=== PATIENT | male | born 1950 | race Caucasian/White ===

== ENCOUNTER 2024-01-28 14:26 | Inpatient (IN) | payer MEDICARE, OTHER, SELFPAY ==
[2024-01-28] VITALS (14 sets, daily range): BP systolic 101–139; BP diastolic 56–80; BMI 33.9
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
[2024-01-28] MEDS: DUONEB 3 ML INH ×3 (11:17→20:32)
[2024-01-28 11:18] LABS: % Basophils 0.4 % (0-2); % Eosinophils 0.8 % (0-6); % Immature Granulocytes 0.4 % (0-0.5); % Lymphocytes 8.4 % (20.5-51.1); % Monocytes 5.7 % (1.7-9.3); % Neutrophils 84.3 % (42.2-75.2); Absolute Eosinophils 0.1 10^3/uL (0-0.7); Absolute Lymphocytes 0.9 10^3/uL (1.2-3.4); Absolute Monocytes 0.6 10^3/uL (0.1-0.6); Absolute Neutrophils 8.5 10^3/uL (1.4-6.5); Hematocrit 44.4 % (39.0-52.0); Mean Corp Hgb Conc. 33.8 g/dL (33.0-37.0); Mean Corpuscular Hgb 30.5 pg (27.0-31.0); Mean Corpuscular Volume 90.2 fL (80.0-94.0); Mean Platelet Volume 9.1 fL (7.4-10.4); Nucleated Red Blood Cells % 0 % (-); Platelet Count 240 10^3/uL (130-400); Red Blood Cell Count 4.92 10^6/uL (4.70-6.10); Red Cell Dist. Width 14.3 % (11.5-14.5); White Blood Cell Count 10.1 10^3/uL (4.8-10.8)
[2024-01-28 11:30] LABS: ALT (SGPT) < 10 U/L (0-50); AST (SGOT) 27 U/L (17-59); Albumin 4.9 g/dl (3.5-5.0); Alkaline Phosphatase 73 U/L (38-126); Blood Urea Nitrogen 21 mg/dl (9-20); Calcium 9.7 mg/dl (8.4-10.2); Carbon Dioxide 26 mmol/L (22-30); Chloride 105 mmol/L (98-107); Estimated Creatinine Clearance 79 ml/min; Glucose 100 mg/dl (70-99); Potassium 4.5 mmol/L (3.5-5.1); Sodium 142 mmol/L (135-145); Total Bilirubin 0.8 mg/dl (0.2-1.3); Total Protein 7.9 g/dl (6.3-8.2); eGFR > 60.00
[2024-01-28 11:39] LABS: NT-proBNP 54.3 pg/ml
[2024-01-28 11:43] LABS: COVID-19 Antigen Negative (Negative)
[2024-01-28] MEDS: TYLENOL 650 MG PO ×2 (12:28→16:53)
[2024-01-28 12:43] LABS: Urine Albumin Negative (Neg - Trace); Urine Bilirubin Negative (Negative); Urine Character Clear (Clear); Urine Color Yellow; Urine Glucose Negative (Negative); Urine Ketone Negative (Negative); Urine Leukocyte Trace (Negative); Urine Nitrite Negative (Negative); Urine Occult Blood Negative (Negative); Urine Urobilinogen Negative (Neg - 1+); Urine pH 6.5 (5.0-9.0)
[2024-01-28 12:46] LABS: Lactic Acid 1.4 mmol/L (0.7-2.0)
[2024-01-28] MEDS: NSS 1000 IV (12:54)
[2024-01-28] MEDS: ROCEPHIN 1000 MG IV (12:58)
[2024-01-28 13:11] LABS: Urine Mucus Few; Urine Squamous Cell >30 /LPF (Few)
[2024-01-28 13:14] LABS: Urine Bacteria Few (Negative)
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
[2024-01-28] MEDS: ZITHROMAX INFUSION 250 IV (13:37)
--- NOTE | 2024-01-28 15:55 | PTCARENOTE ---
01/27- Patient transferred and oriented to unit without issue. AAOX3, productive cough with thin yellow sputum currently observed; Lungs diminished with coarse bases, with rub and stridor auscultated at R-base. Patient is able to stand and pivot
to bed at this time but gets easily STEVE. BL LE are +2 pitting edema with erythema and warm to touch. Currently mildly febrile at 99.7. Warm blanket given. Awaiting Pharmacy Verification of medication then will administer any PRN cough medicine
and tylenol as ordered. MRSA swab completed.
[2024-01-28] MEDS: NSS 500 IV (16:50)
[2024-01-28] MEDS: FLAGYL 500 MG 100 IV ×2 (16:51→23:24)
[2024-01-28] MEDS: LOVENOX 40 MG SC (16:52)
[2024-01-28] MEDS: SINEMET 25-100 1.5 TABLET PO ×2 (17:38→22:17)
[2024-01-28] MEDS: COMTAN 200 MG PO ×2 (17:41→22:18)
[2024-01-29] VITALS (8 sets, daily range): BP systolic 99–120; BP diastolic 56–76; PULSE 66–98; O2SAT 93; BMI 31.4
[2024-01-29] MEDS: TYLENOL 650 MG PO (00:59)
[2024-01-29] MEDS: FLAGYL 500 MG 100 IV (08:06)
[2024-01-29] MEDS: SINEMET 25-100 1.5 TABLET PO ×4 (08:08→22:10)
[2024-01-29] MEDS: MIRALAX 8.5 GRAMS PO (08:08)
[2024-01-29] MEDS: ASPIR LOW (ENTERIC COATED) 81 MG PO (08:08)
[2024-01-29] MEDS: COMTAN 200 MG PO (08:08)
[2024-01-29] MEDS: PROTONIX 40 MG PO (08:08)
[2024-01-29] MEDS: COLACE 100 MG PO (08:08)
[2024-01-29 08:50] LABS: % Basophils 0.5 % (0-2); % Eosinophils 0.7 % (0-6); % Immature Granulocytes 0.2 % (0-0.5); % Lymphocytes 10.5 % (20.5-51.1); % Monocytes 9.3 % (1.7-9.3); % Neutrophils 78.8 % (42.2-75.2); Absolute Lymphocytes 0.6 10^3/uL (1.2-3.4); Absolute Monocytes 0.6 10^3/uL (0.1-0.6); Absolute Neutrophils 4.7 10^3/uL (1.4-6.5); Hematocrit 34.4 % (39.0-52.0); Hemoglobin 11.9 g/dL (13.0-18.0); Mean Corp Hgb Conc. 34.6 g/dL (33.0-37.0); Mean Corpuscular Hgb 30.3 pg (27.0-31.0); Mean Corpuscular Volume 87.5 fL (80.0-94.0); Nucleated Red Blood Cells % 0 % (-); Platelet Count 191 10^3/uL (130-400); Red Blood Cell Count 3.93 10^6/uL (4.70-6.10); Red Cell Dist. Width 14.6 % (11.5-14.5); White Blood Cell Count 5.9 10^3/uL (4.8-10.8)
[2024-01-29 09:00] LABS: ALT (SGPT) < 10 U/L (0-50); AST (SGOT) 28 U/L (17-59); Albumin 3.5 g/dl (3.5-5.0); Alkaline Phosphatase 51 U/L (38-126); Blood Urea Nitrogen 15 mg/dl (9-20); Calcium 8.4 mg/dl (8.4-10.2); Carbon Dioxide 24 mmol/L (22-30); Chloride 105 mmol/L (98-107); Estimated Creatinine Clearance 86 ml/min; Glucose 95 mg/dl (70-99); HDL Cholesterol 30 mg/dl; LDL Cholesterol, Calculated 113 mg/dl; Potassium 4.2 mmol/L (3.5-5.1); Sodium 138 mmol/L (135-145); Total Bilirubin 0.8 mg/dl (0.2-1.3); Total Cholesterol 158 mg/dl (50-199); Triglyceride 75 mg/dl (10-149); Very Low Density Lipoprotein 15 mg/dl (0-30); eGFR > 60.00
[2024-01-29] MEDS: COMTAN PO (11:39)
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
[2024-01-29] MEDS: ROCEPHIN 1000 MG IV (12:23)
[2024-01-29] MEDS: STERILE WATER FOR INJECTION 10 ML IV (12:23)
--- NOTE | 2024-01-29 12:56 | PTOTSP ---
ST Dysphagia Eval
Mild/functional dysphagia
Pt received awake/alert with spouse present at the bedside. HOB raised upright for PO trials of puree, regular solids and thin liquids. Self fed regular solids demo mildly prolonged yet effective mastication benefits from added moisture and liquid
wash. Thin liquids by straw sip no overt s/sx of aspiration observed. Vocal quality remained clear throughout trials.
Per spouse report eats 'normal' diet at home occasional cough when he eats/drinks too quickly. Education re: swallow strategies below.
Recommend
1. Regular solids/thin liquids
2. Standard aspiration precautions and meal set up assist
3. Small bites, small/single sips and slow rate
4. Meds per pt preference and RN discretion
5. No further acute TOWER ERECTOR needs
[2024-01-29] MEDS: DUONEB 3 ML INH (13:01)
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
[2024-01-29] MEDS: LOVENOX 40 MG SC (17:13)
[2024-01-30 03:50] VITALS: BP 121/67
[2024-01-30 06:00] VITALS: BMI 32.0
[2024-01-30 07:06] VITALS: BP 122/69
[2024-01-30] MEDS: SINEMET 25-100 1.5 TABLET PO ×4 (07:31→20:42)
[2024-01-30] MEDS: PROTONIX 40 MG PO (07:31)
[2024-01-30] MEDS: ASPIR LOW (ENTERIC COATED) 81 MG PO (07:31)
[2024-01-30] MEDS: MIRALAX 8.5 GRAMS PO (07:31)
[2024-01-30] MEDS: COLACE 100 MG PO (07:31)
[2024-01-30 08:25] LABS: % Basophils 0.7 % (0-2); % Eosinophils 5.8 % (0-6); % Immature Granulocytes 0.4 % (0-0.5); % Monocytes 12.5 % (1.7-9.3); % Neutrophils 63.6 % (42.2-75.2); Absolute Eosinophils 0.3 10^3/uL (0-0.7); Absolute Lymphocytes 0.9 10^3/uL (1.2-3.4); Absolute Monocytes 0.7 10^3/uL (0.1-0.6); Absolute Neutrophils 3.4 10^3/uL (1.4-6.5); Hematocrit 35.9 % (39.0-52.0); Hemoglobin 12.5 g/dL (13.0-18.0); Mean Corp Hgb Conc. 34.8 g/dL (33.0-37.0); Mean Corpuscular Hgb 30.3 pg (27.0-31.0); Mean Corpuscular Volume 87.1 fL (80.0-94.0); Mean Platelet Volume 10.8 fL (7.4-10.4); Nucleated Red Blood Cells % 0 % (-); Platelet Count 191 10^3/uL (130-400); Red Blood Cell Count 4.12 10^6/uL (4.70-6.10); Red Cell Dist. Width 14.6 % (11.5-14.5); White Blood Cell Count 5.4 10^3/uL (4.8-10.8)
[2024-01-30 08:43] LABS: ALT (SGPT) < 10 U/L (0-50); AST (SGOT) 33 U/L (17-59); Albumin 3.7 g/dl (3.5-5.0); Alkaline Phosphatase 56 U/L (38-126); Blood Urea Nitrogen 15 mg/dl (9-20); Calcium 8.7 mg/dl (8.4-10.2); Carbon Dioxide 22 mmol/L (22-30); Chloride 106 mmol/L (98-107); Estimated Creatinine Clearance 77 ml/min; Glucose 86 mg/dl (70-99); Potassium 4.4 mmol/L (3.5-5.1); Sodium 138 mmol/L (135-145); Total Bilirubin 0.6 mg/dl (0.2-1.3); Total Protein 6.3 g/dl (6.3-8.2); eGFR > 60.00
[2024-01-30 11:06] VITALS: BP 125/62
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
[2024-01-30] MEDS: OMNICEF 300 MG PO ×2 (12:36→20:42)
[2024-01-30 15:33] VITALS: BP 131/64
[2024-01-30 15:50] LABS: Urine Albumin Negative (Neg - Trace); Urine Bilirubin Negative (Negative); Urine Character Clear (Clear); Urine Color Yellow; Urine Glucose Negative (Negative); Urine Ketone Trace (Negative); Urine Leukocyte Trace (Negative); Urine Nitrite Negative (Negative); Urine Occult Blood Negative (Negative); Urine Urobilinogen Negative (Neg - 1+)
[2024-01-30 16:03] LABS: Urine Bacteria Few (Negative); Urine Squamous Cell 16-20 /LPF (Few)
[2024-01-30 16:04] LABS: Urine Red Blood Cell 0-2 /HPF (0-2)
[2024-01-30] MEDS: DULCOLAX 10 MG PO (16:36)
[2024-01-30] MEDS: LOVENOX 40 MG SC (17:22)
[2024-01-30 19:05] VITALS: BP 109/66
[2024-01-30] MEDS: TYLENOL 650 MG PO (20:42)
[2024-01-30 23:09] VITALS: BP 120/68
[2024-01-31 03:05] VITALS: BP 111/67
[2024-01-31 06:00] VITALS: BMI 32.3
[2024-01-31 06:47] LABS: % Basophils 0.4 % (0-2); % Immature Granulocytes 0.4 % (0-0.5); % Lymphocytes 20.3 % (20.5-51.1); % Monocytes 11.6 % (1.7-9.3); % Neutrophils 59.3 % (42.2-75.2); Absolute Eosinophils 0.4 10^3/uL (0-0.7); Absolute Lymphocytes 0.9 10^3/uL (1.2-3.4); Absolute Monocytes 0.5 10^3/uL (0.1-0.6); Absolute Neutrophils 2.7 10^3/uL (1.4-6.5); Hematocrit 34.7 % (39.0-52.0); Hemoglobin 12.1 g/dL (13.0-18.0); Mean Corp Hgb Conc. 34.9 g/dL (33.0-37.0); Mean Corpuscular Hgb 30.5 pg (27.0-31.0); Mean Corpuscular Volume 87.4 fL (80.0-94.0); Mean Platelet Volume 9.6 fL (7.4-10.4); Nucleated Red Blood Cells % 0 % (-); Platelet Count 197 10^3/uL (130-400); Red Blood Cell Count 3.97 10^6/uL (4.70-6.10); Red Cell Dist. Width 14.6 % (11.5-14.5); White Blood Cell Count 4.5 10^3/uL (4.8-10.8)
[2024-01-31 07:00] VITALS: BP 112/57
[2024-01-31 07:20] LABS: ALT (SGPT) < 10 U/L (0-50); AST (SGOT) 29 U/L (17-59); Albumin 3.6 g/dl (3.5-5.0); Alkaline Phosphatase 55 U/L (38-126); Blood Urea Nitrogen 18 mg/dl (9-20); Carbon Dioxide 26 mmol/L (22-30); Chloride 106 mmol/L (98-107); Estimated Creatinine Clearance 87 ml/min; Glucose 93 mg/dl (70-99); Potassium 4.3 mmol/L (3.5-5.1); Sodium 141 mmol/L (135-145); Total Bilirubin 0.5 mg/dl (0.2-1.3); Total Protein 6.1 g/dl (6.3-8.2); eGFR > 60.00
[2024-01-31] MEDS: SINEMET 25-100 1.5 TABLET PO ×4 (07:41→21:09)
[2024-01-31] MEDS: OMNICEF 300 MG PO ×2 (07:42→19:45)
[2024-01-31] MEDS: PROTONIX 40 MG PO (07:42)
[2024-01-31] MEDS: MIRALAX 8.5 GRAMS PO (07:42)
[2024-01-31] MEDS: ASPIR LOW (ENTERIC COATED) 81 MG PO (07:42)
[2024-01-31] MEDS: COLACE 100 MG PO (07:42)
--- NOTE | 2024-01-31 09:09 | W.PN.HOSP.TC ---
Today's Communication/Plan
-
Pulmonary evaluation
Might need video swallow to rule out silent aspiration
Assessment / Plan
Assessment / Plan
Physical Exam
General: Conversant, No Pain or Chills
HEENT: Normocephalic, Anicteric, Moist mucous membranes, PERRLA, [place] Conjunctivae, No Ptosis, Deaf (Chronic right ear deafness, left ear hearing impaired has hearing aid present), Neck Nontender and Oxygen (91% RA will place on supplemental O2)
Respiratory: Clear and Other (Poor inspiratory effort mostly at bases ).
Cardiac: S1/S2, Regular Rhythm and Peripheral Edema (+2 nonpitting); No Murmur, Rub, Gallop or JVD
GI: Soft, Non Tender, Non Distended, Normal Bowel Sounds and No Hepatosplenomegaly
Genito-urinary: No hematuria
Musculoskeletal: No Clubbing, No Cyanosis, Edema, Left Lower Extremity (+2 nonpitting- erythema, mild tenderness, ). Right Lower Extremity (+2 nonpitting edema )
Skin: Warm and Dry; No Rash
Neuro: Awake, answered questions, alert to self and surroundings.
Psych: Calm
#Wheezing
Cough
He complains of spells of cough and wheezes. Possible intermittent aspiration? Vs underlying ILD, reactive airways disease
No hx of lung disease per pt
Echo and Pro-BNP not c/w CHF
Limited air entry on exam.
Per pulmonary evaluation in 2022, ( pre-op before knee surgery ) Patient developed mild restrictive lung disease which was likely related to neuromuscular weakness associated with his Parkinson's disease.
Will consult pulmonary, input appreciated
# LL leg cellulitis
c/w oral ABx
#Bilateral leg edema
-bnp negative
-Check 2D echo: EF 55% no sig change
#Recurrent UTIs-Hx Proteus Mirabella's UTI January 2023, Ecoli 08/2022
#Recurrent bacterial prostatitis
#Recurrent bacterial prostatitis,
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
-repeat UA showed mild bacteria, and trace leukocytes.
-Monitored urine output with bladder scans
#Coronary artery disease with stent 09/2015
-Continue aspirin 81 mg daily
-Follows at [facility] cardiology
2D echo 12/11/2019: EF 60 to 65%, no wall abnormalities mild TR
-Check 2D echo: EF 55% no sig change
#Parkinson's disease/status post deep brain stimulator in place 2005, battery changed 2012
#Chronic ambulatory dysfunction uses wheelchair most the time to do above
-Continue carbidopa levodopa before meals and at bedtime
-PT/OT consulted, recommended SNF
-speech eval, might need vidow swallow
#HLD
-No current meds reported
#GERD,PUD
Hx upper GI bleed in past
-Continue Protonix 40 mg daily
#Chronic constipation
-Continue MiraLAX 8.5 g p.o. daily, Colace 100 mg daily
#Osteoarthritis
#Bilateral hip and knee replacements including rotator cuff repairs
#Hearing impairment bilaterally
-Deaf right ear, hearing aid left ear
Other PMH:
Status post cataract surgery.
Status post umbilical hernia repair with mesh.
DVT prophylaxis
Subcu Lovenox
DNR per patient
Total time spent to see the patient, examine the patient on the floor, review data and lab results, discuss the treatment plan with the patient, on phone, nursing staff around 55 minutes
Anticipated Discharge: 24 - 48 hours
Subjective/Interval History
-
Date of Service: January 31, 2024
No abd pain
No chest pain
Complains of wheezes and cough
Objective Data
-
Labs:
Laboratory Results
01/31/24
06:02
WBC 4.5 L
Hgb 12.1 L
Hct 34.7 L
Plt Count 197
Sodium 141
Potassium 4.3
Chloride 106
Carbon Dioxide 26
BUN 18
Creatinine 0.8
Glucose 93
Calcium 9.0
Total Bilirubin 0.5
AST 29
ALT < 10
Alkaline Phosphatase 55
Vital Signs:
Vital Signs
Temp Pulse Resp BP Pulse Ox
98.2 F 65 18 112/57 95
01/31/24 07:00 01/31/24 07:00 01/31/24 07:00 01/31/24 07:00 01/31/24 08:00
I&O
01/30/24 01/31/24 02/01/24
06:59 06:59 06:59
Intake Total 2009 1120 / 1120
Output Total 1375 / 1375 1225 / 1225
Balance 635 / 635 -105 / -105
[2024-01-31 11:00] VITALS: BP 101/64
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
[2024-01-31 15:00] VITALS: BP 114/61
[2024-01-31] MEDS: DELTASONE 30 MG PO (15:48)
[2024-01-31] MEDS: CLARITIN 10 MG PO (15:49)
[2024-01-31] MEDS: LOVENOX 40 MG SC (17:21)
[2024-01-31 19:10] VITALS: BP 134/64
[2024-01-31 23:15] VITALS: BP 117/68
[2024-02-01] VITALS (7 sets, daily range): BP systolic 121–138; BP diastolic 68–73; PULSE 62; O2SAT 95–97; BMI 32.2
[2024-02-01] MEDS: MIRALAX 8.5 GRAMS PO (08:45)
[2024-02-01] MEDS: SINEMET 25-100 1.5 TABLET PO ×4 (08:46→21:16)
[2024-02-01] MEDS: CLARITIN 10 MG PO (08:46)
[2024-02-01] MEDS: PROTONIX 40 MG PO (08:46)
[2024-02-01] MEDS: ASPIR LOW (ENTERIC COATED) 81 MG PO (08:46)
[2024-02-01] MEDS: OMNICEF 300 MG PO ×2 (08:47→19:34)
[2024-02-01] MEDS: COLACE 100 MG PO (08:47)
[2024-02-01] MEDS: DELTASONE 30 MG PO (08:47)
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
--- NOTE | 2024-02-01 09:37 | W.PN.HOSP.TC ---
Addendum entered and electronically signed by Jarad Tomas MD 02/01/24 12:48:
Addendum
Correction right LL cellulitis present on admission, not left side.
Original Note:
Today's Communication/Plan
-
dc in am to SNF
Assessment / Plan
Assessment / Plan
Physical Exam
General: Conversant, No Pain or Chills
HEENT: Normocephalic, Anicteric, Moist mucous membranes, PERRLA, [place] Conjunctivae, No Ptosis, Deaf (Chronic right ear deafness, left ear hearing impaired has hearing aid present), Neck Nontender and Oxygen (91% RA will place on supplemental O2)
Respiratory: Clear and Other (Poor inspiratory effort mostly at bases ).
Cardiac: S1/S2, Regular Rhythm and Peripheral Edema (+2 nonpitting); No Murmur, Rub, Gallop or JVD
GI: Soft, Non Tender, Non Distended, Normal Bowel Sounds and No Hepatosplenomegaly
Genito-urinary: No hematuria
Musculoskeletal: No Clubbing, No Cyanosis, Edema, Left Lower Extremity (+2 nonpitting- erythema, mild tenderness, ). Right Lower Extremity (+2 nonpitting edema )
Skin: Warm and Dry; No Rash
Neuro: Awake, answered questions, alert to self and surroundings.
Psych: Calm
#Wheezing/ Cough
He complains of spells of cough and wheezes. Possible intermittent aspiration? Vs underlying ILD, reactive airways disease
Per pulmonary doctor: Possible bronchitis or recurrent microaspiration
No hx of lung disease per pt
Echo and Pro-BNP not c/w CHF
Limited air entry on exam.
Per pulmonary evaluation in 2022, ( pre-op before knee surgery ) Patient developed mild restrictive lung disease which was likely related to neuromuscular weakness associated with his Parkinson's disease.
Started on short course of prednisone for symptomatic relief 30 mg X 2 days, 20 mg X 2 days and 10 mg. Intranasal spray-saline. Antihistamines-loratadine
Flonase or Astelin not available here. May be helpful in the outpatient setting.
Suggest outpatient evaluation in the next [address] Xavier.
Consulted pulmonary, input appreciated
# LL leg cellulitis
less redness in left lower leg
c/w oral ABx
#Bilateral leg edema
-bnp negative
-Check 2D echo: EF 55% no sig change
#Recurrent UTIs-Hx Proteus Mirabella's UTI January 2023, Ecoli 08/2022
#Recurrent bacterial prostatitis
#Recurrent bacterial prostatitis,
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
-repeat UA showed mild bacteria, and trace leukocytes.
-Monitored urine output with bladder scans
#Coronary artery disease with stent 09/2015
-Continue aspirin 81 mg daily
-Follows at [facility] cardiology
2D echo 12/11/2019: EF 60 to 65%, no wall abnormalities mild TR
- 2D echo: EF 55% no sig change
#Parkinson's disease/status post deep brain stimulator in place 2005, battery changed 2012
#Chronic ambulatory dysfunction uses wheelchair most the time to do above
-Continue carbidopa levodopa before meals and at bedtime
-PT/OT consulted, recommended SNF
-speech eval, might need vidow swallow
#HLD
-No current meds reported
#GERD,PUD
Hx upper GI bleed in past
-Continue Protonix 40 mg daily
#Chronic constipation
-Continue MiraLAX 8.5 g p.o. daily, Colace 100 mg daily
#Osteoarthritis
#Bilateral hip and knee replacements including rotator cuff repairs
#Hearing impairment bilaterally
-Deaf right ear, hearing aid left ear
Other PMH:
Status post cataract surgery.
Status post umbilical hernia repair with mesh.
DVT prophylaxis
Subcu Lovenox
DNR per patient
Total time spent to see the patient, examine the patient on the floor, review data and lab results, discuss the treatment plan with the patient, on phone, nursing staff around 57 minutes
Anticipated Discharge: Within 24 hours
Subjective/Interval History
-
Date of Service: February 01, 2024
No chest pain
No sob
No fevers
Less cough, wants to go to SNF
Objective Data
-
Vital Signs:
Vital Signs
Temp Pulse Resp BP Pulse Ox
97.6 F 64 14 138/71 97
02/01/24 07:10 02/01/24 07:10 02/01/24 07:10 02/01/24 07:10 02/01/24 07:10
I&O
01/31/24 02/01/24 02/02/24
06:59 06:59 06:59
Intake Total 1120 / 1120 240 / 240
Output Total 1225 / 1225 1100 / 1100
Balance -105 / -105 -860 / -860
--- NOTE | 2024-02-01 12:42 | PN.CDI ---
CDI
- -
CDI:
Physician Documentation Request
Admit Date: 01/28/24 14:26
Dear Doctor Genoveva,
Please review the following and provide your response in the progress notes.
Clinical Indicators:
- 01/29 PN 'Bilateral leg edema'
- 01/31 PN 'LL leg cellulitis...c/w oral ABx'
Please clarify the following:
_LLE cellulitis__ was present on admission
_LLE cellulitis__ was not present on admission
Unable to determine
Use of terms such as suspected, likely, concern for, or probable (associated with a specific diagnosis that is being evaluated, monitored, or treated as if it exists) are acceptable and can be coded in the inpatient setting, when documented at the
time of discharge.
Thank you,
Jhon Vuong RN
CDI Specialist
Please use your independent medical judgment in providing your response.
--- NOTE | 2024-02-01 15:26 | CM ---
CM reviewed chart, spoke with Lisa at [facility], can accept patient tomorrow. Patient seen in chair, discussed [facility] can offer patient a bed tomorrow. Patient agreeable to [facility], reports he has been to SNF in past and had a good experience. CM
will continue to follow for all discharge planning needs.
Plan; [facility] SNF tomorrow, will likely need transportation.
[2024-02-01] MEDS: LOVENOX 40 MG SC (17:43)
[2024-02-01] MEDS: TESSALON PERLES 200 MG PO (21:18)
[2024-02-02 03:30] VITALS: BP 122/66
[2024-02-02 05:00] VITALS: BMI 31.8
[2024-02-02 07:20] VITALS: BP 132/69
--- NOTE | 2024-02-02 08:52 | W.PN.HOSP.TC ---
Today's Communication/Plan
-
dc
Assessment / Plan
Assessment / Plan
Physical Exam
General: Conversant, No Pain or Chills
HEENT: Normocephalic, Anicteric, Moist mucous membranes, PERRLA, [place] Conjunctivae, No Ptosis, Deaf (Chronic right ear deafness, left ear hearing impaired has hearing aid present), Neck Nontender and Oxygen (91% RA will place on supplemental O2)
Respiratory: Clear and Other (Poor inspiratory effort mostly at bases ).
Cardiac: S1/S2, Regular Rhythm and Peripheral Edema (+2 nonpitting); No Murmur, Rub, Gallop or JVD
GI: Soft, Non Tender, Non Distended, Normal Bowel Sounds and No Hepatosplenomegaly
Genito-urinary: No hematuria
Musculoskeletal: No Clubbing, No Cyanosis, Edema, Left Lower Extremity (+2 nonpitting- erythema, mild tenderness, ). Right Lower Extremity (+2 nonpitting edema )
Skin: Warm and Dry; No Rash
Neuro: Awake, answered questions, alert to self and surroundings.
Psych: Calm
#Wheezing/ Cough
He complains of spells of cough and wheezes. Possible intermittent aspiration? Vs underlying ILD, reactive airways disease
Per pulmonary doctor: Possible bronchitis or recurrent microaspiration
No hx of lung disease per pt
Echo and Pro-BNP not c/w CHF
Limited air entry on exam.
Per pulmonary evaluation in 2022, ( pre-op before knee surgery ) Patient developed mild restrictive lung disease which was likely related to neuromuscular weakness associated with his Parkinson's disease.
Started on short course of prednisone for symptomatic relief 30 mg X 2 days, 20 mg X 2 days and 10 mg. Intranasal spray-saline. Antihistamines-loratadine
Flonase or Astelin not available here. May be helpful in the outpatient setting.
Suggest outpatient evaluation in the next [address] Xavier.
Consulted pulmonary, input appreciated
# LL leg cellulitis
less redness in left lower leg
c/w oral ABx
#Bilateral leg edema
-bnp negative
-Check 2D echo: EF 55% no sig change
#Recurrent UTIs-Hx Proteus Mirabella's UTI January 2023, Ecoli 08/2022
#Recurrent bacterial prostatitis
#Recurrent bacterial prostatitis,
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
-repeat UA showed mild bacteria, and trace leukocytes.
-Monitored urine output with bladder scans
#Coronary artery disease with stent 09/2015
-Continue aspirin 81 mg daily
-Follows at [facility] cardiology
2D echo 12/11/2019: EF 60 to 65%, no wall abnormalities mild TR
- 2D echo: EF 55% no sig change
#Parkinson's disease/status post deep brain stimulator in place 2005, battery changed 2012
#Chronic ambulatory dysfunction uses wheelchair most the time to do above
-Continue carbidopa levodopa before meals and at bedtime
-PT/OT consulted, recommended SNF
-speech eval, might need vidow swallow
#HLD
-No current meds reported
#GERD,PUD
Hx upper GI bleed in past
-Continue Protonix 40 mg daily
#Chronic constipation
-Continue MiraLAX 8.5 g p.o. daily, Colace 100 mg daily
#Osteoarthritis
#Bilateral hip and knee replacements including rotator cuff repairs
#Hearing impairment bilaterally
-Deaf right ear, hearing aid left ear
Other PMH:
Status post cataract surgery.
Status post umbilical hernia repair with mesh.
DVT prophylaxis
Subcu Lovenox
DNR per patient
Total discharge time spent to see the patient, examine the patient on the floor, review data and lab results, discuss the discharge plan with the patient, nursing staff and nurse outreach case manager around 67 minutes
Anticipated Discharge: Today
Subjective/Interval History
-
Date of Service: February 02, 2024
Feels cough is less
No chest pain
Objective Data
-
Vital Signs:
Vital Signs
Temp Pulse Resp BP Pulse Ox
97.9 F 58 16 132/69 96
02/02/24 07:20 02/02/24 07:20 02/02/24 07:20 02/02/24 07:20 02/02/24 07:20
I&O
02/01/24 02/02/24 02/03/24
06:59 06:59 06:59
Intake Total 240 / 240 600 / 600
Output Total 1100 / 1100 975 / 975
Balance -860 / -860 -375 / -375
[2024-02-02] MEDS: PROTONIX 40 MG PO (08:56)
[2024-02-02] MEDS: COLACE 100 MG PO (08:57)
[2024-02-02] MEDS: CLARITIN 10 MG PO (08:59)
[2024-02-02] MEDS: ASPIR LOW (ENTERIC COATED) 81 MG PO (08:59)
[2024-02-02] MEDS: SINEMET 25-100 1.5 TABLET PO ×2 (08:59→12:05)
[2024-02-02] MEDS: TESSALON PERLES 200 MG PO (08:59)
[2024-02-02] MEDS: DELTASONE 30 MG PO (09:00)
[2024-02-02] MEDS: MIRALAX 8.5 GRAMS PO (09:00)
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
[2024-02-02] MEDS: OMNICEF 300 MG PO (09:35)
[2024-02-02 11:00] VITALS: BP 105/65
--- NOTE | 2024-02-02 11:01 | CM ---
Addendum entered by Kemi Stahl 02/02/24 11:26:
Patient scheduled for 2:00 p.m. ambulance transport. Lisa at [facility] made aware of transport time.
Original Note:
CM reviewed chart, spoke with Lisa at [facility], able to accept patient for SNF. Patient seen, agreeable to discharge to SNF. IMM reviewed, signed, placed in chart. Patient will require ambulance transport as he is an assist of 2. CM will continue to
follow for all discharge planning needs.
Plan; [facility] SNF, awaiting ambulance transport time
[facility]
Report: [id number]
--- NOTE | 2024-02-02 13:00 | W.DCSUMMARY ---
Discharge Summary
Discharge Data
Date of Admission: 01/28/24
Date of Discharge: 02/02/24
-
Pending Results: No
Hospital Course
73 years old male presented with intermittent cough and wheezing. He did not have evidence of acute pulmonary infection. No significant infiltrate on scan of the chest. He did not have fever or leukocytosis. Patient did not have hypoxia. He
was evaluated by pulmonary doctor. Patient reported chronic cough for years. His cough worsened over the last several days/weeks. Possibility of recurrent microaspiration which could be related to muscle weakness associated with Parkinson
disease. He complained of postnasal drip with some degree of rhinitis. No evidence of parenchymal lung disease on scan of the chest. Echocardiogram was normal without evidence of congestive heart failure. proBNP was normal. Patient was started
on nebulizer treatment as needed, Tessalon, Claritin and short course of prednisone. He started to feel better. Speech evaluation recommended to continue oral diet. Right lower extremity had mild redness that patient felt was chronic, he
received empiric oral antibiotic for possible cellulitis. Patient was evaluated by physical therapy and recommended short-term rehabilitation. Patient remained hemodynamically stable and was discharged in a stable condition.
Discharge Plan
-
Patient Disposition: [facility]/SNF
Discharge Diagnosis/Procedures: Wheezing/ cough, likely related to acute bronchitis with possible postinfectious cough. Cannot rule rule out recurrent microaspiration.
Diet: As tolerated
Referrals:
Daniele Garcia MD [Family Provider] -
Ricardo Neil MD [Active] - in two to four weeks
Prescriptions:
New
loratadine 10 mg Tablet
10 mg PO DAILY Qty: 30 0RF
bisacodyl 10 mg Suppository
10 mg AR [id number] PRN (Reason: constipation) Qty: 12 0RF
bisacodyl 5 mg Tablet,Delayed Release (Dr/Ec)
10 mg PO DAILYPRN PRN (Reason: CONSTIPATION) Qty: 10 0RF
ipratropium-albuterol 0.5 mg-3 mg(2.5 mg base)/3 mL Solution For Nebulization
3 ml inhalation R Q4HPRN PRN (Reason: wheezing) Qty: 30 0RF
benzonatate 100 mg Capsule
200 mg PO TID Qty: 20 0RF
prednisone 10 mg tablet
20 mg PO DAILY Qty: 10 0RF
Rx Instructions:
20 mg X 2 days then 10 X 2 days then stop
Continued
docusate sodium 100 MG capsule
100 mg PO DAILY
aspirin 81 MG tablet,delayed release (DR/EC)
81 mg PO DAILY
pantoprazole 40 MG tablet,delayed release (DR/EC)
40 mg PO DAILY
polyethylene glycol 3350 [Miralax] 17 gram Powder In Packet
17 g PO DAILY
acetaminophen 650 mg Tablet Extended Release
650 mg PO [id number] PRN (Reason: knee pain)
bufsshxuv-pjrgkngz-jryprkvdyg 37.5-150-200 mg tablet
1 tab PO ACHS
cholecalciferol (vitamin D3) [Vitamin D3] 125 mcg (5,000 unit) Tablet
125 mcg PO DAILY
Discharge Orders:
Discharge Patient (As Directed); Ordered 02/02/24
Ordered By: Jarad Tomas
Discharge Date and Time
Print Language: MONGOLIAN
--- NOTE | 2024-02-02 14:32 | PTCARENOTE ---
Report called and given to Braxton Worthy
== END 2024-02-02 14:44 | DRG 202 ==
LOC: 4 WEST ACU 14:26
PROVIDERS: Clinical Nurse Specialist Family Health; ADMITTING PHYSICIAN Internal Medicine; ATTENDING PHYSICIAN Internal Medicine; CONSULT PHYSICIAN Internal Medicine Critical Care Medicine; EMERGENCY PHYSICIAN Emergency Medicine; FAMILY PHYSICIAN Family Medicine
DX: J20.9 Acute bronchitis, unspecified (principal); L03.116 Cellulitis of left lower limb; Z66 Do not resuscitate; G20.A1 Parkinson's disease without dyskinesia, without mention of fluctuations; R09.02 Hypoxemia; Z11.52 Encounter for screening for COVID-19; Z95.5 Presence of coronary angioplasty implant and graft; I25.10 Atherosclerotic heart disease of native coronary artery without angina pectoris; K21.9 Gastro-esophageal reflux disease without esophagitis; M19.90 Unspecified osteoarthritis, unspecified site; H91.93 Unspecified hearing loss, bilateral
CPT/HCPCS: 71046; 71250; 80053; 80061; 81003; 81015; 83605; 83880; 85025; 87040; 87070; 87641; 87811; 92610; 93005; 93306; 93970; 94640; 96365; 96375; 97163; 97167; 97530; 99285

== ENCOUNTER → 2024-04-11 10:46 | Outpatient (REF) | payer MEDICARE, OTHER, SELFPAY | LOC: REG 10:46 | PROVIDERS: ATTENDING PHYSICIAN Family Medicine | DX: J69.0 Pneumonitis due to inhalation of food and vomit (principal); G20.B2 Parkinson's disease with dyskinesia, with fluctuations | CPT/HCPCS: 71046 ==

== ENCOUNTER 2024-06-05 08:42 | Inpatient (IN) | payer MEDICARE, OTHER, SELFPAY ==
[2024-05-28] VITALS (16 sets, daily range): BP systolic 106–156; BP diastolic 47–94; PULSE 98; O2SAT 95; BMI 33.2; BMI 33.1
[2024-05-28 05:34] LABS: COVID-19 Antigen Negative (Negative)
--- NOTE | 2024-05-28 07:20 | EDRN ---
Approximately 0715 patient was ringing the call zamorano. The mechanical engineering coop Vicente answered. The need expressed at that time was that no one was in the room for 3 hours. Message was relayed to this RN that was receiving report from the previous nurse. 0720
Patient was ringing the call zamorano and this RN responded. Patient then stated that he has saturated his diaper and needs to be changed. Asked why he did not inform the tech of this and he stated he just wanted to tell him he hasn't been seen in 3
hours. This RN changed the patient's saturated yellow diaper, perineal care, new diaper all done with log roll. Then updated the patient to everything that was done in his 3 hours he had been here including XRay.
--- NOTE | 2024-05-28 08:41 | ED.GENMED ---
History of Present Illness
General
Chief Complaint: Cough
Source: patient
Exam Limitations: none
Time Seen by Provider: 05/28/24 08:38
Nursing documentation reviewed up to this point in time: agreed with
History of Present Illness
History of Present Illness:
74 yo male with hx of Parkinsons, deep brain stimulator left side, CAD, HLD, cardiac stent, GERD, PUD, BPH, anxiety/depression, presents stating he's had a cough for a month, it gets worse 'when I get nervous.' States he lives with as sole
caregiver. States he no longer ambulates, crawls into shower and pulls himself up onto bench, around 2 a.m. he 'got down on the floor on my knees to change my shorts and shirt and couldn't get back up.' He states he stayed there, leaning against the
recliner, unable to help him up until this a.m. when she called 911.
States he's had burning with urination, frequency and urgency to urinate past week. Denies fever/ chills, abdominal pain.
Denies CP or SOB.
Has appointment with PCP Dr. Obregon tomorrow.
Past History
Past History
ED Past Medical History: GERD, Hypercholesterolemia, Other (Parkinson's) and Other (Kidney stones )
ED Past Surgical History: Appendectomy, Orthopedic (Reverse right shoulder replacement, R TKA Jul 2015), Urological and Other (Brain stimulator for Parkinson's disease , cataract surgery, umbilical hernia repair 02/12)
Patient has exhibited threatening behavior?: No
PSI?: No
Social History
Tobacco: Non-smoker
Alcohol: None
Drug: None
Personal:
Living: with family
Employment: Retired
Family History
Family History: Other (Noncontributory)
Review of Systems
Review of Systems
Allergies reviewed?: Yes
All Other Systems: ROS reviewed and negative except as documented in HPI and ROS
Constitutional: Denies fever
EENT: Denies sore throat
Respiratory: Reports cough; Denies trouble breathing
Cardiac: Denies chest pain
ABD/GI: Denies abdominal pain, nausea, vomiting, diarrhea or anorexia
: Reports frequency and urgency; Denies dysuria or difficulty voiding
Musculoskeletal: Reports other (non ambulatory, crawls on his knees)
Skin: Reports other (significant dandruff)
Neurological: Denies dizzy or headache
Psychiatric: Reports anxiety
Phy Exam
Physical Exam
Physical Exam:
GENERAL: No acute distress. A&Ox3.
CONSTITUTIONAL: Afebrile.
EYES: clear, conjunctivae normal
ENMT: moist mucus membranes, Pharynx nl
RESPIRATORY: Regular respirations, nonlabored, lungs clear. Intermittent raspy cough upper airway sounds only
CARDIOVASCULAR: Regular rate and rhythm, no murmurs, no rubs.
GI: Soft, nontender, normal BS
MUSCULOSKELETAL: Moves with ease. Well perfused. No edema
SKIN: Warm, dry, pink. Scaly, flaky scalp and face.
PSYCH: Normal mood and affect. Well kept, interactive and appropriate
NEUROLOGIC: Awake, alert and oriented. No focal neurological deficits
Course
Orders/Labs/Results
Orders:
Orders
05/28/24 04:50
CR Chest - 2 Views Urgent
Comment:
Reason For Exam: cough
05/28/24 04:51
COVID-19 Antigen Urgent
Source: Nasal Swab
INF RAPID [Influenza A+B Rapid Molecular] Urgent
JOSSELINE Source: Nasal Swab
Specimen Description:
05/28/24 09:37
Case Management Consult ONCE
Case Management Consult: VN/Home Care
Jail Placement
Physical Therapy Consult [Pt Eval And Treat] Urgent
Activity Level: Ambulate
05/28/24 10:22
CPK Isoenzyme Urgent
Complete Blood Count/With Diff Urgent
Comprehensive Metabolic Panel Urgent
Urinalysis Reflex To Culture Urgent
Date Specimen was Collected: 05/28/24
Time Specimen was Collected: 09:16
Urine Microscopic Reflex Cult Urgent
Urine Culture Urgent
JOSSELINE Source: U
Specimen Description:
Date Specimen was Collected: 05/28/24
Time Specimen was Collected: 09:16
05/28/24 12:02
0.9% Sodium Chloride 500 ml [Nss] 500 ml IV BOLUS
05/28/24 12:38
Admit/Transfer Patient As Directed
Co-Sign Provider:
Level of Care: Observation services
Assign to:: Medical/Surgical
Physician / Group: kamran
Diagnosis: viral uri
Code Status As Directed
Resuscitation Status: Do not resuscitate
Reached after discussion with pt or family/Healthcare POA: Yes
DNR Bracelet Application ONCE
PRN Pain Medication Management As Directed
May give lesser potent ordered pain med per pt: Yes
preference::
Protocol:: Medication orders for pain may be administered in a
manner that supports deferring to patient preference
when the pt is:
- Requesting an ordered lesser potent pain medication.
Least to most potent pain medications are defined
as: acetaminophen < NSAID < tramadol < opioids
(morphine, oxycodone, hydromorphone).
- Requesting a lesser dose of the same medication IF
ORDERED.
- Requesting a less intrusive route of administration
if both routes are prescribed by the provider (PO <
IV).
05/28/24 12:40
Benzonatate [Tessalon Perles] 200 mg PO TIDPRN PRN
05/28/24 12:43
Speech Therapy Eval & Treat Routine
05/28/24 15:24
Acetaminophen [Tylenol] 650 mg PO Q4HPRN PRN
05/28/24 15:24
Activity As Directed
Activity Level: As Tolerated
Vital Signs As Directed
Frequency: Per unit guidelines
Ot Eval And Treat Routine
DX Deep Vein Thrombosis Video Routine
05/28/24 20:00
Heparin 5,000 units SC Q12
05/29/24 06:00
Complete Blood Count/With Diff IN AM
Comprehensive Metabolic Panel IN AM
Abnormal Lab Results
05/28/24
10:22
RBC 4.33 L 10^6/uL
(4.70-6.10)
Hgb 12.9 L g/dL
(13.0-18.0)
Hct 38.5 L %
(39.0-52.0)
Abs Immat Gran (auto) 0.1 H 10^3/uL
(0-0.05)
Absolute Neuts (auto) 8.9 H 10^3/uL
(1.4-6.5)
Absolute Lymphs (auto) 0.8 L 10^3/uL
(1.2-3.4)
Absolute Monos (auto) 0.7 H 10^3/uL
(0.1-0.6)
Neutrophils % 85.1 H %
(42.2-75.2)
Lymphocytes % 7.7 L %
(20.5-51.1)
Glucose 113 H mg/dl
(70-99)
Total Creatine Kinase 412 H U/L
(55-170)
Ur Occult Blood Reflex Trace A
(Negative)
Leukocyte Esterase Rfl 1+ A
(Negative)
Urine Bacteria (Reflex) Few A
(Negative)
05/28/24 10:22
05/28/24 10:22
Vital Signs
Initial and Last Documented VS:
Initial Vital Signs
Temp Pulse Resp Pulse Ox
98.1 F 92 18 94
12/29/24 04:40 05/28/24 04:40 05/28/24 04:40 05/28/24 04:40
Last Documented Vital Signs
Temp Pulse Resp BP Pulse Ox
97.9 F 105 24 156/68 94
05/28/24 15:17 05/28/24 15:15 05/28/24 15:15 05/28/24 15:15 05/28/24 15:17
MDM/Problems Addressed
Differential Diagnosis Includes:
anxiety, URI, Covid, Flu, PNA
MDM/Problems Addressed:
74 yo male with hx of Parkinsons, deep brain stimulator left side, CAD, HLD, cardiac stent, GERD, PUD, BPH, anxiety/depression, presents stating he's had a cough for a month, it gets worse 'when I get nervous.' States he lives with as sole
caregiver. States he no longer ambulates, crawls into shower and pulls himself up onto bench, around 2 a.m. he 'got down on the floor on my knees to change my shorts and shirt and couldn't get back up.' He states he stayed there, leaning against the
recliner, unable to help him up until this a.m. when she called 911.
States he's had burning with urination, frequency and urgency to urinate past week. Denies fever/ chills, abdominal pain.
Denies CP or SOB.
Has appointment with PCP Dr. Obregon tomorrow.
Afebrile, NAD
Of note: Pt only starts coughing with upper airway rasping intermittently, especially noted when he is describing something emotional or that bothers him like no one answering his call zamorano, his being unable to help him, his dog at home...No
cough while conversing, Lungs CTA. No cough when no one in room, most likely psychogenic cough.
CBC normal
CMP normal
CPK 412
U/A: WBC 6-10 culture pending
CXR: NAD
P/T in pt unable to ambulate at all. States he crawls on his knees to get anywhere.
Case Management consulted and states she cannot find placement on this Wednesday, just prior to the New Year, etc.
Plan: admit, ambulatory dysfunction, mild rhabdomyolysis
*Critical Care Note
Total Time (30-74mins, 75-104mins- exclusive of procedures): Not Applicable
ED Attending Note
-
Portions of this chart may have been created with voice recognition software.� Occasional wrong word or��sound alike� substitutions may have occurred due to the inherent limitations of voice recognition software.
Discharge Plan
Departure
Patient Disposition: Admit
Date of Disposition: 05/28/24
Time of Disposition: 12:06
Admit to: Med/Surg
Presentation/result/management discussed w/ accepting MD/DO: Hospitalist
Condition: Fair
Discharge Problem:
Ambulatory dysfunction
Interventions
Interventions:
*Risk Screen - Suicide Last Done: 05/28/24 04:40
*General Assessment Last Done: 05/28/24 05:10
*Neglect/Abuse Screening Last Done: 05/28/24 04:40
ED- Fall Risk Assessment Last Done: 05/28/24 04:40
*ED COVID-19 Vaccine History Last Done: 05/28/24 04:40
*Nursing Disposition Last Done: 05/28/24 15:18
ED- Pulmonary Assessment Last Done: 05/28/24 05:10
Discharge Date and Time
Discharge Date/Time: 05/28/24 15:17
--- NOTE | 2024-05-28 09:28 | EDRN ---
09 BATTERY BUILDER was at the bedside for an extended period of time speaking with the patient about the test results that were completed. Patient also informed the BATTERY BUILDER that he has not been seen by anyone since arriving to the ER. BATTERY BUILDER then clarified
with the patient all the previous interactions in his visit. Patient then began to complain about urinary sumptoms of frequency, urgency, and burning sensation. New orders were placed for blood work and urine
--- NOTE | 2024-05-28 10:47 | CM ---
Addendum entered by Rajwinder Colon RN 05/28/24 13:53:
CM update . She is agreeable to [facility] first choice and [facility] second choice. CM will add [facility] via [facility] to referral.
Addendum entered by Rajwinder Colon RN 05/28/24 13:44:
CM left message for updated on MSSP status and referral to [facility]. OBS further discussed.
Original Note:
CM was consulted for [facility] placement. CM confirmed patient has Medicare and does not have a qualifying three day stay with in the last 30 days.
CM did confirm that patient is eligible for the [facility] MSSP program. CM spoke with via phone. stated that she is agreeable to placement. CM confirmed that pateint has been to [facility], [facility] and [facility]. CM advised that
if patient is placed under observation, patient would only be eligible to be placed in participating facilities. stated that she would be agreeable to [facility].
CM will remain available as needed.
[2024-05-28 11:39] LABS: % Basophils 0.2 % (0-2); % Eosinophils 0.1 % (0-6); % Immature Granulocytes 0.5 % (0-0.5); % Lymphocytes 7.7 % (20.5-51.1); % Monocytes 6.4 % (1.7-9.3); % Neutrophils 85.1 % (42.2-75.2); Absolute Immature Granulocytes 0.1 10^3/uL (0-0.05); Absolute Lymphocytes 0.8 10^3/uL (1.2-3.4); Absolute Monocytes 0.7 10^3/uL (0.1-0.6); Absolute Neutrophils 8.9 10^3/uL (1.4-6.5); Hematocrit 38.5 % (39.0-52.0); Hemoglobin 12.9 g/dL (13.0-18.0); Mean Corp Hgb Conc. 33.5 g/dL (33.0-37.0); Mean Corpuscular Hgb 29.8 pg (27.0-31.0); Mean Corpuscular Volume 88.9 fL (80.0-94.0); Nucleated Red Blood Cells % 0 % (-); Platelet Count 232 10^3/uL (130-400); Red Blood Cell Count 4.33 10^6/uL (4.70-6.10); Red Cell Dist. Width 13.5 % (11.5-14.5); White Blood Cell Count 10.4 10^3/uL (4.8-10.8)
[2024-05-28 11:44] LABS: Urine Character Clear (Clear); Urine Color Yellow; Urine Leukocyte 1+ (Negative); Urine Nitrite Negative (Negative)
[2024-05-28 11:45] LABS: Urine Albumin Negative (Neg - Trace); Urine Bilirubin Negative (Negative); Urine Glucose Negative (Negative); Urine Ketone Negative (Negative); Urine Occult Blood Trace (Negative); Urine Urobilinogen Negative (Neg - 1+)
[2024-05-28 11:57] LABS: ALT (SGPT) 49 U/L (0-50); AST (SGOT) 40 U/L (17-59); Alkaline Phosphatase 64 U/L (38-126); Blood Urea Nitrogen 18 mg/dl (9-20); Calcium 8.7 mg/dl (8.4-10.2); Carbon Dioxide 26 mmol/L (22-30); Chloride 102 mmol/L (98-107); Estimated Creatinine Clearance 87 ml/min; Glucose 113 mg/dl (70-99); Potassium 4.2 mmol/L (3.5-5.1); Sodium 138 mmol/L (135-145); Total Bilirubin 0.6 mg/dl (0.2-1.3); Total CK 412 U/L (55-170); Total Protein 6.9 g/dl (6.3-8.2); eGFR > 60.00
[2024-05-28 12:10] LABS: Urine Bacteria Few (Negative); Urine Red Blood Cell 0-2 /HPF (0-2)
[2024-05-28] MEDS: NSS 500 IV (12:40)
--- NOTE | 2024-05-28 12:41 | HPS.HSE ---
Addendum entered and electronically signed by Vikash Galarza MD 05/28/24 17:33:
Patient with respiratory rate of 26 and continued persistent cough. He developed fever of 100.5. Likely viral bronchitis. Added DuoNebs every 6 hours as needed. Added ceftriaxone/azithromycin. Dexamethasone 4 mg every 12.
Addendum entered and electronically signed by Vikash Galarza MD 05/28/24 14:25:
As per speech therapist patient should be n.p.o. with sips of water and essential meds crushed in pur�ed.
Original Note:
Family Physician
-
Family Physician: Daniele Garcia
Chief Complaint
-
weakness, cough
History of Present Illness
74-year-old male past medical history of Parkinson's disease with deep brain stimulator on the left, CAD status post stent, hyperlipidemia, GERD, peptic ulcer disease, BPH, anxiety/depression, kidney stones, presenting with cough for a month which
gets worse when he gets nervous. He lives with his his whole caregiver. He no longer ambulates and he crawls into the shower and pulls himself onto the bench. At 2 AM he got down on the floor and is needs to change his shorts and sure and
can get back up. He stayed there and leaned against the recliner. is unable to help him up until this morning when she called ambulance.
Cough is dry. Throat is dry. He denies any chest pain. Denies fevers or chills. Denies nausea or vomiting. He states his had an upper respiratory infection for the past few months.
He denies any new medications.
Denies chest pain shortness of breath. He denies any history of lung problems.
He denies smoking or alcohol use.
Medical History
Past Medical History
Past Medical History: Reports Other (Parkinson's disease with deep brain stimulator on the left, CAD status post stent, hyperlipidemia, GERD, peptic ulcer disease, BPH, anxiety/depression, kidney stones)
Past Surgical History: Reports Other ( Appendectomy, Orthopedic (Reverse right shoulder replacement, R TKA Jul 2015), Urological and Other (Brain stimulator for Parkinson's disease , cataract surgery, umbilical hernia repair 02/12))
Social History
Tobacco: Non-smoker
Alcohol: None
Drug: None
Family History
Family History: Not pertinent
Allergies / Home Medications
Allergies reflects when Allergies were last updated in [employer].
Home Medications with original date entered in [employer]
Allergy/Medication List:
Allergies
Allergy/AdvReac Type Severity Reaction Status Date / Time
meperidine HCl [From Demerol] Allergy Nausea / Verified 01/28/24 11:04
Vomiting
nitrofurantoin Allergy Unknown Verified 01/28/24 11:04
piperacillin Allergy Unknown-tolerated Verified 01/28/24 12:35
cefazolin,
cefdinir,
cetriaxone
prasugrel Allergy Rash Verified 01/28/24 11:04
Pjwmzhu-NPY-XrN Reductase Allergy leg Verified 01/28/24 11:04
Inhibitor weakness -
[Ukizpii-Iaz-Pos Reductase falls
Inhibitor]
sulfamethoxazole Allergy Hives/rash/lips Verified 01/28/24 11:04
[From Bactrim] swelled
tetanus toxoid, adsorbed Allergy Unknown Verified 01/28/24 11:04
ticagrelor [From Brilinta] Allergy Rash Verified 01/28/24 11:04
trimethoprim [From Bactrim] Allergy Hives/rash/lips Verified 01/28/24 11:04
swelled
venom-honey bee Allergy Anaphylaxis Verified 01/28/24 11:04
[bee venom (honey bee)]
bees, hornets Allergy Anaphylaxis Uncoded 01/28/24 11:04
IV CONTRAST Allergy Rash Uncoded 01/28/24 11:04
Home Medications
docusate sodium 100 mg capsule 100 mg PO DAILY Constipation 09/15/19
aspirin 81 mg tablet,delayed release 81 mg PO DAILY Blood clot prevention/tx 10/12/19
pantoprazole 40 mg tablet,delayed release 40 mg PO DAILY Gastrointestinal issue 10/12/19
acetaminophen 650 mg tablet,extended release 650 mg PO [id number] PRN knee pain 10/22/22
polyethylene glycol 3350 17 gram oral powder packet (Miralax) 17 g PO DAILY Gastrointestinal Issue 10/22/22
carbidopa 37.5 mg-levodopa 150 mg-entacapone 200 mg tablet 1 tab PO ACHS movement disorder 01/28/24
cholecalciferol (vitamin D3) 125 mcg (5,000 unit) tablet (Vitamin D3) 125 mcg PO DAILY supplement 01/29/24
benzonatate 100 mg capsule 200 mg (2 x 100 mg) PO TID #20 caps 02/02/24
bisacodyl 10 mg rectal suppository 10 mg IN [id number] PRN constipation #12 ea 02/02/24
bisacodyl 5 mg tablet,delayed release 10 mg (2 x 5 mg) PO DAILYPRN PRN CONSTIPATION #10 tabs 02/02/24
ipratropium 0.5 mg-albuterol 3 mg (2.5 mg base)/3 mL nebulization soln 3 ml inhalation R Q4HPRN PRN wheezing #30 applic 02/02/24
loratadine 10 mg tablet 10 mg PO DAILY #30 tabs 02/02/24
prednisone 10 mg tablet 20 mg (2 x 10 mg) PO DAILY #10 tabs 02/02/24
Review of Systems
-
History Source: Patient
A 12 point ROS was completed and negative except as noted: Yes
Constitutional: Reports No Symptoms
EENT: Reports See HPI
Respiratory: Reports See HPI
Cardiac: Reports No Symptoms
Abdomen/GI: Reports No Symptoms
: Reports No Symptoms
Musculoskeletal: Reports No Symptoms
Skin: Reports No Symptoms
Neurological: Reports No Symptoms
Endocrine: Reports No Symptoms
Hematologic/Lymphatic: Reports No Symptoms
Psych: Reports No Symptoms
Physical Exam
Vital Signs
Vital Signs
Temp Pulse Resp BP Pulse Ox
98.1 F 89 20 111/70 96
05/28/24 04:40 05/28/24 05:00 05/28/24 05:00 05/28/24 05:00 05/28/24 05:10
Physical Exam
General: Well Developed, Well Nourished and No Apparent Distress
HEENT: NormoCephalic, Moist mucous membranes and Atraumatic
Respiratory: Clear
Cardiac: S1/S2 and Regular Rhythm; No Murmur or Rub
GI: Soft, Non Tender, Non Distended and Normal Bowel Sounds; No Organomegaly
Rectal: Deferred by Provider
Musculoskeletal: No Clubbing, No Cyanosis and No Edema
Skin: No Rash
Neuro: Nonfocal/grossly intact
Laboratory Results
-
05/28/24 10:22
05/28/24 10:22
Laboratory Results
Total Bilirubin 0.6 mg/dl (0.2-1.3) 05/28/24 10:22
AST 40 U/L (17-59) 05/28/24 10:22
ALT 49 U/L (0-50) 05/28/24 10:22
Alkaline Phosphatase 64 U/L (38-126) 05/28/24 10:22
Data Reviewed
-
Lab Data: Labs Reviewed by me
Old Records: Reviewed
Impression/Plan
-
IMPRESSION:
PLAN:
# Ongoing dry cough possibly acute URI on chronic postnasal drip/GERD component
-Lungs sound clear, cough seems to be originating in the throat
-Not hypoxemic
-Continue benzonatate
-Chest x-ray, COVID and influenza negative
-Check speech and swallow
# Acute weakness/chronic ambulatory dysfunction likely viral URI
-COVID and influenza negative
-Chest x-ray unremarkable
-Urinalysis unremarkable
-IV fluids given
-PT/OT, case management for placement
# Mild rhabdomyolysis
-CK4 400
-IV fluids given
Parkinson's disease with deep brain stimulator
-Continue carbidopa-levodopa
CAD status post stent
-Continue aspirin
Hyperlipidemia
GERD
-Continue Protonix
Peptic ulcer disease
BPH
Anxiety/depression
History of kidney stones
DNR/DNI
DVT prophylaxis�heparin
Regular diet
--- NOTE | 2024-05-28 14:02 | PTOTSP ---
Clinical Swallow Evaluation
74M with admission for weakness and cough that has lasted >1 month. DDx: Ongoing dry cough possibly acute URI on chronic postnasal drip/GERD component. P/w clinical s/s concerning for acute on chronic oropharyngeal dysphagia. Acute components:
suspected impaired respiration coordination of swallow 2/2 baseline cough and increased lethargy. Chronic components: hx of Parkinson's disease with deep brain stimulator on the left and GERD. Continuous cough with and without PO trials during
today's evaluation. Recommend holding PO at this time. May have small sips of water sparingly for comfort. Essential meds crushed in puree. INDUSTRIAL REHABILITATION CONSULTANT service to follow.
Recommend:
1. NPO x ARHP (may have small sips of water sparingly with good oral care)
2. Essential meds crushed in puree
3. Reflux precautions
4. Aspiration precautions
5. INDUSTRIAL REHABILITATION CONSULTANT service to follow re: advance diet as able, consider repeat VSE if difficulties persist
[2024-05-28] MEDS: TESSALON PERLES 200 MG PO (14:22)
--- NOTE | 2024-05-28 16:30 | PTCARENOTE ---
Pt admitted to [facility] from ED. Pt anxious and having tight, spastic coughing fits. RA 92%. Pt pulled over from stretcher to bed. Pt oriented to surroundings and call zamorano.
--- NOTE | 2024-05-28 17:00 | PTCARENOTE ---
Pt having tight, spastic coughing fits. 92% RA. Dr Galarza notified and orders placed. Respiratory therapy notified.
[2024-05-28] MEDS: DUONEB 3 ML INH (17:03)
[2024-05-28] MEDS: TYLENOL 650 MG PO (17:14)
[2024-05-28] MEDS: COMTAN 200 MG PO ×2 (17:20→21:54)
[2024-05-28] MEDS: SINEMET 25-100 1.5 TABLET PO ×2 (17:20→21:55)
--- NOTE | 2024-05-28 18:30 | PTCARENOTE ---
Pt appears comfortable and sleeping in bed. Placed on 2L NC for comfort. updated.
[2024-05-28] MEDS: STERILE WATER FOR INJECTION 10 ML IV (18:42)
[2024-05-28] MEDS: DECADRON 4 MG IV (18:42)
[2024-05-28] MEDS: ROCEPHIN 1000 MG IV (18:42)
[2024-05-28] MEDS: ZITHROMAX INFUSION 250 IV (18:43)
[2024-05-28] MEDS: DESENEX/MITRAZOL/ZEASORB 1 APPLIC TOPICAL (21:52)
[2024-05-28] MEDS: HEPARIN 5000 UNITS SC (21:53)
[2024-05-28] MEDS: ROBITUSSIN 200 MG PO (22:53)
[2024-05-29] MEDS: DECADRON 4 MG IV ×2 (05:45→17:34)
[2024-05-29 06:00] VITALS: BMI 31.5
[2024-05-29 07:45] VITALS: BP 108/63
[2024-05-29] MEDS: SINEMET 25-100 1.5 TABLET PO ×4 (08:24→21:32)
[2024-05-29] MEDS: COMTAN 200 MG PO ×4 (08:24→21:32)
[2024-05-29] MEDS: COLACE 100 MG PO (08:25)
[2024-05-29] MEDS: ASPIR LOW (ENTERIC COATED) 81 MG PO (08:25)
[2024-05-29] MEDS: VITAMIN D3 (cholecalciferol) 125 MCG PO (08:25)
[2024-05-29] MEDS: HEPARIN 5000 UNITS SC ×2 (08:25→20:35)
[2024-05-29] MEDS: DESENEX/MITRAZOL/ZEASORB 1 APPLIC TOPICAL ×2 (08:31→20:35)
[2024-05-29 09:16] LABS: % Basophils 0.1 % (0-2); % Immature Granulocytes 0.4 % (0-0.5); % Lymphocytes 6.6 % (20.5-51.1); % Monocytes 2.5 % (1.7-9.3); % Neutrophils 90.4 % (42.2-75.2); Absolute Lymphocytes 0.5 10^3/uL (1.2-3.4); Absolute Monocytes 0.2 10^3/uL (0.1-0.6); Absolute Neutrophils 6.8 10^3/uL (1.4-6.5); Hematocrit 36.6 % (39.0-52.0); Hemoglobin 12.4 g/dL (13.0-18.0); Mean Corp Hgb Conc. 33.9 g/dL (33.0-37.0); Mean Corpuscular Hgb 30.6 pg (27.0-31.0); Mean Corpuscular Volume 90.4 fL (80.0-94.0); Mean Platelet Volume 9.1 fL (7.4-10.4); Nucleated Red Blood Cells % 0 % (-); Platelet Count 235 10^3/uL (130-400); Red Blood Cell Count 4.05 10^6/uL (4.70-6.10); Red Cell Dist. Width 13.2 % (11.5-14.5); White Blood Cell Count 7.5 10^3/uL (4.8-10.8)
[2024-05-29 09:51] LABS: ALT (SGPT) 17 U/L (0-50); AST (SGOT) 37 U/L (17-59); Albumin 3.7 g/dl (3.5-5.0); Alkaline Phosphatase 69 U/L (38-126); Blood Urea Nitrogen 15 mg/dl (9-20); Calcium 8.5 mg/dl (8.4-10.2); Carbon Dioxide 22 mmol/L (22-30); Chloride 103 mmol/L (98-107); Estimated Creatinine Clearance 97 ml/min; Glucose 121 mg/dl (70-99); Potassium 4.1 mmol/L (3.5-5.1); Sodium 136 mmol/L (135-145); Total Bilirubin 0.5 mg/dl (0.2-1.3); Total Protein 6.5 g/dl (6.3-8.2); eGFR > 60.00
--- NOTE | 2024-05-29 12:48 | W.PN.HOSP.TC ---
Today's Communication/Plan
-
Likely needs intermodal dispatcher placement. See diet changes.
Assessment / Plan
Assessment / Plan
74-year-old male presented with cough for a month which gets worse when he gets nervous. He lives with his his whole caregiver. He no longer ambulates and he crawls into the shower and pulls himself onto the bench. At 2 AM he got down on the
floor and is needs to change his shorts and sure and can get back up. He stayed there and leaned against the recliner. was unable to help him up in the morning when she called ambulance.
1. Ongoing dry cough possibly acute URI on chronic postnasal drip/GERD component
-Lungs sound clear, cough seems to be originating in the throat
-Not hypoxemic
-Continue benzonatate
-Chest x-ray, COVID and influenza negative
-Checked speech and swallow:
Puree/thin liquid diet
2. Acute weakness/chronic ambulatory dysfunction likely viral URI
-COVID and influenza negative
-Chest x-ray unremarkable
-Urinalysis unremarkable
-IV fluids given
-PT/OT, case management for placement
3. Mild rhabdomyolysis
-CK4 400
-IV fluids given
4. Parkinson's disease with deep brain stimulator
-Continue carbidopa-levodopa
5. CAD status post stent
-Continue aspirin
6. Hyperlipidemia
-outpt management
7. GERD
-Continue Protonix
8. Peptic ulcer disease
-Continue protonix
9. BPH
-outpt management
10. Anxiety/depression
-outpt management
History of kidney stones
DNR/DNI
DVT prophylaxis�heparin
Regular diet
Anticipated Discharge: 24 - 48 hours
Subjective/Interval History
-
Date of Service: May 29, 2024
Has sore throat. No other complaints.
Objective Data
-
Labs:
Laboratory Results
05/29/24
08:11
WBC 7.5
Hgb 12.4 L
Hct 36.6 L
Plt Count 235
Sodium 136
Potassium 4.1
Chloride 103
Carbon Dioxide 22
BUN 15
Creatinine 0.7
Glucose 121 H
Calcium 8.5
Total Bilirubin 0.5
AST 37
ALT 17
Alkaline Phosphatase 69
Vital Signs:
Vital Signs
Temp Pulse Resp BP Pulse Ox
98.6 F 64 16 108/63 95
05/29/24 07:45 05/29/24 07:45 05/29/24 07:45 05/29/24 07:45 05/29/24 07:45
I&O
05/28/24 05/29/24 05/30/24
06:59 06:59 06:59
Intake Total 250 / 250
Output Total 200 / 200
Balance 50 / 50
Review of Systems
-
History Source: Patient
All other systems: Reviewed and negative
Physical Exam
-
General: Well Developed, Well Nourished, No Apparent Distress, Comfortable and Obese
HEENT: Normocephalic, Atraumatic, Moist Mucous Membranes, Nose Appears Normal and Ears Appear Normal
Respiratory: Clear to Auscultation
Cardiac: Regular Rhythm and S1/S2
GI: Soft, Nontender and Nondistended
Musculoskeletal: No Clubbing, No Cyanosis and No Edema
Skin: Warm and Dry
Neuro: Awake and Alert
Psych: Calm
Data Reviewed
-
Labs: Labs Reviewed by me
[2024-05-29 15:05] VITALS: BP 109/63
[2024-05-29 15:26] VITALS: BP 143/73; PULSE 63; O2SAT 94
[2024-05-29] MEDS: ZITHROMAX INFUSION 250 IV (17:33)
[2024-05-29] MEDS: STERILE WATER FOR INJECTION 10 ML IV (19:03)
[2024-05-29] MEDS: ROCEPHIN 1000 MG IV (19:03)
[2024-05-29 23:50] VITALS: BP 120/67
[2024-05-30 06:00] VITALS: BMI 31.6
[2024-05-30] MEDS: DECADRON 4 MG IV ×2 (06:09→17:09)
[2024-05-30] MEDS: SINEMET 25-100 1.5 TABLET PO ×4 (07:37→20:38)
[2024-05-30] MEDS: ASPIR LOW (ENTERIC COATED) 81 MG PO (07:38)
[2024-05-30] MEDS: COMTAN 200 MG PO ×4 (07:38→20:40)
[2024-05-30] MEDS: COLACE 100 MG PO (07:38)
[2024-05-30] MEDS: VITAMIN D3 (cholecalciferol) 125 MCG PO (07:38)
[2024-05-30] MEDS: HEPARIN 5000 UNITS SC ×2 (07:38→20:36)
[2024-05-30] MEDS: DESENEX/MITRAZOL/ZEASORB 1 APPLIC TOPICAL ×2 (07:41→20:53)
[2024-05-30 07:50] VITALS: BP 117/65
[2024-05-30 08:00] LABS: Hematocrit 37.9 % (39.0-52.0); Hemoglobin 13.2 g/dL (13.0-18.0); Mean Corp Hgb Conc. 34.8 g/dL (33.0-37.0); Mean Corpuscular Hgb 30.2 pg (27.0-31.0); Mean Corpuscular Volume 86.7 fL (80.0-94.0); Mean Platelet Volume 9.6 fL (7.4-10.4); Platelet Count 249 10^3/uL (130-400); Red Blood Cell Count 4.37 10^6/uL (4.70-6.10); Red Cell Dist. Width 13.2 % (11.5-14.5); White Blood Cell Count 7.7 10^3/uL (4.8-10.8)
[2024-05-30 08:50] VITALS: BP 117/65; PULSE 60; O2SAT 96
[2024-05-30 12:10] LABS: Blood Urea Nitrogen 21 mg/dl (9-20); Carbon Dioxide 23 mmol/L (22-30); Chloride 102 mmol/L (98-107); Estimated Creatinine Clearance 97 ml/min; Glucose 157 mg/dl (70-99); Potassium 4.3 mmol/L (3.5-5.1); Sodium 137 mmol/L (135-145); eGFR > 60.00
--- NOTE | 2024-05-30 12:41 | W.PN.HOSP.TC ---
Today's Communication/Plan
-
Doing well. Possible ready for d/c tomorrow.
Assessment / Plan
Assessment / Plan
74-year-old male presented with cough and weakness
1. Ongoing dry cough possibly acute URI/bronchitis, on chronic postnasal drip/GERD component
-Lungs sound clear, cough seems to be originating in the throat
-Not hypoxemic
-Continue benzonatate
-Chest x-ray, COVID and influenza negative
-Checked speech and swallow:
Puree/thin liquid diet
2. Acute weakness/chronic ambulatory dysfunction likely viral URI
-COVID and influenza negative
-Chest x-ray unremarkable
-Urinalysis unremarkable
-IV fluids given
-PT/OT, case management for placement or safe home d/c
3. Mild rhabdomyolysis - resolved
-CK4 400
-IV fluids given
4. Parkinson's disease with deep brain stimulator
-Continue carbidopa-levodopa
5. CAD status post stent
-Continue aspirin
6. Hyperlipidemia
-outpt management
7. GERD
-Continue Protonix
8. Peptic ulcer disease
-Continue protonix
9. BPH
-outpt management
10. Anxiety/depression
-outpt management
History of kidney stones
DNR/DNI
DVT prophylaxis�heparin
Regular diet
Anticipated Discharge: 24 - 48 hours
Subjective/Interval History
-
Date of Service: May 30, 2024
Feels much better today
Objective Data
-
Labs:
Laboratory Results
05/30/24 05/30/24
07:16 11:31
WBC 7.7
Hgb 13.2
Hct 37.9 L
Plt Count 249
Sodium Cancelled 137
Potassium Cancelled 4.3
Chloride Cancelled 102
Carbon Dioxide Cancelled 23
BUN Cancelled 21 H
Creatinine Cancelled 0.7
Glucose Cancelled 157 H
Calcium Cancelled 9.0
Vital Signs:
Vital Signs
Temp Pulse Resp BP Pulse Ox
97.6 F 60 20 117/65 96
05/30/24 07:50 05/30/24 07:50 05/30/24 07:50 05/30/24 07:50 05/30/24 07:50
I&O
05/29/24 05/30/24 05/31/24
06:59 06:59 06:59
Intake Total 250 / 250 420 / 420
Output Total 200 / 200 200 / 200
Balance 50 / 50 220 / 220
Review of Systems
-
History Source: Patient
All other systems: Reviewed and negative
Physical Exam
-
General: Well Developed, Well Nourished, No Apparent Distress, Comfortable and Obese
HEENT: Normocephalic, Moist Mucous Membranes, Nose Appears Normal and Ears Appear Normal
Respiratory: Clear to Auscultation
Cardiac: Regular Rhythm and S1/S2
GI: Soft, Nontender and Nondistended
Musculoskeletal: No Clubbing, No Cyanosis and No Edema
Skin: Warm and Dry
Neuro: Awake, Alert and Oriented
Psych: Calm
Data Reviewed
-
Labs: Labs Reviewed by me
--- NOTE | 2024-05-30 15:05 | PTOTSP ---
Speech Language Pathology
Pt seen for dysphagia tx. Currently on pureed solids/thin liquids with significant dislike of modified diet. Seen with thin liquids, puree, and regular solids. Adequate mastication, bolus formation, and A-P transit. Trace oral residue noted. No
overt signs of aspiration. Significant improvement noted.
Recommend:
(1) Upgrade to regular solids/thin liquids
(2) General aspiration precautions
(3) Meds as tolerated
(4) SLEEP LAB TECHNOLOGIST to sign off. Please reconsult as indicated
[2024-05-30 15:30] VITALS: BP 135/71
[2024-05-30] MEDS: ZITHROMAX INFUSION 250 IV (17:09)
--- NOTE | 2024-05-30 17:31 | CM ---
Reviewed [facility], both [facility] and [facility] issued acceptance. Patient will need to transfer on [employer] waiver. [facility]
CM will need to update patient's tomorrow.
Plan: Case management will continue to follow and assist with discharge planning. SNF when bed secured.
[2024-05-30] MEDS: STERILE WATER FOR INJECTION 10 ML IV (18:28)
[2024-05-30] MEDS: ROCEPHIN 1000 MG IV (18:29)
[2024-05-30 23:31] VITALS: BP 130/70
[2024-05-31] MEDS: DECADRON 4 MG IV ×2 (05:20→18:36)
[2024-05-31 07:00] VITALS: BP 133/68
[2024-05-31 08:19] LABS: Hemoglobin 12.9 g/dL (13.0-18.0); Mean Corp Hgb Conc. 34.9 g/dL (33.0-37.0); Mean Corpuscular Hgb 30.5 pg (27.0-31.0); Mean Corpuscular Volume 87.5 fL (80.0-94.0); Mean Platelet Volume 9.1 fL (7.4-10.4); Platelet Count 288 10^3/uL (130-400); Red Blood Cell Count 4.23 10^6/uL (4.70-6.10); Red Cell Dist. Width 13.2 % (11.5-14.5); White Blood Cell Count 8.1 10^3/uL (4.8-10.8)
[2024-05-31 09:06] LABS: ALT (SGPT) 19 U/L (0-50); AST (SGOT) 32 U/L (17-59); Albumin 3.6 g/dl (3.5-5.0); Alkaline Phosphatase 66 U/L (38-126); Blood Urea Nitrogen 20 mg/dl (9-20); Calcium 8.7 mg/dl (8.4-10.2); Carbon Dioxide 25 mmol/L (22-30); Chloride 104 mmol/L (98-107); Creatine Phosphokinase 128 U/L (55-170); Estimated Creatinine Clearance 97 ml/min; Glucose 115 mg/dl (70-99); Potassium 4.3 mmol/L (3.5-5.1); Sodium 137 mmol/L (135-145); Total Bilirubin 0.2 mg/dl (0.2-1.3); Total Protein 6.4 g/dl (6.3-8.2); eGFR > 60.00
[2024-05-31] MEDS: SINEMET 25-100 1.5 TABLET PO ×4 (09:24→21:58)
[2024-05-31] MEDS: COMTAN 200 MG PO ×3 (09:25→21:58)
[2024-05-31] MEDS: VITAMIN D3 (cholecalciferol) 125 MCG PO (09:26)
[2024-05-31] MEDS: COLACE 100 MG PO (09:26)
[2024-05-31] MEDS: DESENEX/MITRAZOL/ZEASORB 1 APPLIC TOPICAL ×2 (09:27→20:37)
[2024-05-31] MEDS: HEPARIN 5000 UNITS SC ×2 (09:28→20:35)
[2024-05-31] MEDS: ASPIR LOW (ENTERIC COATED) 81 MG PO (09:28)
[2024-05-31 15:00] VITALS: BP 129/68
--- NOTE | 2024-05-31 15:10 | W.PN.HOSP.TC ---
Today's Communication/Plan
-
Doing well. Ready to be discharged once safe plan is in place.
Assessment / Plan
Assessment / Plan
74-year-old male presented with cough and weakness
1. Ongoing dry cough possibly acute URI/bronchitis, on chronic postnasal drip/GERD component
-Lungs sound clear, cough seems to be originating in the throat
-Continue treatment for bronchitis.
-Not hypoxemic
-Continue benzonatate
-Chest x-ray, COVID and influenza negative
-Checked speech and swallow:
Puree/thin liquid diet
2. Acute weakness/chronic ambulatory dysfunction likely viral URI
-COVID and influenza negative
-Chest x-ray unremarkable
-Urinalysis unremarkable
-IV fluids given
-PT/OT,
-case management help requested for placement or safe home d/c
3. Mild rhabdomyolysis - resolved
-CK4 400
-IV fluids given
4. Parkinson's disease with deep brain stimulator
-Continue carbidopa-levodopa
5. CAD status post stent
-Continue aspirin
6. Hyperlipidemia
-outpt management
7. GERD
-Continue Protonix
8. Peptic ulcer disease
-Continue protonix
9. BPH
-outpt management
10. Anxiety/depression
-outpt management
History of kidney stones
DNR/DNI
DVT prophylaxis�heparin
Regular diet
Anticipated Discharge: 24 - 48 hours
Subjective/Interval History
-
Date of Service: May 31, 2024
No complaints. Comfortable.
Objective Data
-
Labs:
Laboratory Results
05/31/24
07:48
WBC 8.1
Hgb 12.9 L
Hct 37.0 L
Plt Count 288
Sodium 137
Potassium 4.3
Chloride 104
Carbon Dioxide 25
BUN 20
Creatinine 0.7
Glucose 115 H
Calcium 8.7
Total Bilirubin 0.2
AST 32
ALT 19
Alkaline Phosphatase 66
Vital Signs:
Vital Signs
Temp Pulse Resp BP Pulse Ox
97.3 F 60 18 133/68 94
05/31/24 07:00 05/31/24 07:00 05/31/24 07:00 05/31/24 07:00 05/31/24 07:00
I&O
05/30/24 05/31/24 06/01/24
06:59 06:59 06:59
Intake Total 420 / 420 720 / 720
Output Total 200 / 200 950 / 950
Balance 220 / 220 -230 / -230
Review of Systems
-
History Source: Patient
All other systems: Reviewed and negative
Physical Exam
-
General: Well Developed, Well Nourished, No Apparent Distress and Comfortable
HEENT: Normocephalic, Nose Appears Normal and Ears Appear Normal
Respiratory: Clear to Auscultation
Cardiac: Regular Rhythm and S1/S2
GI: Soft and Nontender
Musculoskeletal: No Clubbing and No Cyanosis
Skin: Warm and Dry
Neuro: Awake and Alert
Psych: Calm
Data Reviewed
-
Labs: Labs Reviewed by me
--- NOTE | 2024-05-31 15:47 | PTCARENOTE ---
patient denies complaints, has been tolerating sitting oob in chair, transfers oob with mod assist x1, vss, will continue to monitor.
[2024-05-31] MEDS: COMTAN PO (18:21)
[2024-05-31] MEDS: ZITHROMAX INFUSION 250 IV (18:28)
[2024-05-31] MEDS: ROCEPHIN 1000 MG IV (18:28)
[2024-05-31] MEDS: STERILE WATER FOR INJECTION 10 ML IV (18:29)
--- NOTE | 2024-05-31 19:41 | PTCARENOTE ---
patient refused [address] [employer]. reports that he thinks that causes hallucinations and dizziness, unsure of medications he takes at home. will attempt to notify his for information, will continue to monitor.
[2024-05-31 23:40] VITALS: BP 123/78
[2024-06-01] MEDS: DECADRON 4 MG IV ×2 (06:36→18:11)
[2024-06-01 07:27] VITALS: BP 138/70
[2024-06-01 08:02] LABS: Hematocrit 37.7 % (39.0-52.0); Hemoglobin 13.4 g/dL (13.0-18.0); Mean Corp Hgb Conc. 35.5 g/dL (33.0-37.0); Mean Corpuscular Hgb 30.5 pg (27.0-31.0); Mean Corpuscular Volume 85.9 fL (80.0-94.0); Platelet Count 235 10^3/uL (130-400); Red Blood Cell Count 4.39 10^6/uL (4.70-6.10); Red Cell Dist. Width 13.1 % (11.5-14.5); White Blood Cell Count 8.1 10^3/uL (4.8-10.8)
[2024-06-01 08:17] LABS: Blood Urea Nitrogen 20 mg/dl (9-20); Calcium 8.6 mg/dl (8.4-10.2); Carbon Dioxide 22 mmol/L (22-30); Chloride 106 mmol/L (98-107); Estimated Creatinine Clearance 97 ml/min; Glucose 99 mg/dl (70-99); Potassium 4.6 mmol/L (3.5-5.1); Sodium 137 mmol/L (135-145); eGFR > 60.00
[2024-06-01] MEDS: SINEMET 25-100 1.5 TABLET PO ×2 (08:33→13:16)
[2024-06-01] MEDS: ASPIR LOW (ENTERIC COATED) 81 MG PO (08:33)
[2024-06-01] MEDS: COLACE 100 MG PO (08:34)
[2024-06-01] MEDS: HEPARIN 5000 UNITS SC ×2 (08:34→20:06)
[2024-06-01] MEDS: DESENEX/MITRAZOL/ZEASORB 1 APPLIC TOPICAL ×2 (08:35→20:06)
[2024-06-01] MEDS: VITAMIN D3 (cholecalciferol) 125 MCG PO (08:35)
[2024-06-01] MEDS: COMTAN PO ×2 (08:50→13:16)
--- NOTE | 2024-06-01 15:06 | W.PN.HOSP.TC ---
Today's Communication/Plan
-
CT chest
Assessment / Plan
Assessment / Plan
74-year-old male presented with cough and weakness
1. Ongoing dry cough possibly acute URI/bronchitis, on chronic postnasal drip/GERD component
-Lungs sound clear, cough seems to be originating in the throat
-Continue treatment for bronchitis.
-Not hypoxemic
-Continue benzonatate
-Chest x-ray, COVID and influenza negative
-Checked speech and swallow:
Puree/thin liquid diet
1/[address] chest[address]
Scheduled DuoNebs
2. Acute weakness/chronic ambulatory dysfunction likely viral URI
-COVID and influenza negative
-Chest x-ray unremarkable
-Urinalysis unremarkable
-IV fluids given
-PT/OT, recommending rehab
-case management consult for discharge plan.
Discussed with
3. Mild rhabdomyolysis - resolved
-CK4 400
-IV fluids given
4. Parkinson's disease with deep brain stimulator
-Continue home meds
5. CAD status post stent
-Continue aspirin
6. Hyperlipidemia
-outpt management
7. GERD
-Continue Protonix
8. Peptic ulcer disease
-Continue protonix
9. BPH
-outpt management
10. Anxiety/depression
-outpt management
History of kidney stones
DNR/DNI
DVT prophylaxis�heparin
Regular diet
Anticipated Discharge: Within 24 hours
Subjective/Interval History
-
Date of Service: June 01, 2024
Patient seen and examined at bedside, later on the day discussed with at bedside.
Patient still coughing, adding Tessalon Perles and DuoNebs are scheduled and addition of as needed
Denies chest pain.
Physical therapy recommending rehab, social service consulted.
Objective Data
-
Labs:
Laboratory Results
06/01/24
07:25
WBC 8.1
Hgb 13.4
Hct 37.7 L
Plt Count 235
Sodium 137
Potassium 4.6
Chloride 106
Carbon Dioxide 22
BUN 20
Creatinine 0.7
Glucose 99
Calcium 8.6
Vital Signs:
Vital Signs
Temp Pulse Resp BP Pulse Ox
97.3 F 56 18 138/70 96
06/01/24 07:27 06/01/24 07:27 06/01/24 07:27 06/01/24 07:27 06/01/24 07:27
I&O
05/31/24 06/01/24 06/02/24
06:59 06:59 06:59
Intake Total 720 / 720 1330 / 1330
Output Total 950 / 950 950 / 950
Balance -230 / -230 380 / 380
Physical Exam
-
General: Well Developed, Well Nourished, No Apparent Distress and Comfortable
HEENT: Normocephalic, Atraumatic, Moist Mucous Membranes, No Ptosis, PERRLA and Nose Appears Normal
Respiratory: Rales, Rhonchi and Non Labored Respirations
Cardiac: Regular Rhythm and S1/S2
Breast: Deferred by me
GI: Soft, Nontender, Nondistended and Normal Bowel Sounds
Genito-urinary: No Costovertebral Tender
Musculoskeletal: No Clubbing, No Cyanosis and No Edema
Skin: Warm
Neuro: Awake, Alert, Oriented, AO x 3 and No Motor Deficits
Psych: Calm
[2024-06-01 15:18] VITALS: BP 130/71
[2024-06-01] MEDS: DUONEB 3 ML INH ×2 (15:42→20:13)
--- NOTE | 2024-06-01 16:56 | CM ---
Placed a call to Tasia in admissions at [facility] who stated that she probably will not have a bed until next Wednesday at the earliest. Placed a call to Brooke in admissions at [facility] who stated that she will be able to take patient
tomorrow if medically stable. Placed a call to Christin, at [facility] who confirmed that patient can get covered by the [facility] waiver. She requested attending note stating need for rehab. Faxed the note to [phone] ATT: Veda. Faxed documentation
over.
Plan: Case management will continue to follow and assist with discharge planning. [facility] upon hopeful auth through [facility].
[2024-06-01] MEDS: ROCEPHIN 1000 MG IV (18:11)
[2024-06-01] MEDS: ZITHROMAX INFUSION 250 IV (18:11)
[2024-06-01] MEDS: STERILE WATER FOR INJECTION 10 ML IV (18:11)
[2024-06-01] MEDS: NON-FORMULARY ITEM 1 UNIT PO ×2 (18:11→21:15)
[2024-06-01 23:22] VITALS: BP 125/71
[2024-06-02] MEDS: DECADRON 4 MG IV ×2 (05:03→18:45)
[2024-06-02 07:15] VITALS: BP 143/76
[2024-06-02] MEDS: HEPARIN 5000 UNITS SC ×2 (08:01→21:21)
[2024-06-02] MEDS: DESENEX/MITRAZOL/ZEASORB 1 APPLIC TOPICAL ×2 (08:01→21:20)
[2024-06-02] MEDS: VITAMIN D3 (cholecalciferol) 125 MCG PO (08:03)
[2024-06-02] MEDS: COLACE 100 MG PO (08:03)
[2024-06-02] MEDS: ASPIR LOW (ENTERIC COATED) 81 MG PO (08:03)
[2024-06-02] MEDS: NON-FORMULARY ITEM 1 UNIT PO ×4 (08:04→21:20)
[2024-06-02] MEDS: DUONEB INH (08:24)
[2024-06-02] MEDS: DUONEB 3 ML INH ×2 (11:22→19:12)
--- NOTE | 2024-06-02 12:48 | CM ---
Spoke with Brooke from [facility] who confirmed that she can offer patient a bed under the [facility] waiver program, tomorrow. She confirmed that she has everything she needs from [facility]. # For Report [phone] fax# [phone]. Spoke with Christin "Keith"from [facility] who confirmed that everything has been sent to [facility] for transfer. Attending updated.
Placed a call to patient's to update. She is agreeable to plan. IMM reviewed and on chart as patient's spouse agreeable to d/c.
Will complete medical necessity for transfer and transfer sheet for [facility]west unit aide.
Plan: Case management will continue to follow and assist with discharge planning. [facility], tomorrow/upon medical clearance.
--- NOTE | 2024-06-02 13:29 | W.PN.HOSP.TC ---
Addendum entered and electronically signed by Mele Hart MD 06/08/24 13:40:
Nontraumatic rhabdomyolysis
Original Note:
Today's Communication/Plan
-
Discharge to rehab tomorrow
Assessment / Plan
Assessment / Plan
74-year-old male presented with cough and weakness
1. Community-acquired pneumonia
Patient completed 5 days of azithromycin/Rocephin
-Continue benzonatate
-Chest x-ray, COVID and influenza negative
CT chest shows:
Within the posterior and inferior aspect of the right lower lobe of the lung, there is a focal area of confluent opacity, new from examination of January 28, 2024. This measures 5.4 cm transverse by 2.7 cm AP by 4.7 cm craniocaudal. Main differential
considerations of pneumonia and/or atelectasis. Continued follow-up is advised to exclude neoplasia, although neoplasia is felt to be less likely.
No evidence for associated pleural effusion.
Coronary calcifications are present. Please correlate with symptoms of and risk factors for coronary artery disease, with further workup as clinically appropriate.
Stable mild to moderate elevation of the left hemidiaphragm with adjacent left lower lobe linear densities, compatible with scarring and/or atelectasis.
Continue DuoNebs.
Start Levaquin for another [address] chest in 6 to 8 weeks
2. Acute weakness/chronic ambulatory dysfunction likely viral URI
-COVID and influenza negative
-Chest x-ray unremarkable
-Urinalysis unremarkable
-IV fluids given
-PT/OT, recommending rehab
-case management consult for discharge plan.
Discussed with
Will discharge tomorrow to rehab
3. Mild rhabdomyolysis - resolved
-CK4 400
-IV fluids given
4. Parkinson's disease with deep brain stimulator
-Continue home meds
5. CAD status post stent
-Continue aspirin
6. Hyperlipidemia
-outpt management
7. GERD
-Continue Protonix
8. Peptic ulcer disease
-Continue protonix
9. BPH
-outpt management
10. Anxiety/depression
-outpt management
History of kidney stones
DNR/DNI
DVT prophylaxis�heparin
Regular diet
Anticipated Discharge: Within 24 hours
Subjective/Interval History
-
Date of Service: June 02, 2024
Overall feeling better than yesterday.
Discussed CT chest result-will add Levaquin, otherwise patient medically cleared for discharge to rehab tomorrow.
Will need to repeat CT chest after 6 to 8 weeks.
Objective Data
-
Vital Signs:
Vital Signs
Temp Pulse Resp BP Pulse Ox
97.7 F 59 19 143/76 95
06/02/24 07:15 06/02/24 11:26 06/02/24 11:26 06/02/24 07:15 06/02/24 11:26
I&O
06/01/24 06/02/24 06/03/24
06:59 06:59 06:59
Intake Total 1330 / 1330 240 / 240
Output Total 950 / 950 900 / 900
Balance 380 / 380 -660 / -660
Physical Exam
-
General: Well Developed, Well Nourished, No Apparent Distress and Comfortable
HEENT: Normocephalic, Atraumatic, Moist Mucous Membranes, No Ptosis, PERRLA and Nose Appears Normal
Respiratory: Rales, Rhonchi and Non Labored Respirations
Cardiac: Regular Rhythm and S1/S2
Breast: Deferred by me
GI: Soft, Nontender, Nondistended and Normal Bowel Sounds
Genito-urinary: No Costovertebral Tender
Musculoskeletal: No Clubbing, No Cyanosis and No Edema
Skin: Warm
Neuro: Awake, Alert, Oriented, AO x 3 and No Motor Deficits
Psych: Calm
[2024-06-02] MEDS: LEVAQUIN 500 MG PO (15:27)
[2024-06-02 15:55] VITALS: BP 122/74
[2024-06-02 22:18] LABS: COVID-19 Antigen Negative (Negative)
[2024-06-02 23:17] VITALS: BP 130/71
[2024-06-03] MEDS: DECADRON 4 MG IV (06:03)
[2024-06-03 07:04] VITALS: BP 180/123
[2024-06-03] MEDS: DUONEB 3 ML INH ×4 (07:49→19:31)
[2024-06-03 08:05] LABS: Glucose - Point of Care 110 mg/dl (70-99)
[2024-06-03 08:44] LABS: Hematocrit 44.8 % (39.0-52.0); Hemoglobin 15.3 g/dL (13.0-18.0); Mean Corp Hgb Conc. 34.2 g/dL (33.0-37.0); Mean Corpuscular Hgb 30.5 pg (27.0-31.0); Mean Corpuscular Volume 89.2 fL (80.0-94.0); Platelet Count 451 10^3/uL (130-400); Red Blood Cell Count 5.02 10^6/uL (4.70-6.10); Red Cell Dist. Width 13.4 % (11.5-14.5); White Blood Cell Count 12.1 10^3/uL (4.8-10.8)
[2024-06-03] MEDS: ASPIR LOW (ENTERIC COATED) 81 MG PO (08:50)
[2024-06-03] MEDS: VITAMIN D3 (cholecalciferol) 125 MCG PO (08:51)
[2024-06-03] MEDS: LEVAQUIN 500 MG PO (08:51)
[2024-06-03] MEDS: HEPARIN 5000 UNITS SC (08:51)
[2024-06-03] MEDS: COLACE 100 MG PO (08:51)
[2024-06-03] MEDS: NON-FORMULARY ITEM 1 UNIT PO ×4 (08:51→21:54)
[2024-06-03] MEDS: DESENEX/MITRAZOL/ZEASORB 1 APPLIC TOPICAL ×2 (08:51→21:54)
[2024-06-03 08:53] LABS: Blood Urea Nitrogen 17 mg/dl (9-20); Calcium 9.2 mg/dl (8.4-10.2); Carbon Dioxide 25 mmol/L (22-30); Chloride 101 mmol/L (98-107); Estimated Creatinine Clearance 97 ml/min; Glucose 114 mg/dl (70-99); Potassium 4.7 mmol/L (3.5-5.1); Sodium 138 mmol/L (135-145); eGFR > 60.00
[2024-06-03 08:57] LABS: INR 1.13; PT 14.8 Sec (11.4-14.6)
[2024-06-03 08:58] LABS: APTT 28.3 Sec (23.4-35.0)
[2024-06-03] MEDS: MORPHINE SULFATE 2 MG IV (09:00)
[2024-06-03 09:05] LABS: Troponin I < 0.012 ng/ml
--- NOTE | 2024-06-03 09:42 | W.PN.HOSP.TC ---
Addendum entered and electronically signed by Rob Hung MD 06/03/24 16:54:
CT with no PE but bronchus collapse and some abnormalities so will have pulm consult- sent message to pulm today. Also mildly hypotensive and hyperglycemic with dizziness-give NS 250 ml bolus and start insulin sliding scale and check HBA1c.
Original Note:
Today's Communication/Plan
-
EKG. Chest x-ray. CTA of the chest.
Assessment / Plan
Assessment / Plan
Physical exam:
General: Acutely ill. By the time of my evaluation significant amount of distress due to pain and crying from pain.
HEENT: Normocephalic, Atraumatic and Moist Mucous Membranes
Respiratory: Some rhonchi and scattered wheezes in the bases; Negative Rales
Cardiac: Regular Rhythm, tachycardic, and S1/S2
GI: Soft, Nontender and Nondistended
Musculoskeletal: No Clubbing, No Cyanosis and No Edema. There is tenderness on palpation mid thoracic back.
Neuro: Awake, Alert and Oriented, no gross neurological deficit
Psych: Anxious, normal judgment and insight.
A/P:
Chest pain shortness of breath and back pain:
Responded to GOLD BEATER today for these complaints as above.
Likely musculoskeletal and pleurisy from pneumonia-less likely but still possible ACS, PE, aortic dissection.
Place on cardiac monitoring
Twelve-lead EKG and on my interpretation it shows sinus tachycardia with no significant ST-T changes abnormalities
Normal troponin
Normal BNP
Elevated D-dimer
Check LFTs and lipase as well
Given Toradol, Flexeril, and morphine. Morphine helped him the most so will continue as needed.
Stat chest x-ray seen and interpreted by myself and it shows persistent pneumonia.
Given symptoms and elevated D-dimer, we will rule out PE and aortic dissection--> he does have contrast allergy so he had to be premedicated but plan to do urgent CTA of the chest today.
He is on dexamethasone 4 mg IV every 12 hours--> not sure why he is on steroids I will likely discontinue after CT.
Updated over the phone today
Cancel discharge-he is not medically ready for discharge yet.
Community-acquired Pneumonia:
Continue Levaquin since iv and po bioavailable but increase to 750 mg p.o. daily
Continue bronchodilators scheduled and as needed
CAD:
Continue aspirin
Not sure why not on beta-blockers and statin
Parkinson's disease:
On Stalevo 1 tablet 4 times a day
He has a deep brain stimulator
DVT prophylaxis:
Change heparin to Lovenox SQ
CODE STATUS:
DNR
Total Critical Care Time__40___ minutes. I was immediately available to the patient and staff. I personally examined, reviewed labs, diagnostic images/reports, interpretations, treatment plans, discussed patient care with other providers and
family or caregivers (if patient is unable to make decisions), entered orders as appropriate and documented the medical record.
Anticipated Discharge: 24 - 48 hours
Subjective/Interval History
-
Date of Service: June 03, 2024
Rapid response this morning for back pain and chest pain shortness of breath. Seen patient immediately.
Objective Data
-
Labs:
Laboratory Results
06/03/24
08:30
WBC 12.1 H
Hgb 15.3
Hct 44.8
Plt Count 451 H D
PT 14.8 H
INR 1.13
APTT 28.3
Sodium 138
Potassium 4.7
Chloride 101
Carbon Dioxide 25
BUN 17
Creatinine 0.7
Glucose 114 H
Calcium 9.2
Vital Signs:
Vital Signs
Temp Pulse Resp BP Pulse Ox
98.1 F 70 20 180/123 92
06/03/24 07:04 06/03/24 07:04 06/03/24 07:04 06/03/24 07:04 06/03/24 07:04
I&O
06/02/24 06/03/24 06/04/24
06:59 06:59 06:59
Intake Total 240 / 240 1100 / 1100
Output Total 900 / 900 1720 / 1720
Balance -660 / -660 -620 / -620
[2024-06-03 11:00] VITALS: BP 121/70
--- NOTE | 2024-06-03 11:00 | PTCARENOTE ---
HUMAN RESOURCES EXECUTIVE ASSISTANT called at 0815 for patients chest pain, back pain, and shortness of breath. BP was elevated 180/123 and HR in 120s. EKG obtained, unable to get a clear image because of pt moving so much. MD came to bedside and evaluated pt and determined EKG
was not concerning and it was most likely a back spasm secondary to pt Parkinson dx. One time dose of morphine, Toradol, and Flexeril ordered and pt advanced to telemetry. Pt. pain improved, but continues wheezing and was SOB. RT contacted to
administer breathing tx. Pt. continued to have shortness of breath. STAT CXR ordered and labs. D-dimer elevated. STAT CT ordered as well as additional labs. Pt unable to go down immediately because he needs to be pre-medicated prior to receiving IV
contrast due to an allergy. Pt. states he gets a rash with IV contrast. MD and Pharmacy aware. Pre-meds given. Pt. awaiting CT upon completion of medication course.
[2024-06-03 11:08] LABS: D-Dimer 1.58 ug/mlFEU (0.00-0.50)
[2024-06-03 11:09] LABS: NT-proBNP 107 pg/ml
[2024-06-03 11:57] LABS: ALT (SGPT) 29 U/L (0-50); AST (SGOT) 27 U/L (17-59); Albumin 4.3 g/dl (3.5-5.0); Alkaline Phosphatase 75 U/L (38-126); Lipase 146 U/L (23-300); Total Bilirubin 0.6 mg/dl (0.2-1.3); Total Protein 7.4 g/dl (6.3-8.2)
[2024-06-03] MEDS: SOLU-CORTEF 200 MG IV (12:21)
[2024-06-03] MEDS: TORADOL 30 MG IV (12:25)
[2024-06-03] MEDS: FLEXERIL 10 MG PO (12:25)
[2024-06-03] MEDS: BENADRYL 50 MG IV (13:25)
--- NOTE | 2024-06-03 14:05 | CM ---
Addendum entered by Hyun Lanier 06/03/24 14:13:
Brooke from [facility] called and reported that SNF bed cannot be held until tomorrow
Original Note:
Discharge on hold for today; facility notified this morning
If medically stable tomorrow, patient will discharge to [facility] SNF; [facility] waiver program
Report [phone]
[2024-06-03 15:00] VITALS: BP 101/58
[2024-06-03 16:12] LABS: Glucose - Point of Care 285 mg/dl (70-99)
[2024-06-03] MEDS: NSS 250 IV (16:31)
[2024-06-03] MEDS: NOVOLOG FLEXPEN-MODERATE RESISTANCE 5 UNITS SC (16:32)
[2024-06-03] MEDS: LOVENOX 40 MG SC (17:51)
[2024-06-03 18:39] LABS: Glucose - Point of Care 230 mg/dl (70-99)
[2024-06-03 20:08] VITALS: BP 115/62
[2024-06-03 21:14] LABS: Glucose - Point of Care 202 mg/dl (70-99)
[2024-06-03 23:30] VITALS: BP 127/65
[2024-06-04 03:55] VITALS: BP 122/69
--- NOTE | 2024-06-04 05:30 | PTCARENOTE ---
Patient c/o severe back pain starting with SOB and coughing, also with some tightness to chest. Patient reminds me of this exact episode that happened yesterday morning and says after neb and medications he felt better. PRN morphine and Tessalon
Jalil provided to patient, see MAR. Notified RT for PRN neb treatment. Patient resting in bed, call zamorano in reach. Will continue to monitor.
[2024-06-04] MEDS: TESSALON PERLES 100 MG PO ×3 (05:38→21:24)
[2024-06-04] MEDS: MORPHINE SULFATE 2 MG IV ×4 (05:41→22:53)
[2024-06-04] MEDS: DUONEB 3 ML INH ×4 (05:49→23:27)
[2024-06-04 07:00] VITALS: BP 137/68
[2024-06-04 07:36] LABS: Blood Urea Nitrogen 22 mg/dl (9-20); Calcium 8.6 mg/dl (8.4-10.2); Carbon Dioxide 24 mmol/L (22-30); Chloride 105 mmol/L (98-107); Estimated Creatinine Clearance 97 ml/min; Glucose 91 mg/dl (70-99); Potassium 4.3 mmol/L (3.5-5.1); Sodium 138 mmol/L (135-145); eGFR > 60.00
[2024-06-04 08:18] LABS: % Basophils 0.2 % (0-2); % Eosinophils 0.1 % (0-6); % Immature Granulocytes 1.1 % (0-0.5); % Monocytes 5.9 % (1.7-9.3); % Neutrophils 81.7 % (42.2-75.2); Absolute Immature Granulocytes 0.1 10^3/uL (0-0.05); Absolute Lymphocytes 1.3 10^3/uL (1.2-3.4); Absolute Monocytes 0.7 10^3/uL (0.1-0.6); Hematocrit 39.8 % (39.0-52.0); Hemoglobin 13.2 g/dL (13.0-18.0); Mean Corp Hgb Conc. 33.2 g/dL (33.0-37.0); Mean Corpuscular Hgb 29.9 pg (27.0-31.0); Mean Corpuscular Volume 90.2 fL (80.0-94.0); Mean Platelet Volume 8.9 fL (7.4-10.4); Nucleated Red Blood Cells % 0 % (-); Platelet Count 307 10^3/uL (130-400); Red Blood Cell Count 4.41 10^6/uL (4.70-6.10); Red Cell Dist. Width 13.5 % (11.5-14.5); White Blood Cell Count 12.2 10^3/uL (4.8-10.8)
[2024-06-04 08:19] LABS: Glucose - Point of Care 125 mg/dl (70-99)
[2024-06-04] MEDS: LEVAQUIN 750 MG PO (08:23)
[2024-06-04] MEDS: VITAMIN D3 (cholecalciferol) 125 MCG PO (08:24)
[2024-06-04] MEDS: ASPIR LOW (ENTERIC COATED) 81 MG PO (08:24)
[2024-06-04] MEDS: COLACE 100 MG PO (08:24)
[2024-06-04] MEDS: NON-FORMULARY ITEM 1 UNIT PO ×4 (08:24→21:20)
[2024-06-04] MEDS: DESENEX/MITRAZOL/ZEASORB 1 APPLIC TOPICAL ×2 (08:25→21:20)
[2024-06-04] MEDS: NOVOLOG FLEXPEN-MODERATE RESISTANCE SC ×3 (08:26→17:16)
--- NOTE | 2024-06-04 08:27 | W.PN.HOSP.TC ---
Addendum entered and electronically signed by Rob Hung MD 06/04/24 16:34:
Patient had another rapid response today. I reevaluated him today and exam is pretty much the same as before except for some peripheral cyanosis. Added Toradol as needed and check stat ABG. Discussed with pulmonary Dr. Muniz over the phone and
he is coming to evaluate and see the patient. No need for transfer to higher level care at the moment but will follow-up pulmonary further recommendations.
Original Note:
Today's Communication/Plan
-
Antibiotics. Pain control. Pulmonary consult
Assessment / Plan
Assessment / Plan
Physical exam:
General: Acutely ill. By the time of my evaluation significant amount of distress due to pain and crying from pain.
HEENT: Normocephalic, Atraumatic and Moist Mucous Membranes
Respiratory: Some rhonchi and scattered wheezes in the bases; Negative Rales
Cardiac: Regular Rhythm, tachycardic, and S1/S2
GI: Soft, Nontender and Nondistended
Musculoskeletal: No Clubbing, No Cyanosis and No Edema. There is tenderness on palpation mid thoracic back.
Neuro: Awake, Alert and Oriented, no gross neurological deficit
Psych: Anxious, normal judgment and insight.
A/P:
Chest pain shortness of breath and back pain:
Responded to KEYBOARD OPERATOR yesterday for these complaints as above.
Likely musculoskeletal and pleurisy from pneumonia-less likely but still possible ACS, PE, aortic dissection. CT scan ruled out PE and shows pneumonia and collapse right mainstem bronchus right upper lobe bronchus. Pulmonary consulted.
Continue on cardiac monitoring
Twelve-lead EKG and on my interpretation it shows sinus tachycardia with no significant ST-T changes abnormalities
Normal troponin
Normal BNP
Elevated D-dimer
Checked LFTs and lipase in normal
Given Toradol, Flexeril, and morphine. Morphine helped him the most so will continue as needed.
Stat chest x-ray seen and interpreted by myself and it shows persistent pneumonia.
Given symptoms and elevated D-dimer, we will rule out PE and aortic dissection--> he does have contrast allergy so he had to be premedicated but plan to do urgent CTA of the chest today.
He is on dexamethasone 4 mg IV every 12 hours--> not sure why he is on steroids so I discontinued yesterday.
Updated over the phone yesterday
Abnormal CT scan:
Moderate size airspace consolidation and small right pleural effusion and mild left to right mediastinal shift with hilar lymphadenopathy and collapsed right mainstem bronchus and right upper lobe bronchus.
Pulmonary consulted--> awaiting pulmonary input
Continue pulmonary therapy
Continue monitor respiratory status closely
Community-acquired Pneumonia:
Continue Levaquin since iv and po bioavailable but increase to 750 mg p.o. daily
Continue bronchodilators scheduled and as needed
CAD:
Continue aspirin
Not sure why not on beta-blockers and statin
Parkinson's disease:
On Stalevo 1 tablet 4 times a day
He has a deep brain stimulator
DVT prophylaxis:
Change heparin to Lovenox SQ
CODE STATUS:
DNR
Total time spent on today's encounter was 52 minutes which included time spent in counseling the patient/family regarding diagnosis and treatment plan as listed above, goals of care, and symptom management. Case was discussed with nursing staff,
specialists, and care coordinators/case management. All labs and imaging personally reviewed by me. Remainder the time spent in detailed review of previous records, lab data, imaging, and other medical provider documentation.
Anticipated Discharge: 24 - 48 hours
Subjective/Interval History
-
Date of Service: June 04, 2024
Patient still having pain on and off and feels short of breath at times. Looks frail overall. Afebrile
Objective Data
-
Labs:
Laboratory Results
06/04/24 06/04/24
06:42 07:29
WBC Cancelled 12.2 H
Hgb Cancelled 13.2
Hct Cancelled 39.8
Plt Count Cancelled 307 D
Sodium 138
Potassium 4.3
Chloride 105
Carbon Dioxide 24
BUN 22 H
Creatinine 0.7
Glucose 91
Calcium 8.6
Vital Signs:
Vital Signs
Temp Pulse Resp BP Pulse Ox
97.3 F 80 20 122/69 97
06/04/24 03:55 06/04/24 05:51 06/04/24 05:51 06/04/24 03:55 06/04/24 03:55
I&O
06/03/24 06/04/24 06/05/24
06:59 06:59 06:59
Intake Total 1100 / 1100 1100 / 1100
Output Total 1720 / 1720 1000 / 1000
Balance -620 / -620 100 / 100
[2024-06-04 11:00] VITALS: BP 120/63
[2024-06-04 11:26] LABS: Glycohemoglobin (HgbA1c) 5.8 % (4.0-5.6)
[2024-06-04 12:15] LABS: Glucose - Point of Care 87 mg/dl (70-99)
[2024-06-04] MEDS: FLUSH (NSS) 2 FLUSH IV ×2 (12:25→18:22)
[2024-06-04 13:04] LABS: Glucose - Point of Care 117 mg/dl (70-99)
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
[2024-06-04] MEDS: TORADOL 15 MG IV (14:03)
--- NOTE | 2024-06-04 14:22 | PTCARENOTE ---
Rapid response called approx 1255, pt in respiratory distress after eating but pain in back is sharp and feels like stabbing him. Morphine was given at 1223, the rapid response was called approx 1255. Lower extremities purplish in color that was
not present before. Pulse ox 97 on 4 L, denies any chest pain, audible wheezing, EKG and vital signs taken. Dr. Hung notified then Dr Muniz notified.
[2024-06-04 14:51] LABS: B.E. 0.8 mmol/L; HCO3 24.2 mmol/L (21-28); O2 Saturation % 96.9 % (94-98); PCO2 34 mmHg (35-48); PO2 74 mmHg (83-108); pH 7.46 (7.35-7.45)
[2024-06-04] MEDS: CLARITIN 10 MG PO (14:58)
[2024-06-04] MEDS: OCEAN, SALINE MIST 2 SPRAYS NASAL ×2 (14:58→23:01)
[2024-06-04 15:00] VITALS: BP 103/56
[2024-06-04 17:07] LABS: Glucose - Point of Care 133 mg/dl (70-99)
[2024-06-04] MEDS: LOVENOX 40 MG SC (18:17)
[2024-06-04] MEDS: DUONEB INH (19:53)
[2024-06-04] MEDS: PULMICORT INH (19:54)
[2024-06-04 19:57] VITALS: BP 130/69
[2024-06-04 21:23] LABS: Glucose - Point of Care 134 mg/dl (70-99)
[2024-06-04 22:45] VITALS: BP 119/68
[2024-06-05] VITALS (16 sets, daily range): BP systolic 100–142; BP diastolic 60–79
[2024-06-05 00:18] LABS: Glucose - Point of Care 123 mg/dl (70-99)
[2024-06-05] MEDS: TORADOL 15 MG IV ×3 (00:30→21:15)
--- NOTE | 2024-06-05 00:41 | W.PN.UPDATE ---
Update Note
Progress Note Update
Rapid response called for respiratory distress. Patient with increased work of breathing, sounded like stridor vs snoring noted by RN, Resp 30-40, accessory muscles being used. VS - BP 160-/93, repeat BP 130/88, HR 103, EKG shows sinus tachycardia,
temp 99.4, pulsox 94% on 4L NC. Stat portable CXR ordered, respiratory evaluated placed on aerosol mask, patient with severe non-productive cough. Will hold off on additional labs at this time. Patient to be transferred to IMU for closer monitoring
as this is the third Rapid response called over the last two days.
--- NOTE | 2024-06-05 01:22 | RR ---
A Rapid Response was called on this patient, please see Rapid Response form.
Patient in respiratory distress, using accessory muscles, increased WOB. Strong, non-productive cough noted. Rapid response called.
--- NOTE | 2024-06-05 04:16 | PTCARENOTE ---
Pt received from Ashley ZHANG. Pt AA0x2, and responding to questions. NSR on monitor. Pt on 10L 02. satting 98%. Pt with increased work of breathing. pt HOB sat up, helping his work of breathing. pt has intermittent audible respirations sounding like
snoring/moaning. Presents with strong harsh dry cough.
[2024-06-05 05:05] LABS: % Basophils 0.1 % (0-2); % Eosinophils 1.2 % (0-6); % Lymphocytes 4.2 % (20.5-51.1); % Monocytes 4.5 % (1.7-9.3); Absolute Eosinophils 0.1 10^3/uL (0-0.7); Absolute Immature Granulocytes 0.1 10^3/uL (0-0.05); Absolute Lymphocytes 0.5 10^3/uL (1.2-3.4); Absolute Monocytes 0.5 10^3/uL (0.1-0.6); Absolute Neutrophils 10.7 10^3/uL (1.4-6.5); Hematocrit 38.5 % (39.0-52.0); Hemoglobin 12.9 g/dL (13.0-18.0); Mean Corp Hgb Conc. 33.5 g/dL (33.0-37.0); Mean Corpuscular Hgb 30.1 pg (27.0-31.0); Mean Platelet Volume 8.9 fL (7.4-10.4); Nucleated Red Blood Cells % 0 % (-); Platelet Count 329 10^3/uL (130-400); Red Blood Cell Count 4.28 10^6/uL (4.70-6.10); Red Cell Dist. Width 13.8 % (11.5-14.5)
[2024-06-05 05:34] LABS: Blood Urea Nitrogen 28 mg/dl (9-20); Calcium 9.1 mg/dl (8.4-10.2); Carbon Dioxide 24 mmol/L (22-30); Chloride 103 mmol/L (98-107); Estimated Creatinine Clearance 85 ml/min; Glucose 101 mg/dl (70-99); Potassium 4.7 mmol/L (3.5-5.1); Sodium 135 mmol/L (135-145); eGFR > 60.00
[2024-06-05] MEDS: DUONEB 3 ML INH ×3 (06:11→19:17)
[2024-06-05] MEDS: PULMICORT 0.5 MG INH ×2 (06:11→19:16)
[2024-06-05 06:20] LABS: Glucose - Point of Care 96 mg/dl (70-99)
--- NOTE | 2024-06-05 08:07 | W.PN.HOSP.TC ---
Today's Communication/Plan
-
VSE if appropriate per ST
re-initiate diet if appropriate per ST
ENT evaluation
Assessment / Plan
Assessment / Plan
1. Community-acquired pneumonia
-Question of possible aspiration pneumonia as well
-CT chest showing Moderate size airspace consolidation and small right pleural effusion and mild left to right mediastinal shift with hilar lymphadenopathy and collapsed right mainstem bronchus and right upper lobe bronchus.
-Currently on Levaquin therapy
2. Chronic dry cough
-suspected repeated micro aspiration vs other
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
-Last rapid response last night 06/04 patient required to be transferred to IMU for significant dyspnea. O2 sat was 95% on 4 L nasal cannula
-Repeat chest x-ray showing increased right-sided atelectasis
-Speech therapy evaluated patient earlier this admission and has been cleared for regular/thin liquid
-CT chest PE has ruled out any PE
-Patient was on empiric steroids that was discontinued yesterday
-Currently on nebulizer therapy and cough suppressants
3. Presumed pleuritic pain
-With associated pulmonary symptoms patient had troponin/EKG checked no clear signs of ACS
-PE has been ruled out as well
-Right lower lobe atelectasis causing possible pleuritic pain as well.
4. CAD
Continue aspirin
Not sure why not on beta-blockers and statin
5. Parkinson's disease:
On Stalevo 1 tablet 4 times a day
He has a deep brain stimulator
DVT prophylaxis: Change heparin to Lovenox SQ
CODE STATUS: DNR
Discussed with pulm.
Total time spent : 53 mins
Patient continues to have episodes of chronic dyspnea/cough and at high risk of pulmonary desaturation. Patient Parkinson and chronic decreased mobility adding to issues
Anticipated Discharge: 24 - 48 hours
Subjective/Interval History
-
Date of Service: June 05, 2024
Rapid response was called last night for patient having respiratory distress
Apparently patient was having stridor versus snoring with increased respiratory rate. Patient was also having coughing. Required to be placed on 4 L oxygen through nasal cannula.
In the morning patient resting comfortably in bed. Continued to have dry cough while talking
Off of oxygen and SpO2 in 90-92% range
Patient requested to be fed d
Objective Data
-
Labs:
Laboratory Results
06/05/24
04:45
WBC 12.0 H
Hgb 12.9 L
Hct 38.5 L
Plt Count 329
Sodium 135
Potassium 4.7
Chloride 103
Carbon Dioxide 24
BUN 28 H
Creatinine 0.8
Glucose 101 H
Calcium 9.1
Vital Signs:
Vital Signs
Temp Pulse Resp BP Pulse Ox
98.5 F 92 25 132/67 95
06/05/24 07:26 06/05/24 07:00 06/05/24 07:00 06/05/24 07:00 06/05/24 07:00
I&O
06/04/24 06/05/24 06/06/24
06:59 06:59 06:59
Intake Total 1100 / 1100 360 / 360
Output Total 1000 / 1000 550 / 550
Balance 100 / 100 -190 / -190
Review of Systems
-
Respiratory: Reports Cough and Pleurisy; Denies Wheezing
Cardiac: Reports No Symptoms
Abdomen/GI: Reports No Symptoms
Physical Exam
-
General: Comfortable
HEENT: Negative Oxygen
Respiratory: Negative Wheezes, Rales or Rhonchi
Cardiac: Regular Rhythm and S1/S2; Negative Murmur or Rub
GI: Soft, Nontender and Nondistended
Musculoskeletal: No Edema
Neuro: Awake, Alert, Oriented and Nonfocal/Grossly Intact
Psych: Calm
--- NOTE | 2024-06-05 08:46 | CM ---
Addendum entered by Nancy Beverly RN 06/05/24 09:14:
Message to Dr Manning: Patient will need new PT/OT orders for IMU when stabilized.
Original Note:
Patient with Hx Parkinsons Disease. Rapid response was called last night for patient having respiratory distress, transferred to IMU. O2 6L mask. Receiving PO Abx. NPO. ST Re-eval ordered. Plan VSE. PT 06/01 recommends skilled rehab. OT 05/29
recommends skilled rehab. Per nurse assessment: AA0x2.
Patient's Level of Care changed today from Observation to Inpatient service by Dr Manning.
Patient had been accepted by [facility] and [facility] pending bed availability, under [facility] Waiver, due to prior Observation Service.
Spoke with Christin [facility] Clinical Reviewer; provided clinical update. If patient is discharged within the next 3 days, prior to reaching 3 day Medicare Qualifier for SNF, she will need to update the [facility] Waiver including having MD sign new
forms.
Phone call to patient's Priti; left message requesting callback.
Plan follow patient's diet status, O2 needs for d/c, and mobility/rehab needs.
Plan probable [facility] or [facility] SNF when medically ready.
--- NOTE | 2024-06-05 11:12 | W.PN.PUL.V3 ---
Today's Communication / Plan
-
Aspiration precautions
Video swallow if appropriate per speech therapy
ENT evaluation
Assessment
-
74-year-old man with past medical history noted. It is noted that this patient has history of chronic coughing. This time admitted for weakness, inability to get off the floor at home. He is nonambulatory. While here complaining of coughing that
was worse. Found to have abnormal CT chest treated with antibiotics for pneumonia. We were consulted on 06/03/[address] during this admission on 06/03/2024 ruled out pulmonary embolism. Possible right middle lobe collapse.
Abnormal CT chest06/03/2024: Bilateral infiltrates right greater than left. Left hemidiaphragm elevation. Right mainstem narrowing, possible due to expiratory phase. No endobronchial lesion, no mediastinal lymph node. CAT scan the day before
06/02/2024 with patent bilateral bronchi without mass. More over CT scan 12/2023 without distended lymph nodes or lung nodules.
Bilateral pneumonia: Suspect aspiration
Acute on chronic coughing
Chest pain possibly musculoskeletal
Normal proBNP and troponins 06/03/2024
Increase D-dimer: CT angiogram negative for PE 06/03/2023
Leukocytosis
Conditions present prior admission:
Parkinson disease
Status post deep brain stimulator placement at [facility] in 2005
History of coronary artery disease
Dysphagia
History of esophageal stricture
History of depression
Zenker's diverticulum
Chronic cough-chronic. Suspected chronic microaspiration in the past
In 2020 modified barium swallow with no aspiration.
Prior pulmonary evaluation by Dr. Xavier 10/2022.
The forced vital capacity was 3.18 L or 85% of predicted and previously was 3.39 L or 89% of predicted and 3.3 L.Total lung capacity was 75% of predicted and previously was 104% of predicted.Thus he has developed mild restrictive lung disease which
is likely related to neuromuscular weakness associated with his Parkinson's disease.
Left hemidiaphragm elevation
Hard of hearing
Assessment and plan:
Respiratory status slowly improving
Continue supplemental oxygen if needed-assess discharge supplemental oxygen needs if not on room air at time of discharge-currently on 2 L - 93% saturation
Aspiration precautions
Speech therapy following
Video swallow pending
DuoNebs-3 times daily
Budesonide nebulizers
Mucolytic's
Antitussives
Monitor off steroids
Cultures reviewed
Empiric antibiotics
Follow radiographically
Follow leukocytosis
DVT prophylaxis-on Lovenox
Subjective Data
-
Date of Service:
Date of Service: June 05, 2024
Chief Complaint: Pulmonary Follow Up and Dyspnea Follow Up
Subjective:
Continues to complain of some cough, no increase shortness of breath, chest pain or abdominal pain
Review of Systems
General: Other (Per HPI)
Objective Data
Data Reviewed
Vital Signs / I&O:
Vital Signs
Temp Pulse Resp BP Pulse Ox
98.5 F 92 25 132/67 93
06/05/24 07:26 06/05/24 07:00 06/05/24 07:00 06/05/24 07:00 06/05/24 09:17
Intake and Output
06/04/24 06/05/24 06/06/24
06:59 06:59 06:59
Intake Total 1100 / 1100 360 / 360
Output Total 1000 / 1000 550 / 550 150 / 150
Balance 100 / 100 -190 / -190 -150 / -150
SaO2: 93
Nasal Cannula flow liters per minute: 2
Physical Exam
General: Respiratory Distress (n) and Comfortable
HEENT: Normocephalic, Anicteric and Moist Mucous Membranes
Cardiovascular: Regular Rhythm
Respiratory: Wheeze (n), Crackles (Basilar), Rhonchi (n), Non-Labored Respirations and Accessory Resp Muscle Use (n)
GI: Soft, Non Distended and Non Tender
Neurology: Awake, Alert and No Motor Deficits
Skin: Warm, Good Color, Cyanosis (n), Jaundice (n) and Rash
Labs/Micro/Reports
Lab Data
06/05/24 04:45
06/05/24 04:45
Laboratory Results
06/04/24
14:42
pH 7.46 H
pCO2 34 L
pO2 74 L
HCO3 24.2
O2 Delivery Level
--- NOTE | 2024-06-05 11:14 | PTCARENOTE ---
Rec'd pt this AM. Pt upset over NPO status. Explained multiple times that he will be seen by Speech therapy today to make sure he is OK to swallow. he remains agitated, banging on table, multiple complaints. Removed venti mask, refused to use it.
Placed on 5L NC. O2 sat 92%. Pt makes frequent moaning noises but lungs are clear. Very anxious. vital signs stable. RT updated. Discussed with Dr. Manning as well. updated via phone.
--- NOTE | 2024-06-05 13:10 | PTOTSP ---
Speech Language Pathology
VIDEOFLUOROSCOPIC SWALLOWING EXAMINATION (VSE) completed. Constant coughing noted both prior to study and during study. Oropharyngeal swallow WFL. Trace base of tongue intermittently noted. Transient supraglottic penetration (PAS 2) noted with
extremely large straw sip of thin liquids. No other penetration or any aspiration noted.
Recommend:
(1) Regular solids/thin liquids
(2) General aspiration precautions
(3) Meds as tolerated
(4) RANGELAND MANAGEMENT SPECIALIST to sign off
--- NOTE | 2024-06-05 13:16 | CON.MD ---
Consultation - Medical
-
Chief complaint: Chronic cough with episodic stridor
History of present illness: This 74-year-old gentleman with a history of multiple medical problems including Parkinson's disease presents with a greater than 1 month history of a chronic cough. He has had episodes of stridor which seem to be
self-limited. He just had a barium swallow which showed that he did fairly well without significant severe abnormalities. I was asked to see the patient regarding evaluation of his upper airway. The patient has a history of pneumonia and
bronchitis in addition to his Parkinson's disease. He also has a history of acid reflux.
Allergies: Acetaminophen, meperidine, nitrofurantoin, oxycodone, piperacillin, prasugrel, statins, sulfa medications, tetanus toxoid, Brilinta, honeybees, hornets, IV contrast material
Medications: Acetaminophen 650 mg p.o. every 12 hours as needed, aspirin 81 mg p.o. daily, benzonatate 100 mg p.o. 3 times daily as needed, carbidopa�levodopa 1 tablet p.o. 4 times daily, colecalciferol 125 mcg p.o. daily, docusate sodium 100 mg
p.o. daily, guaifenesin 1200 mg p.o. twice daily as needed, ipratropium�albuterol 3 mL every 4 hours as needed, levofloxacin 500 mg p.o. daily
Chronic medical problems, ambulatory dysfunction, cellulitis of left lower limb, bronchitis, pneumonia, weakness, osteoarthritis of left hip, Parkinson's disease, hyperlipidemia, gastroesophageal reflux
Hospitalizations: Multiple hospitalizations for medical problems including current hospitalization for chronic cough/pneumonia/bronchitis
Family history: Noncontributory for this problem
Review of systems: Positive for chronic cough with hoarseness and intermittent stridor
Physical examination:
Head: Atraumatic and normocephalic
Eyes: Extraocular movements are intact and pupils are equal and reactive to light
Ears: Normal to examination
Nose: Septum deviated toward the right side with crusting and dried blood in nose anteriorly bilaterally
Oral cavity/oropharynx: Normal to examination except for some mucosal dryness
Cranial nerves: 2 through 12 are intact grossly
Thyroid gland: Normal to examination
Salivary glands: Normal to examination
Neck: Supple without adenopathy
Procedure: Flexible laryngoscopy
Flexible laryngoscopy was performed through the patient's left nose. The patient tolerated the procedure well. He was noted to have good vocal cord motion without tumors or masses noted. There are no polyps seen. There is no significant pooling
of secretions. There is no evidence of infection or swelling noted.
Impression: The patient's upper airway and larynx are normal to examination. There is no evidence of tumor, polyp or infection. The chronic cough and occasional stridor may be secondary to irritation/anxiety.
Plan: Advance diet as tolerated, humidification can be helpful. I will see the patient back as needed.
[2024-06-05] MEDS: ASPIR LOW (ENTERIC COATED) 81 MG PO (14:12)
[2024-06-05] MEDS: CLARITIN 10 MG PO (14:12)
[2024-06-05] MEDS: COLACE 100 MG PO (14:13)
[2024-06-05] MEDS: NON-FORMULARY ITEM PO (14:13)
[2024-06-05] MEDS: DESENEX/MITRAZOL/ZEASORB 1 APPLIC TOPICAL ×2 (14:13→21:13)
[2024-06-05] MEDS: LEVAQUIN 750 MG PO (14:13)
[2024-06-05] MEDS: VITAMIN D3 (cholecalciferol) 125 MCG PO (14:13)
[2024-06-05] MEDS: NON-FORMULARY ITEM 1 UNIT PO ×3 (14:13→23:07)
[2024-06-05] MEDS: ROBITUSSIN AC 5 ML PO ×2 (14:38→21:15)
[2024-06-05] MEDS: TYLENOL 650 MG PO (15:52)
[2024-06-05 16:56] LABS: COVID-19 Antigen Positive (Negative)
[2024-06-05 18:35] LABS: Glucose - Point of Care 119 mg/dl (70-99)
[2024-06-05] MEDS: NOVOLOG FLEXPEN-MODERATE RESISTANCE SC (18:37)
[2024-06-05] MEDS: LOVENOX 40 MG SC (19:24)
--- NOTE | 2024-06-05 19:50 | PTCARENOTE ---
Pt developed fever 102.7 late this afternoon. Repeat covid Test odered and Pt is now Covid Positive. Moved to [facility] room. Spouse updated. Remains on 4L NC.
[2024-06-05] MEDS: NEURONTIN 100 MG PO (21:15)
[2024-06-05 22:03] LABS: Glucose - Point of Care 191 mg/dl (70-99)
[2024-06-05] MEDS: STERILE WATER FOR INJECTION 10 ML IV (23:07)
[2024-06-05] MEDS: MAXIPIME 2000 MG IV (23:07)
[2024-06-06] VITALS (11 sets, daily range): BP systolic 92–131; BP diastolic 54–103; PULSE 101; O2SAT 95; BMI 32.0
[2024-06-06] MEDS: TORADOL 15 MG IV ×3 (04:02→19:31)
[2024-06-06] MEDS: TYLENOL 650 MG PO ×4 (04:28→20:29)
--- NOTE | 2024-06-06 04:44 | PTCARENOTE ---
Pt appeared to get sleep last night, respirations even unlabored. SPO2 96% on 4L. Pt having mild temp in AM, Tylenol given. Assessment care and vitals as charted.
[2024-06-06 04:50] LABS: Hematocrit 36.4 % (39.0-52.0); Mean Corpuscular Hgb 30.2 pg (27.0-31.0); Mean Corpuscular Volume 91.7 fL (80.0-94.0); Mean Platelet Volume 9.1 fL (7.4-10.4); Platelet Count 268 10^3/uL (130-400); Red Blood Cell Count 3.97 10^6/uL (4.70-6.10); Red Cell Dist. Width 13.7 % (11.5-14.5); White Blood Cell Count 9.7 10^3/uL (4.8-10.8)
[2024-06-06 05:14] LABS: Blood Urea Nitrogen 26 mg/dl (9-20); Calcium 8.5 mg/dl (8.4-10.2); Carbon Dioxide 24 mmol/L (22-30); Chloride 103 mmol/L (98-107); Estimated Creatinine Clearance 76 ml/min; Glucose 119 mg/dl (70-99); Potassium 4.5 mmol/L (3.5-5.1); Sodium 137 mmol/L (135-145); eGFR > 60.00
[2024-06-06] MEDS: PULMICORT 0.5 MG INH (07:31)
[2024-06-06] MEDS: DUONEB 3 ML INH (07:31)
--- NOTE | 2024-06-06 08:04 | W.PN.PUL.V3 ---
Today's Communication / Plan
-
Isolation
Paxlovid initiated
Continue antibiotics
Wean oxygen
Consider steroids if does not improve
Assessment
-
74-year-old man with past medical history noted. It is noted that this patient has history of chronic coughing. This time admitted for weakness, inability to get off the floor at home. He is nonambulatory. While here complaining of coughing that
was worse. Found to have abnormal CT chest treated with antibiotics for pneumonia. We were consulted on 06/03/[address] during this admission on 06/03/2024 ruled out pulmonary embolism. Possible right middle lobe collapse.
Abnormal CT chest06/03/2024: Bilateral infiltrates right greater than left. Left hemidiaphragm elevation. Right mainstem narrowing, possible due to expiratory phase. No endobronchial lesion, no mediastinal lymph node. CAT scan the day before
06/02/2024 with patent bilateral bronchi without mass. More over CT scan 12/2023 without distended lymph nodes or lung nodules.
Bilateral pneumonia: Suspect aspiration
Acute on chronic coughing
Chest pain possibly musculoskeletal
Normal proBNP and troponins 06/03/2024
Increase D-dimer: CT angiogram negative for PE 06/03/2023
Leukocytosis
COVID + 06/05/2024, was - 05/28/2024 as well as 06/02/2024
Conditions present prior admission:
Parkinson disease
Status post deep brain stimulator placement at [facility] in 2005
History of coronary artery disease
Dysphagia
History of esophageal stricture
History of depression
Zenker's diverticulum
Chronic cough-chronic. Suspected chronic microaspiration in the past
In 2020 modified barium swallow with no aspiration.
Prior pulmonary evaluation by Dr. Xavier 10/2022.
The forced vital capacity was 3.18 L or 85% of predicted and previously was 3.39 L or 89% of predicted and 3.3 L.Total lung capacity was 75% of predicted and previously was 104% of predicted.Thus he has developed mild restrictive lung disease which
is likely related to neuromuscular weakness associated with his Parkinson's disease.
Left hemidiaphragm elevation
Hard of hearing
Assessment and plan:
Respiratory status slowly improving
Continue supplemental oxygen if needed-assess discharge supplemental oxygen needs if not on room air at time of discharge-currently on 4 L - 96% saturation
Reviewed with nursing
Now COVID positive
Isolation per protocol
Paxlovid initiated
Prone positioning if needed
Aspiration precautions
Speech therapy following
Video swallow p eventually
DuoNebs-3 times daily
Budesonide nebulizers
Mucolytic's
Antitussives
Monitor off steroids-consider steroids if does not improve especially in light of COVID positive
Cultures reviewed
Empiric antibiotics
Follow radiographically
Follow leukocytosis
DVT prophylaxis-on Lovenox
Subjective Data
-
Date of Service:
Date of Service: June 06, 2024
Chief Complaint: Pulmonary Follow Up and Dyspnea Follow Up
Subjective:
Overall feels somewhat improved, still has chest congestion, nonproductive cough, no chest pain or abdominal pain
Review of Systems
General: Other (Per HPI)
Objective Data
Data Reviewed
Vital Signs / I&O:
Vital Signs
Temp Pulse Resp BP Pulse Ox
98.9 F 67 22 99/54 93
06/06/24 05:49 06/06/24 06:00 06/06/24 06:00 06/06/24 06:00 06/06/24 06:00
Intake and Output
06/05/24 06/06/24 06/07/24
06:59 06:59 06:59
Intake Total 360 / 360 600 / 600
Output Total 550 / 550 650 / 650
Balance -190 / -190 -50 / -50
SaO2: 93
Nasal Cannula flow liters per minute: 4
Physical Exam
General: Respiratory Distress (n) and Comfortable
HEENT: Normocephalic, Anicteric and Moist Mucous Membranes
Cardiovascular: Regular Rhythm
Respiratory: Wheeze (n), Crackles (Basilar), Rhonchi (n), Non-Labored Respirations and Accessory Resp Muscle Use (n)
GI: Soft, Non Distended and Non Tender
Neurology: Awake, Alert and No Motor Deficits
Skin: Warm, Good Color, Cyanosis (n), Jaundice (n) and Rash
Labs/Micro/Reports
Lab Data
06/06/24 04:15
06/06/24 04:15
[2024-06-06] MEDS: ROBITUSSIN AC 5 ML PO ×3 (09:22→23:38)
[2024-06-06] MEDS: VITAMIN D3 (cholecalciferol) 125 MCG PO (09:23)
[2024-06-06] MEDS: MAXIPIME 2000 MG IV ×3 (09:24→23:38)
[2024-06-06] MEDS: CLARITIN 10 MG PO (09:24)
[2024-06-06] MEDS: ASPIR LOW (ENTERIC COATED) 81 MG PO (09:24)
[2024-06-06] MEDS: COLACE 100 MG PO (09:24)
[2024-06-06] MEDS: STERILE WATER FOR INJECTION 10 ML IV ×3 (09:24→23:38)
[2024-06-06] MEDS: PAXLOVID 2X150 MG-100 MG DOSE PACK 1 DOSE PO ×2 (09:25→20:28)
[2024-06-06] MEDS: NON-FORMULARY ITEM 1 UNIT PO ×4 (09:26→23:00)
[2024-06-06] MEDS: DESENEX/MITRAZOL/ZEASORB 1 APPLIC TOPICAL ×2 (09:27→19:32)
[2024-06-06] MEDS: NOVOLOG FLEXPEN-MODERATE RESISTANCE SC ×3 (09:38→17:09)
--- NOTE | 2024-06-06 09:46 | PN.CDI ---
CDI
- -
CDI:
Physician Documentation Request
Admit Date: 06/05/24 08:42
Dear Doctor Nigel,
Patient admitted for URI.
06/05 Hospitalist PN: 'Rapid response was called last night for patient having respiratory distress
Apparently patient was having stridor versus snoring with increased respiratory rate. Patient was also having coughing. Required to be placed on 4 L oxygen through nasal cannula.'
06/05 PCN: 'he remains agitated, banging on table, multiple complaints. Removed venti mask, refused to use it. Placed on 5L NC. O2 sat 92%.'
06/05 PCN: 'NSR on monitor. Pt on 10L 02. satting 98%. Pt with increased work of breathing. pt HOB sat up, helping his work of breathing. pt has intermittent audible respirations sounding like snoring/moaning. Presents with strong harsh dry cough.'
Clarify which of the following accurately represents the patient's respiratory status:
Acute hypoxic respiratory failure
Hypoxia
Other
Additional information for Respiratory Failure:
Recognized criteria for Respiratory Failure (Source: ROBERT Hospitalist Feb/Mar 2013)
ABGs: (1 or more) Symptoms Please indicate type if known
1. p)2 <60 or RA SPO2 <91% on RA 1. Tachypnea, SOB, dyspnea Hypoxic
2. pCO2 50 and pH <7.35 2. Use of accessory muscles Hypercapnic
3. pO2 decrease of pCO2 increase by 3. Pallor or cyanosis Hypoxic and Hypercapnic
10 mmHg from baseline if known 4. Anxiety or restlessness Unable to determine
5. Unable to speak in full sentences
Supplemental O2 of > 40% (5LPM) Intubation is not required
Use of terms such as suspected, likely, concern for, or probable (associated with a specific diagnosis that is being evaluated, monitored, or treated as if it exists) are acceptable and can be coded in the inpatient setting, when documented at the
time of discharge.
Thank you,
Mary Campuzano RN, BSN
CDI Specialist
Available via [place] text
Please use your independent medical judgment in providing your response.
[2024-06-06 09:47] LABS: Glucose - Point of Care 121 mg/dl (70-99)
--- NOTE | 2024-06-06 12:44 | PTCARENOTE ---
OOB to chair - mod assist 2- wc bound at home. Weaned to 3L NC, however remains with extremely harsh high pitched course cough- coughing worse when trying to speak. States he brought a thick piece of mucus up. Not seen by this RN. C/o pain right
middle back unrelieved with Tylenol- totally relieved with IV Toradol.
--- NOTE | 2024-06-06 13:29 | W.PN.HOSP.TC ---
Today's Communication/Plan
-
start paxlovid
abx increased to cefepime
Assessment / Plan
Assessment / Plan
1. COVID 19 belgica pneumonia
Presumed super imposed bacterial Pneumonia
-CT chest showing Moderate size airspace consolidation and small right pleural effusion and mild left to right mediastinal shift with hilar lymphadenopathy and collapsed right mainstem bronchus and right upper lobe bronchus.
-Initially patient was treated for bacterial pneumonia
-Repeat COVID check was positive on 06/05
-Patient has been started on Paxlovid
-Patient antibiotic escalated to cefepime as well in light of slowly improving symptoms
2. Chronic dry cough
-suspected repeated micro aspiration vs other
-Patient had x2-3 LIFESTYLE DIRECTOR for respiratory distress/coughing issues
-Last rapid response last night 06/04 patient required to be transferred to IMU for significant dyspnea. O2 sat was 95% on 4 L nasal cannula
-Repeat chest x-ray showing increased right-sided atelectasis
-Speech therapy evaluated patient earlier this admission and has been cleared for regular/thin liquid
-CT chest PE has ruled out any PE
-ENT evaluated with bedside fiber scopic pharyngeal/larynx evaluation and no structural abnormalities.
-Patient was on empiric steroids that was discontinued.
-Currently on nebulizer therapy and cough suppressants
3. Presumed pleuritic pain
-With associated pulmonary symptoms patient had troponin/EKG checked no clear signs of ACS
-PE has been ruled out as well
-Right lower lobe atelectasis causing possible pleuritic pain as well.
4. CAD
Continue aspirin
Not sure why not on beta-blockers and statin
5. Parkinson's disease:
On Stalevo 1 tablet 4 times a day
He has a deep brain stimulator
DVT prophylaxis: Change heparin to Lovenox SQ
CODE STATUS: DNR
Anticipated Discharge: 24 - 48 hours
Subjective/Interval History
-
Date of Service: June 06, 2024
continues to have significant cough and related dyspnea
on o2 through NC
afebrile in night
Objective Data
-
Labs:
Laboratory Results
06/06/24
04:15
WBC 9.7
Hgb 12.0 L
Hct 36.4 L
Plt Count 268
Sodium 137
Potassium 4.5
Chloride 103
Carbon Dioxide 24
BUN 26 H
Creatinine 0.9
Glucose 119 H
Calcium 8.5
Vital Signs:
Vital Signs
Temp Pulse Resp BP Pulse Ox
98.5 F 95 22 120/70 97
06/06/24 07:55 06/06/24 10:00 06/06/24 10:00 06/06/24 09:48 06/06/24 09:48
I&O
06/05/24 06/06/24 06/07/24
06:59 06:59 06:59
Intake Total 360 / 360 600 / 600 100 / 100
Output Total 550 / 550 650 / 650 100 / 100
Balance -190 / -190 -50 / -50 0 / 0
Review of Systems
-
Respiratory: Reports No Symptoms
Cardiac: Reports No Symptoms
Abdomen/GI: Reports No Symptoms
Physical Exam
-
General: Comfortable
HEENT: Negative Oxygen
Respiratory: Negative Wheezes or Rales
Cardiac: Regular Rhythm and S1/S2; Negative Murmur or Rub
GI: Soft, Nontender and Nondistended
Musculoskeletal: No Edema
Neuro: Awake, Alert, Oriented and Nonfocal/Grossly Intact
Psych: Calm
[2024-06-06 14:24] LABS: Glucose - Point of Care 113 mg/dl (70-99)
--- NOTE | 2024-06-06 16:38 | PTCARENOTE ---
Transferred to 2123 via stretcher- monitors removed pt is med/ surg level of care. Remains on 3L 95%. Forced harsh cough at times, usually worse when trying to speak- long recovery- sao2 not affected.
[2024-06-06 17:02] LABS: Glucose - Point of Care 149 mg/dl (70-99)
--- NOTE | 2024-06-06 17:02 | CM ---
Patient with Hx Parkinsons Disease. Febrile today. Receiving IV Abx, Paxlovid. O2 3L. PT/OT recommend skilled rehab.
Patient's Level of Care changed today from Observation to Inpatient service 06/05/24.
Spoke with patient's Priti; is also home sick with a cold or bronchitis.
Discussed short term SNF for rehab.
She agrees with referrals to [facility], [facility] and [facility].
provided new cell phone #: [phone] (phone # provided to admitting)
SNF referrals placed.
Plan follow up SNF referrals.
[2024-06-06] MEDS: LOVENOX 40 MG SC (17:10)
--- NOTE | 2024-06-06 17:19 | CM ---
Patient with Hx Parkinsons Disease. Febrile today. Receiving IV Abx, Paxlovid. O2 3L. PT/OT recommend skilled rehab.
Patient's Level of Care changed today from Observation to Inpatient service 06/05/24.
Spoke with patient's Priti; is home sick with a cold or bronchitis.
Discussed short term SNF for rehab.
She agrees with referrals to [facility], [facility] and [facility]- informed her that [facility] and [facility] already accepted and will add referral to [facility].
prefers CM ask patient his SNF preference.
provided new cell phone #: [phone] (phone # provided to admitting)
Attempted to speak with patient who was unavailable.
Plan follow up with patient for SNF preference - [facility] or [facility].
[2024-06-06] MEDS: ProAIR HFA INHALER 2 PUFF INH (19:43)
[2024-06-06 21:59] LABS: Glucose - Point of Care 168 mg/dl (70-99)
[2024-06-06] MEDS: MORPHINE SULFATE 2 MG IV (23:54)
[2024-06-07] MEDS: ROBITUSSIN AC 5 ML PO ×2 (05:31→09:36)
[2024-06-07] MEDS: MORPHINE SULFATE 2 MG IV ×4 (05:31→20:41)
--- NOTE | 2024-06-07 06:23 | PTCARENOTE ---
Pt w/ excessive use of accessory muscle with breathing during shift, lungs coarse and diminished, scattered rhonchi throughout. respiratory therapy was TT and PRN inhaler given with some + effect. Also PRN cough med given x3 and PRN morphine for
back/rib cage area for pain from coughing and breathing. O2 remains at 3L via NC. Pt resting in bed at this time, breathing has improved.
[2024-06-07 06:54] LABS: Glucose - Point of Care 141 mg/dl (70-99)
[2024-06-07 07:00] VITALS: BP 139/75
[2024-06-07 08:17] LABS: Hematocrit 36.4 % (39.0-52.0); Hemoglobin 12.2 g/dL (13.0-18.0); Mean Corp Hgb Conc. 33.5 g/dL (33.0-37.0); Mean Corpuscular Hgb 30.1 pg (27.0-31.0); Mean Corpuscular Volume 89.9 fL (80.0-94.0); Mean Platelet Volume 9.3 fL (7.4-10.4); Platelet Count 261 10^3/uL (130-400); Red Blood Cell Count 4.05 10^6/uL (4.70-6.10); Red Cell Dist. Width 13.8 % (11.5-14.5); White Blood Cell Count 8.7 10^3/uL (4.8-10.8)
[2024-06-07 08:46] LABS: Blood Urea Nitrogen 32 mg/dl (9-20); Calcium 8.4 mg/dl (8.4-10.2); Carbon Dioxide 25 mmol/L (22-30); Chloride 103 mmol/L (98-107); Estimated Creatinine Clearance 76 ml/min; Glucose 107 mg/dl (70-99); Potassium 4.3 mmol/L (3.5-5.1); Sodium 137 mmol/L (135-145); eGFR > 60.00
[2024-06-07] MEDS: NOVOLOG FLEXPEN-MODERATE RESISTANCE SC ×3 (08:49→17:30)
[2024-06-07] MEDS: PAXLOVID 2X150 MG-100 MG DOSE PACK 1 DOSE PO ×2 (09:37→20:32)
[2024-06-07] MEDS: CLARITIN 10 MG PO (09:38)
[2024-06-07] MEDS: MAXIPIME 2000 MG IV ×2 (09:38→17:30)
[2024-06-07] MEDS: COLACE 100 MG PO (09:38)
[2024-06-07] MEDS: STERILE WATER FOR INJECTION 10 ML IV ×2 (09:38→17:30)
[2024-06-07] MEDS: ASPIR LOW (ENTERIC COATED) 81 MG PO (09:38)
[2024-06-07] MEDS: NON-FORMULARY ITEM 1 UNIT PO ×4 (09:39→20:33)
[2024-06-07] MEDS: DESENEX/MITRAZOL/ZEASORB 1 APPLIC TOPICAL ×2 (09:39→20:34)
[2024-06-07] MEDS: VITAMIN D3 (cholecalciferol) 125 MCG PO (09:39)
--- NOTE | 2024-06-07 10:08 | W.PN.PUL.V3 ---
Today's Communication / Plan
-
.
Antivirals
Antibiotics.
Wean oxygen.
Mucus clearing devices
Assessment
-
74-year-old man with past medical history noted. It is noted that this patient has history of chronic coughing. This time admitted for weakness, inability to get off the floor at home. He is nonambulatory. While here complaining of coughing that
was worse. Found to have abnormal CT chest treated with antibiotics for pneumonia. We were consulted on 06/03/[address] during this admission on 06/03/2024 ruled out pulmonary embolism. Possible right middle lobe collapse.
Abnormal CT chest06/03/2024: Bilateral infiltrates right greater than left. Left hemidiaphragm elevation. Right mainstem narrowing, possible due to expiratory phase. No endobronchial lesion, no mediastinal lymph node. CAT scan the day before
06/02/2024 with patent bilateral bronchi without mass. More over CT scan 12/2023 without distended lymph nodes or lung nodules.
Bilateral pneumonia: Suspect aspiration
Acute on chronic coughing
Chest pain possibly musculoskeletal
Normal proBNP and troponins 06/03/2024
Increase D-dimer: CT angiogram negative for PE 06/03/2023
Leukocytosis
COVID + 06/05/2024, was - 05/28/2024 as well as 06/02/2024
Conditions present prior admission:
Parkinson disease
Status post deep brain stimulator placement at [facility] in 2005
History of coronary artery disease
Dysphagia
History of esophageal stricture
History of depression
Zenker's diverticulum
Chronic cough-chronic. Suspected chronic microaspiration in the past
In 2020 modified barium swallow with no aspiration.
Prior pulmonary evaluation by Dr. Xavier 10/2022.
The forced vital capacity was 3.18 L or 85% of predicted and previously was 3.39 L or 89% of predicted and 3.3 L.Total lung capacity was 75% of predicted and previously was 104% of predicted.Thus he has developed mild restrictive lung disease which
is likely related to neuromuscular weakness associated with his Parkinson's disease.
Left hemidiaphragm elevation
Hard of hearing
Assessment and plan:
Respiratory status relatively stable
Continue supplemental oxygen if needed-assess discharge supplemental oxygen needs if not on room air at time of discharge-currently on 3 L-96%
COVID now positive
Isolation per protocol
Paxlovid initiated 06/06/24
Prone positioning if needed
Aspiration precautions
Speech therapy following
Video swallow p eventually
DuoNebs-3 times daily
Budesonide nebulizers
Mucolytic's
Antitussives
Monitor off steroids-consider steroids if does not improve especially in light of COVID positive
Cultures reviewed
Empiric antibiotics
Follow radiographically
Follow leukocytosis
DVT prophylaxis-on Lovenox
Subjective Data
-
Date of Service:
Date of Service: June 07, 2024
Chief Complaint: Pulmonary Follow Up and Dyspnea Follow Up
Subjective:
Still complains of chest congestion, nonproductive cough, no chest pain or abdominal pain
Review of Systems
General: Other ( per HPI)
Objective Data
Data Reviewed
Vital Signs / I&O:
Vital Signs
Temp Pulse Resp BP Pulse Ox
98.5 F 84 24 139/75 96
06/07/24 07:00 06/07/24 07:00 06/07/24 07:00 06/07/24 07:00 06/07/24 07:00
Intake and Output
06/06/24 06/07/24 06/08/24
06:59 06:59 06:59
Intake Total 600 / 600 580 / 580
Output Total 650 / 650 380 / 380
Balance -50 / -50 200 / 200
SaO2: 96
Nasal Cannula flow liters per minute: 4
Physical Exam
General: Respiratory Distress (n) and Comfortable
HEENT: Normocephalic, Anicteric and Moist Mucous Membranes
Cardiovascular: Regular Rhythm
Respiratory: Wheeze (n), Crackles (Basilar), Rhonchi (n), Non-Labored Respirations and Accessory Resp Muscle Use (n)
GI: Soft, Non Distended and Non Tender
Neurology: Awake, Alert and No Motor Deficits
Skin: Warm, Good Color, Cyanosis (n), Jaundice (n) and Rash
Labs/Micro/Reports
Lab Data
06/07/24 06:53
06/07/24 06:53
[2024-06-07 11:32] LABS: Glucose - Point of Care 128 mg/dl (70-99)
--- NOTE | 2024-06-07 13:42 | W.PN.HOSP.TC ---
Addendum entered and electronically signed by Mor Manning MD 06/07/24 13:56:
Adjust diagnosis:
Acute hypoxic respiratory failure
Original Note:
Today's Communication/Plan
-
maintain on paxlovid therapy
increased Robitussin AC dose
wean off o2 as possible
Assessment / Plan
Assessment / Plan
1. COVID 19 belgica pneumonia
Presumed super imposed bacterial Pneumonia
Acute hypoxic resp insufficiency
-CT chest showing Moderate size airspace consolidation and small right pleural effusion and mild left to right mediastinal shift with hilar lymphadenopathy and collapsed right mainstem bronchus and right upper lobe bronchus.
-Initially patient was treated for bacterial pneumonia
-Repeat COVID check was positive on 06/05
-Patient has been started on Paxlovid
-Patient antibiotic escalated to cefepime as well in light of slowly improving symptoms
-Patient is on o2 through NC 4L, wean off as possible
2. Chronic dry cough
-suspected repeated micro aspiration vs other
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
-Last rapid response last night 06/04 patient required to be transferred to IMU for significant dyspnea. O2 sat was 95% on 4 L nasal cannula
-Repeat chest x-ray showing increased right-sided atelectasis
-Speech therapy evaluated patient earlier this admission and has been cleared for regular/thin liquid
-CT chest PE has ruled out any PE
-ENT evaluated with bedside fiber scopic pharyngeal/larynx evaluation and no structural abnormalities.
-Patient was on empiric steroids that was discontinued.
-Currently on nebulizer therapy and cough suppressants
-Maintain on Robitussin AC - dose increased today
3. Presumed pleuritic pain
-With associated pulmonary symptoms patient had troponin/EKG checked no clear signs of ACS
-PE has been ruled out as well
-Right lower lobe atelectasis causing possible pleuritic pain as well.
4. CAD
Continue aspirin
Not sure why not on beta-blockers and statin
5. Parkinson's disease:
On Stalevo 1 tablet 4 times a day
He has a deep brain stimulator
DVT prophylaxis: Change heparin to Lovenox SQ
CODE STATUS: DNR
Anticipated Discharge: 24 - 48 hours
Subjective/Interval History
-
Date of Service: June 07, 2024
Continues to remain hypoxic
Afebrile overnight
Had few spells of coughing episodes
Objective Data
-
Labs:
Laboratory Results
06/07/24
06:53
WBC 8.7
Hgb 12.2 L
Hct 36.4 L
Plt Count 261
Sodium 137
Potassium 4.3
Chloride 103
Carbon Dioxide 25
BUN 32 H
Creatinine 0.9
Glucose 107 H
Calcium 8.4
Vital Signs:
Vital Signs
Temp Pulse Resp BP Pulse Ox
98.5 F 84 24 139/75 96
06/07/24 07:00 06/07/24 07:00 06/07/24 07:00 06/07/24 07:00 06/07/24 10:08
I&O
06/06/24 06/07/24 06/08/24
06:59 06:59 06:59
Intake Total 600 / 600 580 / 580
Output Total 650 / 650 380 / 380
Balance -50 / -50 200 / 200
Review of Systems
-
Respiratory: Reports Cough; Denies Trouble Breathing
Cardiac: Reports No Symptoms
Abdomen/GI: Reports No Symptoms
Physical Exam
-
General: Comfortable
HEENT: Negative Oxygen
Respiratory: Negative Wheezes or Rales
Cardiac: Regular Rhythm and S1/S2; Negative Murmur or Rub
GI: Soft, Nontender and Nondistended
Musculoskeletal: No Edema
Neuro: Awake, Alert, Oriented and Nonfocal/Grossly Intact
Psych: Calm
[2024-06-07] MEDS: ROBITUSSIN AC 10 ML PO (15:24)
[2024-06-07 15:25] VITALS: BP 146/76
[2024-06-07] MEDS: DUONEB 3 ML INH ×2 (16:22→19:31)
--- NOTE | 2024-06-07 16:24 | CM ---
Patient chart reviewed.
Spoke with Priti
Referrals in [facility] - [facility] & [facility] accepted
PT rec SNF - [facility] preferred
PLAN: SNF, pending bed availability
[2024-06-07 17:02] LABS: Glucose - Point of Care 124 mg/dl (70-99)
[2024-06-07] MEDS: LOVENOX 40 MG SC (17:31)
[2024-06-07 20:52] LABS: Glucose - Point of Care 144 mg/dl (70-99)
[2024-06-07] MEDS: TYLENOL 650 MG PO (22:42)
[2024-06-07 22:45] VITALS: BP 129/76
--- NOTE | 2024-06-07 23:37 | PTCARENOTE ---
Pt placed on suicidal 1:1, upon assessment pt making statements 'i want this to end' ' i am done' 'im going to commit suicide' i asked pt if he is planning on harming himself 'yes i am thinking about it'. ROAD PATCHER aware, psych consulted, 1:1. Pt also
asked to speak to a doctor because ' he is done' and wants to know his options. It Generalist aware of this. Will pass onto day shift to update MD.
[2024-06-08] MEDS: STERILE WATER FOR INJECTION 10 ML IV ×4 (01:24→23:37)
[2024-06-08] MEDS: MAXIPIME 2000 MG IV ×4 (01:24→23:37)
--- NOTE | 2024-06-08 05:44 | W.PN.UPDATE ---
Update Note
Progress Note Update
RN reported to [facility], patient stated suicidal thoughts and wanting to end life. [facility] unable to see patient as patient had slept. suicidal 1:1 observation placed. Psych Consulted.
[2024-06-08] MEDS: MORPHINE SULFATE 2 MG IV ×2 (05:58→20:32)
[2024-06-08] MEDS: ROBITUSSIN AC 10 ML PO ×2 (05:58→20:11)
[2024-06-08 06:47] LABS: Mean Corp Hgb Conc. 33.3 g/dL (33.0-37.0); Mean Corpuscular Hgb 30.2 pg (27.0-31.0); Mean Corpuscular Volume 90.5 fL (80.0-94.0); Platelet Count 247 10^3/uL (130-400); Red Blood Cell Count 3.98 10^6/uL (4.70-6.10); Red Cell Dist. Width 13.8 % (11.5-14.5); White Blood Cell Count 9.7 10^3/uL (4.8-10.8)
[2024-06-08 07:15] VITALS: BP 119/65
[2024-06-08 07:26] LABS: Blood Urea Nitrogen 24 mg/dl (9-20); Calcium 8.2 mg/dl (8.4-10.2); Carbon Dioxide 25 mmol/L (22-30); Chloride 103 mmol/L (98-107); Estimated Creatinine Clearance 85 ml/min; Glucose 116 mg/dl (70-99); Potassium 4.4 mmol/L (3.5-5.1); Sodium 138 mmol/L (135-145); eGFR > 60.00
[2024-06-08 07:28] LABS: Glucose - Point of Care 153 mg/dl (70-99)
[2024-06-08] MEDS: VITAMIN D3 (cholecalciferol) 125 MCG PO (08:22)
[2024-06-08] MEDS: COLACE 100 MG PO (08:22)
[2024-06-08] MEDS: CLARITIN 10 MG PO (08:23)
[2024-06-08] MEDS: PAXLOVID 2X150 MG-100 MG DOSE PACK 1 DOSE PO ×2 (08:23→20:11)
[2024-06-08] MEDS: NOVOLOG FLEXPEN-MODERATE RESISTANCE 1 UNITS SC (08:23)
[2024-06-08] MEDS: ASPIR LOW (ENTERIC COATED) 81 MG PO (08:23)
[2024-06-08] MEDS: NON-FORMULARY ITEM 1 UNIT PO ×4 (08:24→21:35)
[2024-06-08] MEDS: DESENEX/MITRAZOL/ZEASORB 1 APPLIC TOPICAL ×2 (08:25→20:13)
[2024-06-08] MEDS: ZOFRAN 4 MG IV ×2 (08:30→23:15)
--- NOTE | 2024-06-08 10:12 | CON.MD ---
Consultation - Medical
-
patient seen chart reviewed. spoke with nursing and with aide. this consult ordered bc patient verbalized si. this interview was very very difficult. i spoke in my loudest voice yet patient still could not hear me even if i spoke into his left ear
which is the better of the two. i wrote down all of my ? which he was able to read but he answered very very succinctly w one word answers. he is depressed. he has had suicidal thoughts. he has no plan or intent at this point. he has no fh of
depression. he has never been rx for depression. he has not thought about how his family would feel were he to by his own hand. he has no interests or hobbies. he is oriented x3 aware of who is president and which holiday has passed. he was
clearly in some physical distress when i spoke with him. he was tachypneic and seemed rather irritable as well. the patient was admitted bc cough and weakness. his stay has been complicated. he required rapid response at one point. he has been dx
pneumonia there is a ? re aspiration. he now has covid and is felt to be in ahrf. i called his to ask about a psych hx ,. he has never expressed suicidal thoughts but she feels he is depressed. he has taken antidepressant but said 'they
had side effects so he stopped taking them.' he had mostly nausea. she did not know what he had taken. reports he has had visual hallucinations eg of his brother lying in bed next to him which is the type of hallucination one might expect
from PD.
past psych hx denied by patient but see above he does have hx depression
past medical hx see medical above. patient w prior hx gerd mi s/p stent oa severe PD w brain stim patient not ambulatory hx chronic pain hld dyskinesia (related to PD) bph kidney stones. there is also notation of hallucinations in the chart
(secondary to PD? patient did nOT appear to be hallucinating when i saw him. ecg abnormal w nl qtc bun 24 hgb12 bp 119.65 rr 22 pulse 68 afebrile
family hx denied
substance abuse denied
social resides w who is commissioner [employer] of resources and seems very suportive
mse patient appears in significant respiratory distress. speech is very sparse one word answers. does NOT appear to be hallucinating. patient does appear depressed. affect blunted. patient admits to si no intent or plan. intelligence likely
average. insight and judgment impaired
dx unspecified depression in the context of serious medical illness
plan i do see patient as depressed and a suicide risk . given the level of his debility i don't think a [facility] will accept him and covid + would also be a barrier. would continue one to one for now and i will try to reassess tomorrow.
cannot come in today as she may have covid. i will let nursing know to tell him this. would hospice or palliative care be appropriate. this would need to be addressed w family and patient but would wait to see if his medical condition improves.
would not add antidepressants yet and in any case it takes some time for effect.
--- NOTE | 2024-06-08 11:56 | PN.CDI ---
CDI
- -
CDI:
Physician Documentation Request
Admit Date: 06/05/24 08:42
Dear Doctor Nigel,
Patient admitted for pneumonia
06/07 Hospitalist PN: 'Acute hypoxic respiratory failure...COVID 19 viral pneumonia, Presumed super imposed bacterial Pneumonia'
Laboratory Tests
06/04/24 06/05/24
07:29 04:45
WBC 12.2 H 12.0 H
06/05/24
16:38
Temp 102.7 F H
06/05/24
00:34 06/05/24
14:00 06/05/24
16:00
Pulse 105 102 112
06/05/24
05:00 06/05/24
07:00 06/05/24
13:00
Resp Rate 24 25 30
Please clarify which of the following most accurately describes the status of the patient's infection:
Sepsis, evolved during hospitalization
- Systemic manifestations of infection, with 2 or more SIRS criteria which include:
- Fever >100.4 degrees F or hypothermia < 96.8 degrees F
- Leukocytosis - WBC > 12,000 or leukopenia - WBC < 4,000 or > 10% bands
- Tachycardia > 90 beats per minute
- Tachypnea - RR > 20 breaths per minute or PaCO2 , 32mmHg
Source: Merck Manual 2012
- Indicate the known or suspected organism
- Indicate the known or suspected underlying infection, such as UTI, pneumonia or cellulitis
- Indicate if a suspected bacterial infection of unknown source
- Indicate if associated with an implanted device such as a F/C, PICC line, orthopedic hardware, etc.
Severe Sepsis
- Sepsis with associated acute organ dysfunction, such as renal or respiratory failure
- Documentation should indicate the association between the sepsis and the organ dysfunction
Localized Infection Only, Without Systemic Illness
- indicate the site/source, such as UTI, pneumonia etc.
Bacteremia
- Abnormal lab finding only, does not indicate systemic illness
Other
Unable to Determine
Use of terms such as suspected, likely, concern for, or probable (associated with a specific diagnosis that is being evaluated, monitored, or treated as if it exists) are acceptable and can be coded in the inpatient setting, when documented at the
time of discharge.
Thank you,
Mary Campuzano
CDI Specialist
Please use your independent medical judgment in providing your response.
--- NOTE | 2024-06-08 12:06 | PN.CDI ---
CDI
- -
CDI:
Physician Documentation Request
Admit Date: 06/05/24 08:42
Dear Doctor Tanner,
Patient admitted for pneumonia
ER physician documentation: 'presents stating he's had a cough for a month, it gets worse 'when I get nervous.'
05/31 Hospitalist PN: 'Mild rhabdomyolysis - resolved -CK4 400 -IV fluids given'
Based on the above, could you clarify in the progress notes, the appropriate diagnosis, if significant, that supports the above abnormalities and additional evaluation, monitoring and/or treatment rendered:
Nontraumatic rhabdomyolysis
Traumatic rhabdomyolysis
Other
Use of terms such as suspected, likely, concern for, or probable (associated with a specific diagnosis that is being evaluated, monitored, or treated as if it exists) are acceptable and can be coded in the inpatient setting, when documented at the
time of discharge.
Thank you,
Mary Campuzano RN, BSN
CDI Specialist
Available via [place] text
Please use your independent medical judgment in providing your response.
[2024-06-08 12:11] LABS: Glucose - Point of Care 110 mg/dl (70-99)
[2024-06-08] MEDS: NOVOLOG FLEXPEN-MODERATE RESISTANCE SC ×2 (12:13→17:07)
[2024-06-08] MEDS: DUONEB 3 ML INH ×2 (13:10→17:31)
[2024-06-08 13:16] VITALS: BP 135/72; PULSE 70; O2SAT 94
--- NOTE | 2024-06-08 14:28 | W.PN.PUL.V3 ---
Today's Communication / Plan
-
Wean oxygen.
Plaxlovid
Psychiatry evaluation. Ongoing
Assessment
-
74-year-old man with past medical history noted. It is noted that this patient has history of chronic coughing. This time admitted for weakness, inability to get off the floor at home. He is nonambulatory. While here complaining of coughing that
was worse. Found to have abnormal CT chest treated with antibiotics for pneumonia. We were consulted on 06/03/[address] during this admission on 06/03/2024 ruled out pulmonary embolism. Possible right middle lobe collapse.
Abnormal CT chest06/03/2024: Bilateral infiltrates right greater than left. Left hemidiaphragm elevation. Right mainstem narrowing, possible due to expiratory phase. No endobronchial lesion, no mediastinal lymph node. CAT scan the day before
06/02/2024 with patent bilateral bronchi without mass. More over CT scan 12/2023 without distended lymph nodes or lung nodules.
Bilateral pneumonia: Suspect aspiration
Acute on chronic coughing
Chest pain possibly musculoskeletal
Normal proBNP and troponins 06/03/2024
Increase D-dimer: CT angiogram negative for PE 06/03/2023
Leukocytosis
COVID + 06/05/2024, was - 05/28/2024 as well as 06/02/2024
Conditions present prior admission:
Parkinson disease
Status post deep brain stimulator placement at [facility] in 2005
History of coronary artery disease
Dysphagia
History of esophageal stricture
History of depression
Zenker's diverticulum
Chronic cough-chronic. Suspected chronic microaspiration in the past
In 2020 modified barium swallow with no aspiration.
Prior pulmonary evaluation by Dr. Xavier 10/2022.
The forced vital capacity was 3.18 L or 85% of predicted and previously was 3.39 L or 89% of predicted and 3.3 L.Total lung capacity was 75% of predicted and previously was 104% of predicted.Thus he has developed mild restrictive lung disease which
is likely related to neuromuscular weakness associated with his Parkinson's disease.
Left hemidiaphragm elevation
Hard of hearing
Assessment and plan:
Respiratory status slowly improving
Continue supplemental oxygen if needed-assess discharge supplemental oxygen needs if not on room air at time of discharge-currently on . 4 L-95% saturation-attempt to wean
COVID positive
Isolation continues per protocol
Paxlovid initiated 06/06/24-finish 5 days
Prone positioning if tolerated
Aspiration precautions
Speech therapy following
Video swallow p eventually
DuoNebs-3 times daily
Budesonide nebulizers
Mucolytic's
Antitussives
Monitor off steroids-consider steroids if does not improve especially in light of COVID positive
Cultures reviewed
Empiric antibiotics
Follow radiographically
Follow leukocytosis.
Suicidal ideations..
1:1
Psychiatry following-correspondence reviewed
DVT prophylaxis-on Lovenox
Subjective Data
-
Date of Service:
Date of Service: June 08, 2024
Chief Complaint: Pulmonary Follow Up and Dyspnea Follow Up
Subjective:
Complains of some shortness of breath, minimal cough, no abdominal pain
Review of Systems
General: Other (per HPI)
Objective Data
Data Reviewed
Vital Signs / I&O:
Vital Signs
Temp Pulse Resp BP Pulse Ox
98.0 F 68 22 119/65 95
06/08/24 07:15 06/08/24 07:15 06/08/24 07:15 06/08/24 07:15 06/08/24 11:40
Intake and Output
06/07/24 06/08/24 06/09/24
06:59 06:59 06:59
Intake Total 580 / 580 420 / 420
Output Total 380 / 380 400 / 400
Balance 200 / 200 20 / 20
SaO2: 95
Nasal Cannula flow liters per minute: 4
Physical Exam
General: Respiratory Distress (n) and Comfortable
HEENT: Normocephalic, Anicteric and Moist Mucous Membranes
Cardiovascular: Regular Rhythm
Respiratory: Wheeze (n), Crackles (Basilar), Rhonchi (n), Non-Labored Respirations and Accessory Resp Muscle Use (n)
GI: Soft, Non Distended and Non Tender
Neurology: Awake, Alert and No Motor Deficits
Skin: Warm, Good Color, Cyanosis (n), Jaundice (n) and Rash
Labs/Micro/Reports
Lab Data
06/08/24 06:05
06/08/24 06:05
--- NOTE | 2024-06-08 15:00 | PTCARENOTE ---
Patient assisted onto BSC and into chair by this RN and PT, patient mod x2 assist with RW. Patient states passing gas but without BM recently, no BM documented since admission. This RN communicated with MD, senna syrup and miralax ordered per MD,
patient already receiving scheduled colace in AM. Patient with dark marlena colored urine, refusing to drink water as he states it causes nausea. Patient bladder scanned by PCT after voiding small amount of urine into urinal for 16 ml. made aware,
no new orders at this time. Patient with dyspnea at rest and on exertion, scattered coarse lung sounds with wheezing, respiratory at bedside for PRN tx, O2 sat stable on 4L. 1:[address]
[2024-06-08] MEDS: MIRALAX 17 GRAMS PO (15:08)
[2024-06-08] MEDS: SENNA SYRUP 8.8 MG PO (15:15)
[2024-06-08 15:22] VITALS: BP 128/74
--- NOTE | 2024-06-08 16:50 | CM ---
Patient chart reviewed.
Covid +
suicidal 1:1 observation placed. Psych Consulted.
PLAN: CM to continue to follow hospital progression for dispo planning
[2024-06-08] MEDS: LOVENOX 40 MG SC (17:00)
[2024-06-08 17:05] LABS: Glucose - Point of Care 125 mg/dl (70-99)
[2024-06-08] MEDS: SENNA SYRUP PO ×2 (20:12→20:27)
[2024-06-08 21:29] LABS: Glucose - Point of Care 126 mg/dl (70-99)
[2024-06-08 23:33] VITALS: BP 130/83
[2024-06-09] MEDS: MORPHINE SULFATE 2 MG IV ×3 (02:26→20:28)
[2024-06-09] MEDS: DUONEB 3 ML INH (03:16)
[2024-06-09] MEDS: TORADOL 15 MG IV ×2 (05:29→12:47)
[2024-06-09] MEDS: ROBITUSSIN AC 10 ML PO ×4 (05:29→20:41)
[2024-06-09 05:41] VITALS: BMI 31.2
[2024-06-09 07:15] VITALS: BP 122/65
[2024-06-09 07:17] LABS: Hematocrit 34.2 % (39.0-52.0); Hemoglobin 11.6 g/dL (13.0-18.0); Mean Corp Hgb Conc. 33.9 g/dL (33.0-37.0); Mean Corpuscular Hgb 30.4 pg (27.0-31.0); Mean Corpuscular Volume 89.5 fL (80.0-94.0); Mean Platelet Volume 8.7 fL (7.4-10.4); Platelet Count 243 10^3/uL (130-400); Red Blood Cell Count 3.82 10^6/uL (4.70-6.10); White Blood Cell Count 7.4 10^3/uL (4.8-10.8)
[2024-06-09 07:38] LABS: Blood Urea Nitrogen 19 mg/dl (9-20); Carbon Dioxide 26 mmol/L (22-30); Chloride 104 mmol/L (98-107); Estimated Creatinine Clearance 84 ml/min; Glucose 121 mg/dl (70-99); Potassium 4.3 mmol/L (3.5-5.1); Sodium 138 mmol/L (135-145); eGFR > 60.00
[2024-06-09 09:08] LABS: Glucose - Point of Care 111 mg/dl (70-99)
[2024-06-09] MEDS: NOVOLOG FLEXPEN-MODERATE RESISTANCE SC ×3 (09:18→17:50)
[2024-06-09] MEDS: MAXIPIME 2000 MG IV (09:18)
[2024-06-09] MEDS: STERILE WATER FOR INJECTION 10 ML IV (09:18)
[2024-06-09] MEDS: MIRALAX 17 GRAMS PO (09:19)
[2024-06-09] MEDS: SENNA SYRUP 8.8 MG PO ×2 (09:19→20:29)
[2024-06-09] MEDS: CLARITIN 10 MG PO (09:19)
[2024-06-09] MEDS: VITAMIN D3 (cholecalciferol) 125 MCG PO (09:19)
[2024-06-09] MEDS: NON-FORMULARY ITEM 1 UNIT PO ×4 (09:19→22:22)
[2024-06-09] MEDS: PAXLOVID 2X150 MG-100 MG DOSE PACK 1 DOSE PO ×2 (09:19→20:28)
[2024-06-09] MEDS: ASPIR LOW (ENTERIC COATED) 81 MG PO (09:19)
[2024-06-09] MEDS: COLACE 100 MG PO (09:19)
[2024-06-09] MEDS: DESENEX/MITRAZOL/ZEASORB 1 APPLIC TOPICAL ×2 (09:20→20:44)
--- NOTE | 2024-06-09 10:18 | W.PN.PUL.V3 ---
Today's Communication / Plan
-
Aspiration precautions
Wean oxygen
Nebulizers
Paxlovid
Methylprednisolone initiated
Psychiatry following
Assessment
-
74-year-old man with past medical history noted. It is noted that this patient has history of chronic coughing. This time admitted for weakness, inability to get off the floor at home. He is nonambulatory. While here complaining of coughing that
was worse. Found to have abnormal CT chest treated with antibiotics for pneumonia. We were consulted on 06/03/[address] during this admission on 06/03/2024 ruled out pulmonary embolism. Possible right middle lobe collapse.
Abnormal CT chest06/03/2024: Bilateral infiltrates right greater than left. Left hemidiaphragm elevation. Right mainstem narrowing, possible due to expiratory phase. No endobronchial lesion, no mediastinal lymph node. CAT scan the day before
06/02/2024 with patent bilateral bronchi without mass. More over CT scan 12/2023 without distended lymph nodes or lung nodules.
Bilateral pneumonia: Suspect aspiration
Acute on chronic coughing
Chest pain possibly musculoskeletal
Normal proBNP and troponins 06/03/2024
Increase D-dimer: CT angiogram negative for PE 06/03/2023
Leukocytosis
COVID + 06/05/2024, was - 05/28/2024 as well as 06/02/2024
Conditions present prior admission:
Parkinson disease
Status post deep brain stimulator placement at [facility] in 2005
History of coronary artery disease
Dysphagia
History of esophageal stricture
History of depression
Zenker's diverticulum
Chronic cough-chronic. Suspected chronic microaspiration in the past
In 2020 modified barium swallow with no aspiration.
Prior pulmonary evaluation by Dr. Xavier 10/2022.
The forced vital capacity was 3.18 L or 85% of predicted and previously was 3.39 L or 89% of predicted and 3.3 L.Total lung capacity was 75% of predicted and previously was 104% of predicted.Thus he has developed mild restrictive lung disease which
is likely related to neuromuscular weakness associated with his Parkinson's disease.
Left hemidiaphragm elevation
Hard of hearing
Assessment and plan:
Respiratory status slowly improving
Continue supplemental oxygen if needed-assess discharge supplemental oxygen needs if not on room air at time of discharge-currently on 4 L-95% saturation-attempt to wean
COVID positive
Isolation continues per protocol
Paxlovid initiated 06/06/24-finish 5 days
Prone positioning if tolerated
Aspiration precautions
Speech therapy following
Video swallow eventually
DuoNebs-3 times daily
Budesonide nebulizers
Mucolytic's
Antitussives
Initiate methylprednisolone with ongoing wheezing, hypoxemia and viral infection
Cultures reviewed
Empiric antibiotics
Follow radiographically
Follow leukocytosis.
Suicidal ideations
1:1
Psychiatry following-correspondence reviewed
DVT prophylaxis-on Lovenox
Subjective Data
-
Date of Service:
Date of Service: June 09, 2024
Chief Complaint: Pulmonary Follow Up and Dyspnea Follow Up
Subjective:
Feels 'terrible', still with some cough, mostly nonproductive, some wheezing,
Review of Systems
General: Other (Per HPI)
Objective Data
Data Reviewed
Vital Signs / I&O:
Vital Signs
Temp Pulse Resp BP Pulse Ox
98.1 F 67 16 122/65 95
06/09/24 07:15 06/09/24 07:15 06/09/24 07:15 06/09/24 07:15 06/09/24 07:15
Intake and Output
06/08/24 06/09/24 06/10/24
06:59 06:59 06:59
Intake Total 420 / 420 840 / 840
Output Total 400 / 400 590 / 590
Balance 20 / 20 250 / 250
SaO2: 95
Nasal Cannula flow liters per minute: 4
Physical Exam
General: Respiratory Distress (n) and Comfortable
HEENT: Normocephalic, Anicteric and Moist Mucous Membranes
Cardiovascular: Regular Rhythm
Respiratory: Wheeze (n), Crackles (Basilar), Rhonchi (n), Non-Labored Respirations and Accessory Resp Muscle Use (n)
GI: Soft, Non Distended and Non Tender
Neurology: Awake, Alert and No Motor Deficits
Skin: Warm, Good Color, Cyanosis (n), Jaundice (n) and Rash
Labs/Micro/Reports
Lab Data
06/09/24 06:52
06/09/24 06:52
[2024-06-09 10:54] VITALS: BMI 31.2
[2024-06-09 11:41] LABS: Glucose - Point of Care 123 mg/dl (70-99)
[2024-06-09] MEDS: ZOFRAN 4 MG IV (12:15)
[2024-06-09] MEDS: DUPHALAC/CHRONULAC 20 GRAMS PO ×3 (12:17→22:22)
[2024-06-09 12:47] VITALS: BP 127/79; PULSE 82; O2SAT 92
--- NOTE | 2024-06-09 13:10 | W.PN.HOSP.TC ---
Addendum entered and electronically signed by Mor Manning MD 06/09/24 15:51:
Add to diagnosis list:
Sepsis - from viral PNA
Original Note:
Today's Communication/Plan
-
see note
Assessment / Plan
Assessment / Plan
1. COVID 19 belgica pneumonia
Presumed super imposed bacterial Pneumonia
Acute hypoxic resp insufficiency
-CT chest showing Moderate size airspace consolidation and small right pleural effusion and mild left to right mediastinal shift with hilar lymphadenopathy and collapsed right mainstem bronchus and right upper lobe bronchus.
-Initially patient was treated for bacterial pneumonia
-Repeat COVID check was positive on 06/05
-Patient has been started on Paxlovid
-Patient antibiotic escalated to cefepime as well in light of slowly improving symptoms
-Patient o2 requirement continues to remain high at 4 L , wean off as possible.
2. Chronic dry cough
-suspected repeated micro aspiration vs other
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
-Last rapid response last night 06/04 patient required to be transferred to IMU for significant dyspnea. O2 sat was 95% on 4 L nasal cannula
-Repeat chest x-ray showing increased right-sided atelectasis
-Speech therapy evaluated patient earlier this admission and has been cleared for regular/thin liquid
-CT chest PE has ruled out any PE
-ENT evaluated with bedside fiber scopic pharyngeal/larynx evaluation and no structural abnormalities.
-Patient was on empiric steroids that was discontinued.
-Currently on nebulizer therapy and cough suppressants
-Maintain on Robitussin AC - dose increased today
3. Presumed pleuritic pain
-With associated pulmonary symptoms patient had troponin/EKG checked no clear signs of ACS
-PE has been ruled out as well
-Right lower lobe atelectasis causing possible pleuritic pain as well.
4. CAD
Continue aspirin
Not sure why not on beta-blockers and statin
5. Parkinson's disease:
On Stalevo 1 tablet 4 times a day
He has a deep brain stimulator
6. Constipation
-On Robitussin AC (codeine) likely adding to issue
-stgart on oral lactulose/miralax
-portable abd xr ordered.
DVT prophylaxis: Change heparin to Lovenox SQ
CODE STATUS: DNR
Anticipated Discharge: > 48 hours
Subjective/Interval History
-
Date of Service: June 09, 2024
continues to have some cough
remains on o2 through nasal cannula 4L
no BM for few days
afebrile overnight
Objective Data
-
Labs:
Laboratory Results
06/09/24
06:52
WBC 7.4
Hgb 11.6 L
Hct 34.2 L
Plt Count 243
Sodium 138
Potassium 4.3
Chloride 104
Carbon Dioxide 26
BUN 19
Creatinine 0.8
Glucose 121 H
Calcium 8.0 L
Vital Signs:
Vital Signs
Temp Pulse Resp BP Pulse Ox
98.1 F 67 16 122/65 95
06/09/24 07:15 06/09/24 07:15 06/09/24 07:15 06/09/24 07:15 06/09/24 11:12
I&O
06/08/24 06/09/24 06/10/24
06:59 06:59 06:59
Intake Total 420 / 420 840 / 840
Output Total 400 / 400 590 / 590
Balance 20 / 20 250 / 250
Review of Systems
-
Respiratory: Reports Cough and Trouble Breathing
Cardiac: Reports No Symptoms
Abdomen/GI: Reports No Symptoms
Physical Exam
-
General: No Apparent Distress and Comfortable
HEENT: Oxygen (4L NC)
Respiratory: Rhonchi
Cardiac: Regular Rhythm and S1/S2; Negative Murmur or Rub
GI: Normal Bowel Sounds and Distended
Musculoskeletal: No Edema
Neuro: Awake, Alert, No Motor Deficits and Other (somonolent)
Psych: Calm
[2024-06-09 15:05] VITALS: BP 142/83
[2024-06-09] MEDS: STERILE WATER FOR INJECTION IV ×2 (15:12→23:30)
--- NOTE | 2024-06-09 15:15 | PTCARENOTE ---
Patient without bowel movement despite increased bowel regimen, assisted onto commode with RW and x2 assist, patient states passing gas but no BM. Patient with minimal urine output throughout shift, marlena colored; patient not eating or drinking
other than apple juice and hot chocolate occasionally. MD made aware of above, lactulose and portable abdominal xray ordered per MD, no IVF at this time per MD.
[2024-06-09] MEDS: LOVENOX 40 MG SC (17:41)
[2024-06-09] MEDS: SOLU-MEDROL PF 40 MG IV ×2 (17:41→23:42)
[2024-06-09 17:45] LABS: Glucose - Point of Care 115 mg/dl (70-99)
[2024-06-09 21:22] LABS: Glucose - Point of Care 139 mg/dl (70-99)
[2024-06-09 23:38] VITALS: BP 135/76
[2024-06-10 05:48] VITALS: BMI 31.2
[2024-06-10] MEDS: TYLENOL 650 MG PO (06:01)
[2024-06-10 07:28] LABS: Hematocrit 34.4 % (39.0-52.0); Hemoglobin 11.8 g/dL (13.0-18.0); Mean Corp Hgb Conc. 34.3 g/dL (33.0-37.0); Mean Corpuscular Hgb 30.6 pg (27.0-31.0); Mean Corpuscular Volume 89.1 fL (80.0-94.0); Mean Platelet Volume 8.9 fL (7.4-10.4); Platelet Count 240 10^3/uL (130-400); Red Blood Cell Count 3.86 10^6/uL (4.70-6.10); Red Cell Dist. Width 13.6 % (11.5-14.5); White Blood Cell Count 5.5 10^3/uL (4.8-10.8)
[2024-06-10 07:32] VITALS: BP 146/84
[2024-06-10 08:07] LABS: Blood Urea Nitrogen 22 mg/dl (9-20); Calcium 8.4 mg/dl (8.4-10.2); Carbon Dioxide 25 mmol/L (22-30); Chloride 104 mmol/L (98-107); Estimated Creatinine Clearance 96 ml/min; Glucose 153 mg/dl (70-99); Sodium 137 mmol/L (135-145); eGFR > 60.00
[2024-06-10 08:14] LABS: Potassium 4.5 mmol/L (3.5-5.1)
[2024-06-10 08:46] LABS: Glucose - Point of Care 155 mg/dl (70-99)
[2024-06-10] MEDS: NOVOLOG FLEXPEN-MODERATE RESISTANCE 1 UNITS SC (09:13)
[2024-06-10] MEDS: DUPHALAC/CHRONULAC 20 GRAMS PO ×3 (09:14→20:58)
[2024-06-10] MEDS: MIRALAX 17 GRAMS PO (09:14)
[2024-06-10] MEDS: SENNA SYRUP 8.8 MG PO ×2 (09:14→20:58)
[2024-06-10] MEDS: NON-FORMULARY ITEM 1 UNIT PO ×4 (09:15→21:00)
[2024-06-10] MEDS: SOLU-MEDROL PF 40 MG IV (09:15)
[2024-06-10] MEDS: CLARITIN 10 MG PO (09:16)
[2024-06-10] MEDS: ASPIR LOW (ENTERIC COATED) 81 MG PO (09:17)
[2024-06-10] MEDS: COLACE 100 MG PO (09:19)
[2024-06-10] MEDS: DESENEX/MITRAZOL/ZEASORB 1 APPLIC TOPICAL ×2 (09:20→21:01)
[2024-06-10] MEDS: STERILE WATER FOR INJECTION IV ×2 (09:20→17:13)
[2024-06-10] MEDS: VITAMIN D3 (cholecalciferol) 125 MCG PO (10:32)
[2024-06-10] MEDS: PAXLOVID 2X150 MG-100 MG DOSE PACK 1 DOSE PO ×2 (10:32→20:58)
[2024-06-10 11:53] LABS: Glucose - Point of Care 213 mg/dl (70-99)
[2024-06-10] MEDS: NOVOLOG FLEXPEN-MODERATE RESISTANCE 3 UNITS SC (12:22)
--- NOTE | 2024-06-10 13:08 | W.PN.HOSP.TC ---
Today's Communication/Plan
-
Citroma, if not improvement enema
Continue rifaximin possible
Decrease steroids to oral from tomorrow
Assessment / Plan
Assessment / Plan
1. COVID 19 belgica pneumonia
Presumed super imposed bacterial Pneumonia
Acute hypoxic resp insufficiency
-CT chest showing Moderate size airspace consolidation and small right pleural effusion and mild left to right mediastinal shift with hilar lymphadenopathy and collapsed right mainstem bronchus and right upper lobe bronchus.
-Initially patient was treated for bacterial pneumonia
-Repeat COVID check was positive on 06/05
-Finishing course of steroids
-finished course of cefepime
-Patient o2 requirement continues to remain high at 4 L , wean off as possible.
2. Chronic dry cough
-suspected repeated micro aspiration vs other
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
-Last rapid response last night 06/04 patient required to be transferred to IMU for significant dyspnea. O2 sat was 95% on 4 L nasal cannula
-Repeat chest x-ray showing increased right-sided atelectasis
-Speech therapy evaluated patient earlier this admission and has been cleared for regular/thin liquid
-CT chest PE has ruled out any PE
-ENT evaluated with bedside fiber scopic pharyngeal/larynx evaluation and no structural abnormalities.
-Patient was on empiric steroids that was discontinued.
-Currently on nebulizer therapy and cough suppressants
-due to sev constipation, d/c Robitussin AC. change to dextromethorphan/guaifenesin
3. Presumed pleuritic pain
-With associated pulmonary symptoms patient had troponin/EKG checked no clear signs of ACS
-PE has been ruled out as well
-Right lower lobe atelectasis causing possible pleuritic pain as well.
4. CAD
-Continue aspirin
-Not sure why not on beta-blockers and statin
5. Parkinson's disease:
-On Stalevo 1 tablet 4 times a day
-He has a deep brain stimulator
6. Constipation
-On Robitussin AC (codeine) likely adding to issue - d/elina
-portable abd xr ordered.
-x1 dose of citroma. if No bowel movement then provide enema
DVT prophylaxis: Change heparin to Lovenox SQ
CODE STATUS: DNR
Anticipated Discharge: 24 - 48 hours
Subjective/Interval History
-
Date of Service: June 10, 2024
Sitting in chair
Remains on 4 L oxygen through nasal cannula
Continues to have dyspnea/cough
Complaining some arm pain
Some nausea
Objective Data
-
Labs:
Laboratory Results
06/10/24
07:15
WBC 5.5
Hgb 11.8 L
Hct 34.4 L
Plt Count 240
Sodium 137
Potassium 4.5
Chloride 104
Carbon Dioxide 25
BUN 22 H
Creatinine 0.7
Glucose 153 H
Calcium 8.4
Vital Signs:
Vital Signs
Temp Pulse Resp BP Pulse Ox
98.0 F 79 22 146/84 96
06/10/24 07:32 06/10/24 07:32 06/10/24 07:32 06/10/24 07:32 06/10/24 09:10
I&O
06/09/24 06/10/24 06/11/24
06:59 06:59 06:59
Intake Total 840 / 840 960 / 960
Output Total 590 / 590 575 / 575
Balance 250 / 250 385 / 385
Review of Systems
-
Respiratory: Reports Cough and Trouble Breathing
Cardiac: Reports No Symptoms
Abdomen/GI: Reports Abdominal Pain and Nausea
Physical Exam
-
General: No Apparent Distress and Comfortable
HEENT: Oxygen (4L NC)
Respiratory: Rhonchi
Cardiac: Regular Rhythm and S1/S2; Negative Murmur or Rub
GI: Normal Bowel Sounds and Distended
Musculoskeletal: No Edema
Neuro: Awake, Alert, No Motor Deficits and Other (somonolent)
Psych: Calm
[2024-06-10] MEDS: CITROMA 300 ML PO (13:16)
[2024-06-10] MEDS: ROBITUSSIN DM 10 ML PO (13:22)
[2024-06-10] MEDS: ZOFRAN 4 MG IV (13:22)
--- NOTE | 2024-06-10 14:35 | W.PN.UPDATE ---
Update Note
Progress Note Update
Patient is still very depressed, states that he would rather not life and would take a bunch of pills if he could. His distress is related to his physical condition, particularly pain. He also feels that people do not care about him and not taking
him seriously. Appetite is fair, sleep varies. He reports the depression is only related to his physical symptoms.
He has been on antidepressant in the past but does not recall which one. He has had hallucination but not clear if it was a side effect. currently is not psychotic and not responding to internal stimuli.
He agreed to try Zoloft, side effects discussed including the fact the medication takes about 2 weeks to assess its effectiveness.
Supportive intervention given, will F/U.
[2024-06-10] MEDS: ZOLOFT 50 MG PO (14:48)
--- NOTE | 2024-06-10 14:57 | W.PN.PUL3 ---
Today's Communication / Plan
-
COVID treatment, supportive care--last positive test 06/05, can retest to remove isolation
Prednisone taper
Cough treatment ongoing, unclear if this is also neurogenic vs psychiatric -- unable to stop
Wean O2 as tolerated
Psych following for acute issues
Assessment
-
74-year-old man with past medical history noted. It is noted that this patient has history of chronic coughing. This time admitted for weakness, inability to get off the floor at home. He is nonambulatory. While here complaining of coughing that
was worse. Found to have abnormal CT chest treated with antibiotics for pneumonia. We were consulted on 06/03/[address] during this admission on 06/03/2024 ruled out pulmonary embolism. Possible right middle lobe collapse.
Bilateral pneumonia: Suspect aspiration
Acute on chronic coughing
Chest pain possibly musculoskeletal
Normal proBNP and troponins 06/03/2024
Increase D-dimer: CT angiogram negative for PE 06/03/2023
Leukocytosis
COVID + 06/05/2024, was - 05/28/2024 as well as 06/02/2024
Conditions present prior admission:
Parkinson disease
Status post deep brain stimulator placement at [facility] in 2005
History of coronary artery disease
Dysphagia
History of esophageal stricture
History of depression
Zenker's diverticulum
Chronic cough-chronic. Suspected chronic microaspiration in the past
In 2020 modified barium swallow with no aspiration.
Prior pulmonary evaluation by Dr. Xavier 10/2022.
The forced vital capacity was 3.18 L or 85% of predicted and previously was 3.39 L or 89% of predicted and 3.3 L.Total lung capacity was 75% of predicted and previously was 104% of predicted.Thus he has developed mild restrictive lung disease which
is likely related to neuromuscular weakness associated with his Parkinson's disease.
Left hemidiaphragm elevation
Hard of hearing
Plan:
Respiratory status slowly improving
Continue supplemental oxygen if needed--currently on 4 L-95% saturation-attempt to wean
COVID positive
Isolation continues per protocol
Paxlovid initiated 06/06/24-finish 5 days
Prone positioning if tolerated
Aspiration precautions
Speech therapy following
Video swallow -- ok for diet/resumed
DuoNebs-3 times daily
Budesonide nebulizers
Mucolytic's
Antitussives
Prednisone taper
Cultures reviewed
Empiric antibiotics
Follow radiographically
Follow leukocytosis.
Suicidal ideations
1:1
Psychiatry following-correspondence reviewed
DVT prophylaxis-on Lovenox
Diagnostic Data
CXR 06/05/24- 1. Interval increase in moderate left to right mediastinal shift suggesting progressive right lung volume loss which is likely secondary to right lower lobe atelectasis.
2. Dense airspace consolidation in the basilar segments of the right lower lobe (either atelectasis or pneumonia).
3. Small right pleural effusion.
4. Moderate elevation of left hemidiaphragm.
5. Mild cardiomegaly.
AXR 06/09/24- Elevation of the left hemidiaphragm with moderately distended air-filled stomach underneath the left hemidiaphragm. Parenchymal opacities within both lungs, morphologic appearance most suggestive of atelectasis. Pneumonia is not
excluded.
Small right pleural effusion. Residual contrast within the colon, which is likely from recent video swallowing exam.
Moderate to large amount of stool is present in the region of the rectum, suggesting the possibility of fecal impaction
Abnormal CT chest 06/03/2024: Bilateral infiltrates right greater than left. Left hemidiaphragm elevation. Right mainstem narrowing, possible due to expiratory phase. No endobronchial lesion, no mediastinal lymph node. CAT scan the day before
06/02/2024 with patent bilateral bronchi without mass. More over CT scan 12/2023 without distended lymph nodes or lung nodules.
Subjective Data
-
Date of Service:
Date of Service: June 10, 2024
Chief Complaint: Pulmonary Follow Up and Dyspnea Follow Up
Subjective:
coughing uncontrollably
unable to answer me, communicate
facial flushing noted
Objective Data
Data Reviewed
Vital Signs / I&O / Oxygen:
Vital Signs
Temp Pulse Resp BP Pulse Ox
98.0 F 79 22 146/84 96
06/10/24 07:32 06/10/24 07:32 06/10/24 07:32 06/10/24 07:32 06/10/24 09:10
Intake and Output
06/09/24 06/10/24 06/11/24
06:59 06:59 06:59
Intake Total 840 / 840 960 / 960
Output Total 590 / 590 575 / 575
Balance 250 / 250 385 / 385
SaO2 96
Nasal Cannula flow liters per 4
minute
Physical Exam
General: Respiratory Distress (n) and Comfortable
HEENT: Normocephalic, Anicteric, Moist Mucous Membranes and Other (facial flushing)
Cardiovascular: S1-S2 and Regular Rhythm
Respiratory: Wheeze (n), Crackles (Basilar), Rhonchi (noted while coughing), Non-Labored Respirations and Accessory Resp Muscle Use (n)
GI: Soft, Non Distended and Non Tender
Neurology: Awake, Alert, Oriented and No Motor Deficits
Skin: Warm, Good Color, Cyanosis (n), Jaundice (n) and Rash
Labs/Micro/Reports
Lab Data
06/10/24 07:15
06/10/24 07:15
[2024-06-10 16:00] VITALS: BP 141/81
[2024-06-10] MEDS: LOVENOX 40 MG SC (17:12)
[2024-06-10 17:42] LABS: Glucose - Point of Care 150 mg/dl (70-99)
[2024-06-10] MEDS: NOVOLOG FLEXPEN-MODERATE RESISTANCE SC (17:46)
[2024-06-10] MEDS: FLEET MINERAL OIL ENEMA 133 ML RECTAL (21:13)
[2024-06-10 22:48] LABS: Glucose - Point of Care 155 mg/dl (70-99)
[2024-06-10 23:14] VITALS: BP 131/80
[2024-06-11] MEDS: STERILE WATER FOR INJECTION IV ×4 (02:20→22:30)
[2024-06-11] MEDS: ROBITUSSIN DM 10 ML PO (02:22)
[2024-06-11 05:55] LABS: Hematocrit 34.8 % (39.0-52.0); Hemoglobin 11.8 g/dL (13.0-18.0); Mean Corp Hgb Conc. 33.9 g/dL (33.0-37.0); Mean Corpuscular Volume 88.5 fL (80.0-94.0); Mean Platelet Volume 8.9 fL (7.4-10.4); Platelet Count 258 10^3/uL (130-400); Red Blood Cell Count 3.93 10^6/uL (4.70-6.10); Red Cell Dist. Width 13.1 % (11.5-14.5); White Blood Cell Count 8.3 10^3/uL (4.8-10.8)
[2024-06-11 06:00] VITALS: BMI 30.7
[2024-06-11 06:19] LABS: Blood Urea Nitrogen 20 mg/dl (9-20); Carbon Dioxide 29 mmol/L (22-30); Chloride 105 mmol/L (98-107); Estimated Creatinine Clearance 111 ml/min; Glucose 135 mg/dl (70-99); Potassium 4.5 mmol/L (3.5-5.1); Sodium 139 mmol/L (135-145); eGFR > 60.00
[2024-06-11 07:26] LABS: Glucose - Point of Care 156 mg/dl (70-99)
[2024-06-11] MEDS: CLARITIN 10 MG PO (07:58)
[2024-06-11] MEDS: ZOLOFT 50 MG PO (07:58)
[2024-06-11] MEDS: ASPIR LOW (ENTERIC COATED) 81 MG PO (07:58)
[2024-06-11] MEDS: SENNA SYRUP 8.8 MG PO ×2 (07:58→22:32)
[2024-06-11] MEDS: COLACE 100 MG PO (07:58)
[2024-06-11] MEDS: NOVOLOG FLEXPEN-MODERATE RESISTANCE 1 UNITS SC (07:59)
[2024-06-11] MEDS: DUPHALAC/CHRONULAC 20 GRAMS PO (07:59)
[2024-06-11] MEDS: MIRALAX 17 GRAMS PO (07:59)
[2024-06-11] MEDS: DESENEX/MITRAZOL/ZEASORB 1 APPLIC TOPICAL ×2 (07:59→21:00)
[2024-06-11 08:00] VITALS: BP 137/74
[2024-06-11] MEDS: NON-FORMULARY ITEM 1 UNIT PO ×4 (08:00→22:32)
[2024-06-11] MEDS: VITAMIN D3 (cholecalciferol) 125 MCG PO (08:02)
[2024-06-11] MEDS: DELTASONE 40 MG PO (08:02)
--- NOTE | 2024-06-11 09:10 | CM ---
CM reviewed chart. Pt COVID+ on 06/05- last day of isolation 06/15 (retesting maybe continue to show positive results up to 60+ days s/p initial testing, would only retest if requested by dc facility). Pt currently on suicide precautions w/1:1- final
Psych recs pending. Pt w/continued decreased UOP, pending BM.
Pt may be a challanging place when medically stable for discharge 2/2 CV dx and current SI w/precautions.
CM/SW will contine to follow to ensure a safe and timely discharge.
[2024-06-11] MEDS: ZOFRAN 4 MG IV (10:44)
--- NOTE | 2024-06-11 12:11 | W.PN.HOSP.TC ---
Today's Communication/Plan
-
see note
Assessment / Plan
Assessment / Plan
1. COVID 19 viral pneumonia
Presumed super imposed bacterial Pneumonia
Acute hypoxic respiratory insufficiency
-CT chest showing Moderate size airspace consolidation and small right pleural effusion and mild left to right mediastinal shift with hilar lymphadenopathy and collapsed right mainstem bronchus and right upper lobe bronchus.
-Initially patient was treated for bacterial pneumonia
-Repeat COVID check was positive on 06/05
-Finishing course of steroids
-finished course of cefepime
-continue wean off o2 as possible. currently on 4-5L/m
2. Chronic dry cough
-suspected repeated micro aspiration vs other
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
-Last rapid response last night 06/04 patient required to be transferred to IMU for significant dyspnea. O2 sat was 95% on 4 L nasal cannula
-Repeat chest x-ray showing increased right-sided atelectasis
-Speech therapy evaluated patient earlier this admission and has been cleared for regular/thin liquid
-CT chest PE has ruled out any PE
-ENT evaluated with bedside fiber scopic pharyngeal/larynx evaluation and no structural abnormalities.
-Patient was on empiric steroids that was discontinued.
-Currently on nebulizer therapy and cough suppressants
-due to sev constipation, d/c Robitussin AC. change to dextromethorphan/guaifenesin
3. Presumed pleuritic pain
-With associated pulmonary symptoms patient had troponin/EKG checked no clear signs of ACS
-PE has been ruled out as well
-Right lower lobe atelectasis causing possible pleuritic pain as well.
4. CAD
-Continue aspirin
-Not sure why not on beta-blockers and statin
5. Parkinson's disease:
-On Stalevo 1 tablet 4 times a day
-He has a deep brain stimulator
6. Constipation
-On Robitussin AC (codeine) likely adding to issue - d/elina
-portable abd xr ordered.
-maintain on lactulose . provide repeat dose of enema.
DVT prophylaxis: Change heparin to Lovenox SQ
CODE STATUS: DNR
Anticipated Discharge: 24 - 48 hours
Subjective/Interval History
-
Date of Service: June 11, 2024
some pasty bowel movement
afebrile overnight
Objective Data
-
Labs:
Laboratory Results
06/11/24
05:39
WBC 8.3
Hgb 11.8 L
Hct 34.8 L
Plt Count 258
Sodium 139
Potassium 4.5
Chloride 105
Carbon Dioxide 29
BUN 20
Creatinine 0.6 L
Glucose 135 H
Calcium 8.0 L
Vital Signs:
Vital Signs
Temp Pulse Resp BP Pulse Ox
98.4 F 66 64 137/74 94
06/11/24 08:00 06/10/24 23:14 06/11/24 08:00 06/11/24 08:00 06/11/24 08:00
I&O
06/10/24 06/11/24 06/12/24
06:59 06:59 06:59
Intake Total 960 / 960 480 / 480
Output Total 575 / 575 1080 / 1080
Balance 385 / 385 -600 / -600
Review of Systems
-
Respiratory: Reports No Symptoms
Cardiac: Reports No Symptoms
Abdomen/GI: Reports No Symptoms
Physical Exam
-
General: No Apparent Distress and Comfortable
HEENT: Oxygen (4L NC)
Respiratory: Rhonchi
Cardiac: Regular Rhythm and S1/S2; Negative Murmur or Rub
GI: Normal Bowel Sounds and Distended
Musculoskeletal: No Edema
Neuro: Awake, Alert, No Motor Deficits and Other (somonolent)
Psych: Calm
[2024-06-11 12:15] LABS: Glucose - Point of Care 116 mg/dl (70-99)
[2024-06-11] MEDS: NOVOLOG FLEXPEN-MODERATE RESISTANCE SC ×2 (12:16→16:17)
--- NOTE | 2024-06-11 12:51 | W.PN.UPDATE ---
Update Note
Progress Note Update
Patient is rather drowsy today but pleasant. He reports he is about the same, still depressed and rather hopeless abut possibility of improvement. Denies presently active suicidal thoughts but it would not bother him if he .
He is now on Zoloft 50 mg daily, it is too early to assess effectiveness.
Supportive intervention given.
Will continue F/U.
[2024-06-11] MEDS: FLEET MINERAL OIL ENEMA 133 ML RECTAL ×2 (12:58→22:31)
--- NOTE | 2024-06-11 14:44 | W.PN.PUL3 ---
Today's Communication / Plan
-
No coughing today, better
Remains on 4L NC, home O2 eval
Completed COVID treatment, supportive care now
PT/OT evals
Hopeful d/c planning per team
Assessment
-
74-year-old man with past medical history noted. It is noted that this patient has history of chronic coughing. This time admitted for weakness, inability to get off the floor at home. He is nonambulatory. While here complaining of coughing that
was worse. Found to have abnormal CT chest treated with antibiotics for pneumonia. We were consulted on 06/03/[address] during this admission on 06/03/2024 ruled out pulmonary embolism. Possible right middle lobe collapse.
Bilateral pneumonia: Suspect aspiration
Acute on chronic coughing
Chest pain possibly musculoskeletal
Normal proBNP and troponins 06/03/2024
Increase D-dimer: CT angiogram negative for PE 06/03/2023
Leukocytosis
COVID + 06/05/2024, was - 05/28/2024 as well as 06/02/2024
Conditions present prior admission:
Parkinson disease
Status post deep brain stimulator placement at [facility] in 2005
History of coronary artery disease
Dysphagia
History of esophageal stricture
History of depression
Zenker's diverticulum
Chronic cough-chronic. Suspected chronic microaspiration in the past
In 2020 modified barium swallow with no aspiration.
Prior pulmonary evaluation by Dr. Xavier 10/2022.
The forced vital capacity was 3.18 L or 85% of predicted and previously was 3.39 L or 89% of predicted and 3.3 L.Total lung capacity was 75% of predicted and previously was 104% of predicted.Thus he has developed mild restrictive lung disease which
is likely related to neuromuscular weakness associated with his Parkinson's disease.
Left hemidiaphragm elevation
Hard of hearing
Plan:
Respiratory status slowly improving
Continue supplemental oxygen if needed--currently on 4 L-95% saturation-attempt to wean
Home O2 eval
COVID positive
Isolation continues per protocol
Paxlovid initiated 06/06/24-finished 5 days, now off
Prone positioning if tolerated
Aspiration precautions
Speech therapy following
Video swallow -- ok for diet/resumed
DuoNebs-3 times daily
Budesonide nebulizers
Mucolytic's
Antitussives
Prednisone taper
Cultures reviewed
Empiric antibiotics
Follow radiographically
Follow leukocytosis.
Suicidal ideations
1:1
Psychiatry following-correspondence reviewed
DVT prophylaxis-on Lovenox
Diagnostic Data
CXR 06/05/24- 1. Interval increase in moderate left to right mediastinal shift suggesting progressive right lung volume loss which is likely secondary to right lower lobe atelectasis.
2. Dense airspace consolidation in the basilar segments of the right lower lobe (either atelectasis or pneumonia).
3. Small right pleural effusion.
4. Moderate elevation of left hemidiaphragm.
5. Mild cardiomegaly.
AXR 06/09/24- Elevation of the left hemidiaphragm with moderately distended air-filled stomach underneath the left hemidiaphragm. Parenchymal opacities within both lungs, morphologic appearance most suggestive of atelectasis. Pneumonia is not
excluded.
Small right pleural effusion. Residual contrast within the colon, which is likely from recent video swallowing exam.
Moderate to large amount of stool is present in the region of the rectum, suggesting the possibility of fecal impaction
Abnormal CT chest 06/03/2024: Bilateral infiltrates right greater than left. Left hemidiaphragm elevation. Right mainstem narrowing, possible due to expiratory phase. No endobronchial lesion, no mediastinal lymph node. CAT scan the day before
06/02/2024 with patent bilateral bronchi without mass. More over CT scan 12/2023 without distended lymph nodes or lung nodules.
Total time spent on this consultation/encounter __36__ minutes which includes review of history, physical exam, medications, laboratory data, personal review of imaging, extensive review of outpatient records, discussion with care team and
respiratory therapy.
Subjective Data
-
Date of Service:
Date of Service: June 11, 2024
Chief Complaint: Pulmonary Follow Up and Dyspnea Follow Up
Subjective:
Better today, not coughing
No new complaints
Objective Data
Data Reviewed
Vital Signs / I&O / Oxygen:
Vital Signs
Temp Pulse Resp BP Pulse Ox
98.4 F 66 64 137/74 94
06/11/24 08:00 06/10/24 23:14 06/11/24 08:00 06/11/24 08:00 06/11/24 08:00
Intake and Output
06/10/24 06/11/24 06/12/24
06:59 06:59 06:59
Intake Total 960 / 960 480 / 480
Output Total 575 / 575 1080 / 1080
Balance 385 / 385 -600 / -600
SaO2 94
Nasal Cannula flow liters per 4
minute
Physical Exam
General: Respiratory Distress (n) and Comfortable
HEENT: Normocephalic, Anicteric and Moist Mucous Membranes
Cardiovascular: S1-S2 and Regular Rhythm
Respiratory: Clear, Wheeze (n), Non-Labored Respirations and Accessory Resp Muscle Use (n)
GI: Soft, Non Distended and Non Tender
Neurology: Awake, Alert, Oriented and No Motor Deficits
Skin: Warm, Good Color, Cyanosis (n), Jaundice (n) and Rash
Labs/Micro/Reports
Lab Data
06/11/24 05:39
06/11/24 05:39
[2024-06-11 15:45] VITALS: BP 125/79
[2024-06-11 16:16] LABS: Glucose - Point of Care 139 mg/dl (70-99)
[2024-06-11] MEDS: DUPHALAC/CHRONULAC 30 GRAMS PO ×2 (16:49→22:31)
[2024-06-11] MEDS: LOVENOX 40 MG SC (16:49)
[2024-06-11 21:14] LABS: Glucose - Point of Care 134 mg/dl (70-99)
[2024-06-11 23:48] VITALS: BP 146/75
[2024-06-12] MEDS: ProAIR HFA INHALER 2 PUFF INH (06:44)
[2024-06-12 07:15] VITALS: BP 130/69
[2024-06-12 07:39] LABS: Glucose - Point of Care 108 mg/dl (70-99)
--- NOTE | 2024-06-12 08:07 | W.PN.PUL3 ---
Today's Communication / Plan
-
No coughing today, better
Remains on 2L NC, home O2 eval prior to discharge
Completed COVID treatment, supportive care now
prn DuoNebs; can resume nebulized budesonide if SOB develops
PT/OT eval
Hopeful d/c planning per team
Assessment
-
74-year-old man with past medical history noted. It is noted that this patient has history of chronic coughing. This time admitted for weakness, inability to get off the floor at home. He is nonambulatory. While here complaining of coughing that
was worse. Found to have abnormal CT chest treated with antibiotics for pneumonia. We were consulted on 06/03/[address] during this admission on 06/03/2024 ruled out pulmonary embolism. Possible right middle lobe collapse.
Bilateral pneumonia: Suspect aspiration
Acute on chronic coughing
Chest pain possibly musculoskeletal
Normal proBNP and troponins 06/03/2024
Increase D-dimer (1.58 on 06/03/2024): CT angiogram negative for PE 06/03/2023
Leukocytosis
COVID + 06/05/2024, was (-) 05/28/2024 as well as 06/02/2024
Conditions present prior admission:
Parkinson disease
Status post deep brain stimulator placement at [facility] in 2005
History of coronary artery disease
Dysphagia
History of esophageal stricture
History of depression
Zenker's diverticulum
Chronic cough-chronic. Suspected chronic microaspiration in the past
In 2020 modified barium swallow with no aspiration.
Prior pulmonary evaluation by Dr. Xavier 10/2022.
The forced vital capacity was 3.18 L or 85% of predicted and previously was 3.39 L or 89% of predicted and 3.3 L.Total lung capacity was 75% of predicted and previously was 104% of predicted.Thus he has developed mild restrictive lung disease which
is likely related to neuromuscular weakness associated with his Parkinson's disease.
Left hemidiaphragm elevation
Hard of hearing
Plan:
Respiratory status slowly improving and currently stable
Continue supplemental oxygen and wean as tolerated while keeping SpO2 >90%--currently on 2 L
Home O2 eval
COVID positive from 06/05/2024
Isolation continues per protocol
Paxlovid initiated 06/06/24, stopped 06/10/2024
Prone positioning if tolerated
Aspiration precautions
Speech therapy following
Video swallow on 06/05/2024 -- ok for diet/resumed
DuoNeb prn
Budesonide nebulizers can be resumed if he becomes SOB
Mucolytics
Antitussives
Prednisone taper
Cultures reviewed
S/p course of antibiotics initially with Rocephin/Zithromax from 05/28 - 06/01/2024, then transitioned to cefepime (06/01 - 06/09/2024), and also got Levaquin from 06/02 - 06/05/2024
Follow radiographically
Trend WBC
Suicidal ideations
1:1
Psychiatry following-correspondence reviewed
DVT prophylaxis-on Lovenox
Diagnostic Data
CXR 06/05/24- 1. Interval increase in moderate left to right mediastinal shift suggesting progressive right lung volume loss which is likely secondary to right lower lobe atelectasis.
2. Dense airspace consolidation in the basilar segments of the right lower lobe (either atelectasis or pneumonia).
3. Small right pleural effusion.
4. Moderate elevation of left hemidiaphragm.
5. Mild cardiomegaly.
AXR 06/09/24- Elevation of the left hemidiaphragm with moderately distended air-filled stomach underneath the left hemidiaphragm. Parenchymal opacities within both lungs, morphologic appearance most suggestive of atelectasis. Pneumonia is not
excluded.
Small right pleural effusion. Residual contrast within the colon, which is likely from recent video swallowing exam.
Moderate to large amount of stool is present in the region of the rectum, suggesting the possibility of fecal impaction
Abnormal CT chest 06/03/2024: Bilateral infiltrates right greater than left. Left hemidiaphragm elevation. Right mainstem narrowing, possible due to expiratory phase. No endobronchial lesion, no mediastinal lymph node. CAT scan the day before
06/02/2024 with patent bilateral bronchi without mass. More over CT scan 12/2023 without distended lymph nodes or lung nodules.
Total time spent today was 36 minutes for this encounter. Time includes reviewing laboratory test/imaging results, reviewing pertinent medical records, obtaining and reviewing medical history, performing an appropriate exam, ordering medications,
tests and procedures. Time also includes documentation of this encounter, coordinating patient care and communicating with other healthcare professionals. Total time does not include separately billed tests performed on this date of service.
Subjective Data
-
Date of Service:
Date of Service: June 12, 2024
Chief Complaint: Pulmonary Follow Up and Dyspnea Follow Up
Subjective:
Seen and evaluated this morning. Sitting in chair in no acute distress on 2 L/min nasal cannula. No acute events reported overnight. Denies cough or shortness of breath at rest.
Review of Systems
General: Other (Negative unless mentioned above)
Objective Data
Data Reviewed
Vital Signs / I&O / Oxygen:
Vital Signs
Temp Pulse Resp BP Pulse Ox
98.0 F 63 16 146/75 92
06/11/24 23:48 06/11/24 23:48 06/11/24 23:48 06/11/24 23:48 06/11/24 23:48
Intake and Output
06/11/24 06/12/24 06/13/24
06:59 06:59 06:59
Intake Total 480 / 480 860 / 860
Output Total 1080 / 1080 950 / 950
Balance -600 / -600 -90 / -90
SaO2 92
Nasal Cannula flow liters per 2
minute
Physical Exam
General: Respiratory Distress (n), Comfortable, Chills (n) and Sweats (n)
HEENT: Normocephalic, Anicteric and Moist Mucous Membranes
Cardiovascular: S1-S2, Regular Rhythm and Peripheral Edema (n)
Respiratory: Wheeze (n), Crackles (Bilaterally), Rhonchi (n), Non-Labored Respirations, Accessory Resp Muscle Use (n) and Stridor (n)
GI: Soft, Non Distended and Non Tender
Neurology: Awake, Alert and Tremors (n)
Skin: Warm, Dry, Good Color, Cyanosis (n) and Jaundice (n)
Labs/Micro/Reports
Lab Data
06/11/24 05:39
06/11/24 05:39
[2024-06-12 08:08] LABS: Glucose - Point of Care 109 mg/dl (70-99)
[2024-06-12] MEDS: NOVOLOG FLEXPEN-MODERATE RESISTANCE SC ×2 (08:15→16:49)
[2024-06-12] MEDS: SENNA SYRUP 8.8 MG PO ×2 (08:16→19:58)
[2024-06-12] MEDS: COLACE 100 MG PO (08:16)
[2024-06-12] MEDS: DELTASONE 40 MG PO (08:16)
[2024-06-12] MEDS: VITAMIN D3 (cholecalciferol) 125 MCG PO (08:16)
[2024-06-12] MEDS: CLARITIN 10 MG PO (08:16)
[2024-06-12] MEDS: ZOLOFT 50 MG PO (08:16)
[2024-06-12] MEDS: MIRALAX 17 GRAMS PO (08:16)
[2024-06-12] MEDS: NON-FORMULARY ITEM 1 UNIT PO ×4 (08:16→21:42)
[2024-06-12] MEDS: DUPHALAC/CHRONULAC 30 GRAMS PO ×3 (08:16→21:42)
[2024-06-12] MEDS: ASPIR LOW (ENTERIC COATED) 81 MG PO (08:16)
[2024-06-12] MEDS: STERILE WATER FOR INJECTION IV ×2 (08:17→16:45)
[2024-06-12] MEDS: DESENEX/MITRAZOL/ZEASORB 1 APPLIC TOPICAL ×2 (08:17→19:58)
[2024-06-12] MEDS: ZOFRAN 4 MG IV (08:25)
--- NOTE | 2024-06-12 08:59 | W.PN.HOSP.TC ---
Today's Communication/Plan
-
Steroids. Oxygen. Discharge planning
Assessment / Plan
Assessment / Plan
Physical exam:
General: Acute on chronically ill
HEENT: Normocephalic, Atraumatic and Moist Mucous Membranes
Respiratory: Clear to Auscultation; Negative Wheezes, Rales or Rhonchi
Cardiac: Regular Rhythm and S1/S2
GI: Soft, Nontender and Nondistended
Musculoskeletal: No Clubbing, No Cyanosis and No Edema
Neuro: Awake, Alert and Oriented
Psych: Calm
A/P:
1. COVID 19 viral pneumonia
Presumed super imposed bacterial Pneumonia
Acute hypoxic respiratory insufficiency
-CT chest showing Moderate size airspace consolidation and small right pleural effusion and mild left to right mediastinal shift with hilar lymphadenopathy and collapsed right mainstem bronchus and right upper lobe bronchus.
-Initially patient was treated for bacterial pneumonia
-Repeat COVID check was positive on 06/05
-Finishing course of steroids, on prednisone now
-finished course of cefepime
-continue wean off o2 as possible. currently on 2L/m
2. Chronic dry cough
-suspected repeated micro aspiration vs other
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
-Last rapid response last night 06/04 patient required to be transferred to IMU for significant dyspnea. O2 sat was 95% on 4 L nasal cannula
-Repeat chest x-ray showing increased right-sided atelectasis
-Speech therapy evaluated patient earlier this admission and has been cleared for regular/thin liquid
-CT chest PE has ruled out any PE
-ENT evaluated with bedside fiber scopic pharyngeal/larynx evaluation and no structural abnormalities.
-Patient was on empiric steroids that was discontinued.
-Currently on nebulizer therapy and cough suppressants
-due to sev constipation, d/c Robitussin AC. change to dextromethorphan/guaifenesin
3. Presumed pleuritic pain
-With associated pulmonary symptoms patient had troponin/EKG checked no clear signs of ACS
-PE has been ruled out as well
-Right lower lobe atelectasis causing possible pleuritic pain as well.
4. CAD
-Continue aspirin
-Not sure why not on beta-blockers and statin
5. Parkinson's disease:
-On Stalevo 1 tablet 4 times a day
-He has a deep brain stimulator
6. Constipation
-On Robitussin AC (codeine) likely adding to issue - d/elina
-portable abd xr reviewed.
-maintain on lactulose . provide repeat dose of enema.
DVT prophylaxis: cont Lovenox SQ
CODE STATUS: DNR
Anticipated Discharge: > 48 hours
Subjective/Interval History
-
Date of Service: June 12, 2024
He is coughing today; reportedly cough better although he does not think that is the case. He is still on oxygen about 2 L and pulse ox around 92%. He is having enema for constipation and seems to be working. Remains on med sitter. Afebrile
Objective Data
-
Vital Signs:
Vital Signs
Temp Pulse Resp BP Pulse Ox
97.7 F 61 16 130/69 92
06/12/24 07:15 06/12/24 07:15 06/12/24 07:15 06/12/24 07:15 06/12/24 07:15
I&O
06/11/24 06/12/24 06/13/24
06:59 06:59 06:59
Intake Total 480 / 480 860 / 860
Output Total 1080 / 1080 950 / 950
Balance -600 / -600 -90 / -90
[2024-06-12 09:59] LABS: Blood Urea Nitrogen 21 mg/dl (9-20); Calcium 8.3 mg/dl (8.4-10.2); Carbon Dioxide 27 mmol/L (22-30); Chloride 106 mmol/L (98-107); Estimated Creatinine Clearance 95 ml/min; Glucose 127 mg/dl (70-99); Potassium 4.2 mmol/L (3.5-5.1); Sodium 141 mmol/L (135-145); eGFR > 60.00
[2024-06-12 10:12] LABS: % Basophils 0.1 % (0-2); % Lymphocytes 7.6 % (20.5-51.1); % Monocytes 5.9 % (1.7-9.3); % Neutrophils 84.4 % (42.2-75.2); Absolute Immature Granulocytes 0.2 10^3/uL (0-0.05); Absolute Lymphocytes 0.8 10^3/uL (1.2-3.4); Absolute Monocytes 0.6 10^3/uL (0.1-0.6); Absolute Neutrophils 8.8 10^3/uL (1.4-6.5); Hematocrit 38.7 % (39.0-52.0); Hemoglobin 12.9 g/dL (13.0-18.0); Mean Corp Hgb Conc. 33.3 g/dL (33.0-37.0); Mean Corpuscular Hgb 29.5 pg (27.0-31.0); Mean Corpuscular Volume 88.4 fL (80.0-94.0); Mean Platelet Volume 8.7 fL (7.4-10.4); Nucleated Red Blood Cells % 0 % (-); Platelet Count 311 10^3/uL (130-400); Red Blood Cell Count 4.38 10^6/uL (4.70-6.10); Red Cell Dist. Width 13.3 % (11.5-14.5); White Blood Cell Count 10.4 10^3/uL (4.8-10.8)
[2024-06-12] MEDS: ROBITUSSIN DM 10 ML PO (10:44)
--- NOTE | 2024-06-12 12:17 | CM ---
+Covid
Chart reviewed
Patient on medsitter
patient on
home 02 assesment ordered 06/11
PT to eval - last PT note 06/09 rec SNF, last OT eval 06/06
PLAN: SNF, pending bed availability, await updated PT/OT eval's
[2024-06-12 12:42] LABS: Glucose - Point of Care 185 mg/dl (70-99)
[2024-06-12] MEDS: NOVOLOG FLEXPEN-MODERATE RESISTANCE 1 UNITS SC (12:42)
[2024-06-12 15:29] VITALS: BP 127/75
[2024-06-12 15:58] VITALS: BP 127/75; PULSE 70; O2SAT 91
[2024-06-12] MEDS: LOVENOX 40 MG SC (16:45)
[2024-06-12 16:49] LABS: Glucose - Point of Care 150 mg/dl (70-99)
--- NOTE | 2024-06-12 17:46 | PTCARENOTE ---
No fleet mineral oil enemas in stock in pharmacy. made aware. No new orders at this time.
[2024-06-12 21:35] LABS: Glucose - Point of Care 125 mg/dl (70-99)
[2024-06-12 23:13] VITALS: BP 135/72
[2024-06-13] MEDS: STERILE WATER FOR INJECTION IV ×4 (01:08→23:16)
[2024-06-13 06:00] VITALS: BMI 30.6
[2024-06-13 07:15] VITALS: BP 148/78
[2024-06-13 07:15] LABS: Glucose - Point of Care 105 mg/dl (70-99)
--- NOTE | 2024-06-13 08:19 | W.PN.HOSP.TC ---
Today's Communication/Plan
-
Oral steroids. Discontinue enemas. Discharge planning
Assessment / Plan
Assessment / Plan
Physical exam:
General: Acute on chronically ill
HEENT: Normocephalic, Atraumatic and Moist Mucous Membranes
Respiratory: Clear to Auscultation; Negative Wheezes, Rales or Rhonchi
Cardiac: Regular Rhythm and S1/S2
GI: Soft, Nontender and Nondistended
Musculoskeletal: No Clubbing, No Cyanosis and No Edema
Neuro: Awake, Alert and Oriented
Psych: Calm
A/P:
1. COVID 19 viral pneumonia
Presumed super imposed bacterial Pneumonia
Acute hypoxic respiratory insufficiency
-CT chest showing Moderate size airspace consolidation and small right pleural effusion and mild left to right mediastinal shift with hilar lymphadenopathy and collapsed right mainstem bronchus and right upper lobe bronchus.
-Initially patient was treated for bacterial pneumonia
-Repeat COVID check was positive on 06/05
-Finishing course of steroids, on prednisone now
-finished course of cefepime
-continue wean off o2 as possible. currently on room air
2. Chronic dry cough
-suspected repeated micro aspiration vs other
-Patient had x2-3 CLOTH EXAMINER for respiratory distress/coughing issues
-Last rapid response last night 06/04 patient required to be transferred to IMU for significant dyspnea. O2 sat was 95% on 4 L nasal cannula
-Repeat chest x-ray showing increased right-sided atelectasis
-Speech therapy evaluated patient earlier this admission and has been cleared for regular/thin liquid
-CT chest PE has ruled out any PE
-ENT evaluated with bedside fiber scopic pharyngeal/larynx evaluation and no structural abnormalities.
-Patient was on empiric steroids that was discontinued.
-Currently on nebulizer therapy and cough suppressants
-due to sev constipation, d/c Robitussin AC. change to dextromethorphan/guaifenesin
3. Presumed pleuritic pain
-With associated pulmonary symptoms patient had troponin/EKG checked no clear signs of ACS
-PE has been ruled out as well
-Right lower lobe atelectasis causing possible pleuritic pain as well.
4. CAD
-Continue aspirin
-Not sure why not on beta-blockers and statin but avoid introducing more meds at the moment
5. Parkinson's disease:
-On Stalevo 1 tablet 4 times a day
-He has a deep brain stimulator
6. Constipation
-On Robitussin AC (codeine) likely adding to issue - d/elina
-portable abd xr reviewed.
-Discontinue enemas and lactulose. Can continue MiraLAX and senna
DVT prophylaxis: cont Lovenox SQ
CODE STATUS: DNR
Anticipated Discharge: 24 - 48 hours
Subjective/Interval History
-
Date of Service: June 13, 2024
Patient cough is less today. He is having bowel movements without enema. He is off oxygen today as well. Afebrile
Objective Data
-
Vital Signs:
Vital Signs
Temp Pulse Resp BP Pulse Ox
98.0 F 63 18 148/78 93
06/13/24 07:15 06/13/24 07:15 06/13/24 07:15 06/13/24 07:15 06/13/24 07:15
I&O
06/12/24 06/13/24 06/14/24
06:59 06:59 06:59
Intake Total 860 / 860 600 / 600
Output Total 950 / 950 600 / 600
Balance -90 / -90 0 / 0
[2024-06-13] MEDS: NOVOLOG FLEXPEN-MODERATE RESISTANCE SC ×3 (08:33→18:03)
[2024-06-13] MEDS: COLACE 100 MG PO (08:54)
[2024-06-13] MEDS: DELTASONE 40 MG PO (08:54)
[2024-06-13] MEDS: ZOLOFT 50 MG PO (08:54)
[2024-06-13] MEDS: VITAMIN D3 (cholecalciferol) 125 MCG PO (08:54)
[2024-06-13] MEDS: CLARITIN 10 MG PO (08:54)
[2024-06-13] MEDS: SENNA SYRUP PO ×3 (08:54→20:57)
[2024-06-13] MEDS: ASPIR LOW (ENTERIC COATED) 81 MG PO (08:55)
[2024-06-13] MEDS: MIRALAX PO ×2 (08:55→09:38)
[2024-06-13] MEDS: NON-FORMULARY ITEM 1 UNIT PO ×4 (08:57→20:55)
[2024-06-13] MEDS: DUPHALAC/CHRONULAC PO (08:57)
[2024-06-13] MEDS: DESENEX/MITRAZOL/ZEASORB 1 APPLIC TOPICAL ×2 (08:57→20:56)
--- NOTE | 2024-06-13 09:20 | W.PN.PUL3 ---
Today's Communication / Plan
-
Weaned off O2 today, home O2 eval prior to discharge
Completed COVID treatment, supportive care now
prn DuoNebs; can resume nebulized budesonide if SOB develops
Pulmonary toilet, aspiration precautions
PT/OT eval
Hopeful d/c planning per team
Assessment
-
74-year-old man with past medical history noted. It is noted that this patient has history of chronic coughing. This time admitted for weakness, inability to get off the floor at home. He is nonambulatory. While here complaining of coughing that
was worse. Found to have abnormal CT chest treated with antibiotics for pneumonia. We were consulted on 06/03/[address] during this admission on 06/03/2024 ruled out pulmonary embolism. Possible right middle lobe collapse.
Bilateral pneumonia: Suspect aspiration
Acute on chronic coughing
Chest pain possibly musculoskeletal
Normal proBNP and troponins 06/03/2024
Increase D-dimer (1.58 on 06/03/2024): CT angiogram negative for PE 06/03/2023
Leukocytosis
COVID + 06/05/2024, was (-) 05/28/2024 as well as 06/02/2024
Conditions present prior admission:
Parkinson disease
Status post deep brain stimulator placement at [facility] in 2005
History of coronary artery disease
Dysphagia
History of esophageal stricture
History of depression
Zenker's diverticulum
Chronic cough-chronic. Suspected chronic microaspiration in the past
In 2020 modified barium swallow with no aspiration.
Prior pulmonary evaluation by Dr. Xavier 10/2022.
The forced vital capacity was 3.18 L or 85% of predicted and previously was 3.39 L or 89% of predicted and 3.3 L.Total lung capacity was 75% of predicted and previously was 104% of predicted.Thus he has developed mild restrictive lung disease which
is likely related to neuromuscular weakness associated with his Parkinson's disease.
Left hemidiaphragm elevation
Hard of hearing
Plan:
Respiratory status slowly improving and currently stable
Continue supplemental oxygen and wean as tolerated while keeping SpO2 >90%--currently on RA from 2L/min and breathing comfortably
Home O2 eval prior to discharge
COVID positive from 06/05/2024
Isolation continues per protocol
Paxlovid initiated 06/06/24, stopped 06/10/2024
Prone positioning if tolerated
Aspiration precautions
Speech therapy following
Video swallow on 06/05/2024 -- ok for diet/resumed
DuoNeb prn
Budesonide nebulizers can be resumed if he becomes SOB
Mucolytics
Antitussives
Prednisone taper - wean by 10mg every 5th day until off
Cultures reviewed
S/p course of antibiotics initially with Rocephin/Zithromax from 05/28 - 06/01/2024, then transitioned to cefepime (06/01 - 06/09/2024), and also got Levaquin from 06/02 - 06/05/2024
Follow radiographically
Trend WBC
Suicidal ideations
1:1
Psychiatry following-correspondence reviewed
DVT prophylaxis-on Lovenox
Diagnostic Data
CXR 06/05/24- 1. Interval increase in moderate left to right mediastinal shift suggesting progressive right lung volume loss which is likely secondary to right lower lobe atelectasis.
2. Dense airspace consolidation in the basilar segments of the right lower lobe (either atelectasis or pneumonia).
3. Small right pleural effusion.
4. Moderate elevation of left hemidiaphragm.
5. Mild cardiomegaly.
AXR 06/09/24- Elevation of the left hemidiaphragm with moderately distended air-filled stomach underneath the left hemidiaphragm. Parenchymal opacities within both lungs, morphologic appearance most suggestive of atelectasis. Pneumonia is not
excluded.
Small right pleural effusion. Residual contrast within the colon, which is likely from recent video swallowing exam.
Moderate to large amount of stool is present in the region of the rectum, suggesting the possibility of fecal impaction
Abnormal CT chest 06/03/2024: Bilateral infiltrates right greater than left. Left hemidiaphragm elevation. Right mainstem narrowing, possible due to expiratory phase. No endobronchial lesion, no mediastinal lymph node. CAT scan the day before
06/02/2024 with patent bilateral bronchi without mass. More over CT scan 12/2023 without distended lymph nodes or lung nodules.
Total time spent today was 35 minutes for this encounter. Time includes reviewing laboratory test/imaging results, reviewing pertinent medical records, obtaining and reviewing medical history, performing an appropriate exam, ordering medications,
tests and procedures. Time also includes documentation of this encounter, coordinating patient care and communicating with other healthcare professionals. Total time does not include separately billed tests performed on this date of service.
Subjective Data
-
Date of Service:
Date of Service: June 13, 2024
Chief Complaint: Pulmonary Follow Up and Dyspnea Follow Up
Subjective:
Patient seen and today at bedside. Weaned down to room air today and he says that he feels raspy but no worsening shortness of breath. Denies chest pain, CASILLAS, fevers or chills. He is feeling nauseous when he eats.
Review of Systems
General: Other (Negative unless mentioned above)
Objective Data
Data Reviewed
Vital Signs / I&O / Oxygen:
Vital Signs
Temp Pulse Resp BP Pulse Ox
98.0 F 63 18 148/78 93
06/13/24 07:15 06/13/24 07:15 06/13/24 07:15 06/13/24 07:15 06/13/24 07:15
Intake and Output
06/12/24 06/13/24 06/14/24
06:59 06:59 06:59
Intake Total 860 / 860 600 / 600
Output Total 950 / 950 600 / 600
Balance -90 / -90 0 / 0
SaO2 93
Nasal Cannula flow liters per 2
minute
Physical Exam
General: Respiratory Distress (n), Comfortable, Chills (n) and Sweats (n)
HEENT: Normocephalic, Anicteric and Moist Mucous Membranes
Cardiovascular: S1-S2, Regular Rhythm and Peripheral Edema (n)
Respiratory: Wheeze (n), Crackles (Bilaterally), Rhonchi (n), Non-Labored Respirations, Accessory Resp Muscle Use (n) and Stridor (n)
GI: Soft, Non Distended and Non Tender
Neurology: Awake, Alert and Tremors (n)
Skin: Warm, Dry, Good Color, Cyanosis (n) and Jaundice (n)
Labs/Micro/Reports
Lab Data
06/12/24 09:28
06/12/24 09:28
--- NOTE | 2024-06-13 10:18 | W.PN.UPDATE ---
Update Note
Progress Note Update
Chart reviewed, discussed with staff, discussed with . COVID precautions through 06/15. Still on O2. Remains down, somewhat hopeless. No SI reported. tells me they had a good conversation discussing future plans of selling the house and
getting an apartment. Will likely require SNF prior to returning home. Zoloft initiated however, too soon to discern any benefit. No side effects reported.
Impression/Recommendations: Unspecified depression in the context of serious medical illness - Continue with Zoloft 50mg for now. Will take a minimum of 2 weeks to discern benefit.
[2024-06-13 11:02] LABS: Glucose - Point of Care 105 mg/dl (70-99)
[2024-06-13] MEDS: ROBITUSSIN DM 10 ML PO (11:26)
[2024-06-13] MEDS: TYLENOL 650 MG PO (12:20)
[2024-06-13 14:02] LABS: Glucose - Point of Care 140 mg/dl (70-99)
[2024-06-13 15:30] VITALS: BP 145/66
--- NOTE | 2024-06-13 15:30 | CM ---
Patient Covid +
on medsitter
Patient on room air pox 93%
Abdominal US neg intestinal obs.
Referrals were updated in [facility]
PT eval - rec SNF
last OT 06/06
PLAN: Discharge when medically stable to SNF, pending bed availability
[2024-06-13] MEDS: ProAIR HFA INHALER 2 PUFF INH (16:29)
[2024-06-13] MEDS: LOVENOX 40 MG SC (18:00)
[2024-06-13 18:04] LABS: Glucose - Point of Care 146 mg/dl (70-99)
[2024-06-13] MEDS: ZOFRAN 4 MG IV (21:00)
[2024-06-13 21:22] LABS: Glucose - Point of Care 124 mg/dl (70-99)
[2024-06-13 23:23] VITALS: BP 132/64
[2024-06-14] MEDS: ROBITUSSIN DM 10 ML PO (02:29)
[2024-06-14] MEDS: TYLENOL 650 MG PO (02:29)
[2024-06-14 06:46] LABS: % Basophils 0.2 % (0-2); % Eosinophils 0.4 % (0-6); % Immature Granulocytes 1.8 % (0-0.5); % Lymphocytes 12.3 % (20.5-51.1); % Monocytes 4.2 % (1.7-9.3); % Neutrophils 81.1 % (42.2-75.2); Absolute Immature Granulocytes 0.2 10^3/uL (0-0.05); Absolute Lymphocytes 1.2 10^3/uL (1.2-3.4); Absolute Monocytes 0.4 10^3/uL (0.1-0.6); Absolute Neutrophils 7.7 10^3/uL (1.4-6.5); Hematocrit 36.4 % (39.0-52.0); Hemoglobin 12.5 g/dL (13.0-18.0); Mean Corp Hgb Conc. 34.3 g/dL (33.0-37.0); Mean Corpuscular Hgb 29.8 pg (27.0-31.0); Mean Corpuscular Volume 86.7 fL (80.0-94.0); Mean Platelet Volume 9.2 fL (7.4-10.4); Nucleated Red Blood Cells % 0.7 % (-); Platelet Count 303 10^3/uL (130-400); Red Cell Dist. Width 13.2 % (11.5-14.5); White Blood Cell Count 9.4 10^3/uL (4.8-10.8)
[2024-06-14 07:15] VITALS: BP 123/66
[2024-06-14 07:40] LABS: ALT (SGPT) 24 U/L (0-50); AST (SGOT) 40 U/L (17-59); Albumin 3.2 g/dl (3.5-5.0); Alkaline Phosphatase 51 U/L (38-126); Blood Urea Nitrogen 20 mg/dl (9-20); Calcium 7.9 mg/dl (8.4-10.2); Carbon Dioxide 23 mmol/L (22-30); Chloride 103 mmol/L (98-107); Estimated Creatinine Clearance 110 ml/min; Glucose 91 mg/dl (70-99); HDL Cholesterol 25 mg/dl; LDL Cholesterol, Calculated 124 mg/dl; Magnesium 2.2 mg/dl (1.6-2.3); Potassium 4.7 mmol/L (3.5-5.1); Sodium 133 mmol/L (135-145); Total Bilirubin 0.9 mg/dl (0.2-1.3); Total Cholesterol 186 mg/dl (50-199); Total Protein 5.9 g/dl (6.3-8.2); Triglyceride 185 mg/dl (10-149); Very Low Density Lipoprotein 37 mg/dl (0-30); eGFR > 60.00
[2024-06-14] MEDS: SENNA SYRUP 8.8 MG PO ×2 (08:15→20:15)
[2024-06-14] MEDS: MIRALAX 17 GRAMS PO (08:15)
[2024-06-14] MEDS: DESENEX/MITRAZOL/ZEASORB 1 APPLIC TOPICAL ×2 (08:16→20:15)
[2024-06-14] MEDS: VITAMIN D3 (cholecalciferol) 125 MCG PO (08:16)
[2024-06-14] MEDS: CLARITIN 10 MG PO (08:16)
[2024-06-14] MEDS: NON-FORMULARY ITEM 1 UNIT PO ×3 (08:16→17:52)
[2024-06-14] MEDS: COLACE 100 MG PO (08:16)
[2024-06-14] MEDS: ASPIR LOW (ENTERIC COATED) 81 MG PO (08:16)
[2024-06-14] MEDS: DELTASONE 40 MG PO (08:16)
[2024-06-14] MEDS: ZOLOFT 50 MG PO (08:16)
[2024-06-14] MEDS: STERILE WATER FOR INJECTION IV ×2 (08:17→14:54)
[2024-06-14 08:22] LABS: Glucose - Point of Care 104 mg/dl (70-99)
[2024-06-14] MEDS: NOVOLOG FLEXPEN-MODERATE RESISTANCE SC ×3 (08:39→17:20)
--- NOTE | 2024-06-14 09:05 | W.PN.PUL3 ---
Today's Communication / Plan
-
Weaned off O2 yesterday, home O2 eval prior to discharge if resting SaO2 is <96% on room air
Completed COVID treatment, supportive care now
prn DuoNebs; can resume nebulized budesonide if SOB develops
Pulmonary toilet, aspiration precautions
PT/OT eval
Patient remained stable on room air. Continue with antitussives for his cough and once patient is ready for discharge would send home on a LABA/ICS with Symbicort 160mcg or anticoagulant. If patient is too weak to inhale through an MDI then would
add a spacer otherwise can change to DuoNebs 4 times daily + budesonide 0.5 mg twice daily.
No additional recommendations at this time. Pulmonary service will now sign off. Please reconsult if there are any additional questions/concerns, or if patient's respiratory status deteriorates.
Assessment
-
74-year-old man with past medical history noted. It is noted that this patient has history of chronic coughing. This time admitted for weakness, inability to get off the floor at home. He is nonambulatory. While here complaining of coughing that
was worse. Found to have abnormal CT chest treated with antibiotics for pneumonia. We were consulted on 06/03/[address] during this admission on 06/03/2024 ruled out pulmonary embolism. Possible right middle lobe collapse.
Bilateral pneumonia: Suspect aspiration
Acute on chronic coughing
Chest pain possibly musculoskeletal
Normal proBNP and troponins 06/03/2024
Increase D-dimer (1.58 on 06/03/2024): CT angiogram negative for PE 06/03/2023
Leukocytosis � resolved since 06/06/2024
COVID + 06/05/2024, was (-) 05/28/2024 as well as 06/02/2024
Conditions present prior admission:
Parkinson disease
Status post deep brain stimulator placement at [facility] in 2005
History of coronary artery disease
Dysphagia
History of esophageal stricture
History of depression
Zenker's diverticulum
Chronic cough-chronic. Suspected chronic microaspiration in the past
In 2020 modified barium swallow with no aspiration.
Prior pulmonary evaluation by Dr. Xavier 10/2022.
The forced vital capacity was 3.18 L or 85% of predicted and previously was 3.39 L or 89% of predicted and 3.3 L.Total lung capacity was 75% of predicted and previously was 104% of predicted.Thus he has developed mild restrictive lung disease which
is likely related to neuromuscular weakness associated with his Parkinson's disease.
Left hemidiaphragm elevation
Hard of hearing
Plan:
Respiratory status slowly improving and currently stable
Patient currently on room air after being on 2 L/min nasal cannula for several days; keep SpO2 >90%
Home O2 eval prior to discharge if resting SaO2 is <96% on room air
COVID positive from 06/05/2024
Isolation continues per protocol
Paxlovid initiated 06/06/24, stopped 06/10/2024
Prone positioning if tolerated
Aspiration precautions
Speech therapy following
Video swallow on 06/05/2024 -- ok for diet/resumed
DuoNeb prn
Budesonide nebulizers can be resumed if he becomes SOB
Mucolytics
Antitussives
Prednisone taper - wean by 10mg every 5th day until off
Cultures reviewed
s/p course of antibiotics initially with Rocephin/Zithromax from 05/28 - 06/01/2024, then transitioned to cefepime (06/01 - 06/09/2024), and also got Levaquin from 06/02 - 06/05/2024
Follow radiographically
Trend WBC
Suicidal ideations
1:1
Psychiatry following-correspondence reviewed
DVT prophylaxis-on Lovenox
Patient remained stable on room air. Continue with antitussives for his cough and once patient is ready for discharge would send home on a LABA/ICS with Symbicort 160 or anticoagulant. If patient is too weak to inhale through an MDI then would add
a spacer otherwise can change to DuoNebs 4 times daily + budesonide 0.5 mg twice daily.
No additional recommendations at this time. Pulmonary service will now sign off. Thank you for allowing us to be involved in the care of this patient. Please reconsult if there are any additional questions/concerns, or if patient's respiratory
status deteriorates.
Diagnostic Data
CXR 06/05/24- 1. Interval increase in moderate left to right mediastinal shift suggesting progressive right lung volume loss which is likely secondary to right lower lobe atelectasis.
2. Dense airspace consolidation in the basilar segments of the right lower lobe (either atelectasis or pneumonia).
3. Small right pleural effusion.
4. Moderate elevation of left hemidiaphragm.
5. Mild cardiomegaly.
AXR 06/09/24- Elevation of the left hemidiaphragm with moderately distended air-filled stomach underneath the left hemidiaphragm. Parenchymal opacities within both lungs, morphologic appearance most suggestive of atelectasis. Pneumonia is not
excluded.
Small right pleural effusion. Residual contrast within the colon, which is likely from recent video swallowing exam.
Moderate to large amount of stool is present in the region of the rectum, suggesting the possibility of fecal impaction
Abnormal CT chest 06/03/2024: Bilateral infiltrates right greater than left. Left hemidiaphragm elevation. Right mainstem narrowing, possible due to expiratory phase. No endobronchial lesion, no mediastinal lymph node. CAT scan the day before
06/02/2024 with patent bilateral bronchi without mass. More over CT scan 12/2023 without distended lymph nodes or lung nodules.
Total time spent today was 36 minutes for this encounter. Time includes reviewing laboratory test/imaging results, reviewing pertinent medical records, obtaining and reviewing medical history, performing an appropriate exam, ordering medications,
tests and procedures. Time also includes documentation of this encounter, coordinating patient care and communicating with other healthcare professionals. Total time does not include separately billed tests performed on this date of service.
Subjective Data
-
Date of Service:
Date of Service: June 14, 2024
Chief Complaint: Pulmonary Follow Up and Dyspnea Follow Up
Subjective:
Patient seen and evaluated today bedside. Currently on room air. Still has a dry cough. Denies chest pain, headache, fevers or chills although he is confused.
Review of Systems
General: Other (Unable to obtain given patient's acute clinical status/confusion)
Objective Data
Data Reviewed
Vital Signs / I&O / Oxygen:
Vital Signs
Temp Pulse Resp BP Pulse Ox
97.6 F 63 16 123/66 93
06/14/24 07:15 06/14/24 07:15 06/14/24 07:15 06/14/24 07:15 06/14/24 07:15
Intake and Output
06/13/24 06/14/24 06/15/24
06:59 06:59 06:59
Intake Total 600 / 600 840 / 840
Output Total 600 / 600 500 / 500
Balance 0 / 0 340 / 340
SaO2 93
Nasal Cannula flow liters per 92
minute
Physical Exam
General: Respiratory Distress (n), Comfortable, Chills (n) and Sweats (n)
HEENT: Normocephalic, Anicteric and Moist Mucous Membranes
Cardiovascular: S1-S2, Regular Rhythm and Peripheral Edema (n)
Respiratory: Wheeze (n), Crackles (Bilaterally), Rhonchi (n), Non-Labored Respirations, Accessory Resp Muscle Use (n) and Stridor (n)
GI: Soft, Non Distended and Non Tender
Neurology: Awake, Alert and Tremors (n)
Skin: Warm, Dry, Good Color, Cyanosis (n) and Jaundice (n)
Labs/Micro/Reports
Lab Data
06/14/24 05:28
06/14/24 05:28
--- NOTE | 2024-06-14 09:43 | W.PN.HOSP.TC ---
Today's Communication/Plan
-
Taper oral steroids. Discharge planning.
Assessment / Plan
Assessment / Plan
Physical exam:
General: Acute on chronically ill
HEENT: Normocephalic, Atraumatic and Moist Mucous Membranes
Respiratory: Clear to Auscultation; Negative Wheezes, Rales or Rhonchi
Cardiac: Regular Rhythm and S1/S2
GI: Soft, Nontender and Nondistended
Musculoskeletal: No Clubbing, No Cyanosis and No Edema
Neuro: Awake, Alert and Oriented
Psych: Calm
A/P:
1. COVID 19 viral pneumonia
Presumed super imposed bacterial Pneumonia
Acute hypoxic respiratory insufficiency
-CT chest showing Moderate size airspace consolidation and small right pleural effusion and mild left to right mediastinal shift with hilar lymphadenopathy and collapsed right mainstem bronchus and right upper lobe bronchus.
-Initially patient was treated for bacterial pneumonia
-Repeat COVID check was positive on 06/05
-Finishing course of steroids, on prednisone now
-finished course of cefepime
-continue wean off o2 as possible. currently on room air
2. Chronic dry cough
-suspected repeated micro aspiration vs other
-Patient had x2-3 FINGERNAIL SCULPTOR for respiratory distress/coughing issues
-Last rapid response last night 06/04 patient required to be transferred to IMU for significant dyspnea. O2 sat was 95% on 4 L nasal cannula
-Repeat chest x-ray showing increased right-sided atelectasis
-Speech therapy evaluated patient earlier this admission and has been cleared for regular/thin liquid
-CT chest PE has ruled out any PE
-ENT evaluated with bedside fiber scopic pharyngeal/larynx evaluation and no structural abnormalities.
-Patient was on empiric steroids that was discontinued.
-Currently on nebulizer therapy and cough suppressants
-due to sev constipation, d/c Robitussin AC. change to dextromethorphan/guaifenesin
3. Presumed pleuritic pain
-With associated pulmonary symptoms patient had troponin/EKG checked no clear signs of ACS
-PE has been ruled out as well
-Right lower lobe atelectasis causing possible pleuritic pain as well.
4. CAD
-Continue aspirin
-Not sure why not on beta-blockers and statin but avoid introducing more meds at the moment
-LDL 124 and normal LFTs. Triglycerides 185.
5. Parkinson's disease:
-On Stalevo 1 tablet 4 times a day
-He has a deep brain stimulator
6. Constipation
-On Robitussin AC (codeine) likely adding to issue - d/elina
-portable abd xr reviewed.
-Discontinue enemas and lactulose. Can continue MiraLAX and senna
DVT prophylaxis: cont Lovenox SQ
CODE STATUS: DNR
Anticipated Discharge: 24 - 48 hours
Subjective/Interval History
-
Date of Service: June 14, 2024
Patient feels better overall. Remains on room air today. He is having bowel movements.
Objective Data
-
Labs:
Laboratory Results
06/14/24
05:28
WBC 9.4
Hgb 12.5 L
Hct 36.4 L
Plt Count 303
Sodium 133 L D
Potassium 4.7
Chloride 103
Carbon Dioxide 23
BUN 20
Creatinine 0.6 L
Glucose 91
Calcium 7.9 L
Total Bilirubin 0.9
AST 40
ALT 24
Alkaline Phosphatase 51
Vital Signs:
Vital Signs
Temp Pulse Resp BP Pulse Ox
97.6 F 63 16 123/66 93
06/14/24 07:15 06/14/24 07:15 06/14/24 07:15 06/14/24 07:15 06/14/24 07:15
I&O
06/13/24 06/14/24 06/15/24
06:59 06:59 06:59
Intake Total 600 / 600 840 / 840
Output Total 600 / 600 500 / 500
Balance 0 / 0 340 / 340
[2024-06-14 11:22] VITALS: BP 138/71
--- NOTE | 2024-06-14 11:37 | W.PN.UPDATE ---
Update Note
Progress Note Update
patient seen chart reviewed. discussed with nursing. known to me from previous visits. patient has many medical issues and when seen last week had spoken of suicidality and was on one to one. at this point he has been started on zoloft current dose
50 mg. he remains depressed. he had very little to say to me today but he did seem more alert and denied si. zoloft will take three to four weeks to show an effect. would increase to 75 mg at some point but would wait until she has been on 50 mg
for about a week or so. (begun on 06/10)
[2024-06-14 12:52] LABS: Glucose - Point of Care 131 mg/dl (70-99)
[2024-06-14 15:30] VITALS: BP 130/68
--- NOTE | 2024-06-14 15:45 | CM ---
Patient referrals [facility]port updated.
Spoke with [facility] will not accept.
On medsitter
Patient on room air, zoloft
PLAN: SNF, pending bed availability
[2024-06-14 17:07] LABS: Glucose - Point of Care 134 mg/dl (70-99)
[2024-06-14] MEDS: ProAIR HFA INHALER 2 PUFF INH (17:34)
[2024-06-14] MEDS: LOVENOX 40 MG SC (17:53)
[2024-06-14] MEDS: ZOFRAN 4 MG IV (21:04)
[2024-06-14 21:08] LABS: Glucose - Point of Care 127 mg/dl (70-99)
[2024-06-14 22:17] LABS: Glucose - Point of Care 180 mg/dl (70-99)
[2024-06-14 22:37] LABS: B.E. -8.2 mmol/L; O2 Saturation % 95.6 % (94-98); PCO2 27 mmHg (35-48); PO2 70 mmHg (83-108); pH 7.37 (7.35-7.45)
[2024-06-14 22:42] LABS: HCO3 15.6 mmol/L (21-28)
[2024-06-14 22:54] LABS: APTT 25.5 Sec (23.4-35.0); INR 1.38; PT 17.5 Sec (11.4-14.6)
[2024-06-14 22:55] LABS: Hematocrit 31.5 % (39.0-52.0); Hemoglobin 10.4 g/dL (13.0-18.0); Mean Corpuscular Volume 90.8 fL (80.0-94.0); Red Blood Cell Count 3.47 10^6/uL (4.70-6.10); Red Cell Dist. Width 13.5 % (11.5-14.5); White Blood Cell Count 16.3 10^3/uL (4.8-10.8)
[2024-06-14 22:58] LABS: Blood Urea Nitrogen 34 mg/dl (9-20); Calcium 8.1 mg/dl (8.4-10.2); Carbon Dioxide 17 mmol/L (22-30); Chloride 102 mmol/L (98-107); Estimated Creatinine Clearance 55 ml/min; Glucose 164 mg/dl (70-99); Potassium 4.9 mmol/L (3.5-5.1); Sodium 134 mmol/L (135-145); eGFR > 60.00
[2024-06-14 22:59] LABS: Lactic Acid 6.4 mmol/L (0.7-2.0)
[2024-06-14 23:06] LABS: % Basophils 0.1 % (0-2); % Eosinophils 0.2 % (0-6); % Immature Granulocytes 5.3 % (0-0.5); % Monocytes 3.5 % (1.7-9.3); % Neutrophils 74.9 % (42.2-75.2); Absolute Immature Granulocytes 0.9 10^3/uL (0-0.05); Absolute Lymphocytes 2.6 10^3/uL (1.2-3.4); Absolute Monocytes 0.6 10^3/uL (0.1-0.6); Absolute Neutrophils 12.2 10^3/uL (1.4-6.5); Mean Platelet Volume 9.4 fL (7.4-10.4); Platelet Count 450 10^3/uL (130-400)
[2024-06-14 23:09] LABS: Troponin I 0.019 ng/ml
--- NOTE | 2024-06-14 23:11 | RR ---
A Rapid Response was called on this patient, please see Rapid Response form.
[2024-06-14 23:42] VITALS: BP 60/39
[2024-06-14] MEDS: LEVOPHED 250 IV (23:43)
[2024-06-14] MEDS: NSS 1000 IV (23:47)
[2024-06-14 23:49] VITALS: BP 72/46
[2024-06-14 23:51] VITALS: BP 75/43
--- NOTE | 2024-06-14 23:52 | W.PN.UPDATE ---
Update Note
Progress Note Update
Patient was rapid response @ 22:10. Patient was being assisted to bathroom when he became weak and minimally responsive, lowered to floor. Patient returned to bed. Patient became hypoxic, increased work of breathing, placed on non-rebreather, VS as
noted. On assessment, patient lethargic, opened eyes, responding to name and moving. Patient tachypneic and using accessory muscles when breathing.
Ordered CBC, BMP, Bld cx, UA, ABG, CT head w/o contrast for change of mental status. Ordered CTA chest/abd/pelvis.
When patient turned, noted large stool that was blood tinged/melena. Pt continued with burgandy colored, gelatinous stools. Serial H&H ordered. Hematest stools, positive. GI consulted. Protonix 40 mg IV ordered.
Patient made NPO. Lovenox and ASA on hold. Patient became hypotensive, Levophed ordered. Patient transferred to IMU.
Spoke to , updated on events and change of level of care. is insistent that code status be changed to FULL CODE, new order placed to update code status. Verbal consent for blood transfusion obtained from and in chart.
Labs drawn: noteable for lactic 6.4, IV bolus ordered. WBC elevated, Blood cx, UA ordered, ABG. ABG showed metabolic acidosis, w/respiratory alkalosis. Started on Bicarb gtt.
[2024-06-15] VITALS (44 sets, daily range): BP systolic 81–132; BP diastolic 47–83; BMI 30.2
[2024-06-15] MEDS: NSS 500 IV
[2024-06-15] MEDS: SODIUM BICARBONATE 50 MEQ IV (00:07)
[2024-06-15] MEDS: STERILE WATER FOR INJECTION IV ×2 (00:12→11:26)
[2024-06-15] MEDS: SODIUM BICARBONATE 1150 MEQ IV ×2 (00:57→10:55)
[2024-06-15 01:41] LABS: Urine Albumin Trace (Neg - Trace); Urine Bilirubin 1+ (Negative); Urine Character Clear (Clear); Urine Color Yellow; Urine Glucose Negative (Negative); Urine Ketone Negative (Negative); Urine Leukocyte Negative (Negative); Urine Nitrite Negative (Negative); Urine Occult Blood 1+ (Negative); Urine Urobilinogen Negative (Neg - 1+)
[2024-06-15] MEDS: NON-FORMULARY ITEM 1 UNIT PO (01:48)
[2024-06-15] MEDS: PROTONIX IV 40 MG IV ×2 (01:48→19:37)
[2024-06-15] MEDS: NSS (PRESERVATIVE FREE) 10 ML IV ×2 (01:48→19:38)
[2024-06-15 02:05] LABS: Urine Mucus Moderate; Urine Squamous Cell >30 /LPF (Few)
[2024-06-15 02:06] LABS: Urine Amorphous Seen
[2024-06-15 02:07] LABS: Urine Bacteria Many (Negative)
[2024-06-15 02:09] LABS: Urine Other STARCH CRYSTALS SEEN; Urine Red Blood Cell 16-20 /HPF (0-2)
--- NOTE | 2024-06-15 02:15 | PTCARENOTE ---
Pt received post rapid response. Pt arousable, AAOx2. Received pt with Bolus transfusing of 1000ml NS. Ordered Blood cultures sent 2x sets, urine culture. Order received for stool sample, Pt without BM to send thus far. BP's low, BP 60/39(47). GENERATOR OPERATOR,
Monik aware of low BP's. Order received for Levophed. medication initiated per order to keep map above goal of 65. See MAR and intervention documentation. Spoke to pts and updated her.
[2024-06-15 02:17] LABS: Hematocrit 27.8 % (39.0-52.0); Hemoglobin 9.4 g/dL (13.0-18.0)
[2024-06-15 06:17] LABS: Hematocrit 25.6 % (39.0-52.0); Hemoglobin 8.6 g/dL (13.0-18.0); Mean Corp Hgb Conc. 33.6 g/dL (33.0-37.0); Mean Corpuscular Hgb 29.9 pg (27.0-31.0); Mean Corpuscular Volume 88.9 fL (80.0-94.0); Mean Platelet Volume 9.2 fL (7.4-10.4); Platelet Count 375 10^3/uL (130-400); Red Blood Cell Count 2.88 10^6/uL (4.70-6.10); Red Cell Dist. Width 13.6 % (11.5-14.5); White Blood Cell Count 13.3 10^3/uL (4.8-10.8)
[2024-06-15 06:21] LABS: Lactic Acid 1.2 mmol/L (0.7-2.0)
[2024-06-15 06:40] LABS: Blood Urea Nitrogen 44 mg/dl (9-20); Calcium 7.1 mg/dl (8.4-10.2); Carbon Dioxide 27 mmol/L (22-30); Chloride 102 mmol/L (98-107); Estimated Creatinine Clearance 74 ml/min; Glucose 114 mg/dl (70-99); Potassium 4.1 mmol/L (3.5-5.1); Sodium 134 mmol/L (135-145); eGFR > 60.00
--- NOTE | 2024-06-15 06:54 | CON.GI ---
Addendum entered and electronically signed by Mercy Palacio DO 06/15/24 11:32:
The patient was seen and examined by me independently in collaboration with the nurse practitioner.
Past medical history/social history/medications/allergies/family history reviewed.
Lab data and imaging data reviewed.
Jun Xavier is a 74 y,o male with parkinsons s/p DBS (2005), CAD s/p PI, hx of zenkers, hx of esopahageal stricture admitted to on 05/25 with penumonia w/ hosptial course c/b COVID (06/05), suicidal ideations (possibly 2/2 steroids) and unstable
GI bleeding overnight.
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 Started on Levophed and transferred to IMU. CTA was performed,
however, limited due to residual contrast material in the colon, no active GI bleeding was identified. Lactate 6.4 with normalization. Hgb 11-12 --> 8.6, BUN 44.
#GIB-- suspect UGI source given hematochezia with hemodynamic instability and elevated BUN
-2 large bore peripheral gauge IVs
-Active T&C
-Transfuse for Hgb <7
-Active T&C
-PPI IV BID
-High risk for EGD at this time given significant respiratory distress, active wheezing on exam. His pressor requirements are decreasing, ideally perform EGD but given improvement in indices, would prefer to wait until he is more optimized.
--> unclear if dilation performed in the past for stricture..
Original Note:
Consultation
-
Date/Time Consultation Requested: 06/15/24 0002
Date/Time Consultation Performed: 06/15/24 0700
Requesting Provider: ABDIRASHID Bill
Performing Provider: ABDIRASHID Blackwood, Ivis Palacio DO
Reason for Consultation: GI bleed
Medical History
Chief Complaint / HPI
Chief Complaint: melena/syncope
History of Present Illness:
Pt is a 74yow hx parkisnon's with deep brain stimulator, CAD with prior stents, GERD, ? esophageal stricture, Zenker's with admission since 05/28 with PNA. He was initially covid neg on 05/28 and 06/02 then + on 06/05. He has been followed by medical
team along with pulmonary. He has also seen by psych for suicidal ideation. He is now noted with rapid response 06/14 with large blood tinged melanotic stool asked to see for concern for GI bleeding. Pt was also hypotensive requiring pressors.
Pt has been on steroid with resp issues along with Lovenox for DVT prophylaxis and daily ASA 81. He has been on multiple med for bowel regiment including senna, Miralax along with doses of lactulose, mag citrate, mineral oil enema. hbg has been
11-12 range but drop to 8.6 after melena with rise in BUN to 44. ? hx EGD in past. did not recall or hx ? esophageal stricture in past . 08/2016 colonoscopy salguti-poor prep, stool in rectum, recto-sigmoid and sigmoid.
At this time patient admits to GERD with some upper esophageal dysphagia that is chronic. He also has some chronic constipation on stool softener prior to admission. He denies nausea/vomiting, abdominal pain, diarrhea, or prior bleeding. 06/15
CTA iwth no PE, AAA, small pleural effusion, groundglass opacity both lungs, limited colon with radiodense contrast, rectum distended with stool no stercoral colitis, renal stones.
Past Medical History
Past Medical History: CAD, GERD, Hypercholesterolemia, Psychiatric (anxiety/depression) and Other (parkinson's with deep brain stimulator, PUD, BPH, dysphagia, ? esophageal stricture,Zenker's diverticulum, constipation)
Past Surgical History: Appendectomy, Cardiac (stent), Orthopedic (reverse shoulder replacement, right TKR) and Other (brain stimulator for parkinson's, cataract, umbilical hernia repair)
Social History
Tobacco: Non-Smoker
Alcohol: None
Drug: None
Personal:
Living: With Family
Employment: Retired
Family History
Family History: Other (no hx GI colon Ca etc)
Allergies / Home Medications
Allergy/AdvReac Type Severity Reaction Status Date / Time
acetaminophen [From Percocet] Allergy Unknown Verified 06/03/24 08:57
meperidine HCl [From Demerol] Allergy Nausea / Verified 01/28/24 11:04
Vomiting
nitrofurantoin Allergy Unknown Verified 01/28/24 11:04
oxycodone [From Percocet] Allergy Unknown Verified 06/03/24 08:57
piperacillin Allergy Unknown-tolerated Verified 01/28/24 12:35
cefazolin,
cefdinir,
cetriaxone
prasugrel Allergy Rash Verified 01/28/24 11:04
Nxlwilh-LAX-PcX Reductase Allergy leg Verified 01/28/24 11:04
Inhibitor weakness -
[Lxaqfzv-Wxk-Czy Reductase falls
Inhibitor]
sulfamethoxazole Allergy Hives/rash/lips Verified 01/28/24 11:04
[From Bactrim] swelled
tetanus toxoid, adsorbed Allergy Unknown Verified 01/28/24 11:04
ticagrelor [From Brilinta] Allergy Rash Verified 01/28/24 11:04
trimethoprim [From Bactrim] Allergy Hives/rash/lips Verified 01/28/24 11:04
swelled
venom-honey bee Allergy Anaphylaxis Verified 01/28/24 11:04
[bee venom (honey bee)]
bees, hornets Allergy Anaphylaxis Uncoded 01/28/24 11:04
IV CONTRAST Allergy Rash Uncoded 01/28/24 11:04
�Medication �Instructions �Recorded
docusate sodium 100 mg capsule 100 mg PO DAILY Constipation 09/15/19
aspirin 81 mg tablet,delayed 81 mg PO DAILY Blood clot 10/12/19
release prevention/tx
acetaminophen 650 mg 650 mg PO [id number] PRN knee pain 10/22/22
tablet,extended release
carbidopa 37.5 mg-levodopa 150 1 tab PO QID movement disorder 01/28/24
mg-entacapone 200 mg tablet
cholecalciferol (vitamin D3) 125 125 mcg PO DAILY supplement 01/29/24
mcg (5,000 unit) tablet (Vitamin
D3)
CT chest without contast #1 ea 06/02/24
acetaminophen 325 mg tablet 650 mg (2 x 325 mg) PO Q4HPRN PRN 06/02/24
mild pain/CASILLAS/temp> 100.4F #0 tabs
benzonatate 100 mg capsule 100 mg PO TIDPRN PRN cough #0 caps 06/02/24
guaifenesin 600 mg tablet, 1,200 mg (2 x 600 mg) PO Q12 #0 06/02/24
extended release 12 hr tabs
ipratropium 0.5 mg-albuterol 3 mg 3 ml inhalation R Q4HPRN PRN 06/02/24
(2.5 mg base)/3 mL nebulization cough, SOB #0 mL
soln
ipratropium 0.5 mg-albuterol 3 mg 3 ml inhalation R TID #0 mL 06/02/24
(2.5 mg base)/3 mL nebulization
soln
levofloxacin 500 mg tablet 500 mg PO DAILY #0 tabs 06/02/24
Review of Systems
-
History Source: Patient
Constitutional: Reports Weight Loss (per some recent intentional loss )
EENT: Reports No Symptoms
Respiratory: Reports Cough and Trouble Breathing
Cardiac: Reports No Symptoms
Abdomen/GI: Reports Constipated (chronic ), Bloody Stools, Black Stools and Other (chronic dysphagia )
: Reports No Symptoms
Musculoskeletal: Reports No Symptoms
Skin: Reports No Symptoms
Neurological: Reports Weakness
Endocrine: Reports No Symptoms
Hematologic/Lymphatic: Reports Bleeding
Vital Signs
Temp Pulse Resp BP Pulse Ox
96.7 F L 86 25 95/79 98
06/15/24 03:19 06/15/24 05:00 06/15/24 05:00 06/15/24 05:00 06/15/24 06:17
Physical Exam
Exam
General: Other (sleeping but arousable )
HEENT: Normocephalic and Anicteric
Respiratory: Wheezes, Rhonchi and Other (coughing during evaluation)
Cardiac: Regular Rhythm
GI: Soft, Non Tender and Non Distended
Rectal: Other (per staff black and dark burgundy overnight )
Musculoskeletal: No Clubbing and No Cyanosis
Skin: Warm and Dry
Neuro: Awake, Alert and Other (slow speech -- answers most question some hard of hearing and difficulty with mask )
Psych: Calm
Results
WBC 13.3 10^3/uL (4.8-10.8) H 06/15/24 05:53
Hgb 8.6 g/dL (13.0-18.0) L 06/15/24 05:53
Hct 25.6 % (39.0-52.0) L 06/15/24 05:53
MCV 88.9 fL (80.0-94.0) 06/15/24 05:53
Plt Count 375 10^3/uL (130-400) 06/15/24 05:53
Absolute Neuts (auto) 12.2 10^3/uL (1.4-6.5) H 06/14/24 22:15
PT 17.5 Sec (11.4-14.6) H 06/14/24 22:15
INR 1.38 06/14/24 22:15
APTT 25.5 Sec (23.4-35.0) 06/14/24 22:15
Sodium 134 mmol/L (135-145) L 06/15/24 05:53
Potassium 4.1 mmol/L (3.5-5.1) 06/15/24 05:53
Chloride 102 mmol/L (98-107) 06/15/24 05:53
Carbon Dioxide 27 mmol/L (22-30) 06/15/24 05:53
BUN 44 mg/dl (9-20) H 06/15/24 05:53
Creatinine 0.9 mg/dL (0.7-1.3) 06/15/24 05:53
Calcium 7.1 mg/dl (8.4-10.2) L 06/15/24 05:53
Total Bilirubin 0.9 mg/dl (0.2-1.3) 06/14/24 05:28
AST 40 U/L (17-59) 06/14/24 05:28
ALT 24 U/L (0-50) 06/14/24 05:28
Alkaline Phosphatase 51 U/L (38-126) 06/14/24 05:28
Lipase Cancelled 06/03/24 11:19
Diagnostic Image Results:
06/15 CTA chest/abd/pelvis
IMPRESSION: No evidence for central pulmonary embolism. No evidence for thoracic aortic dissection or thoracic aortic aneurysm.
Infrarenal abdominal aortic aneurysm with maximum AP dimension of 3.9 cm, having AP dimension of 3.[address] examination of July 2016. Continued imaging follow-up is advised.
Small right pleural effusion.
Patchy groundglass opacities within both lungs, likely pneumonia.
Coronary artery calcifications and/or stents are present. Please correlate with symptoms of and risk factors for coronary artery disease, with further workup as clinically appropriate.
On CT angiography of the abdomen and pelvis, evaluation for GI bleed is limited as there is radiodense contrast material within the colon. Given that limitation, there is no CT angiographic evidence for active GI bleeding. If further imaging
evaluation is desired for GI bleed, given the limitation of the contrast material within the colon, consider a nuclear medicine GI bleeding scan.
The rectum is distended with stool with transverse dimension of 7.2 cm. No evidence of significant stercoral colitis.
2 mm nephrolith in the lower pole of the left kidney. There are 2 small nephroliths also present within the lower pole of the right kidney.
Bony degenerative changes
Prior GI Procedures:
EGD: ? in past ? esophageal stricture
Colonoscopy: 08/2016 colonoscopy salguti-poor prep, stool in rectum, recto-sigmoid and sigmoid.
Assessment / Plan
-
Pt is a 74yow hx parkisnon's with deep brain stimulator, CAD with prior stents, GERD, prior esophageal stricture, Zenker's with admission since 05/28 with PNA. He was initially covid neg on 05/28 and 06/02 then + on 06/05. He has been followed by
medical team along with pulmonary. He has also seen by psych for suicidal ideation. He is now noted with rapid response 06/14 with large blood tinged melanotic stool asked to see for concern for GI bleeding. Pt was also hypotensive requiring
pressors. Pt has been on steroid with resp issues along with Lovenox for DVT prophylaxis and daily ASA 81. He has been on multiple med for bowel regiment including senna, Miralax along with doses of lactulose, mag citrate, mineral oil enema.
Hbg has been 11-12 range but drop to 8.6 after melena with rise in BUN to 44. 1/16 CTA with no PE, AAA, small pleural effusion, groundglass opacity both lungs, limited colon with radiodense contrast, rectum distended with stool no stercoral colitis,
renal stones.
-melena
-symptomatic anemia
-s/p rapid response
-hypotension request pressor
-hx ? esophageal stricture
-hx Zenkers
-covid PNA with recent steroid use
-recent suicidal ideation
-constipation with laxative use since admission
other med problems:
-parkisons with deep brain stimulator
-CAD with prior stent
-GERD
-CTA with infrarenal AAA 3.9 cm
PLAN:
etiology of melena related to UGI bleed with elevated BUN/hypotension-- esophagitis, PUD with recent steroid use, gastritis vs lower with constipation/recent increased bowel regiment-- vs other
pt still with increased shortness of breath, continuous cough, and wheezing in exam- higher risk for EGD with resp status
pt remain of pressors for BP support but some improved blood pressure this am
CTA neg for GI bleeding source with some limitation with contrast ? from [facility] during admission
2 larger stool overnight
can consider EGD when optimized-- sooner if signs of further bleeding or drop in hbg
NPO
PPI BID
cont 2 large bore IV's
trend hbg
cont miralax, senna
lovenox hold
I updated -- reviewed risk/benefit of EGD vs continue monitoring for now-- will call back if need to proceed with scope
will follow
-
-
Thank you for consultation and allowing me to participate in the patient's care. Please call the salesperson flying squad GI physician during the after hours with any questions or concerns.
[2024-06-15] MEDS: NOVOLOG FLEXPEN-MODERATE RESISTANCE SC ×3 (08:11→17:28)
[2024-06-15] MEDS: CLARITIN PO (08:21)
[2024-06-15] MEDS: COLACE PO (08:21)
[2024-06-15] MEDS: DELTASONE PO (08:21)
[2024-06-15] MEDS: MIRALAX PO (08:21)
[2024-06-15] MEDS: ZOLOFT PO (08:22)
[2024-06-15] MEDS: SENNA SYRUP PO ×2 (08:22→19:38)
[2024-06-15] MEDS: NON-FORMULARY ITEM PO ×4 (08:22→19:38)
[2024-06-15] MEDS: VITAMIN D3 (cholecalciferol) PO (08:22)
--- NOTE | 2024-06-15 08:24 | PTCARENOTE ---
Assumed care of patient at beginning of this shift from previous RN; cannot verify accuracy of vital signs prior to 0700. Patient ordered H&H for 0800 but had CBC at 05:53. He is also in for a lactic at 10:45 and repeat H&H at 11:00. Reviewed with
Dr Hung; ok to skip the 0800 H&H draw and do with LA at 10:45.
--- NOTE | 2024-06-15 09:00 | W.PN.HOSP.TC ---
Addendum entered and electronically signed by Rob Hung MD 06/15/24 15:41:
Add IV Zosyn cover aspiration pneumonia and findings on ct chest ?old vs new(also has tolerated cephalosporin prior). Asked pulm to reeval today.
Original Note:
Today's Communication/Plan
-
IV PPI. Monitor hemoglobin. GI consulted
Assessment / Plan
Assessment / Plan
Physical exam:
General: Acute on chronically ill
HEENT: Normocephalic, Atraumatic and dry Mucous Membranes
Respiratory: Some rhonchi; Negative Wheezes, Rales
Cardiac: Regular Rhythm and S1/S2
GI: Soft, Nontender and Nondistended
Musculoskeletal: No Clubbing, No Cyanosis and No Edema
Neuro: Awake, Alert and Oriented
Psych: Calm
A/P:
0. Acute GI bleed
Patient started on IV PPI twice a day
Transferred to IMU overnight
GI consulted-GI feels he is high risk for any procedures at the moment which seems to be the case. Follow-up further GI recommendations for timing of procedures require down the road.
Continue monitor hemoglobin
Blood transfusion if needed
N.p.o.
IV fluids
Pressors as needed
Lactic acid trending down to normal
Change IV fluids bicarb drip to normal saline
1. COVID 19 viral pneumonia
Presumed super imposed bacterial Pneumonia
Acute hypoxic respiratory insufficiency
-CT chest showing Moderate size airspace consolidation and small right pleural effusion and mild left to right mediastinal shift with hilar lymphadenopathy and collapsed right mainstem bronchus and right upper lobe bronchus.
-Initially patient was treated for bacterial pneumonia
-Repeat COVID check was positive on 06/05
-Finishing course of steroids, on prednisone now
-finished course of cefepime
-continue wean off o2 as possible. currently on room air
2. Chronic dry cough
-suspected repeated micro aspiration vs other
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
-Last rapid response last night 06/04 patient required to be transferred to IMU for significant dyspnea. O2 sat was 95% on 4 L nasal cannula
-Repeat chest x-ray showing increased right-sided atelectasis
-Speech therapy evaluated patient earlier this admission and has been cleared for regular/thin liquid
-CT chest PE has ruled out any PE
-ENT evaluated with bedside fiber scopic pharyngeal/larynx evaluation and no structural abnormalities.
-Patient was on empiric steroids that was discontinued.
-Currently on nebulizer therapy and cough suppressants
-due to sev constipation, d/c Robitussin AC. change to dextromethorphan/guaifenesin
3. Presumed pleuritic pain
-With associated pulmonary symptoms patient had troponin/EKG checked no clear signs of ACS
-PE has been ruled out as well
-Right lower lobe atelectasis causing possible pleuritic pain as well.
4. CAD
-Continue aspirin but now on hold due to gi bleed
-Not sure why not on beta-blockers and statin but avoid introducing more meds at the moment
-LDL 124 and normal LFTs. Triglycerides 185.
5. Parkinson's disease:
-On Stalevo 1 tablet 4 times a day
-He has a deep brain stimulator
6. Constipation
-On Robitussin AC (codeine) likely adding to issue - d/elina
-portable abd xr reviewed.
-Discontinue enemas and lactulose. Can continue MiraLAX and senna
DVT prophylaxis: Lovenox on hold due to gi bleed
CODE STATUS: Changed to full code overnight
Anticipated Discharge: > 48 hours
Subjective/Interval History
-
Date of Service: June 15, 2024
Noted overnight events. Remains on supplemental oxygen. Hard of hearing and battery of the hearing device are running out. Afebrile
Objective Data
-
Labs:
Laboratory Results
06/14/24 06/14/24 06/14/24
22:15 22:26 23:10
WBC 16.3 H
Hgb 10.4 L Cancelled
Hct 31.5 L Cancelled
Plt Count 450 H D
PT 17.5 H
INR 1.38
APTT 25.5
HCO3 15.6 L*
Sodium 134 L
Potassium 4.9
Chloride 102
Carbon Dioxide 17 L
BUN 34 H
Creatinine 1.2
Glucose 164 H
Calcium 8.1 L
06/15/24 06/15/24 06/15/24
02:01 05:53 08:00
WBC 13.3 H
Hgb 9.4 L 8.6 L Pending
Hct 27.8 L 25.6 L Pending
Plt Count 375
PT
INR
APTT
HCO3
Sodium 134 L
Potassium 4.1
Chloride 102
Carbon Dioxide 27
BUN 44 H
Creatinine 0.9
Glucose 114 H
Calcium 7.1 L
06/15/24
11:00
WBC
Hgb Pending
Hct Pending
Plt Count
PT
INR
APTT
HCO3
Sodium
Potassium
Chloride
Carbon Dioxide
BUN
Creatinine
Glucose
Calcium
Vital Signs:
Vital Signs
Temp Pulse Resp BP Pulse Ox
98.8 F 86 25 107/58 98
06/15/24 07:41 06/15/24 08:00 06/15/24 08:00 06/15/24 08:00 06/15/24 06:17
I&O
06/14/24 06/15/24 06/16/24
06:59 06:59 06:59
Intake Total 840 / 840 480 / 480
Output Total 500 / 500 1175 / 1175
Balance 340 / 340 -695 / -695
[2024-06-15 11:08] LABS: Hematocrit 25.4 % (39.0-52.0); Hemoglobin 8.8 g/dL (13.0-18.0)
[2024-06-15 11:22] LABS: Lactic Acid 1.1 mmol/L (0.7-2.0)
[2024-06-15] MEDS: DESENEX/MITRAZOL/ZEASORB 1 APPLIC TOPICAL ×2 (11:28→19:37)
[2024-06-15 13:02] LABS: Glucose - Point of Care 113 mg/dl (70-99)
[2024-06-15] MEDS: NSS 1000 IV (13:28)
--- NOTE | 2024-06-15 14:12 | W.PN.UPDATE ---
Update Note
Progress Note Update
reviewed chart. psych following loosely. nursing tells me patient no longer taking po meds one of which is zoloft given gi bleed. noted rapid response called. will see him tomorrow.
[2024-06-15 15:31] LABS: Hematocrit 25.1 % (39.0-52.0); Hemoglobin 8.6 g/dL (13.0-18.0)
[2024-06-15 17:26] LABS: Glucose - Point of Care 109 mg/dl (70-99)
[2024-06-15] MEDS: ZOSYN 50 IV ×2 (17:33→22:48)
--- NOTE | 2024-06-15 17:39 | W.PN.PUL3 ---
Today's Communication / Plan
-
Continue Levophed and wean down as tolerated while keeping MAP >65
Continue with supplemental oxygen and wean down as tolerated while keeping SpO2 >90%
Large bore IV x 2
Continue to trend H and H with serial CBC
GI on board --> eventual endoscopy to evaluate for UGIB
NPO for now until cleared otherwise by GI
Continue Zosyn (restarted 06/15/2024)
I agree that he will need an endoscopy at some point in the near future, however given that this is not emergent, would rather continue with antibiotics, continue aspiration precautions keeping HOB >30-45�, and restart DuoNebs and Budesonide, and
assure that he is stable from a respiratory and hemodynamic standpoint for >24 hrs before he undergoes any further procedures
Pulmonary toilet, aspiration precautions
PT/OT once he is off pressors
Pulmonary service will continue to follow along
Assessment
-
74-year-old man with past medical history noted. It is noted that this patient has history of chronic coughing. This time admitted for weakness, inability to get off the floor at home. He is nonambulatory. While here complaining of coughing that
was worse. Found to have abnormal CT chest treated with antibiotics for pneumonia. We were consulted on 06/03/[address] during this admission on 06/03/2024 ruled out pulmonary embolism. Possible right middle lobe collapse.
Gastrointestinal hemorrhage with melanotic stool and acute blood loss anemia, suspected to be from an upper GI bleed
Hemorrhagic shock now on vasopressors
Acute respiratory failure with hypoxia, likely due to acute anemia in the setting of his recently diagnosed bilateral pneumonia with recent COVID-19
Bilateral pneumonia: Suspect aspiration
Acute on chronic coughing
Chest pain possibly musculoskeletal
Normal proBNP and troponins 06/03/2024
Increase D-dimer (1.58 on 06/03/2024): CT angiogram negative for PE 06/03/2023
Leukocytosis � resolved since 06/06/2024
COVID + 06/05/2024, was (-) 05/28/2024 as well as 06/02/2024
Conditions present prior admission:
Parkinson disease
Status post deep brain stimulator placement at [facility] in 2005
History of coronary artery disease
Dysphagia
History of esophageal stricture
History of depression
Zenker's diverticulum
Chronic cough-chronic. Suspected chronic microaspiration in the past
In 2020 modified barium swallow with no aspiration.
Prior pulmonary evaluation by Dr. Xavier 10/2022.
The forced vital capacity was 3.18 L or 85% of predicted and previously was 3.39 L or 89% of predicted and 3.3 L.Total lung capacity was 75% of predicted and previously was 104% of predicted.Thus he has developed mild restrictive lung disease which
is likely related to neuromuscular weakness associated with his Parkinson's disease.
Left hemidiaphragm elevation
Hard of hearing
Plan:
Patient had been improving on 06/14/2024 until he developed a GI bleed on the evening of 06/14/2024, requiring transfer to the IMU for vasopressors and further support
Oxygen requirements now improved and he is down to 2 L/min and is in no acute distress
Continue to wean down O2 as tolerated while keeping SpO2 >90%
CTA chest, abdomen, pelvis performed on 06/14/2024 and there was multifocal patchy groundglass opacities seen in the chest with a small right-sided pleural effusion --> Zosyn resumed by primary service and this should be continued; last dose of
antibiotics was given on 06/09/2024 with cefepime
- He did seem to have a bilateral pneumonia seen on CXR from 06/05/2024, and his left lower lobe does appear more aerated however now his right upper lobe appears to have more opacification, due to GGO on current CTA chest on 06/14/2024 --> this is
likely due to aspiration PNA that may have happened on evening of 06/14/2024 during his syncopal event, and he was alreayd dealing with a recent pneumonia on 06/05/2024 on top of covid-19 also Dx on 06/05/2024
s/p course of antibiotics initially with Rocephin/Zithromax from 05/28 - 06/01/2024, then transitioned to cefepime (06/01 - 06/09/2024), and also got Levaquin from 06/02 - 06/05/2024
Home O2 eval prior to discharge if resting SaO2 is <96% on room air
Given the multifocal groundglass opacities seen on imaging, and continued shock state on Levophed, believe that he is high risk for endoscopy at this time
- I agree that he will need an endoscopy at some point in the near future, however given that this is not emergent, would rather continue with antibiotics, continue aspiration precautions keeping HOB >30-45�, and restart nebulizers as stated below,
and assure that he is stable from a respiratory and hemodynamic standpoint for >24 hrs before he undergoes any further procedures
Keep NPO until cleared otherwise by GI
Continue to trend H&H with serial CBC, transfuse to keep Hb >7 g/dL, and keep platelet count >50k
Hold anticoagulants/antiplatelets until instructed otherwise by GI
Maintain MAP >65 and wean down Levophed as tolerated
Large bore IV x2
PPI IV BID
COVID positive from 06/05/2024
Isolation continues per protocol
Paxlovid initiated 06/06/24, stopped 06/10/2024
Aspiration precautions
Speech therapy following
Video swallow on 06/05/2024 -- ok for diet/resumed
Start scheduled DuoNeb TID
Resume budesonide
Mucolytics
Antitussives
Change Prednisone to solumedrol and continue weaning as tolerated
Cultures reviewed
Follow radiographically
Trend WBC
Suicidal ideations
1:1
Psychiatry following-correspondence reviewed
DVT prophylaxis- SCDs
Patient remained stable on room air. Continue with antitussives for his cough and once patient is ready for discharge would send home on a LABA/ICS with Symbicort 160 or anticoagulant. If patient is too weak to inhale through an MDI then would add
a spacer otherwise can change to DuoNebs 4 times daily + budesonide 0.5 mg twice daily.
No additional recommendations at this time. Pulmonary service will now sign off. Thank you for allowing us to be involved in the care of this patient. Please reconsult if there are any additional questions/concerns, or if patient's respiratory
status deteriorates.
Diagnostic Data
CXR 06/05/24- 1. Interval increase in moderate left to right mediastinal shift suggesting progressive right lung volume loss which is likely secondary to right lower lobe atelectasis.
2. Dense airspace consolidation in the basilar segments of the right lower lobe (either atelectasis or pneumonia).
3. Small right pleural effusion.
4. Moderate elevation of left hemidiaphragm.
5. Mild cardiomegaly.
AXR 06/09/24- Elevation of the left hemidiaphragm with moderately distended air-filled stomach underneath the left hemidiaphragm. Parenchymal opacities within both lungs, morphologic appearance most suggestive of atelectasis. Pneumonia is not
excluded.
Small right pleural effusion. Residual contrast within the colon, which is likely from recent video swallowing exam.
Moderate to large amount of stool is present in the region of the rectum, suggesting the possibility of fecal impaction
Abnormal CT chest 06/03/2024: Bilateral infiltrates right greater than left. Left hemidiaphragm elevation. Right mainstem narrowing, possible due to expiratory phase. No endobronchial lesion, no mediastinal lymph node. CAT scan the day before
06/02/2024 with patent bilateral bronchi without mass. More over CT scan 12/2023 without distended lymph nodes or lung nodules.
Total time spent today was 52 minutes for this encounter. Time includes reviewing laboratory test/imaging results, reviewing pertinent medical records, obtaining and reviewing medical history, performing an appropriate exam, ordering medications,
tests and procedures. Time also includes documentation of this encounter, coordinating patient care and communicating with other healthcare professionals. Total time does not include separately billed tests performed on this date of service.
Subjective Data
-
Date of Service:
Date of Service: June 15, 2024
Chief Complaint: Pulmonary Follow Up and Dyspnea Follow Up
Subjective:
Pulmonary service asked to see this patient again due to GI bleed with shortness of breath. Last night there was a rapid response while being assisted to the bathroom where he became weak, lowered to the floor and had increased work of breathing
requiring NRB. He had increased work of breathing and found to have blood-tinged/melanotic stool which was large. He continued to have burgundy colored, gelatinous stools. Also hypotensive requiring Levophed. Transferred to the IMU for further
care.
When I saw the patient today, he is on Levophed at 1mcg/min, with BP 111/59, heart rate 73 and saturating 94% on 2 L/min. He says he feels 'lousy,' with shortness of breath, abdominal discomfort in the right lower quadrant, and feels weak. He is
not in acute distress currently. Denies CASILLAS, back pain, nausea, fevers or chills.
Review of Systems
General: Other (Negative unless mentioned above)
Objective Data
Data Reviewed
Vital Signs / I&O / Oxygen:
Vital Signs
Temp Pulse Resp BP Pulse Ox
98.0 F 77 25 111/59 96
06/15/24 15:53 06/15/24 17:00 06/15/24 17:00 06/15/24 17:00 06/15/24 17:00
Intake and Output
06/14/24 06/15/24 06/16/24
06:59 06:59 06:59
Intake Total 840 / 840 480 / 480
Output Total 500 / 500 1175 / 1175
Balance 340 / 340 -695 / -695
SaO2 96
Nasal Cannula flow liters per 2
minute
Physical Exam
General: Respiratory Distress (n), Chills (n), Sweats (n) and Other (No acute distress, patient is uncomfortable)
HEENT: Normocephalic, Anicteric and Moist Mucous Membranes
Cardiovascular: S1-S2, Regular Rhythm and Peripheral Edema (n)
Respiratory: Wheeze (n), Crackles (bibasilar), Rhonchi (n), Non-Labored Respirations, Accessory Resp Muscle Use (n) and Stridor (n)
GI: Soft, Non Distended, Tender (RLQ) and Other (Hypoactive bowel sounds with no peritoneal signs)
Neurology: Awake, Alert and Tremors (n)
Skin: Warm, Dry, Good Color, Cyanosis (n) and Jaundice (n)
Labs/Micro/Reports
Lab Data
06/15/24 05:53
Laboratory Results
06/14/24 06/14/24
22:15 22:26
PT 17.5 H
INR 1.38
APTT 25.5
pH 7.37
pCO2 27 L
pO2 70 L
HCO3 15.6 L*
O2 Delivery Level Not Reportable
[2024-06-15] MEDS: DUONEB 3 ML INH (19:04)
[2024-06-15] MEDS: PULMICORT 0.5 MG INH (19:04)
--- NOTE | 2024-06-15 21:39 | PTCARENOTE ---
Assumed care of Pt from dayshift RN. BP/ MAPS stable off of Levophed. 110/59(74). Pt AAOx2, forgetful to situation. NSR on monitor. is on 2L NS, satting 96%. pt frequently makes a groaning sound when talking and breathing, lungs remains diminished
/coarse upon auscultation. Pt not displaying dyspnea or SOB, Pt does frequently fiddle with 02 tubing. Assesment as documnted. Call light in reach. medsitter in use
[2024-06-15 23:01] LABS: Glucose - Point of Care 108 mg/dl (70-99)
[2024-06-15 23:15] LABS: Hematocrit 23.3 % (39.0-52.0); Hemoglobin 7.8 g/dL (13.0-18.0)
[2024-06-16] VITALS (28 sets, daily range): BP systolic 85–116; BP diastolic 48–70; PULSE 77; O2SAT 93; BMI 29.6
[2024-06-16] MEDS: ZOSYN 50 IV ×4 (04:52→22:01)
[2024-06-16] MEDS: NSS 1000 IV (04:53)
[2024-06-16 05:31] LABS: Hematocrit 23.4 % (39.0-52.0); Hemoglobin 7.8 g/dL (13.0-18.0); Mean Corp Hgb Conc. 33.3 g/dL (33.0-37.0); Mean Corpuscular Hgb 30.2 pg (27.0-31.0); Mean Corpuscular Volume 90.7 fL (80.0-94.0); Mean Platelet Volume 9.4 fL (7.4-10.4); Platelet Count 283 10^3/uL (130-400); Red Blood Cell Count 2.58 10^6/uL (4.70-6.10); Red Cell Dist. Width 14.5 % (11.5-14.5); White Blood Cell Count 8.6 10^3/uL (4.8-10.8)
[2024-06-16 05:51] LABS: Blood Urea Nitrogen 23 mg/dl (9-20); Calcium 7.4 mg/dl (8.4-10.2); Carbon Dioxide 24 mmol/L (22-30); Chloride 104 mmol/L (98-107); Estimated Creatinine Clearance 84 ml/min; Glucose 94 mg/dl (70-99); Potassium 4.1 mmol/L (3.5-5.1); Sodium 133 mmol/L (135-145); eGFR > 60.00
[2024-06-16 05:54] LABS: Glucose - Point of Care 106 mg/dl (70-99)
[2024-06-16] MEDS: COLACE PO (08:03)
[2024-06-16] MEDS: CLARITIN PO (08:03)
[2024-06-16] MEDS: NON-FORMULARY ITEM PO ×2 (08:04→12:08)
[2024-06-16] MEDS: MIRALAX PO (08:04)
[2024-06-16] MEDS: ZOLOFT PO (08:04)
[2024-06-16] MEDS: VITAMIN D3 (cholecalciferol) PO (08:04)
[2024-06-16] MEDS: SENNA SYRUP PO (08:04)
[2024-06-16] MEDS: DELTASONE PO (08:04)
[2024-06-16] MEDS: PULMICORT 0.5 MG INH ×2 (08:29→19:28)
[2024-06-16] MEDS: DUONEB 3 ML INH ×3 (08:29→19:28)
--- NOTE | 2024-06-16 09:08 | W.PN.GI.CBS2 ---
Today's Communication / Plan
-
Hgb has been stable with no further GI bleeding
Given his respiratory status, will defer EGD at this time
If signs of active bleeding, we can consider EGD then
Pt frustrated by lack of anything being done. I explained above to him and he became more agreeable
Cont BID Protonix
Will follow
Assessment / Plan
-
Pt is a 74yow hx parkisnon's with deep brain stimulator, CAD with prior stents, GERD, prior esophageal stricture, Zenker's with admission since 05/28 with PNA. He was initially covid neg on 05/28 and 06/02 then + on 06/05. He has been followed by
medical team along with pulmonary. He has also seen by psych for suicidal ideation. He is now noted with rapid response 06/14 with large blood tinged melanotic stool asked to see for concern for GI bleeding. Pt was also hypotensive requiring
pressors. Pt has been on steroid with resp issues along with Lovenox for DVT prophylaxis and daily ASA 81. He has been on multiple med for bowel regiment including senna, Miralax along with doses of lactulose, mag citrate, mineral oil enema.
Hbg has been 11-12 range but drop to 8.6 after melena with rise in BUN to 44. 06/15 CTA with no PE, AAA, small pleural effusion, groundglass opacity both lungs, limited colon with radiodense contrast, rectum distended with stool no stercoral colitis,
renal stones.
-melena
-symptomatic anemia
-s/p rapid response
-hypotension request pressor
-hx ? esophageal stricture
-hx Zenkers
-covid PNA with recent steroid use
-recent suicidal ideation
-constipation with laxative use since admission
other med problems:
-parkinsons with deep brain stimulator
-CAD with prior stent
-GERD
-CTA with infrarenal AAA 3.9 cm
Subjective
Subjective
Date of Service: June 16, 2024
No BMs overnight. c/o RLQ pain
Objective
Data Reviewed
Laboratory Data:
Laboratory Results
06/16/24 05:03
06/16/24 05:03
Laboratory Results
PT 17.5 Sec (11.4-14.6) H 06/14/24 22:15
INR 1.38 06/14/24 22:15
APTT 25.5 Sec (23.4-35.0) 06/14/24 22:15
Magnesium 2.2 mg/dl (1.6-2.3) 06/14/24 05:28
Total Bilirubin 0.9 mg/dl (0.2-1.3) 06/14/24 05:28
AST 40 U/L (17-59) 06/14/24 05:28
ALT 24 U/L (0-50) 06/14/24 05:28
Alkaline Phosphatase 51 U/L (38-126) 06/14/24 05:28
Lipase Cancelled 06/03/24 11:19
Vital Signs and I&O:
Vital Signs
Temp Pulse Resp BP Pulse Ox
98.4 F 68 20 115/59 96
06/16/24 07:18 06/16/24 08:33 06/16/24 08:33 06/16/24 07:00 06/16/24 08:33
I&O
06/15/24 06/16/24 06/17/24
06:59 06:59 06:59
Intake Total 480 / 480 1155 / 1155
Output Total 1175 / 1175
Balance -695 / -695 1155 / 1155
Physical Exam
Physical Exam
GI: Soft and Tender (mild tender RLQ to deep palpation, no guarding)
[2024-06-16] MEDS: NSS (PRESERVATIVE FREE) 10 ML IV ×2 (09:35→19:54)
[2024-06-16] MEDS: DESENEX/MITRAZOL/ZEASORB 1 APPLIC TOPICAL ×2 (09:35→19:55)
[2024-06-16] MEDS: PROTONIX IV 40 MG IV ×2 (09:35→19:54)
--- NOTE | 2024-06-16 09:36 | W.PN.PUL3 ---
Today's Communication / Plan
-
Off pressors; keep MAP >65
Continue with supplemental oxygen and wean down as tolerated while keeping SpO2 >90%
Large bore IV x 2
Continue to trend H/H with serial CBC, transfusing to keep Hb>7g/dL, keep plt>50k
GI on board --> EGD deferred for now; would recommend at least outpatient endoscopy to evaluate for UGIB
Diet resumed per GI
Continue Zosyn (restarted 06/15/2024)
Pulmonary toilet, aspiration precautions
PT/OT
Pt O2 requirements have improved, he was actually on room air during my evaluation and was saturating 95%. Continue with antitussives for his cough and once patient is ready for discharge would send home on a LABA/ICS with Symbicort 160mcg or an
equivalent. If patient is too weak to inhale through an MDI then would add a spacer otherwise can change to DuoNebs 4 times daily + budesonide 0.5 mg twice daily.
No additional recommendations at this time. Pulmonary service will now sign off. Please reconsult if there are any additional questions/concerns, or if patient's respiratory status deteriorates.
Assessment
-
74-year-old man with past medical history noted. It is noted that this patient has history of chronic coughing. This time admitted for weakness, inability to get off the floor at home. He is nonambulatory. While here complaining of coughing that
was worse. Found to have abnormal CT chest treated with antibiotics for pneumonia. We were consulted on 06/03/[address] during this admission on 06/03/2024 ruled out pulmonary embolism. Possible right middle lobe collapse.
Impression:
Gastrointestinal hemorrhage with melanotic stool and acute blood loss anemia, suspected to be from an upper GI bleed
Hemorrhagic shock requiring vasopressors --> shock state now resolved
Acute respiratory failure with hypoxia, likely due to acute anemia in the setting of his recently diagnosed bilateral pneumonia with recent COVID-19
Bilateral pneumonia: Suspect aspiration
Acute on chronic coughing
Chest pain possibly musculoskeletal
Normal proBNP and troponins 06/03/2024
Increase D-dimer (1.58 on 06/03/2024): CT angiogram negative for PE 06/03/2023
Leukocytosis
COVID + 06/05/2024, was (-) 05/28/2024 as well as 06/02/2024
Conditions present prior admission:
Parkinson disease
Status post deep brain stimulator placement at [facility] in 2005
History of coronary artery disease
Dysphagia
History of esophageal stricture
History of depression
Zenker's diverticulum
Chronic cough-chronic. Suspected chronic microaspiration in the past
In 2020 modified barium swallow with no aspiration.
Prior pulmonary evaluation by Dr. Xavier 10/2022.
The forced vital capacity was 3.18 L or 85% of predicted and previously was 3.39 L or 89% of predicted and 3.3 L.Total lung capacity was 75% of predicted and previously was 104% of predicted.Thus he has developed mild restrictive lung disease which
is likely related to neuromuscular weakness associated with his Parkinson's disease.
Left hemidiaphragm elevation
Hard of hearing
Plan:
Patient had been improving on 06/14/2024 until he developed a GI bleed on the evening of 06/14/2024, requiring transfer to the IMU for vasopressors and further support
Oxygen requirements now improved and he is down to 2 L/min and is in no acute distress --> he was actually on room air when I saw him today and was saturating 95%
Continue to wean down O2 as tolerated while keeping SpO2 >90%
He is off vasopressors as of this AM, remains normotensive with MAP>75
CTA chest, abdomen, pelvis performed on 06/14/2024 and there was multifocal patchy groundglass opacities seen in the chest with a small right-sided pleural effusion --> Zosyn resumed by primary service and this should be continued; last dose of
antibiotics was given on 06/09/2024 with cefepime
- He did seem to have a bilateral pneumonia seen on CXR from 06/05/2024, and his left lower lobe does appear more aerated however now his right upper lobe appears to have more opacification, due to GGO on current CTA chest on 06/14/2024 --> this is
likely due to aspiration PNA that may have happened on evening of 06/14/2024 during his syncopal event, and he was already dealing with a recent pneumonia on 06/05/2024 on top of covid-19 Dx on 06/05/2024
s/p course of antibiotics initially with Rocephin/Zithromax from 05/28 - 06/01/2024, then transitioned to cefepime (06/01 - 06/09/2024), and also got Levaquin from 06/02 - 06/05/2024
- Now back on Zosyn as above
Home O2 eval prior to discharge if resting SaO2 is <96% on room air
Given the multifocal groundglass opacities seen on imaging, and recent shock state requiring Levophed, believe that he is high risk for endoscopy at this time
- I agree that he will need an endoscopy at some point in the future, however given that this is not emergent, would rather continue with antibiotics, continue aspiration precautions keeping HOB >30-45�, and continue nebulizers as stated below, and
assure that he is stable from a respiratory and hemodynamic standpoint for >24 hrs before he undergoes any further procedures
- EGD deferred for now per GI
Diet resumed by GI today - continue to monitor
Continue to trend H&H with serial CBC, transfuse to keep Hb >7 g/dL, and keep platelet count >50k
Hold anticoagulants/antiplatelets until instructed otherwise by GI
Maintain MAP >65 and wean down Levophed as tolerated
Large bore IV x2
PPI IV BID
COVID positive from 06/05/2024
Isolation continues per protocol
Paxlovid initiated 06/06/24, stopped 06/10/2024
Aspiration precautions
Speech therapy following
Video swallow on 06/05/2024 -- ok for diet/resumed --> diet was held 2 days ago due to GI bleed, but now back on diet as per GI given Hb stable at 7.8 x 2
Continue scheduled DuoNeb TID
Continue budesonide
Mucolytics
Antitussives
Resume Prednisone and continue weaning as tolerated, dropping by 10mg every 5th day until off
Cultures reviewed - NGTD of BCx or UCx all drawn 06/15/2024
Trend WBC
Suicidal ideations
1:1
Psychiatry following-correspondence reviewed
DVT prophylaxis- SCDs
Pt O2 requirements have improved, he was actually on room air during my evaluation and was saturating 95%. Also off pressors and remains normotensive. Continue to monitor H/H and diet resumed by GI.
Continue with antitussives for his cough and once patient is ready for discharge would send home on a LABA/ICS with Symbicort 160mcg or an equivalent. If patient is too weak to inhale through an MDI then would add a spacer otherwise can change to
DuoNebs 4 times daily + budesonide 0.5 mg twice daily.
No additional recommendations at this time. Pulmonary service will now sign off. Thank you for allowing us to be involved in the care of this patient. Please reconsult if there are any additional questions/concerns, or if patient's respiratory
status deteriorates.
Diagnostic Data
CXR 06/05/24- 1. Interval increase in moderate left to right mediastinal shift suggesting progressive right lung volume loss which is likely secondary to right lower lobe atelectasis.
2. Dense airspace consolidation in the basilar segments of the right lower lobe (either atelectasis or pneumonia).
3. Small right pleural effusion.
4. Moderate elevation of left hemidiaphragm.
5. Mild cardiomegaly.
AXR 06/09/24- Elevation of the left hemidiaphragm with moderately distended air-filled stomach underneath the left hemidiaphragm. Parenchymal opacities within both lungs, morphologic appearance most suggestive of atelectasis. Pneumonia is not
excluded.
Small right pleural effusion. Residual contrast within the colon, which is likely from recent video swallowing exam.
Moderate to large amount of stool is present in the region of the rectum, suggesting the possibility of fecal impaction
Abnormal CT chest 06/03/2024: Bilateral infiltrates right greater than left. Left hemidiaphragm elevation. Right mainstem narrowing, possible due to expiratory phase. No endobronchial lesion, no mediastinal lymph node. CAT scan the day before
06/02/2024 with patent bilateral bronchi without mass. More over CT scan 12/2023 without distended lymph nodes or lung nodules.
Total time spent today was 37 minutes for this encounter. Time includes reviewing laboratory test/imaging results, reviewing pertinent medical records, obtaining and reviewing medical history, performing an appropriate exam, ordering medications,
tests and procedures. Time also includes documentation of this encounter, coordinating patient care and communicating with other healthcare professionals. Total time does not include separately billed tests performed on this date of service.
Subjective Data
-
Date of Service:
Date of Service: June 16, 2024
Chief Complaint: Pulmonary Follow Up and Dyspnea Follow Up
Subjective:
Pt seen today at bedside. When I saw him his nasal cannula was off his face, and he was saturating 95%, HR 93 and BP 105/70. He was sitting in a chair in NAD. Had bloody stool overnight, none seen this AM, per RN. He denies SOB but says he feels
'lousy.' Denies chest pain, abd pain, N/V/f/c.
Review of Systems
General: Other (negative unless mentioned above)
Objective Data
Data Reviewed
Vital Signs / I&O / Oxygen:
Vital Signs
Temp Pulse Resp BP Pulse Ox
98.4 F 68 20 115/59 96
06/16/24 07:18 06/16/24 08:33 06/16/24 08:33 06/16/24 07:00 06/16/24 08:33
Intake and Output
06/15/24 06/16/24 06/17/24
06:59 06:59 06:59
Intake Total 480 / 480 1155 / 1155
Output Total 1175 / 1175
Balance -695 / -695 1155 / 1155
SaO2 96
Nasal Cannula flow liters per 2
minute
Physical Exam
General: Respiratory Distress (n), Comfortable, Chills (n), Sweats (n) and Other (No acute distress)
HEENT: Normocephalic, Anicteric and Moist Mucous Membranes
Cardiovascular: S1-S2, Regular Rhythm and Peripheral Edema (n)
Respiratory: Wheeze (n), Crackles (bibasilar), Rhonchi (n), Non-Labored Respirations, Accessory Resp Muscle Use (n) and Stridor (n)
GI: Soft, Non Distended, Non Tender and Normal Bowel Sounds
Neurology: Awake, Alert and Tremors (n)
Skin: Warm, Dry, Good Color, Cyanosis (n) and Jaundice (n)
Labs/Micro/Reports
Lab Data
06/16/24 05:03
06/16/24 05:03
Microbiology
06/15/24 02:01 Blood/Venous Blood Culture - Preliminary
No Growth in 24 hours- Final report to follow
06/15/24 01:23 Blood/Venous Blood Culture - Preliminary
No Growth in 24 hours- Final report to follow
--- NOTE | 2024-06-16 10:25 | W.PN.HOSP.TC ---
Today's Communication/Plan
-
PPI. IV antibiotics.
Assessment / Plan
Assessment / Plan
Physical exam:
General: Acute on chronically ill
HEENT: Normocephalic, Atraumatic and dry Mucous Membranes
Respiratory: Some rhonchi; Negative Wheezes, Rales
Cardiac: Regular Rhythm and S1/S2
GI: Soft, Nontender and Nondistended
Musculoskeletal: No Clubbing, No Cyanosis and No Edema
Neuro: Awake, Alert and Oriented
Psych: Calm
A/P:
1. Acute GI bleed
Continue IV Protonix twice daily
Holding asa and Lovenox
Appreciate GI consult and follow-up
GI is deferring EGD at the time but can consider if signs of active rebleeding
N.p.o. and IV fluids and might start clear liquid diet today per GI later today
Discussed with sister over the phone yesterday (his is sick)
2. Recurrent aspiration pneumonia
Restarted on IV Zosyn on 06/15
Oxygen supplementation as needed as needed
3. Acute blood loss anemia
Hemoglobin 7.8 today
Blood transfusion if hemoglobin less than 7 or actively bleeding
Continue to monitor hemoglobin closely
4. Metabolic acidosis with increased lactate and septic shock
On IVF antibiotics and pressors
Lactic acid 6.4--> 1.1
Bicarb 17--> 24
5. COVID 19 viral pneumonia
Presumed super imposed bacterial Pneumonia
Acute hypoxic respiratory insufficiency
-CT chest showing Moderate size airspace consolidation and small right pleural effusion and mild left to right mediastinal shift with hilar lymphadenopathy and collapsed right mainstem bronchus and right upper lobe bronchus.
-Initially patient was treated for bacterial pneumonia
-Repeat COVID check was positive on 06/05
-Finishing course of steroids, on prednisone now
-finished course of cefepime
-continue wean off o2 as possible. currently on room air
6. Chronic dry cough
-suspected repeated micro aspiration vs other
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
-Last rapid response last night 06/04 patient required to be transferred to IMU for significant dyspnea. O2 sat was 95% on 4 L nasal cannula
-Repeat chest x-ray showing increased right-sided atelectasis
-Speech therapy evaluated patient earlier this admission and has been cleared for regular/thin liquid
-CT chest PE has ruled out any PE
-ENT evaluated with bedside fiber scopic pharyngeal/larynx evaluation and no structural abnormalities.
-Patient was on empiric steroids that was discontinued.
-Currently on nebulizer therapy and cough suppressants
-due to sev constipation, d/c Robitussin AC. change to dextromethorphan/guaifenesin
7. Presumed pleuritic pain
-With associated pulmonary symptoms patient had troponin/EKG checked no clear signs of ACS
-PE has been ruled out as well
-Right lower lobe atelectasis causing possible pleuritic pain as well.
8. CAD
-Continue aspirin but now on hold due to gi bleed
-Not sure why not on beta-blockers and statin but avoid introducing more meds at the moment
-LDL 124 and normal LFTs. Triglycerides 185.
9. Parkinson's disease:
-On Stalevo 1 tablet 4 times a day
-He has a deep brain stimulator
10. Constipation
-On Robitussin AC (codeine) likely adding to issue - d/elina
-portable abd xr reviewed.
-Discontinue enemas and lactulose. Can continue MiraLAX and senna
11. Hyponatremia
Continue to monitor trend
DVT prophylaxis: Lovenox on hold due to gi bleed
CODE STATUS: Changed to full code overnight
time 54 min
Anticipated Discharge: > 48 hours
Subjective/Interval History
-
Date of Service: June 16, 2024
Less shortness of breath. Still having some burgundy stools. Less abdominal pain. Afebrile
Objective Data
-
Labs:
Laboratory Results
06/15/24 06/16/24
23:08 05:03
WBC 8.6
Hgb 7.8 L 7.8 L
Hct 23.3 L 23.4 L
Plt Count 283 D
Sodium 133 L
Potassium 4.1
Chloride 104
Carbon Dioxide 24
BUN 23 H
Creatinine 0.7
Glucose 94
Calcium 7.4 L
Vital Signs:
Vital Signs
Temp Pulse Resp BP Pulse Ox
98.4 F 68 20 115/59 96
06/16/24 07:18 06/16/24 08:33 06/16/24 08:33 06/16/24 07:00 06/16/24 08:33
I&O
06/15/24 06/16/24 06/17/24
06:59 06:59 06:59
Intake Total 480 / 480 1155 / 1155
Output Total 1175 / 1175
Balance -695 / -695 1155 / 1155
[2024-06-16 12:43] LABS: Glucose - Point of Care 115 mg/dl (70-99)
[2024-06-16] MEDS: OCEAN, SALINE MIST 2 SPRAYS NASAL (14:17)
--- NOTE | 2024-06-16 16:32 | W.PN.UPDATE ---
Update Note
Progress Note Update
patient seen chart reviewed. discussed with nursing. mr blackman later this afternoon looks much better. he was sitting in a chair quite alert...his eyes were open brilliant blue...and he actually talked to me. it is a pity that his hearing
impairment is so severe as it is difficult to carry on a conversation with him...even if you scream he struggles to hear you. he told me he had eaten and while he was eager to eat again the food tasted like'paper'. he feels tired which is
understandable and while i told him he looks much better from my perspective he was not convinced. 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 he told me he likes '[place] games' which it is likely to be. he had not received zoloft for two days
but it will resume tomorrow at 50 mg dose. i would continue it although hard to say if it has any bearing on improvement noted. i suspect it may be rather early. will see him over weekend.
[2024-06-16] MEDS: NON-FORMULARY ITEM 1 UNIT PO ×2 (17:42→22:02)
[2024-06-16] MEDS: NOVOLOG FLEXPEN-MODERATE RESISTANCE 1 UNITS SC (17:43)
[2024-06-16 17:54] LABS: Glucose - Point of Care 196 mg/dl (70-99)
--- NOTE | 2024-06-16 18:14 | PTCARENOTE ---
Patient AOx3. Patient is forgetful at times and very [place]. Patient on 2L NC. VSS. NSR on monitor. Assist x2 to chair. Incontinent to urine throughout shift. Patient tolerating diet. IVF running per order. Med sitter in place. Call zamorano within reach,
bed in lowest position, and bed of wheels locked.
[2024-06-16] MEDS: TYLENOL 650 MG PO (19:53)
[2024-06-16] MEDS: SENNA SYRUP 8.8 MG PO (19:54)
[2024-06-16] MEDS: NSS IV (20:50)
[2024-06-16 21:41] LABS: Glucose - Point of Care 142 mg/dl (70-99)
[2024-06-17] VITALS (24 sets, daily range): BP systolic 93–119; BP diastolic 54–72; BMI 30.1
[2024-06-17] MEDS: ZOSYN 50 IV ×4 (04:54→21:25)
[2024-06-17 05:13] LABS: Hematocrit 23.5 % (39.0-52.0); Hemoglobin 7.8 g/dL (13.0-18.0); Mean Corp Hgb Conc. 33.2 g/dL (33.0-37.0); Mean Corpuscular Hgb 30.2 pg (27.0-31.0); Mean Corpuscular Volume 91.1 fL (80.0-94.0); Mean Platelet Volume 9.3 fL (7.4-10.4); Platelet Count 271 10^3/uL (130-400); Red Blood Cell Count 2.58 10^6/uL (4.70-6.10); White Blood Cell Count 7.8 10^3/uL (4.8-10.8)
[2024-06-17 05:37] LABS: Blood Urea Nitrogen 16 mg/dl (9-20); Calcium 7.7 mg/dl (8.4-10.2); Carbon Dioxide 22 mmol/L (22-30); Chloride 106 mmol/L (98-107); Estimated Creatinine Clearance 98 ml/min; Glucose 106 mg/dl (70-99); Potassium 4.4 mmol/L (3.5-5.1); Sodium 134 mmol/L (135-145); eGFR > 60.00
--- NOTE | 2024-06-17 07:08 | W.PN.GI.CBS2 ---
Today's Communication / Plan
-
Hgb stable 7.8 last three days
BUN down to 16
Respiratory status improving
We can do EGD as inpatient when pulmonary status allows
Continue protonix BID
Tolerating diet
Assessment / Plan
-
Pt is a 74yow hx parkisnon's with deep brain stimulator, CAD with prior stents, GERD, prior esophageal stricture, Zenker's with admission since 05/28 with PNA. He was initially covid neg on 05/28 and 06/02 then + on 06/05. He has been followed by
medical team along with pulmonary. He has also seen by psych for suicidal ideation. He had rapid response 06/14 with large blood tinged melanotic stool asked to see for concern for GI bleeding. Pt was also hypotensive requiring pressors. Pt has
been on steroid with resp issues along with Lovenox for DVT prophylaxis and daily ASA 81. He has been on multiple med for bowel regiment including senna, Miralax along with doses of lactulose, mag citrate, mineral oil enema. Hbg has been 11-12
range but drop to 8.6 after melena with rise in BUN to 44. 1/16 CTA with no PE, AAA, small pleural effusion, groundglass opacity both lungs, limited colon with radiodense contrast, rectum distended with stool no stercoral colitis, renal stones.
-melena
-symptomatic anemia
-s/p rapid response
-hypotension request pressor
-hx ? esophageal stricture
-hx Zenkers
-covid PNA with recent steroid use
-recent suicidal ideation
-constipation with laxative use since admission
other med problems:
-parkinsons with deep brain stimulator
-CAD with prior stent
-GERD
-CTA with infrarenal AAA 3.9 cm
Subjective
Subjective
Date of Service: June 17, 2024
No BMs reported. c/o RLQ pain
Objective
Data Reviewed
Laboratory Data:
Laboratory Results
06/17/24 04:51
06/17/24 04:51
Laboratory Results
PT 17.5 Sec (11.4-14.6) H 06/14/24 22:15
INR 1.38 06/14/24 22:15
APTT 25.5 Sec (23.4-35.0) 06/14/24 22:15
Magnesium 2.2 mg/dl (1.6-2.3) 06/14/24 05:28
Total Bilirubin 0.9 mg/dl (0.2-1.3) 06/14/24 05:28
AST 40 U/L (17-59) 06/14/24 05:28
ALT 24 U/L (0-50) 06/14/24 05:28
Alkaline Phosphatase 51 U/L (38-126) 06/14/24 05:28
Lipase Cancelled 06/03/24 11:19
Vital Signs and I&O:
Vital Signs
Temp Pulse Resp BP Pulse Ox
97.9 F 61 20 103/69 99
06/17/24 03:34 06/17/24 06:00 06/17/24 06:00 06/17/24 04:00 06/17/24 06:00
I&O
06/16/24 06/17/24 06/18/24
06:59 06:59 06:59
Intake Total 1155 / 1155 1310 / 1310
Balance 1155 / 1155 1310 / 1310
Physical Exam
Physical Exam
GI: Soft, Non Distended and Tender (mild RLQ tender, bruising over abd from injections)
[2024-06-17] MEDS: DUONEB 3 ML INH ×3 (07:25→21:11)
[2024-06-17] MEDS: PULMICORT 0.5 MG INH ×2 (07:25→21:13)
[2024-06-17 07:58] LABS: Glucose - Point of Care 204 mg/dl (70-99)
[2024-06-17] MEDS: NSS (PRESERVATIVE FREE) 10 ML IV ×2 (08:11→20:07)
[2024-06-17] MEDS: PROTONIX IV 40 MG IV ×2 (08:11→20:07)
[2024-06-17] MEDS: VITAMIN D3 (cholecalciferol) 125 MCG PO (08:12)
[2024-06-17] MEDS: SENNA SYRUP 8.8 MG PO ×2 (08:12→20:04)
[2024-06-17] MEDS: CLARITIN 10 MG PO (08:12)
[2024-06-17] MEDS: COLACE 100 MG PO (08:12)
[2024-06-17] MEDS: NOVOLOG FLEXPEN-MODERATE RESISTANCE 3 UNITS SC (08:12)
[2024-06-17] MEDS: ZOLOFT 50 MG PO (08:12)
[2024-06-17] MEDS: MIRALAX 17 GRAMS PO (08:12)
[2024-06-17] MEDS: DELTASONE 30 MG PO (08:12)
[2024-06-17] MEDS: NON-FORMULARY ITEM 1 UNIT PO ×4 (08:13→21:26)
[2024-06-17] MEDS: DESENEX/MITRAZOL/ZEASORB 1 APPLIC TOPICAL ×2 (08:13→20:14)
--- NOTE | 2024-06-17 09:11 | W.PN.HOSP.TC ---
Addendum entered and electronically signed by Rob Hung MD 06/17/24 13:34:
Patient also has been relatively hypotensive although off pressors. Start midodrine low-dose and reevaluate.
Original Note:
Today's Communication/Plan
-
PPI. Antibiotics. PT OT eval
Assessment / Plan
Assessment / Plan
Physical exam:
General: Acute on chronically ill
HEENT: Normocephalic, Atraumatic and dry Mucous Membranes
Respiratory: Some rhonchi; Negative Wheezes, Rales
Cardiac: Regular Rhythm and S1/S2
GI: Soft, Nontender and Nondistended
Musculoskeletal: No Clubbing, No Cyanosis and No Edema
Neuro: Awake, Alert and Oriented
Psych: Calm
A/P:
1. Acute GI bleed
Continue IV Protonix twice daily
Holding asa and Lovenox
Appreciate GI consult and follow-up
GI is deferring EGD at the time but can consider if signs of active rebleeding
Back on diet per GI
Discussed with sister over the phone prior (his is sick)
PT OT eval
2. Recurrent aspiration pneumonia
Restarted on IV Zosyn on 06/15
Oxygen supplementation as needed as needed
WBC 16.3-->7.8
3. Acute blood loss anemia
Hemoglobin 7.8 today
Blood transfusion if hemoglobin less than 7 or actively bleeding
Continue to monitor hemoglobin closely
4. Metabolic acidosis with increased lactate and septic shock
On IVF antibiotics and pressors
Lactic acid 6.4--> 1.1
Bicarb 17--> 22
5. COVID 19 viral pneumonia
Presumed super imposed bacterial Pneumonia
Acute hypoxic respiratory insufficiency
-CT chest showing Moderate size airspace consolidation and small right pleural effusion and mild left to right mediastinal shift with hilar lymphadenopathy and collapsed right mainstem bronchus and right upper lobe bronchus.
-Initially patient was treated for bacterial pneumonia
-Repeat COVID check was positive on 06/05
-Finishing course of steroids, on prednisone now
-finished course of cefepime
-continue wean off o2 as possible. currently on room air
6. Chronic dry cough
-suspected repeated micro aspiration vs other
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
-Last rapid response last night 06/04 patient required to be transferred to IMU for significant dyspnea. O2 sat was 95% on 4 L nasal cannula
-Repeat chest x-ray showing increased right-sided atelectasis
-Speech therapy evaluated patient earlier this admission and has been cleared for regular/thin liquid
-CT chest PE has ruled out any PE
-ENT evaluated with bedside fiber scopic pharyngeal/larynx evaluation and no structural abnormalities.
-Patient was on empiric steroids that was discontinued.
-Currently on nebulizer therapy and cough suppressants
-due to sev constipation, d/c Robitussin AC. change to dextromethorphan/guaifenesin
7. Presumed pleuritic pain
-With associated pulmonary symptoms patient had troponin/EKG checked no clear signs of ACS
-PE has been ruled out as well
-Right lower lobe atelectasis causing possible pleuritic pain as well.
8. CAD
-Continue aspirin but now on hold due to gi bleed
-Not sure why not on beta-blockers and statin but avoid introducing more meds at the moment
-LDL 124 and normal LFTs. Triglycerides 185.
9. Parkinson's disease:
-On Stalevo 1 tablet 4 times a day
-He has a deep brain stimulator
10. Constipation
-On Robitussin AC (codeine) likely adding to issue - d/elina
-portable abd xr reviewed.
-Discontinue enemas and lactulose. Can continue MiraLAX and senna
11. Hyponatremia
Continue to monitor trend
DVT prophylaxis: Lovenox on hold due to gi bleed
CODE STATUS: Changed to full code overnight
time 54 min
Anticipated Discharge: > 48 hours
Subjective/Interval History
-
Date of Service: June 17, 2024
No hematemesis. Less shortness of breath. Afebrile
Objective Data
-
Labs:
Laboratory Results
06/17/24
04:51
WBC 7.8
Hgb 7.8 L
Hct 23.5 L
Plt Count 271
Sodium 134 L
Potassium 4.4
Chloride 106
Carbon Dioxide 22
BUN 16
Creatinine 0.6 L
Glucose 106 H
Calcium 7.7 L
Vital Signs:
Vital Signs
Temp Pulse Resp BP Pulse Ox
98.2 F 71 16 111/60 95
06/17/24 07:05 06/17/24 08:05 06/17/24 08:05 06/17/24 08:05 06/17/24 08:05
I&O
06/16/24 06/17/24 06/18/24
06:59 06:59 06:59
Intake Total 1155 / 1155 1310 / 1310
Balance 1155 / 1155 1310 / 1310
[2024-06-17] MEDS: ROBITUSSIN DM 10 ML PO (10:00)
[2024-06-17] MEDS: ProAmatine 2.5 MG PO (11:38)
[2024-06-17] MEDS: NOVOLOG FLEXPEN-MODERATE RESISTANCE 1 UNITS SC ×2 (12:20→17:59)
[2024-06-17 12:21] LABS: Glucose - Point of Care 170 mg/dl (70-99)
--- NOTE | 2024-06-17 16:35 | PTCARENOTE ---
Patient AOx3. Patient is forgetful at times and very [place]. Patient on RA. VSS. NSR on monitor. Assist x2 to chair. Incontinent to urine throughout shift. See MAR for bowel regimen. Patient tolerating diet. Med sitter in place. Call zamorano within reach,
bed in lowest position, and bed of wheels locked.
[2024-06-17 16:49] LABS: Glucose - Point of Care 153 mg/dl (70-99)
[2024-06-17] MEDS: ProAmatine PO (20:07)
[2024-06-17 21:36] LABS: Glucose - Point of Care 168 mg/dl (70-99)
--- NOTE | 2024-06-17 22:33 | PTCARENOTE ---
Assumed care of patient from previous RN. Patient AOx3 and NSR on monitor. On RA sating at 94%. Does have occasional harsh cough. Med sitter in room. Patient incontinent of bladder. Patient can be forgetful at times. Hard of hearing in left ear,
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 Assessment and VS as documented. Patient resting in bed with call zamorano in reach.
[2024-06-18] VITALS (31 sets, daily range): BP systolic 82–129; BP diastolic 43–97; BMI 29.7
[2024-06-18] MEDS: ZOSYN 50 IV ×4 (04:27→21:32)
[2024-06-18] MEDS: PULMICORT 0.5 MG INH ×2 (07:16→21:12)
[2024-06-18] MEDS: DUONEB 3 ML INH ×3 (07:16→21:12)
[2024-06-18] MEDS: DELTASONE 30 MG PO (08:19)
[2024-06-18] MEDS: SENNA SYRUP 8.8 MG PO ×2 (08:19→21:33)
[2024-06-18] MEDS: MIRALAX 17 GRAMS PO (08:20)
[2024-06-18] MEDS: ProAmatine 2.5 MG PO (08:20)
[2024-06-18] MEDS: CLARITIN 10 MG PO (08:20)
[2024-06-18] MEDS: NON-FORMULARY ITEM 1 UNIT PO ×4 (08:20→21:33)
[2024-06-18] MEDS: COLACE 100 MG PO (08:20)
[2024-06-18] MEDS: VITAMIN D3 (cholecalciferol) 125 MCG PO (08:20)
[2024-06-18] MEDS: NSS (PRESERVATIVE FREE) 10 ML IV ×2 (08:20→21:32)
[2024-06-18] MEDS: PROTONIX IV 40 MG IV ×2 (08:20→21:32)
[2024-06-18] MEDS: DESENEX/MITRAZOL/ZEASORB 1 APPLIC TOPICAL ×2 (08:21→21:33)
[2024-06-18] MEDS: ZOLOFT 50 MG PO (08:21)
[2024-06-18] MEDS: NOVOLOG FLEXPEN-MODERATE RESISTANCE SC (08:36)
[2024-06-18 08:46] LABS: Glucose - Point of Care 126 mg/dl (70-99)
[2024-06-18] MEDS: ROBITUSSIN DM 10 ML PO (08:47)
--- NOTE | 2024-06-18 08:54 | W.PN.HOSP.TC ---
Today's Communication/Plan
-
PPI. IV antibiotics. EGD in a.m.
Assessment / Plan
Assessment / Plan
Physical exam:
General: Acute on chronically ill
HEENT: Normocephalic, Atraumatic and dry Mucous Membranes
Respiratory: Clear to auscultation bilateral; Negative Wheezes, Rales
Cardiac: Regular Rhythm and S1/S2
GI: Soft, Nontender and Nondistended
Musculoskeletal: No Clubbing, No Cyanosis and No Edema
Neuro: Awake, Alert and Oriented
Psych: Calm
A/P:
1. Acute GI bleed
Continue IV Protonix twice daily
Holding asa and Lovenox
Appreciate GI consult and follow-up
Tolerating diet
Discussed with sister over the phone prior (his is sick)
PT OT eval
Discussed with GI today 06/18
Plan for EGD tomorrow
2. Recurrent aspiration pneumonia
Restarted on IV Zosyn on 06/15
Back to room air today
WBC 16.3-->9.3
Discussed with pulm today on 06/18 (Dr Stockton) who also cleared him for EGD tomorrow
3. Acute blood loss anemia
Hemoglobin 7.5 today
Blood transfusion if hemoglobin less than 7 or actively bleeding
Continue to monitor hemoglobin closely
4. Metabolic acidosis with increased lactate and septic shock
On IVF antibiotics and pressors--> now off except abx
Lactic acid 6.4--> 1.1
Bicarb 17--> 22
5. COVID 19 viral pneumonia
Presumed super imposed bacterial Pneumonia
Acute hypoxic respiratory insufficiency
-CT chest showing Moderate size airspace consolidation and small right pleural effusion and mild left to right mediastinal shift with hilar lymphadenopathy and collapsed right mainstem bronchus and right upper lobe bronchus.
-Initially patient was treated for bacterial pneumonia
-Repeat COVID check was positive on 06/05
-Finishing course of steroids, on prednisone now
-finished course of cefepime
-continue wean off O2 as possible. currently on room air
6. Chronic dry cough
-suspected repeated micro aspiration vs other
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
-Last rapid response last night 06/04 patient required to be transferred to IMU for significant dyspnea. O2 sat was 95% on 4 L nasal cannula
-Repeat chest x-ray showing increased right-sided atelectasis
-Speech therapy evaluated patient earlier this admission and has been cleared for regular/thin liquid
-CT chest PE has ruled out any PE
-ENT evaluated with bedside fiber scopic pharyngeal/larynx evaluation and no structural abnormalities.
-Patient was on empiric steroids that was discontinued.
-Currently on nebulizer therapy and cough suppressants
-due to sev constipation, d/c Robitussin AC. change to dextromethorphan/guaifenesin
7. Presumed pleuritic pain
-With associated pulmonary symptoms patient had troponin/EKG checked no clear signs of ACS
-PE has been ruled out as well
-Right lower lobe atelectasis causing possible pleuritic pain as well.
8. CAD
-Continue aspirin but now on hold due to gi bleed
-Not sure why not on beta-blockers and statin--> would discuss with patient after procedures.
-LDL 124 and normal LFTs. Triglycerides 185.
9. Parkinson's disease:
-On Stalevo 1 tablet 4 times a day
-He has a deep brain stimulator
10. Constipation
-On Robitussin AC (codeine) likely adding to issue - d/elina
-portable abd xr reviewed.
-Discontinue enemas and lactulose. Can continue MiraLAX and senna
11. Hyponatremia
Continue to monitor trend
DVT prophylaxis: Lovenox on hold due to gi bleed
CODE STATUS: Changed to full code overnight
time 54 min
Anticipated Discharge: 24 - 48 hours
Subjective/Interval History
-
Date of Service: June 18, 2024
No hematemesis or bright blood per rectum. Does complain of mild abdominal discomfort. Tolerating diet. No chest pain or shortness of breath. Blood pressure stable. On room air today. Afebrile.
Objective Data
-
Vital Signs:
Vital Signs
Temp Pulse Resp BP Pulse Ox
98.7 F 71 15 129/61 96
06/18/24 03:08 06/18/24 08:20 06/18/24 07:19 06/18/24 08:20 06/18/24 07:19
I&O
06/17/24 06/18/24 06/19/24
06:59 06:59 06:59
Intake Total 1310 / 1310 580 / 580
Balance 1310 / 1310 580 / 580
[2024-06-18 10:28] LABS: Hematocrit 22.2 % (39.0-52.0); Hemoglobin 7.5 g/dL (13.0-18.0); Mean Corp Hgb Conc. 33.8 g/dL (33.0-37.0); Mean Corpuscular Hgb 30.6 pg (27.0-31.0); Mean Corpuscular Volume 90.6 fL (80.0-94.0); Mean Platelet Volume 9.3 fL (7.4-10.4); Platelet Count 325 10^3/uL (130-400); Red Blood Cell Count 2.45 10^6/uL (4.70-6.10); Red Cell Dist. Width 15.8 % (11.5-14.5); White Blood Cell Count 9.3 10^3/uL (4.8-10.8)
[2024-06-18 10:40] LABS: Blood Urea Nitrogen 9 mg/dl (9-20); Calcium 7.8 mg/dl (8.4-10.2); Carbon Dioxide 22 mmol/L (22-30); Chloride 103 mmol/L (98-107); Estimated Creatinine Clearance 84 ml/min; Glucose 150 mg/dl (70-99); Potassium 3.8 mmol/L (3.5-5.1); Sodium 132 mmol/L (135-145); eGFR > 60.00
--- NOTE | 2024-06-18 10:40 | W.PN.GI.CBS2 ---
Today's Communication / Plan
-
Will plan on EGD tomorrow now that he is off O2
Continue protonix BID
Hgb 7.5, relatively stable last several days. Transfuse prn
Assessment / Plan
-
Pt is a 74yow hx parkisnon's with deep brain stimulator, CAD with prior stents, GERD, prior esophageal stricture, Zenker's with admission since 05/28 with PNA. He was initially covid neg on 05/28 and 06/02 then + on 06/05. He has been followed by
medical team along with pulmonary. He has also seen by psych for suicidal ideation. He had rapid response 06/14 with large blood tinged melanotic stool asked to see for concern for GI bleeding. Pt was also hypotensive requiring pressors. Pt has
been on steroid with resp issues along with Lovenox for DVT prophylaxis and daily ASA 81. He has been on multiple med for bowel regiment including senna, Miralax along with doses of lactulose, mag citrate, mineral oil enema. Hbg has been 11-12
range but drop to 8.6 after melena with rise in BUN to 44. 06/15 CTA with no PE, AAA, small pleural effusion, groundglass opacity both lungs, limited colon with radiodense contrast, rectum distended with stool no stercoral colitis, renal stones.
Impression:
-melena/blood tinged rapid response 06/14 required pressors
-symptomatic anemia
-hx ? esophageal stricture
-hx Zenkers
-covid PNA with recent steroid use
-recent suicidal ideation
-constipation with laxative use since admission
other med problems:
-parkinsons with deep brain stimulator
-CAD with prior stent
-GERD
-CTA with infrarenal AAA 3.9 cm
Subjective
Subjective
Date of Service: June 18, 2024
No complaints. Weaned off O2 now.
Objective
Data Reviewed
Laboratory Data:
Laboratory Results
06/18/24 10:15
Laboratory Results
PT 17.5 Sec (11.4-14.6) H 06/14/24 22:15
INR 1.38 06/14/24 22:15
APTT 25.5 Sec (23.4-35.0) 06/14/24 22:15
Magnesium 2.2 mg/dl (1.6-2.3) 06/14/24 05:28
Total Bilirubin 0.9 mg/dl (0.2-1.3) 06/14/24 05:28
AST 40 U/L (17-59) 06/14/24 05:28
ALT 24 U/L (0-50) 06/14/24 05:28
Alkaline Phosphatase 51 U/L (38-126) 06/14/24 05:28
Lipase Cancelled 06/03/24 11:19
Vital Signs and I&O:
Vital Signs
Temp Pulse Resp BP Pulse Ox
98.3 F 74 16 110/62 95
06/18/24 07:15 06/18/24 10:00 06/18/24 10:00 06/18/24 09:00 06/18/24 10:00
I&O
06/17/24 06/18/24 06/19/24
06:59 06:59 06:59
Intake Total 1310 / 1310 580 / 580 530 / 530
Balance 1310 / 1310 580 / 580 530 / 530
Physical Exam
Physical Exam
GI: Soft, Non Distended and Non Tender
[2024-06-18 12:23] LABS: Glucose - Point of Care 153 mg/dl (70-99)
[2024-06-18] MEDS: NOVOLOG FLEXPEN-MODERATE RESISTANCE 1 UNITS SC (13:19)
--- NOTE | 2024-06-18 14:24 | PTCARENOTE ---
Patient informed this RN that he was feeling 'dizzy'. BP was 90/54 with MAP of 65. BP rechecked and was 90/45 with MAP of 60. Patient resting in bed. Dr. Hung made aware. Bolus ordered. Care ongoing.
[2024-06-18] MEDS: NSS 1000 IV ×2 (14:27→16:43)
[2024-06-18] MEDS: ProAmatine 5 MG PO ×2 (14:53→17:30)
--- NOTE | 2024-06-18 15:36 | W.PN.UPDATE ---
Update Note
Progress Note Update
Pt seen, chart reviewed- pt sleeping on exam today. As medication changes already planned for today (increasing sertraline to 75mg after 1week) and pt has otherwise been stable w/ no psychiatric concerns being raised, did not rouse him excessively
so as to allow for rest & recovery.
Increase sertraline to 75mg, started at 50mg on 06/10 & 50mg unlikely to be a meaningfully therapeutic dose
Psychiatry will continue to follow loosely
--- NOTE | 2024-06-18 16:52 | PTCARENOTE ---
Dr. Hung made aware that after 1L NS bolus patients blood pressure is 94/47 with MAP of 63. Another 1L NS bolus ordered and started. Care ongoing.
--- NOTE | 2024-06-18 16:53 | PTCARENOTE ---
Patient AOx3. Patient is forgetful at times and very [place]. Patient on RA. NSR on monitor. Assist x2 to chair. Condom cath in place due to patient being incontinent. See MAR for bowel regimen. Patient tolerating diet. Med sitter in place. Call zamorano
within reach, bed in lowest position, and bed of wheels locked.
[2024-06-18] MEDS: NOVOLOG FLEXPEN-MODERATE RESISTANCE 3 UNITS SC (17:30)
[2024-06-18 17:40] LABS: Glucose - Point of Care 221 mg/dl (70-99)
[2024-06-18 21:59] LABS: Glucose - Point of Care 162 mg/dl (70-99)
[2024-06-19] VITALS (31 sets, daily range): BP systolic 12–128; BP diastolic 49–77; BMI 29.6
--- NOTE | 2024-06-19 00:23 | PTCARENOTE ---
Caring for pt overnight. aaox3 but forgetful and confused at times. NSR & remains RA. BP's running soft, will monitor MAPs. Pt asymptomatic. CC in place. Denied pain. Refusing SCDs. Q2T. Plan for NPO after midnight for scope in AM. Bed alarm on.
Will monitor.
[2024-06-19] MEDS: ZOSYN 50 IV ×4 (05:07→23:52)
[2024-06-19 05:36] LABS: Glucose - Point of Care 110 mg/dl (70-99)
[2024-06-19 05:59] LABS: % Basophils 0.1 % (0-2); % Eosinophils 1.4 % (0-6); % Immature Granulocytes 1.3 % (0-0.5); % Lymphocytes 12.3 % (20.5-51.1); % Monocytes 5.9 % (1.7-9.3); Absolute Eosinophils 0.1 10^3/uL (0-0.7); Absolute Immature Granulocytes 0.1 10^3/uL (0-0.05); Absolute Lymphocytes 0.9 10^3/uL (1.2-3.4); Absolute Monocytes 0.4 10^3/uL (0.1-0.6); Absolute Neutrophils 5.5 10^3/uL (1.4-6.5); Hematocrit 20.8 % (39.0-52.0); Hemoglobin 6.9 g/dL (13.0-18.0); Mean Corp Hgb Conc. 33.2 g/dL (33.0-37.0); Mean Corpuscular Hgb 30.7 pg (27.0-31.0); Mean Corpuscular Volume 92.4 fL (80.0-94.0); Mean Platelet Volume 9.3 fL (7.4-10.4); Nucleated Red Blood Cells % 0.6 % (-); Platelet Count 336 10^3/uL (130-400); Red Blood Cell Count 2.25 10^6/uL (4.70-6.10); Red Cell Dist. Width 15.9 % (11.5-14.5)
--- NOTE | 2024-06-19 06:13 | W.PN.UPDATE ---
Update Note
Progress Note Update
-Hgb level 6.9 this am.
-Type and screen and one unit of blood ordered.
[2024-06-19 06:26] LABS: Blood Urea Nitrogen 11 mg/dl (9-20); Calcium 7.8 mg/dl (8.4-10.2); Carbon Dioxide 23 mmol/L (22-30); Chloride 106 mmol/L (98-107); Estimated Creatinine Clearance 84 ml/min; Glucose 90 mg/dl (70-99); Potassium 3.8 mmol/L (3.5-5.1); Sodium 135 mmol/L (135-145); eGFR > 60.00
[2024-06-19] MEDS: ROBITUSSIN DM 10 ML PO (06:34)
[2024-06-19] MEDS: DUONEB 3 ML INH ×3 (07:25→18:56)
[2024-06-19] MEDS: PULMICORT 0.5 MG INH ×2 (07:25→18:56)
[2024-06-19] MEDS: MIRALAX 17 GRAMS PO (09:37)
[2024-06-19] MEDS: ProAmatine 5 MG PO ×3 (09:37→18:36)
[2024-06-19] MEDS: COLACE 100 MG PO (09:37)
[2024-06-19] MEDS: VITAMIN D3 (cholecalciferol) 125 MCG PO (09:37)
[2024-06-19] MEDS: CLARITIN 10 MG PO (09:37)
[2024-06-19] MEDS: SENNA SYRUP 8.8 MG PO ×2 (09:37→23:52)
[2024-06-19] MEDS: DELTASONE 30 MG PO (09:37)
[2024-06-19] MEDS: NON-FORMULARY ITEM 1 UNIT PO ×4 (09:38→23:51)
[2024-06-19] MEDS: DESENEX/MITRAZOL/ZEASORB 1 APPLIC TOPICAL ×2 (09:38→22:20)
[2024-06-19] MEDS: ZOLOFT 75 MG PO (09:38)
[2024-06-19] MEDS: PROTONIX IV 40 MG IV ×2 (11:11→22:20)
[2024-06-19] MEDS: NSS (PRESERVATIVE FREE) 10 ML IV ×2 (11:11→22:19)
--- NOTE | 2024-06-19 12:10 | W.PN.UPDATE ---
Update Note
Progress Note Update
EGD done
Two ulcers in duodenal bulb, larger one 10mm, both clean based
Erythema in stomach with scant hematin. Bx taken r/o H pylori
REC:
Resume diet
Continue protonix BID x 2 months, then daily
Updated . Told her to have pt avoid NSAIDs- she denies that he takes them
OK to resume ASA
Will sign off. Please call back if needed
[2024-06-19] MEDS: NOVOLOG FLEXPEN-MODERATE RESISTANCE 1 UNITS SC ×2 (13:54→18:43)
[2024-06-19 14:05] LABS: Glucose - Point of Care 162 mg/dl (70-99)
--- NOTE | 2024-06-19 14:15 | W.PN.UPDATE ---
Update Note
Progress Note Update
Pt seen, reviewed with nursing staff. Pt's mental status has improved. A rapid response was called after pt had a vasovagal episode on 06/14. Sodium level has been trending downward; PT has increased, Hgb has steadily dropped, now 6.9. Pt is
aware he is to have another procedure, per nursing an endoscopy. Pt continues to appear dysphoric, states he feels 'numb,' related to extended stay/complications. He does not express any SI. Weekend psychiatrist increased Zoloft to 75 mg QD; pt
was started on 50 mg QD 06/10, missed 2 doses, received 7 doses.
Imp: Unspecified situational depression vs Adjustment d/o with depression. Zoloft 50 mg daily is a therapeutic dose for many pt's, but needs 3 to 4 weeks to take effect. Pt's overall improvement in mental status is unlikely due to starting Zoloft,
which can also be associated with upper GI bleeding and decreased sodium level
Rec: hold off Zoloft for now. Will follow
--- NOTE | 2024-06-19 15:09 | CM ---
Chart reviewed
Blood transfusion today
For EGD today
IV antibiotics
Psych following
PT/OT recs pending
Plan - anticipate SNF when medically stable
--- NOTE | 2024-06-19 15:11 | W.PN.HOSP.TC ---
Today's Communication/Plan
-
f/u Hbg level
continue abx
d/c planning for snf
Assessment / Plan
Assessment / Plan
1. Acute GI bleed from peptic ulcer disease
Acute blood loss anemia
Patient underwent EGD 06/19 showing 2 duodenal ulcers
Continue IV Protonix twice daily
Patient hemoglobin of 6.9, requiring 1 unit of blood transfusion. total 2 Unit this admission
2. Recurrent aspiration pneumonia
Restarted on IV Zosyn on 06/15
WBC 16.3-->9.3
Will finish 7 days of course of antibiotic,
3. Metabolic acidosis - resolved
Septic shock - resolved
Lactic acidosis - resolved
On IVF antibiotics and pressors--> now off except abx
Lactic acid 6.4--> 1.1
Bicarb 17--> 22
6. COVID 19 viral pneumonia
Presumed super imposed bacterial Pneumonia
Acute hypoxic respiratory insufficiency
-CT chest showing Moderate size airspace consolidation and small right pleural effusion and mild left to right mediastinal shift with hilar lymphadenopathy and collapsed right mainstem bronchus and right upper lobe bronchus.
-Initially patient was treated for bacterial pneumonia
-Repeat COVID check was positive on 06/05
-Finishing course of steroids, on prednisone now
-finished course of cefepime
7. Chronic dry cough
-suspected repeated micro aspiration vs other
-Patient had x2-3 FOOD CROPS FARM HAND for respiratory distress/coughing issues
-Last rapid response last night 06/04 patient required to be transferred to IMU for significant dyspnea. O2 sat was 95% on 4 L nasal cannula
-Repeat chest x-ray showing increased right-sided atelectasis
-Speech therapy evaluated patient earlier this admission and has been cleared for regular/thin liquid
-CT chest PE has ruled out any PE
-ENT evaluated with bedside fiber scopic pharyngeal/larynx evaluation and no structural abnormalities.
-Patient was on empiric steroids that was discontinued.
-Currently on nebulizer therapy and cough suppressants
-due to sev constipation, d/c Robitussin AC. change to dextromethorphan/guaifenesin
8. Presumed pleuritic pain
-With associated pulmonary symptoms patient had troponin/EKG checked no clear signs of ACS
-PE has been ruled out as well
-Right lower lobe atelectasis causing possible pleuritic pain as well.
9. CAD
-Continue aspirin but now on hold due to gi bleed
-Not sure why not on beta-blockers and statin--> would discuss with patient after procedures.
-LDL 124 and normal LFTs. Triglycerides 185.
10. Parkinson's disease:
-On Stalevo 1 tablet 4 times a day
-He has a deep brain stimulator
11. Constipation
-treated with laxatives
12. Hyponatremia
Continue to monitor trend
DVT prophylaxis: scd
CODE STATUS: Changed to full code overnight
Care plan discussed with GI
Discharge planning for snf/rehab
Anticipated Discharge: 24 - 48 hours
Subjective/Interval History
-
Date of Service: June 19, 2024
Patient remains lethargic/somnolent
No reported acute events overnight
Objective Data
-
Labs:
Laboratory Results
06/19/24
05:22
WBC 7.0
Hgb 6.9 L*
Hct 20.8 L*
Plt Count 336
Sodium 135
Potassium 3.8
Chloride 106
Carbon Dioxide 23
BUN 11
Creatinine 0.7
Glucose 90
Calcium 7.8 L
Vital Signs:
Vital Signs
Temp Pulse Resp BP Pulse Ox
97.6 F 77 26 116/67 93
06/19/24 12:18 06/19/24 14:00 06/19/24 14:00 06/19/24 14:00 06/19/24 14:00
I&O
06/18/24 06/19/24 06/20/24
06:59 06:59 06:59
Intake Total 580 / 580 530 / 530 250 / 250
Output Total 1100 / 1100
Balance 580 / 580 530 / 530 -850 / -850
Review of Systems
-
Unable to obtain full review of systems at this time due to: Acuity
Physical Exam
-
General: No Apparent Distress and Comfortable
HEENT: Negative Oxygen
Respiratory: Clear to Auscultation
Cardiac: Regular Rhythm and S1/S2; Negative Murmur or Rub
GI: Soft, Nontender and Normal Bowel Sounds
Musculoskeletal: No Edema
Neuro: No Motor Deficits and Other (somonolent)
Psych: Calm
[2024-06-19 18:53] LABS: Glucose - Point of Care 174 mg/dl (70-99)
--- NOTE | 2024-06-19 19:48 | PTCARENOTE ---
Patient AOx3. Patient is forgetful at times and very [place]. Patient on RA. NSR on monitor. Assist x2 to chair. Condom cath in place due to patient being incontinent. See MAR for bowel regimen. Patient tolerating diet. Med sitter in place. Patient had
EGD during shift. Call zamorano within reach, bed in lowest position, and bed of wheels locked.
[2024-06-20] VITALS (12 sets, daily range): BP systolic 102–141; BP diastolic 67–81; PULSE 78; O2SAT 94; BMI 29.4
--- NOTE | 2024-06-20 03:20 | PTCARENOTE ---
Assumed care for patient overnight, received report from ralf RN. 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 Pt called the pt in the room. VSS. NSR on tele. RA O2 sat is 95%. Pt has a moist occasional cough. Full bed bath given, but
pt refused to brush teeth. Condom cath in place draining dark yellow urine. Pt denies any pain. Tolerating frequent turning and repositioning. Pt rings appropriately, call zamorano is within reach.
[2024-06-20] MEDS: ZOSYN 50 IV ×4 (03:49→21:00)
[2024-06-20 04:33] LABS: Hematocrit 24.5 % (39.0-52.0); Hemoglobin 7.9 g/dL (13.0-18.0); Mean Corp Hgb Conc. 32.2 g/dL (33.0-37.0); Mean Corpuscular Hgb 29.4 pg (27.0-31.0); Mean Corpuscular Volume 91.1 fL (80.0-94.0); Mean Platelet Volume 8.9 fL (7.4-10.4); Platelet Count 363 10^3/uL (130-400); Red Blood Cell Count 2.69 10^6/uL (4.70-6.10); Red Cell Dist. Width 16.2 % (11.5-14.5); White Blood Cell Count 7.4 10^3/uL (4.8-10.8)
[2024-06-20 05:27] LABS: Blood Urea Nitrogen 11 mg/dl (9-20); Carbon Dioxide 24 mmol/L (22-30); Chloride 107 mmol/L (98-107); Estimated Creatinine Clearance 84 ml/min; Glucose 85 mg/dl (70-99); Sodium 136 mmol/L (135-145); eGFR > 60.00
[2024-06-20] MEDS: DUONEB 3 ML INH (07:27)
[2024-06-20] MEDS: PULMICORT 0.5 MG INH (07:27)
[2024-06-20] MEDS: PROTONIX IV 40 MG IV ×2 (09:07→21:00)
[2024-06-20] MEDS: SENNA SYRUP 8.8 MG PO ×2 (09:08→21:00)
[2024-06-20] MEDS: NSS (PRESERVATIVE FREE) 10 ML IV ×2 (09:08→21:00)
[2024-06-20] MEDS: ProAmatine 5 MG PO ×3 (09:08→16:29)
[2024-06-20] MEDS: MIRALAX 17 GRAMS PO (09:08)
[2024-06-20] MEDS: DELTASONE 30 MG PO (09:09)
[2024-06-20] MEDS: CLARITIN 10 MG PO (09:09)
[2024-06-20] MEDS: COLACE 100 MG PO (09:09)
[2024-06-20] MEDS: VITAMIN D3 (cholecalciferol) 125 MCG PO (09:18)
[2024-06-20] MEDS: NON-FORMULARY ITEM 1 UNIT PO ×4 (09:18→21:01)
[2024-06-20] MEDS: DESENEX/MITRAZOL/ZEASORB 1 APPLIC TOPICAL ×2 (09:18→23:39)
--- NOTE | 2024-06-20 09:24 | W.PN.HOSP.TC ---
Today's Communication/Plan
-
laxatives for constipation
discharge planning for snf rehab
Assessment / Plan
Assessment / Plan
1. Acute GI bleed from peptic ulcer disease
Acute blood loss anemia
Patient underwent EGD 06/19 showing 2 duodenal ulcers
Continue IV Protonix twice daily
Patient hemoglobin of 6.9, requiring 1 unit of blood transfusion. total 2 Unit this admission
Continue monitoring hemoglobin trend
2. Recurrent aspiration pneumonia
Restarted on IV Zosyn on 06/15
WBCs trending down
Will finish 7 days of course of antibiotic,
3. Metabolic acidosis - resolved
Septic shock - resolved
Lactic acidosis - resolved
On IVF antibiotics and pressors--> now off except abx
Lactic acid 6.4--> 1.1
Bicarb 17--> 22
6. COVID 19 viral pneumonia
Presumed super imposed bacterial Pneumonia
Acute hypoxic respiratory insufficiency
-CT chest showing Moderate size airspace consolidation and small right pleural effusion and mild left to right mediastinal shift with hilar lymphadenopathy and collapsed right mainstem bronchus and right upper lobe bronchus.
-Initially patient was treated for bacterial pneumonia
-Repeat COVID check was positive on 06/05
-Finishing course of steroids, on prednisone now
-finished course of cefepime
7. Chronic dry cough
-suspected repeated micro aspiration vs other
-Patient had x2-3 CMA for respiratory distress/coughing issues
-Last rapid response last night 06/04 patient required to be transferred to IMU for significant dyspnea. O2 sat was 95% on 4 L nasal cannula
-Repeat chest x-ray showing increased right-sided atelectasis
-Speech therapy evaluated patient earlier this admission and has been cleared for regular/thin liquid
-CT chest PE has ruled out any PE
-ENT evaluated with bedside fiber scopic pharyngeal/larynx evaluation and no structural abnormalities.
-Patient was on empiric steroids that was discontinued.
-Currently on nebulizer therapy and cough suppressants
-due to sev constipation, d/c Robitussin AC. change to dextromethorphan/guaifenesin
8. Presumed pleuritic pain
-With associated pulmonary symptoms patient had troponin/EKG checked no clear signs of ACS
-PE has been ruled out as well
-Right lower lobe atelectasis causing possible pleuritic pain as well.
9. CAD
-Continue aspirin but now on hold due to gi bleed
-Not sure why not on beta-blockers and statin--> would discuss with patient after procedures.
-LDL 124 and normal LFTs. Triglycerides 185.
10. Parkinson's disease:
-On Stalevo 1 tablet 4 times a day
-He has a deep brain stimulator
11. Constipation
-patient had problem with significant constipation With underlying Parkinson dzs
-oral lactulose and enema ordered.
12. Hyponatremia
Continue to monitor trend
DVT prophylaxis: scd
CODE STATUS: Changed to full code overnight
Care plan discussed with GI
Discharge planning for snf/rehab
Anticipated Discharge: Within 24 hours
Subjective/Interval History
-
Date of Service: June 20, 2024
Resting comfortably in bed
Complaining of feeling constipated
No abdominal pain/nausea/vomiting
Afebrile overnight
Objective Data
-
Labs:
Laboratory Results
06/20/24
04:00
WBC 7.4
Hgb 7.9 L
Hct 24.5 L
Plt Count 363
Sodium 136
Potassium 4.0
Chloride 107
Carbon Dioxide 24
BUN 11
Creatinine 0.7
Glucose 85
Calcium 8.0 L
Vital Signs:
Vital Signs
Temp Pulse Resp BP Pulse Ox
97.9 F 78 16 125/72 94
06/20/24 07:05 06/20/24 09:08 06/20/24 07:29 06/20/24 09:08 06/20/24 07:29
I&O
06/19/24 06/20/24 06/21/24
06:59 06:59 06:59
Intake Total 530 / 530 530 / 530
Output Total 1800 / 1800
Balance 530 / 530 -1270 / -1270
Review of Systems
-
Respiratory: Reports No Symptoms
Cardiac: Reports No Symptoms
Abdomen/GI: Reports Constipated; Denies Abdominal Pain or Nausea
Physical Exam
-
General: No Apparent Distress and Comfortable
HEENT: Negative Oxygen
Respiratory: Clear to Auscultation
Cardiac: Regular Rhythm and S1/S2; Negative Murmur or Rub
GI: Soft, Nontender and Normal Bowel Sounds
Musculoskeletal: No Edema
Neuro: Awake, Alert and Oriented
Psych: Calm
[2024-06-20 09:39] LABS: Glucose - Point of Care 116 mg/dl (70-99)
[2024-06-20] MEDS: NOVOLOG FLEXPEN-MODERATE RESISTANCE SC (09:40)
[2024-06-20] MEDS: DUPHALAC/CHRONULAC 20 GRAMS PO ×3 (09:59→21:00)
--- NOTE | 2024-06-20 11:33 | W.PN.UPDATE ---
Update Note
Progress Note Update
Pt seen resting in bed, initially asleep. Able to awaken, have to talk loudly in pt's left ear- very hard of hearing. Alert and oriented upon awakening. States he is 'not too bad' just frustrated with being here for 2 weeks. Endoscopy 06/19 noted
to show 2 duodenal ulcers; pt was transfused 1 unit due to Hgb 6.9 was trending down. Sodium has improved to 136. Zoloft was stopped due to potential side effect concerns- pt received 7 doses of 50 mg and one dose of 75 mg.
On exam today, pt denies any SI. Nursing reports pt has consistently denied any wish for self-harm.
Imp: Adjustment d/o with depression, stable; pt does not require 1:1 supervision
Rec: Pt appears psychiatrically stable for discharge when medically cleared. He would benefit from outpatient therapy. Will hold off antidepressant medication due to risks
[2024-06-20] MEDS: NOVOLOG FLEXPEN-MODERATE RESISTANCE 1 UNITS SC ×2 (12:34→16:37)
[2024-06-20 12:49] LABS: Glucose - Point of Care 191 mg/dl (70-99)
[2024-06-20] MEDS: DUONEB INH (13:49)
--- NOTE | 2024-06-20 14:08 | SUR.OPER ---
report to nurse [phone]
--- NOTE | 2024-06-20 14:54 | CM ---
CM reviewed pt with Dr Manning- ready for dc
Calls with [facility] and [facility]- no beds available
[facility] continues to deny due to hx SI
Bedside visit with pt- he is disappointed but in agreement with continued SNF bed search
[facility] preferable
Call with spouse with update
Referral to [facility] and broad net of referrals sent
Discharge Disposition- SNF
--- NOTE | 2024-06-20 15:36 | PTCARENOTE ---
Transport here for pt
[2024-06-20 16:09] LABS: Glucose - Point of Care 172 mg/dl (70-99)
[2024-06-20] MEDS: SYMBICORT 160/4.5 MCG INHALER 2 PUFF INH (19:22)
[2024-06-20 21:13] LABS: Glucose - Point of Care 185 mg/dl (70-99)
--- NOTE | 2024-06-21 02:33 | DOWNTIME ---
There was a [employer] Downtime on 06/21/2024 from 0100 to 06/21/2023 at 0205 . Downtime documentation of patient's care, including medication administrations, has been reconciled in the electronic record per guidelines. Refer to the
patient's paper chart under the miscellaneous tab to see printed paper medication records and downtime forms.
[2024-06-21] MEDS: ZOSYN 50 IV ×2 (04:36→09:36)
[2024-06-21 05:34] VITALS: BMI 29.4
[2024-06-21] MEDS: SPIRIVA RESPIMAT 2.5 MCG 2 PUFF INH (07:37)
[2024-06-21] MEDS: SYMBICORT 160/4.5 MCG INHALER 2 PUFF INH ×2 (07:37→19:35)
[2024-06-21 07:55] VITALS: BP 146/75
[2024-06-21 07:56] LABS: Glucose - Point of Care 108 mg/dl (70-99)
[2024-06-21 07:56] LABS: Hemoglobin 8.4 g/dL (13.0-18.0); Mean Corp Hgb Conc. 32.3 g/dL (33.0-37.0); Mean Corpuscular Hgb 29.6 pg (27.0-31.0); Mean Corpuscular Volume 91.5 fL (80.0-94.0); Mean Platelet Volume 8.9 fL (7.4-10.4); Platelet Count 366 10^3/uL (130-400); Red Blood Cell Count 2.84 10^6/uL (4.70-6.10); Red Cell Dist. Width 16.1 % (11.5-14.5); White Blood Cell Count 6.7 10^3/uL (4.8-10.8)
[2024-06-21 08:16] LABS: Blood Urea Nitrogen 14 mg/dl (9-20); Calcium 8.4 mg/dl (8.4-10.2); Carbon Dioxide 24 mmol/L (22-30); Chloride 106 mmol/L (98-107); Estimated Creatinine Clearance 73 ml/min; Glucose 95 mg/dl (70-99); Potassium 3.7 mmol/L (3.5-5.1); Sodium 138 mmol/L (135-145); eGFR > 60.00
[2024-06-21] MEDS: NOVOLOG FLEXPEN-MODERATE RESISTANCE SC ×3 (09:30→18:37)
[2024-06-21] MEDS: DESENEX/MITRAZOL/ZEASORB 1 APPLIC TOPICAL ×2 (09:31→20:39)
[2024-06-21] MEDS: NON-FORMULARY ITEM 1 UNIT PO ×4 (09:32→20:07)
[2024-06-21] MEDS: DUPHALAC/CHRONULAC 20 GRAMS PO (09:36)
[2024-06-21] MEDS: NSS (PRESERVATIVE FREE) 10 ML IV ×2 (09:36→20:07)
[2024-06-21] MEDS: PROTONIX IV 40 MG IV ×2 (09:37→20:07)
[2024-06-21] MEDS: FLUSH (NSS) 1 FLUSH IV (09:37)
[2024-06-21] MEDS: MIRALAX 17 GRAMS PO (09:37)
[2024-06-21] MEDS: CLARITIN 10 MG PO (09:39)
[2024-06-21] MEDS: COLACE 100 MG PO (09:39)
[2024-06-21] MEDS: VITAMIN D3 (cholecalciferol) 125 MCG PO (09:39)
[2024-06-21] MEDS: ProAmatine 5 MG PO ×3 (09:40→17:31)
[2024-06-21] MEDS: SENNA SYRUP 8.8 MG PO (09:46)
[2024-06-21] MEDS: DELTASONE 30 MG PO (09:47)
[2024-06-21] MEDS: ProAIR HFA INHALER 2 PUFF INH ×2 (10:50→19:35)
--- NOTE | 2024-06-21 11:17 | W.PN.HOSP.TC ---
Today's Communication/Plan
-
discharge planning for snf rehab
provide dose of enema
Assessment / Plan
Assessment / Plan
1. Acute GI bleed from peptic ulcer disease
Acute blood loss anemia
Patient underwent EGD 06/19 showing 2 duodenal ulcers
Continue IV Protonix twice daily
Total unit of PRBC this admission, hemoglobin has been stable
Continue monitoring hemoglobin trend
2. Recurrent aspiration pneumonia
Finish course of Zosyn 7 days today
WBCs trending down
3. Metabolic acidosis - resolved
Septic shock - resolved
Lactic acidosis - resolved
On IVF antibiotics and pressors--> now off except abx
Lactic acid 6.4--> 1.1
Bicarb 17--> 22
6. COVID 19 viral pneumonia
Presumed super imposed bacterial Pneumonia
Acute hypoxic respiratory insufficiency
-CT chest showing Moderate size airspace consolidation and small right pleural effusion and mild left to right mediastinal shift with hilar lymphadenopathy and collapsed right mainstem bronchus and right upper lobe bronchus.
-Initially patient was treated for bacterial pneumonia
-Repeat COVID check was positive on 06/05
-Finishing course of steroids, on prednisone now
-finished course of cefepime
7. Chronic dry cough
-suspected repeated micro aspiration vs other
-Patient had x2-3 MATERNAL FETAL PHYSICIAN for respiratory distress/coughing issues
-Last rapid response last night 06/04 patient required to be transferred to IMU for significant dyspnea. O2 sat was 95% on 4 L nasal cannula
-Repeat chest x-ray showing increased right-sided atelectasis
-Speech therapy evaluated patient earlier this admission and has been cleared for regular/thin liquid
-CT chest PE has ruled out any PE
-ENT evaluated with bedside fiber scopic pharyngeal/larynx evaluation and no structural abnormalities.
-Patient was on empiric steroids that was discontinued.
-Currently on nebulizer therapy and cough suppressants
-due to sev constipation, d/c Robitussin AC. change to dextromethorphan/guaifenesin
8. Presumed pleuritic pain
-With associated pulmonary symptoms patient had troponin/EKG checked no clear signs of ACS
-PE has been ruled out as well
-Right lower lobe atelectasis causing possible pleuritic pain as well.
9. CAD
-Continue aspirin but now on hold due to gi bleed
-Not sure why not on beta-blockers and statin--> would discuss with patient after procedures.
-LDL 124 and normal LFTs. Triglycerides 185.
10. Parkinson's disease:
-On Stalevo 1 tablet 4 times a day
-He has a deep brain stimulator
11. Constipation
-patient had problem with significant constipation With underlying Parkinson dzs
-oral lactulose and enema ordered.
12. Hyponatremia
Continue to monitor trend
DVT prophylaxis: scd
CODE STATUS: Changed to full code overnight
Anticipated Discharge: Today
Subjective/Interval History
-
Date of Service: June 21, 2024
Resting comfortably in bed
No reported problems overnight
Objective Data
-
Labs:
Laboratory Results
06/21/24
07:27
WBC 6.7
Hgb 8.4 L
Hct 26.0 L
Plt Count 366
Sodium 138
Potassium 3.7
Chloride 106
Carbon Dioxide 24
BUN 14
Creatinine 0.8
Glucose 95
Calcium 8.4
Vital Signs:
Vital Signs
Temp Pulse Resp BP Pulse Ox
97.8 F 75 18 146/75 95
06/21/24 07:55 06/21/24 10:52 06/21/24 10:52 06/21/24 07:55 06/21/24 10:52
I&O
06/20/24 06/21/24 06/22/24
06:59 06:59 06:59
Intake Total 530 / 530 1010 / 1010 50 / 50
Output Total 1800 / 1800 1300 / 1300
Balance -1270 / -1270 -290 / -290
Review of Systems
-
Respiratory: Reports No Symptoms
Cardiac: Reports No Symptoms
Abdomen/GI: Reports No Symptoms
Physical Exam
-
General: No Apparent Distress and Comfortable
HEENT: Negative Oxygen
Respiratory: Clear to Auscultation
Cardiac: Regular Rhythm and S1/S2; Negative Murmur or Rub
GI: Soft, Nontender and Normal Bowel Sounds
Musculoskeletal: No Edema
Neuro: Awake, Alert and Oriented
Psych: Calm
--- NOTE | 2024-06-21 11:37 | CM ---
CM reviewed chart, awaiting response from [facility] if able to accept patient. [facility] able to accept patient tomorrow. Patient seen bedside, agreeable to [facility] tomorrow if [facility] unable to accept, requesting update to .
Phone call to , Priti, provided update. Patient will require ambulance transport- forms on chart. Update to Hospitalist. CM will continue to follow for all discharge planning needs.
Plan; awaiting [facility] response, likely discharge tomorrow to [facility]
[2024-06-21 11:52] LABS: Glucose - Point of Care 146 mg/dl (70-99)
--- NOTE | 2024-06-21 12:29 | W.PN.UPDATE ---
Update Note
Progress Note Update
patient seen chart reviewed. discussed with nursing and with dr dent. the patient was in an unhappy mood today. he wants to leave 'yesterday'. he complained of a number of issues and is dissatisfied with his care. he cited his breakfast tray as
not having been removed this am until 1130 am. noted results of gi workup patient w evidence of bleeding and ulcers on egd. zoloft had been discontinued and i did talk w dr dent about whether we might safetly start it again at this point to which
he agreed. his mood does seem to have slipped a bit. i told him i would talk to dr dent about when he may be leaving here and i would return to inform him later today. ( i did speak to dr dent and he will likely leave tomorrow.) i will also
discuss w him restarting zoloft.
[2024-06-21 15:45] VITALS: BP 128/64
[2024-06-21] MEDS: DUPHALAC/CHRONULAC PO ×3 (17:30→20:39)
[2024-06-21 17:58] LABS: Glucose - Point of Care 149 mg/dl (70-99)
[2024-06-21] MEDS: SENNA SYRUP PO (20:39)
[2024-06-21 21:10] LABS: Glucose - Point of Care 181 mg/dl (70-99)
[2024-06-21 23:46] VITALS: BP 105/67
[2024-06-22 05:58] VITALS: BMI 28.7
[2024-06-22] MEDS: SPIRIVA RESPIMAT 2.5 MCG 2 PUFF INH (07:29)
[2024-06-22] MEDS: SYMBICORT 160/4.5 MCG INHALER 2 PUFF INH (07:29)
[2024-06-22] MEDS: ProAIR HFA INHALER 2 PUFF INH (07:29)
[2024-06-22 07:30] LABS: Glucose - Point of Care 98 mg/dl (70-99)
[2024-06-22 08:01] LABS: Hematocrit 27.2 % (39.0-52.0); Hemoglobin 8.9 g/dL (13.0-18.0); Mean Corp Hgb Conc. 32.7 g/dL (33.0-37.0); Mean Corpuscular Hgb 30.1 pg (27.0-31.0); Mean Corpuscular Volume 91.9 fL (80.0-94.0); Platelet Count 365 10^3/uL (130-400); Red Blood Cell Count 2.96 10^6/uL (4.70-6.10); Red Cell Dist. Width 15.8 % (11.5-14.5); White Blood Cell Count 7.9 10^3/uL (4.8-10.8)
[2024-06-22 08:23] LABS: Blood Urea Nitrogen 13 mg/dl (9-20); Calcium 8.3 mg/dl (8.4-10.2); Carbon Dioxide 28 mmol/L (22-30); Chloride 102 mmol/L (98-107); Estimated Creatinine Clearance 73 ml/min; Glucose 85 mg/dl (70-99); Potassium 3.9 mmol/L (3.5-5.1); Sodium 136 mmol/L (135-145); eGFR > 60.00
[2024-06-22 08:30] VITALS: BP 117/57
--- NOTE | 2024-06-22 08:42 | CM ---
CM reviewed chart, patient for discharge today to [facility], 3:00 p.m. ambulance transport scheduled. CM placed call to , Priti, discussed transport time. IMM verbally reviewed with , placed in chart. CM will continue to
follow for all discharge planning needs.
Plan; [facility], 3:00 p.m. ambulance transport
[place]:
Report: [phone]
[2024-06-22] MEDS: NOVOLOG FLEXPEN-MODERATE RESISTANCE SC ×3 (08:47→17:18)
[2024-06-22] MEDS: MIRALAX PO ×2 (08:49→08:55)
[2024-06-22] MEDS: ProAmatine 5 MG PO ×3 (08:49→17:16)
[2024-06-22] MEDS: DUPHALAC/CHRONULAC PO ×2 (08:49→08:55)
[2024-06-22] MEDS: CLARITIN 10 MG PO (08:50)
[2024-06-22] MEDS: PROTONIX IV 40 MG IV (08:50)
[2024-06-22] MEDS: VITAMIN D3 (cholecalciferol) 125 MCG PO (08:50)
[2024-06-22] MEDS: COLACE PO ×2 (08:50→08:55)
[2024-06-22] MEDS: ZOLOFT 50 MG PO (08:50)
[2024-06-22] MEDS: SENNA SYRUP PO ×2 (08:50→08:56)
[2024-06-22] MEDS: NSS (PRESERVATIVE FREE) 10 ML IV (08:50)
[2024-06-22] MEDS: DELTASONE 30 MG PO (08:50)
[2024-06-22] MEDS: NON-FORMULARY ITEM 1 UNIT PO ×3 (08:51→17:13)
[2024-06-22] MEDS: DESENEX/MITRAZOL/ZEASORB 1 APPLIC TOPICAL (08:51)
[2024-06-22 11:54] LABS: Glucose - Point of Care 187 mg/dl (70-99)
--- NOTE | 2024-06-22 12:37 | W.PN.HOSP.TC ---
Today's Communication/Plan
-
d/c snf
Assessment / Plan
Assessment / Plan
1. Acute GI bleed from peptic ulcer disease
Acute blood loss anemia
-Patient underwent EGD 06/19 showing 2 duodenal ulcers
-Total unit of PRBC this admission, hemoglobin has been stable
-Continue monitoring hemoglobin trend
-maintain on BID PPI
2. Recurrent aspiration pneumonia
-Finish course of Zosyn 7 days
-WBCs trending down
3. Metabolic acidosis - resolved
Septic shock - resolved
Lactic acidosis - resolved
-On IVF antibiotics and pressors--> now off except abx
-Lactic acid 6.4--> 1.1
-Bicarb 17--> 22
6. COVID 19 viral pneumonia
Presumed super imposed bacterial Pneumonia
Acute hypoxic respiratory insufficiency
-CT chest showing Moderate size airspace consolidation and small right pleural effusion and mild left to right mediastinal shift with hilar lymphadenopathy and collapsed right mainstem bronchus and right upper lobe bronchus.
-Initially patient was treated for bacterial pneumonia
-Repeat COVID check was positive on 06/05
-Finishing course of steroids, on prednisone now
-finished course of cefepime
7. Chronic dry cough
-suspected repeated micro aspiration vs other
-Patient had x2-3 DATA SYSTEMS MANAGER for respiratory distress/coughing issues
-Last rapid response last night 06/04 patient required to be transferred to IMU for significant dyspnea. O2 sat was 95% on 4 L nasal cannula
-Repeat chest x-ray showing increased right-sided atelectasis
-Speech therapy evaluated patient earlier this admission and has been cleared for regular/thin liquid
-CT chest PE has ruled out any PE
-ENT evaluated with bedside fiber scopic pharyngeal/larynx evaluation and no structural abnormalities.
-Patient was on empiric steroids that was discontinued.
-Currently on nebulizer therapy and cough suppressants
-due to sev constipation, d/c Robitussin AC. change to dextromethorphan/guaifenesin
8. Presumed pleuritic pain
-With associated pulmonary symptoms patient had troponin/EKG checked no clear signs of ACS
-PE has been ruled out as well
-Right lower lobe atelectasis causing possible pleuritic pain as well.
9. CAD
-Continue aspirin but now on hold due to gi bleed
-Not sure why not on beta-blockers and statin--> would discuss with patient after procedures.
-LDL 124 and normal LFTs. Triglycerides 185.
10. Parkinson's disease:
-On Stalevo 1 tablet 4 times a day
-He has a deep brain stimulator
11. Constipation
-patient had problem with significant constipation With underlying Parkinson dzs
-oral lactulose and enema ordered.
12. Hyponatremia
Continue to monitor trend
DVT prophylaxis: scd
CODE STATUS: Changed to full code overnight
More than 30 minutes spent in discharge including
Final examination of the patient
Summarizing hospital stay
Instructions for continuing care to all relevant caregivers
Preparation of discharge records, prescriptions, and referral forms
Total time spent (in minutes): 38 mins
Anticipated Discharge: Today
Subjective/Interval History
-
Date of Service: June 22, 2024
Having good bowel movements with laxatives
no new issues overnight
Objective Data
-
Labs:
Laboratory Results
06/22/24
06:49
WBC 7.9
Hgb 8.9 L
Hct 27.2 L
Plt Count 365
Sodium 136
Potassium 3.9
Chloride 102
Carbon Dioxide 28
BUN 13
Creatinine 0.8
Glucose 85
Calcium 8.3 L
Vital Signs:
Vital Signs
Temp Pulse Resp BP Pulse Ox
98.3 F 67 14 117/57 96
06/22/24 08:30 06/22/24 08:49 06/22/24 08:30 06/22/24 08:49 06/22/24 08:30
I&O
06/21/24 06/22/24 06/23/24
06:59 06:59 06:59
Intake Total 1010 / 1010 530 / 530
Output Total 1300 / 1300
Balance -290 / -290 530 / 530
Review of Systems
-
Respiratory: Reports No Symptoms
Cardiac: Reports No Symptoms
Abdomen/GI: Denies Diarrhea
Physical Exam
-
General: No Apparent Distress and Comfortable
HEENT: Negative Oxygen
Respiratory: Clear to Auscultation
Cardiac: Regular Rhythm and S1/S2; Negative Murmur or Rub
GI: Soft, Nontender and Normal Bowel Sounds
Musculoskeletal: No Edema
Neuro: Awake, Alert and Oriented
Psych: Calm
[2024-06-22 13:31] VITALS: BP 121/58
[2024-06-22] MEDS: NOVOLOG FLEXPEN-MODERATE RESISTANCE 1 UNITS SC (13:40)
[2024-06-22 16:25] VITALS: BP 115/63
[2024-06-22 16:41] LABS: Glucose - Point of Care 249 mg/dl (70-99)
[2024-06-22] MEDS: DUPHALAC/CHRONULAC 20 GRAMS PO (17:11)
--- NOTE | 2024-06-23 16:26 | W.DCSUMMARY ---
Discharge Summary
Discharge Data
Date of Admission: 06/05/24
Date of Discharge: 06/22/24
-
Pending Results: No
Hospital Course
Discharging Physician : Dr Mor Manning
Disposition : To snf rehab
Primary care physician : Dr Daniele Garcia
Principal Discharge diagnosis :
COVID-19 viral pneumonia
Acute hypoxic respiratory failure
Bacterial/aspiration pneumonia
Gastrointestinal bleed from peptic ulcer disease
Acute blood loss anemia
Shock requiring vasopressors
Pleuritic pain
Chronic dry cough
Severe constipation
Hyponatremia
Chronic Discharge diagnosis :
Parkinson's disease
Obesity
Coronary artery disease
Hospital Course :
Patient is a 74-year-old male with mentioned past medical history came to ER for having new onset of nonproductive cough and generalized weakness.
Chronic dry cough -patient had significant episodes of coughing spell making patient dyspneic and hypoxic at point. Patient had rapid response during the initial few days of hospital stay. Chest x-ray was showing lower lobe atelectasis versus
pneumonia. Patient was maintained on empiric IV antibiotic therapy. Pulmonology was involved in care. A CT chest PE was done which ruled out any PE. An ENT evaluation was done which ruled out any pharyngeal abnormality. Patient was maintained
on empiric steroids as well and was later discontinued. Patient started on symptomatic care of dry cough reason of which is unclear.
Aspiration pneumonia -patient have history of Parkinson's disease and concern of having microaspiration at points. Patient required x2 course of antibiotics during this hospital stay.
COVID-19 viral pneumonia, acute hypoxic respiratory failure, superimposed bacterial pneumonia -patient was incidentally found to have COVID-19 viral infection. Was started on Paxlovid therapy. Later during COVID recovery patient felt to having
repeat episode of superimposed bacterial pneumonia and required course of antibiotic. Patient continued to require oxygen support through nasal cannula.
Shock, GI bleed -patient developed new melena associated with some shock. Required brief pressor support and higher level of care. Patient was provided 2 unit of blood transfusion. An EGD was done post stabilization showing nonbleeding duodenal
ulcers. GI recommended for patient to be maintained on Protonix therapy at discharge.
Severe constipation -patient had problem with significant constipation and continue to require enema for good bowel movement.
Post medical stabilization patient was [facility].
Important imaging findings :
None
Procedure findings :
None
Discharge Plan
-
Patient Disposition: Penitentiary/SNF
Discharge Diagnosis/Procedures: Community-acquired pneumonia, PUD, GI bleed, Aspiration pneumonia, COVID 19 viral pneumonia, Dry cough, Constipation, Parkinson's disease,
Condition: Fair
Diet: Regular
Activity: As tolerated
Driving Restrictions: No driving
Bathing Restrictions: Per facility protocol
Referrals:
Daniele Garcia MD [Family Provider] - in one week
Calderon Xavier MD [Active] - in two to three weeks
Prescriptions:
New
ipratropium-albuterol 0.5 mg-3 mg(2.5 mg base)/3 mL Solution For Nebulization
3 ml inhalation R Q4HPRN PRN (Reason: cough, SOB) Qty: 0 0RF
ipratropium-albuterol 0.5 mg-3 mg(2.5 mg base)/3 mL Solution For Nebulization
3 ml inhalation R TID Qty: 0 0RF
guaifenesin 600 mg Tablet Extended Release 12hr
1,200 mg PO Q12 Qty: 0 0RF
benzonatate 100 mg Capsule
100 mg PO TIDPRN PRN (Reason: cough) Qty: 0 0RF
acetaminophen 325 mg Tablet
650 mg PO Q4HPRN PRN (Reason: mild pain/CASILLAS/temp> 100.4F) Qty: 0 0RF
polyethylene glycol 3350 17 gram Powder In Packet
17 g PO DAILY Qty: 30 0RF
dextromethorphan-guaifenesin 10-100 mg/5 mL Syrup
10 ml PO Q4HPRN PRN (Reason: Cough) Qty: 237 0RF
Spiriva Respimat 2.5 mcg/actuation Mist
2 puff inhalation R DAILY Qty: 4 0RF
budesonide-formoterol [Symbicort] 160-4.5 mcg/actuation Hfa Aerosol Inhaler
2 puff inhalation R BID Qty: 10.2 0RF
sertraline 50 mg Tablet
50 mg PO DAILY Qty: 30 0RF
pantoprazole 40 mg tablet,delayed release (DR/EC)
40 mg PO BID Qty: 60 0RF
Rx Instructions:
Twice daily for 6 weeks THEN
Once daily for maintenance
prednisone 10 mg Tablet
See Rx Instructions .ROUTE .COMPLEX Qty: 18 0RF
Rx Instructions:
Take By Mouth:
20 mg daily x5 days, 10 mg daily x5 days,
5 mg daily x5 days THEN stop
Continued
docusate sodium 100 MG capsule
100 mg PO DAILY
aspirin 81 MG tablet,delayed release (DR/EC)
81 mg PO DAILY
acetaminophen 650 mg Tablet Extended Release
650 mg PO [id number] PRN (Reason: knee pain)
xfrbcvnmr-pmpkvsgy-urztngwtib 37.5-150-200 mg tablet
1 tab PO QID
cholecalciferol (vitamin D3) [Vitamin D3] 125 mcg (5,000 unit) Tablet
125 mcg PO DAILY
Discharge Orders:
Discharge Patient (As Directed); Ordered 06/22/24
Ordered By: Mor Manning
Discharge Date and Time
Discharge Date/Time: 06/22/24 17:44
Print Language: MOHAWK
== END 2024-06-22 17:44 | DRG 177 ==
LOC: 4 WEST ACU 08:42
PROVIDERS: General Practice; Hospitalist; Internal Medicine; Nurse Practitioner Adult Health; Nurse Practitioner Family; Registered Nurse; Specialist; Student in an Organized Health Care Education/Training Program; ADMITTING PHYSICIAN Hospitalist; ATTENDING PHYSICIAN Hospitalist; CONSULT PHYSICIAN Internal Medicine; CONSULT PHYSICIAN Internal Medicine Critical Care Medicine; EMERGENCY PHYSICIAN Emergency Medicine; FAMILY PHYSICIAN Family Medicine; OTHER PHYSICIAN Otolaryngology Facial Plastic Surgery; OTHER PHYSICIAN Psychiatry & Neurology Psychiatry
PROC: 30233N1 Transfusion of Nonautologous Red Blood Cells into Peripheral Vein, Percutaneous Approach (ICD-10-PCS; 2024-06-19)
PROC: 0DB68ZX Excision of Stomach, Via Natural or Artificial Opening Endoscopic, Diagnostic (ICD-10-PCS; 2024-06-19)
DX: J69.0 Pneumonitis due to inhalation of food and vomit (principal); A41.89 Other specified sepsis; K21.01 Gastro-esophageal reflux disease with esophagitis, with bleeding; U07.1 COVID-19; J96.01 Acute respiratory failure with hypoxia; J12.82 Pneumonia due to coronavirus disease 2019; K26.4 Chronic or unspecified duodenal ulcer with hemorrhage; R57.8 Other shock; R65.21 Severe sepsis with septic shock; M62.82 Rhabdomyolysis; R45.851 Suicidal ideations; J98.11 Atelectasis; D62 Acute posthemorrhagic anemia; E87.20 Acidosis, unspecified; E87.1 Hypo-osmolality and hyponatremia; J06.9 Acute upper respiratory infection, unspecified; J15.9 Unspecified bacterial pneumonia; G20.A1 Parkinson's disease without dyskinesia, without mention of fluctuations; I25.10 Atherosclerotic heart disease of native coronary artery without angina pectoris; N40.0 Benign prostatic hyperplasia without lower urinary tract symptoms; H91.91 Unspecified hearing loss, right ear; R47.1 Dysarthria and anarthria; R26.9 Unspecified abnormalities of gait and mobility; R05.3 Chronic cough; E78.00 Pure hypercholesterolemia, unspecified; G70.9 Myoneural disorder, unspecified; R13.14 Dysphagia, pharyngoesophageal phase; K22.5 Diverticulum of esophagus, acquired; J98.4 Other disorders of lung; F32.A Depression, unspecified; K59.09 Other constipation; R26.2 Difficulty in walking, not elsewhere classified; H26.9 Unspecified cataract; I71.43 Infrarenal abdominal aortic aneurysm, without rupture; N20.0 Calculus of kidney; F41.9 Anxiety disorder, unspecified; Z66 Do not resuscitate; Z96.651 Presence of right artificial knee joint; Z96.611 Presence of right artificial shoulder joint; Z96.82 Presence of neurostimulator; Z95.5 Presence of coronary angioplasty implant and graft; Z87.11 Personal history of peptic ulcer disease; Z87.442 Personal history of urinary calculi; Z88.5 Allergy status to narcotic agent; Z88.0 Allergy status to penicillin; Z88.2 Allergy status to sulfonamides; Z88.7 Allergy status to serum and vaccine; Z88.8 Allergy status to other drugs, medicaments and biological substances; Z88.1 Allergy status to other antibiotic agents; Z88.3 Allergy status to other anti-infective agents; Z91.030 Bee allergy status; Z91.041 Radiographic dye allergy status; Z79.82 Long term (current) use of aspirin; Z79.52 Long term (current) use of systemic steroids; Z99.3 Dependence on wheelchair; Z87.01 Personal history of pneumonia (recurrent); Z11.52 Encounter for screening for COVID-19
CPT/HCPCS: 88305; 36600; 70450; 71045; 71046; 71250; 71275; 74018; 74174; 74230; 80048; 80053; 80061; 81003; 81015; 82248; 82550; 82553; 82805; 82962; 83036; 83605; 83690; 83735; 83880; 84484; 85014; 85018; 85025; 85027; 85379; 85610; 85730; 86850; 86900; 86901; 86920; 87040; 87086; 87502; 87811; 88342; 92526; 92610; 92611; 93005; 94640; 97164; 97167; 97168; 97530; 97535; 99285; P9016; Q9967

== ENCOUNTER 2024-08-06 14:21 | Emergency (ER) | payer MEDICARE, OTHER, SELFPAY ==
[2024-08-06] VITALS (8 sets, daily range): BP systolic 102–128; BP diastolic 56–68; BMI 29.8
--- NOTE | 2024-08-06 15:15 | ED.GENMED ---
History of Present Illness
General
Chief Complaint: Fall
Source: patient
Exam Limitations: none
Time Seen by Provider: 08/06/24 14:58
Nursing documentation reviewed up to this point in time: agreed with
History of Present Illness
History of Present Illness:
Patient states he was trying to move from toilet to wheelchair but missed the edge of wheelchair and slid to floor. Denies hitting his head. Brought to ED via EMS for eval.
Past History
Past History
ED Past Medical History: GERD, Hypercholesterolemia, Other (Parkinson's) and Other (Kidney stones )
ED Past Surgical History: Appendectomy, Orthopedic (Reverse right shoulder replacement, R TKA Jul 2015), Urological and Other (Brain stimulator for Parkinson's disease , cataract surgery, umbilical hernia repair 02/12)
Patient has exhibited threatening behavior?: No
PSI?: No
Social History
Tobacco: Non-smoker
Alcohol: None
Drug: None
Personal:
Living: with family
Employment: Retired
Family History
Family History: Other (Noncontributory)
Review of Systems
Review of Systems
Allergies reviewed?: Yes
All Other Systems: ROS reviewed and negative except as documented in HPI and ROS
Constitutional: Reports no symptoms
EENT: Reports no symptoms
Respiratory: Reports no symptoms
Cardiac: Reports no symptoms
ABD/GI: Reports abdominal pain (right sided abd. pain)
: Reports no symptoms
Musculoskeletal: Reports no symptoms
Skin: Reports other (small sacral bruise)
Neurological: Reports no symptoms
Psychiatric: Reports no symptoms
Phy Exam
General Physical Exam
General Presentation: well appearing and no apparent distress
General age: appears stated age
General Skin: warm and dry
General Habitus: normal
General Mental: alert
General Hydration: appears well hydrated
Cardiovascular Exam
Cardiovascular Exam: regular rate/rhythm and no edema
Pulmonary Exam
Pulmonary Exam: lungs clear and no respiratory distress
Gastrointestinal Exam
Gastrointestinal Exam: normal bowel sounds, soft, no organomegaly, no pulsatile mass, non distended and no cva tenderness
Palpation: right upper quadrant: Mild tenderness and right lower quadrant: Mild tenderness
Rectal Exam: impacted stool (Small amt of soft stool digitally disimpacted. He was then able to pass a large amount of soft brown stool on own.) and soft stool
Stool: brown
Musculoskeletal Exam
Musculoskeletal Exam: full ROM and neuro vasc intact
Skin Exam
Skin Exam: normal color, warm/dry and no rash
Psychiatric Exam
Psychiatric Exam: normal mood/affect
Course
Orders/Labs/Results
Orders:
Orders
08/06/24 15:22
Complete Blood Count/With Diff Urgent
Comprehensive Metabolic Panel Urgent
08/06/24 15:52
Urinalysis Reflex To Culture Urgent
Date Specimen was Collected: 08/06/24
Time Specimen was Collected: 15:50
Urine Microscopic Reflex Cult Urgent
Urine Culture Urgent
JOSSELINE Source: U
Specimen Description:
Date Specimen was Collected: 08/06/24
Time Specimen was Collected: 15:50
08/06/24 16:30
Hip, Right 2-3 Views [CR Hip - RT w/wo Pel 2-3 Vw*] Urgent
Comment:
Reason For Exam: fall
Include a pelvis x-ray?: Yes
08/06/24 16:54
CT Abd/pel Without Iv Or Oral Urgent
Comment:
Reason For Exam: right abd pain
08/06/24 21:08
Phosphate Enema [Fleet Phosphate Enema-Adult] 135 ml RECTAL NOW STA
Abnormal Lab Results
08/06/24 08/06/24
15:22 15:52
RBC 4.06 L 10^6/uL
(4.70-6.10)
Hgb 9.6 L g/dL
(13.0-18.0)
Hct 31.8 L %
(39.0-52.0)
MCV 78.3 L fL
(80.0-94.0)
MCH 23.6 L pg
(27.0-31.0)
MCHC 30.2 L g/dL
(33.0-37.0)
RDW 17.2 H %
(11.5-14.5)
Absolute Lymphs (auto) 1.1 L 10^3/uL
(1.2-3.4)
Lymphocytes % 15.4 L %
(20.5-51.1)
Glucose 106 H mg/dl
(70-99)
Urine Ketones 1+ A
(Negative)
Ur Occult Blood Reflex 2+ A
(Negative)
Leukocyte Esterase Rfl 3+ A
(Negative)
Urine WBC (Reflex) 26-30 A /HPF
(0-5)
Urine Bacteria (Reflex) Few A
(Negative)
Urine Albumin (Reflex) 2+ A
(Neg - Trace)
08/06/24 15:22
08/06/24 15:22
Vital Signs
Initial and Last Documented VS:
Initial Vital Signs
Pulse Resp
89 27
08/06/24 14:24 08/06/24 14:24
Last Documented Vital Signs
Temp Pulse Resp BP Pulse Ox
97.4 F 76 16 128/63 98
08/06/24 14:29 08/06/24 18:57 08/06/24 18:57 08/06/24 18:57 08/06/24 18:57
*Radiology
Radiology exam reviewed: radiology read reviewed
*Pulse Oximetry
Patient hypoxic: no
*Critical Care Note
Total Time (30-74mins, 75-104mins- exclusive of procedures): Not Applicable
ED Attending Note
-
Portions of this chart may have been created with voice recognition software.� Occasional wrong word or��sound alike� substitutions may have occurred due to the inherent limitations of voice recognition software.
Discharge Plan
Departure
Patient Disposition: Home (Routine Discharge)
Date of Disposition: 08/06/24
Time of Disposition: 22:34
Patient with high blood pressure during this ER visit?: No
Condition: Good
Covid-19: Not Applicable
Discharge Problem:
Acute constipation
Instructions: Constipation in adults
Prescriptions:
No Action
docusate sodium 100 MG capsule
100 mg PO DAILY
aspirin 81 MG tablet,delayed release (DR/EC)
81 mg PO DAILY
acetaminophen 650 mg Tablet Extended Release
650 mg PO [id number] PRN (Reason: knee pain)
wsnxijuhh-elnzwqwt-uipogctsab 37.5-150-200 mg tablet
1 tab PO QID
cholecalciferol (vitamin D3) [Vitamin D3] 125 mcg (5,000 unit) Tablet
125 mcg PO DAILY
ipratropium-albuterol 0.5 mg-3 mg(2.5 mg base)/3 mL Solution For Nebulization
3 ml inhalation R Q4HPRN PRN (Reason: cough, SOB) Qty: 0 0RF
ipratropium-albuterol 0.5 mg-3 mg(2.5 mg base)/3 mL Solution For Nebulization
3 ml inhalation R TID Qty: 0 0RF
guaifenesin 600 mg Tablet Extended Release 12hr
1,200 mg PO Q12 Qty: 0 0RF
benzonatate 100 mg Capsule
100 mg PO TIDPRN PRN (Reason: cough) Qty: 0 0RF
acetaminophen 325 mg Tablet
650 mg PO Q4HPRN PRN (Reason: mild pain/CASILLAS/temp> 100.4F) Qty: 0 0RF
polyethylene glycol 3350 17 gram Powder In Packet
17 g PO DAILY Qty: 30 0RF
dextromethorphan-guaifenesin 10-100 mg/5 mL Syrup
10 ml PO Q4HPRN PRN (Reason: Cough) Qty: 237 0RF
Spiriva Respimat 2.5 mcg/actuation Mist
2 puff inhalation R DAILY Qty: 4 0RF
budesonide-formoterol [Symbicort] 160-4.5 mcg/actuation Hfa Aerosol Inhaler
2 puff inhalation R BID Qty: 10.2 0RF
sertraline 50 mg Tablet
50 mg PO DAILY Qty: 30 0RF
pantoprazole 40 mg tablet,delayed release (DR/EC)
40 mg PO BID Qty: 60 0RF
Rx Instructions:
Twice daily for 6 weeks THEN
Once daily for maintenance
prednisone 10 mg Tablet
See Rx Instructions .ROUTE .COMPLEX Qty: 18 0RF
Rx Instructions:
Take By Mouth:
20 mg daily x5 days, 10 mg daily x5 days,
5 mg daily x5 days THEN stop
Referrals:
UNKNOWN - PT NOT,INTERVIEWE [Family Provider] -
Activity Restrictions/Additional Instructions:
Follow up with your family doctor.
Interventions
Interventions:
*Risk Screen - Suicide Last Done: 08/06/24 14:29
*General Assessment Last Done: 08/06/24 14:29
*Neglect/Abuse Screening Last Done: 08/06/24 14:29
*ED- Fall Risk Assessment Last Done: 08/06/24 16:21
*ED COVID-19 Vaccine History Last Done: 08/06/24 16:21
ED-Musculoskeletal Assessment Last Done: 08/06/24 16:21
ED- Neurological Assessment Last Done: 08/06/24 16:21
ED-Skin Assessment Last Done: 08/06/24 16:21
Discharge Date and Time
Print Language: NAURUAN
[2024-08-06 15:35] LABS: % Basophils 0.4 % (0-2); % Eosinophils 1.4 % (0-6); % Immature Granulocytes 0.3 % (0-0.5); % Lymphocytes 15.4 % (20.5-51.1); % Monocytes 7.3 % (1.7-9.3); % Neutrophils 75.2 % (42.2-75.2); Absolute Eosinophils 0.1 10^3/uL (0-0.7); Absolute Lymphocytes 1.1 10^3/uL (1.2-3.4); Absolute Monocytes 0.5 10^3/uL (0.1-0.6); Absolute Neutrophils 5.4 10^3/uL (1.4-6.5); Hematocrit 31.8 % (39.0-52.0); Hemoglobin 9.6 g/dL (13.0-18.0); Mean Corp Hgb Conc. 30.2 g/dL (33.0-37.0); Mean Corpuscular Hgb 23.6 pg (27.0-31.0); Mean Corpuscular Volume 78.3 fL (80.0-94.0); Mean Platelet Volume 9.1 fL (7.4-10.4); Nucleated Red Blood Cells % 0 % (-); Platelet Count 345 10^3/uL (130-400); Red Blood Cell Count 4.06 10^6/uL (4.70-6.10); Red Cell Dist. Width 17.2 % (11.5-14.5); White Blood Cell Count 7.1 10^3/uL (4.8-10.8)
[2024-08-06 15:49] LABS: ALT (SGPT) < 10 U/L (0-50); AST (SGOT) 21 U/L (17-59); Alkaline Phosphatase 74 U/L (38-126); Blood Urea Nitrogen 18 mg/dl (9-20); Calcium 9.3 mg/dl (8.4-10.2); Carbon Dioxide 25 mmol/L (22-30); Chloride 105 mmol/L (98-107); Glucose 106 mg/dl (70-99); Potassium 4.1 mmol/L (3.5-5.1); Sodium 138 mmol/L (135-145); Total Bilirubin 0.4 mg/dl (0.2-1.3); Total Protein 6.8 g/dl (6.3-8.2); eGFR > 60.00
[2024-08-06 16:04] LABS: Urine Albumin 2+ (Neg - Trace); Urine Bilirubin Negative (Negative); Urine Character Slightly Cloudy (Clear); Urine Glucose Negative (Negative); Urine Ketone 1+ (Negative); Urine Leukocyte 3+ (Negative); Urine Nitrite Negative (Negative); Urine Occult Blood 2+ (Negative); Urine Specific Gravity 1.025 (<1.030); Urine Urobilinogen Negative (Neg - 1+)
[2024-08-06 16:07] LABS: Urine Color Orange
[2024-08-06 16:10] LABS: Urine Bacteria Few (Negative); Urine Red Blood Cell 0-2 /HPF (0-2); Urine Squamous Cell 0-2 /LPF (Few); Urine White Cell 26-30 /HPF (0-5)
--- NOTE | 2024-08-06 19:36 | EDRN ---
Report received,introduced myself to patient and spoke with his , both are aware they are waiting on a CT and then we will have a plan.
--- NOTE | 2024-08-06 20:37 | EDRN ---
Patient back from CT, incontinent to urine, patients pants changed and brief placed and pulled up in bed, warm blankets placed on patient, call zamorano in reach.
[2024-08-06] MEDS: FLEET PHOSPHATE ENEMA-ADULT 135 ML RECTAL (21:19)
--- NOTE | 2024-08-06 22:00 | EDRN ---
Spoke with to inform her that patient would be coming home once he had a bowl movement, patient is trying now
--- NOTE | 2024-08-06 22:42 | EDRN ---
Patient placed on bedside commode had a large bowl movement, yessenia, FNP aware and patient to be discharged home.
== END 2024-08-06 23:52 | disposition home or self-care (01) ==
LOC: EMR 14:21
PROVIDERS: Nurse Practitioner; EMERGENCY PHYSICIAN Emergency Medicine
DX: K59.09 Other constipation (principal); K21.9 Gastro-esophageal reflux disease without esophagitis; E78.00 Pure hypercholesterolemia, unspecified; G20.A1 Parkinson's disease without dyskinesia, without mention of fluctuations; Z87.442 Personal history of urinary calculi; Z90.49 Acquired absence of other specified parts of digestive tract; Z96.611 Presence of right artificial shoulder joint; Z96.642 Presence of left artificial hip joint; Z96.659 Presence of unspecified artificial knee joint
CPT/HCPCS: 99284; 73502; 74176; 80053; 81003; 81015; 85025; 87077; 87086

== ENCOUNTER 2025-05-09 17:21 | Observation (INO) | payer MEDICARE, OTHER, SELFPAY ==
[2025-05-09] VITALS (14 sets, daily range): BP systolic 101–151; BP diastolic 55–104; PULSE 60; O2SAT 97; BMI 28.2
[2025-05-09 09:25] LABS: Hematocrit 44.1 % (39.0-52.0); Hemoglobin 15.2 g/dL (13.0-18.0); Mean Corp Hgb Conc. 34.5 g/dL (33.0-37.0); Mean Corpuscular Volume 89.6 fL (80.0-94.0); Nucleated Red Blood Cells % 0 % (-); Platelet Count 239 10^3/uL (130-400); Red Cell Dist. Width 14.6 % (11.5-14.5)
[2025-05-09 09:36] LABS: ALT (SGPT) < 10 U/L (0-50); AST (SGOT) 20 U/L (17-59); Albumin 4.5 g/dl (3.5-5.0); Alkaline Phosphatase 72 U/L (38-126); Blood Urea Nitrogen 19 mg/dl (9-20); Calcium 9.2 mg/dl (8.4-10.2); Carbon Dioxide 27 mmol/L (22-30); Chloride 105 mmol/L (98-107); Glucose 100 mg/dl (70-99); Potassium 4.6 mmol/L (3.5-5.1); Sodium 140 mmol/L (135-145); Total Protein 7.6 g/dl (6.3-8.2); eGFR > 60.00
--- NOTE | 2025-05-09 11:50 | ED.GENMED ---
History of Present Illness
<Burt Jimenez PA-C - Last Filed: 05/09/25 15:10>
General
Chief Complaint: Bowel Problem
Source: patient
Exam Limitations: none
Time Seen by Provider: 05/09/25 11:35
History of Present Illness
History of Present Illness:
75-year-old male with history of Parkinson's wheelchair dependent able to stand and transfer presents via EMS due to constipation. He was having trouble moving his bowels yesterday. He finally had a very large bowel movement yesterday that was
hard and was painful but since then has been passing red blood. The blood is what concerned him and brought him here. He is not anticoagulated. He denies abdominal pain. He has had multiple bowel movements since arrival here. Report again from
nursing staff states that it took 3 people to get him to transfer from wheelchair to the bed. He lives at home with his . I spoke with his over the telephone who feels as though she cannot manage his care at this time. He does have a
history of sacral decubitus ulcer of which the patient states that it is getting worse. He denies fevers. No other complaints
Past History
<Burt Jimenez PA-C - Last Filed: 05/09/25 15:10>
Past History
ED Past Medical History: GERD, Hypercholesterolemia, Other (Parkinson's) and Other (Kidney stones )
ED Past Surgical History: Appendectomy, Orthopedic (Reverse right shoulder replacement, R TKA Jul 2015), Urological and Other (Brain stimulator for Parkinson's disease , cataract surgery, umbilical hernia repair 02/12)
Patient has exhibited threatening behavior?: No
PSI?: No
Social History
Tobacco: Non-smoker
Alcohol: None
Drug: None
Personal:
Living: with family
Employment: Retired
Family History
Family History: Other (Noncontributory)
Phy Exam
<ZOHREH Chand Last Filed: 05/09/25 15:10>
Physical Exam
Physical Exam:
General: Well-appearing male nontoxic no acute respiratory distress
HEENT: Normal cephalic atraumatic blunted affect
Heart: Regular rate and rhythm
Lungs: Clear no wheeze
Abdomen is soft nontender
Rectal exam: There is stage I sacral decubitus ulcer noted. There is large amount of soft brown-colored stool noted. This is heme-negative
Extremities: No cyanosis mild pitting edema
Course
<Burt Jimenez PA-C - Last Filed: 05/09/25 15:10>
Orders/Labs/Results
Orders:
Orders
05/09/25 09:01
Complete Blood Count/With Diff Urgent
Comprehensive Metabolic Panel Urgent
05/09/25 11:58
Case Management Consult ONCE
Case Management Consult: Discharge Planning
PT Consult [Pt Eval And Treat] Urgent
Activity Level: Ambulate
05/09/25 13:07
STOOL [C difficile Antigen & Toxins] Urgent
JOSSELINE Source: Feces/Stool
Specimen Description:
Stool Culture Urgent
JOSSELINE Source: Feces/Stool
Specimen Description:
Abnormal Lab Results
05/09/25
09:01
RDW 14.6 H %
(11.5-14.5)
Absolute Lymphs (auto) 1.0 L 10^3/uL
(1.2-3.4)
Neutrophils % 80.0 H %
(42.2-75.2)
Lymphocytes % 12.4 L %
(20.5-51.1)
Glucose 100 H mg/dl
(70-99)
05/09/25 09:01
05/09/25 09:01
Vital Signs
Initial and Last Documented VS:
Initial Vital Signs
Temp Pulse Resp BP Pulse Ox
98.6 F 71 16 151/75 98
05/09/25 08:50 05/09/25 08:50 05/09/25 08:50 05/09/25 08:50 05/09/25 08:50
Last Documented Vital Signs
Temp Pulse Resp BP Pulse Ox
98.6 F 71 16 125/67 95
05/09/25 08:50 05/09/25 15:03 05/09/25 08:50 05/09/25 15:03 05/09/25 15:03
<Sami Zhang, DO - Last Filed: 05/09/25 13:23>
Orders/Labs/Results
Orders:
Orders
05/09/25 09:01
Complete Blood Count/With Diff Urgent
Comprehensive Metabolic Panel Urgent
05/09/25 11:58
Case Management Consult ONCE
Case Management Consult: Discharge Planning
PT Consult [Pt Eval And Treat] Urgent
Activity Level: Ambulate
05/09/25 13:07
STOOL [C difficile Antigen & Toxins] Urgent
JOSSELINE Source: Feces/Stool
Specimen Description:
Stool Culture Urgent
JOSSELINE Source: Feces/Stool
Specimen Description:
Abnormal Lab Results
05/09/25
09:01
RDW 14.6 H %
(11.5-14.5)
Absolute Lymphs (auto) 1.0 L 10^3/uL
(1.2-3.4)
Neutrophils % 80.0 H %
(42.2-75.2)
Lymphocytes % 12.4 L %
(20.5-51.1)
Glucose 100 H mg/dl
(70-99)
05/09/25 09:01
05/09/25 09:01
Vital Signs
Initial and Last Documented VS:
Initial Vital Signs
Temp Pulse Resp BP Pulse Ox
98.6 F 71 16 151/75 98
05/09/25 08:50 05/09/25 08:50 05/09/25 08:50 05/09/25 08:50 05/09/25 08:50
Last Documented Vital Signs
Temp Pulse Resp BP Pulse Ox
98.6 F 71 16 125/67 95
05/09/25 08:50 05/09/25 15:03 05/09/25 08:50 05/09/25 15:03 05/09/25 15:03
<Burt Jimenez PA-C - Last Filed: 05/09/25 15:10>
MDM/Problems Addressed
Differential Diagnosis Includes:
Patient's primary reason for coming here is constipation which has seemed to fix itself he has had multiple bowel movements here. Patient on exam has profound generalized weakness and took heavy assist to get him transferred from the wheelchair to
the bed. I spoke with the over the telephone. She sounds frail and states that she is unable to manage his care at this time. Will consult physical therapy and case management for potential placement.
<Burt Jimenez PA-C - Last Filed: 05/09/25 15:10>
*Pulse Oximetry
SaO2: 98
Oxygen Mode of Delivery: Room air
Patient hypoxic: no
*Critical Care Note
Total Time (30-74mins, 75-104mins- exclusive of procedures): Not Applicable
<Burt Jimenez PA-C - Last Filed: 05/09/25 15:10>
Update Note
Update Note:
Seen by PT and case management. PT is recommending SNF. Case management unable to place today. Will admit to hospital for generalized weakness.
ED Attending Note
<Burt Jimenez PA-C - Last Filed: 05/09/25 15:10>
-
Portions of this chart may have been created with voice recognition software.� Occasional wrong word or��sound alike� substitutions may have occurred due to the inherent limitations of voice recognition software.
<Sami Zhang, DO - Last Filed: 05/09/25 13:23>
ED Attending Note
Patient seen and examined by attending physician: Yes
I performed the substantive portion of visit, reviewed & personally made and approve the management plan that is documented in note by myself or SEAN.: Yes
ED Attending Note:
Seen with PA examined independently reviewed with ed case manager 75-year-old male ADL dysfunction apparently had some bloody stools after he was constipated here is hemodynamically stable hard of hearing no clear indication for admission identified,
will attempt to get him placed as he apparently cannot go home
Discharge Plan
Departure
Patient Disposition: Admit
Date of Disposition: 05/09/25
Time of Disposition: 15:10
Presentation/result/management discussed w/ accepting MD/DO: Hospitalist
Discharge Problem:
Weakness
Prescriptions:
No Action
docusate sodium 100 MG capsule
100 mg PO DAILY
aspirin 81 MG tablet,delayed release (DR/EC)
81 mg PO DAILY
acetaminophen 650 mg Tablet Extended Release
650 mg PO [id number] PRN (Reason: knee pain)
gayizodau-flwerdlm-iaxhavwzam 37.5-150-200 mg tablet
1 tab PO QID
cholecalciferol (vitamin D3) [Vitamin D3] 125 mcg (5,000 unit) Tablet
125 mcg PO DAILY
ipratropium-albuterol 0.5 mg-3 mg(2.5 mg base)/3 mL Solution For Nebulization
3 ml inhalation R Q4HPRN PRN (Reason: cough, SOB) Qty: 0 0RF
ipratropium-albuterol 0.5 mg-3 mg(2.5 mg base)/3 mL Solution For Nebulization
3 ml inhalation R TID Qty: 0 0RF
guaifenesin 600 mg Tablet Extended Release 12hr
1,200 mg PO Q12 Qty: 0 0RF
benzonatate 100 mg Capsule
100 mg PO TIDPRN PRN (Reason: cough) Qty: 0 0RF
acetaminophen 325 mg Tablet
650 mg PO Q4HPRN PRN (Reason: mild pain/CASILLAS/temp> 100.4F) Qty: 0 0RF
polyethylene glycol 3350 17 gram Powder In Packet
17 g PO DAILY Qty: 30 0RF
dextromethorphan-guaifenesin 10-100 mg/5 mL Syrup
10 ml PO Q4HPRN PRN (Reason: Cough) Qty: 237 0RF
Spiriva Respimat 2.5 mcg/actuation Mist
2 puff inhalation R DAILY Qty: 4 0RF
budesonide-formoterol [Symbicort] 160-4.5 mcg/actuation Hfa Aerosol Inhaler
2 puff inhalation R BID Qty: 10.2 0RF
sertraline 50 mg Tablet
50 mg PO DAILY Qty: 30 0RF
pantoprazole 40 mg tablet,delayed release (DR/EC)
40 mg PO BID Qty: 60 0RF
Rx Instructions:
Twice daily for 6 weeks THEN
Once daily for maintenance
prednisone 10 mg Tablet
See Rx Instructions .ROUTE .COMPLEX Qty: 18 0RF
Rx Instructions:
Take By Mouth:
20 mg daily x5 days, 10 mg daily x5 days,
5 mg daily x5 days THEN stop
Interventions
Interventions:
*Risk Screen - Suicide Last Done: 05/09/25 08:50
*General Assessment Last Done: 05/09/25 08:50
*Neglect/Abuse Screening Last Done: 05/09/25 08:50
*ED COVID-19 Vaccine History Last Done: 05/09/25 08:50
*ED Influenza Vaccine History Last Done: 05/09/25 08:50
*Nursing Disposition Last Done: 12/10/25 11:07
Discharge Date and Time
Print Language: GEORGIAN
--- NOTE | 2025-05-09 13:26 | CM ---
Chart reviewed. Consult received
Spoke with PT Josy and ED team Filiberto Loera
Pt is recommended for SNF level of care
Conf[facility] that [facility]
Need to send the patient name, [facility] certified provider and PT note to [facility]
for consideration
Fax number [phone]
Sahil made ED team Filiberto Loera and his team made aware
--- NOTE | 2025-05-09 15:59 | HPS.HSE ---
Family Physician
-
Family Physician: Daniele Garcia
Chief Complaint
-
diarrhea
History of Present Illness
75yo M with PMHx of Parkinsons, chronic ambulatory deficiency o wheelchair, GERD/PUD, HLD, REYNOLD, CAD, recurrent const[facility] with some upset stomach and later developed diarrhea. Abdomen not painful, and not tender to touch.
Patient also as seen with physical therapy and he had to have 3 people assistance for transferrs from the bed to the wheelchair. Usually he was able to do it with the help of her at home. With significant change in ambulatory function - is
concerned that she will not be able to help him with ADL now. Patient was slowly worsening over past year and they already knew that some help eventually will be needed. Labs are unremarkable
Medical History
Past Medical History
Past Medical History: Reports Other
Additional Past Medical History:
See above
Past Surgical History: Reports None
Social History
Tobacco: Non-smoker
Alcohol: None
Drug: None
Family History
Family History: Not pertinent
Allergies / Home Medications
Allergies reflects when Allergies were last updated in [facility].
Home Medications with original date entered in [facility]
Allergy/Medication List:
Allergies
Allergy/AdvReac Type Severity Reaction Status Date / Time
acetaminophen (From Percocet) Allergy Unknown Verified 05/09/25 08:52
meperidine HCl (From Demerol) Allergy Nausea / Verified 05/09/25 08:52
Vomiting
nitrofurantoin Allergy Unknown Verified 05/09/25 08:52
oxycodone (From Percocet) Allergy Unknown Verified 05/09/25 08:52
piperacillin Allergy Unknown-tolerated Verified 05/09/25 08:52
cefazolin,
cefdinir,
cetriaxone
prasugrel Allergy Rash Verified 05/09/25 08:52
Uibdnni-VGF-JaB Reductase Allergy leg Verified 05/09/25 08:52
Inhibitor (Fnwuxxo-Sst-Cda weakness -
Reductase Inhibitor) falls
sulfamethoxazole (From Allergy Hives/rash/lips Verified 05/09/25 08:52
Bactrim) swelled
tetanus toxoid, adsorbed Allergy Unknown Verified 05/09/25 08:52
ticagrelor (From Brilinta) Allergy Rash Verified 05/09/25 08:52
trimethoprim (From Bactrim) Allergy Hives/rash/lips Verified 05/09/25 08:52
swelled
venom-honey bee (bee venom Allergy Anaphylaxis Verified 05/09/25 08:52
(honey bee))
bees, hornets Allergy Anaphylaxis Uncoded 05/09/25 08:52
IV CONTRAST Allergy Rash Uncoded 05/09/25 08:52
Home Medications
docusate sodium 100 mg capsule 100 mg PO DAILY Constipation 09/15/19
aspirin 81 mg tablet,delayed release 81 mg PO DAILY Blood clot prevention/tx 10/12/19
carbidopa 37.5 mg-levodopa 150 mg-entacapone 200 mg tablet 1 tab PO QID movement disorder 01/28/24
acetaminophen 325 mg tablet 650 mg (2 x 325 mg) PO Q4HPRN PRN mild pain/CASILLAS/temp> 100.4F #0 tabs 06/02/24
ferrous sulfate 325 mg (65 mg iron) tablet 325 mg PO QMWF 05/09/25
pantoprazole 40 mg tablet,delayed release 40 mg PO DAILY 05/09/25
Review of Systems
-
History Source: Patient
A 12 point ROS was completed and negative except as noted: Yes
Abdomen/GI: Reports Diarrhea
Physical Exam
Vital Signs
Vital Signs
Temp Pulse Resp BP Pulse Ox
98.6 F 71 16 125/67 95
05/09/25 08:50 05/09/25 15:03 05/09/25 08:50 05/09/25 15:03 05/09/25 15:03
Physical Exam
General: Well Nourished, No Apparent Distress and Comfortable
HEENT: NormoCephalic, Anicteric and Moist mucous membranes
Respiratory: Clear; No Wheezes or Crackles
Cardiac: S1/S2 and Regular Rhythm; No Murmur
GI: Soft, Non Tender and Non Distended
Musculoskeletal: No Clubbing, No Cyanosis and No Edema
Skin: Warm; No Rash or Jaundice
Neuro: Awake, Alert, Oriented and AO x 3
Psych: Calm
Laboratory Results
-
05/09/25 09:01
05/09/25 09:
Laboratory Results
Total Bilirubin 0.6 mg/dl (0.2-1.3) 05/09/25 09:01
AST 20 U/L (17-59) 05/09/25 09:
ALT < 10 U/L (0-50) 05/09/25 09:01
Alkaline Phosphatase 72 U/L (38-126) 05/09/25 09:01
Impression/Plan
-
A/P:
#Ambulatory dysfunction acute on chronic
PT/OT
3-persons dependent for transfers - unsafe to stay at home alone with , needs STR
CM consult
#Diarrhea
probably overflow 2/2 chronic constipation
Stool studies
#Parkinson
#PUD
#REYNOLD
#CAD, stable
#DJD
cont home meds
DVT ppx lovenox
Full code
I have spent at least 77min reviewing chart, test results, communication with consultants and providing direct patient care
--- NOTE | 2025-05-09 16:11 | CM ---
Pt facesheet, MD note and PT note sent to [facility] via fax as requested [phone]
[2025-05-09 16:43] LABS: Lipase 75 U/L (23-300)
[2025-05-09] MEDS: FEOSOL 325 MG PO (19:24)
[2025-05-09] MEDS: LOVENOX 40 MG SC (19:24)
[2025-05-10 07:39] VITALS: BP 101/54
[2025-05-10] MEDS: PROTONIX 40 MG PO (07:50)
[2025-05-10] MEDS: ASPIR LOW (ENTERIC COATED) 81 MG PO (07:50)
--- NOTE | 2025-05-10 09:11 | CM ---
Addendum entered by Amanda Munoz 05/10/25 14:48:
pending covid test results
Addendum entered by Amanda Munoz 05/10/25 14:19:
Patient accepted to [facility]. Patient and both agreed to transfer. Patient approved by [facility] and CM updated [facility] liaison [place]. Per Anna patient will need covid test. Please call report to [phone]/fax [phone]. Cm will
complete transportation forms. Cm will continue to follow for discharge planning needs.
[facility]
Addendum entered by Amanda Munoz 05/10/25 13:35:
Patient accepted by [facility] and [facility] Patient requested [facility]. CM spoke with Anna who is covering for Brooke at [facility] and she is reviewing the patient referral to confirm. CM called to patient and left VM. CM will Call to [facility]
to confirm when bed confirmed.
Original Note:
CM called to [facility] and per wen patient is approved for program. Patient needs to identify facility. CM called to patient and reviewed patient status; [facility] as well as [facility]. Following discussion of the SNF options on the
program; patient requested CM send referrals to all facilities on the program to determine who has a bed available at this time. CM sent referrals via all scripts and await responses. CM will continue to follow for discharge planning needs.
Plan; SNF/[facility]
--- NOTE | 2025-05-10 09:56 | W.PN.HOSP.TC ---
Addendum entered and electronically signed by Victor Hugo William MD 05/10/25 14:47:
please dont use billing under this note, use dc summary billing instead
Original Note:
Today's Communication/Plan
-
for rehab when bed available - CM working on it
Assessment / Plan
Assessment / Plan
75yo M with PMHx of Parkinsons, chronic ambulatory deficiency o wheelchair, GERD/PUD, HLD, REYNOLD, CAD, recurrent constipation [facility] with some upset stomach and later developed diarrhea. Abdomen not painful, and not tender to touch.
Patient also as seen with physical therapy and he had to have 3 people assistance for transferrs from the bed to the wheelchair. Usually he was able to do it with the help of her at home. With significant change in ambulatory function - is
concerned that she will not be able to help him with ADL now. Patient was slowly worsening over past year and they already knew that some help eventually will be needed. 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
Medcially stable for STR
A/P:
#Ambulatory dysfunction acute on chronic
PT/OT
3-persons dependent for transfers - unsafe to stay at home alone with , needs STR
CM consult
#Diarrhea
probably overflow 2/2 chronic constipation
Norovirus neg
#C.diff carier
no toxin found
#Parkinson
#PUD
#REYNOLD
#CAD, stable
#DJD
cont home meds
DVT ppx lovenox
Full code
I have spent at least 37min reviewing chart, test results, communication with consultants and providing direct patient care
Anticipated Discharge: Within 24 hours
Subjective/Interval History
-
Date of Service: May 10, 2025
Objective Data
-
Vital Signs:
Vital Signs
Temp Pulse Resp BP Pulse Ox
98.5 F 62 18 101/54 94
05/10/25 07:39 05/10/25 07:39 05/10/25 07:39 05/10/25 07:39 05/10/25 07:39
I&O
05/09/25 05/10/25 05/11/25
06:59 06:59 06:59
Intake Total 240 / 240
Output Total 200 / 200
Balance 40 / 40
Review of Systems
-
History Source: Patient
All other systems: Reviewed and negative
Physical Exam
-
General: No Apparent Distress
HEENT: Normocephalic
Cardiac: Regular Rhythm
GI: Soft, Nontender and Nondistended
Musculoskeletal: No Clubbing, No Cyanosis and No Edema
Neuro: Awake, Alert, Oriented and AO x 3
Psych: Calm and Apparent Dementia
[2025-05-10 12:28] VITALS: BMI 28.1
--- NOTE | 2025-05-10 14:45 | W.DCSUMMARY ---
Discharge Summary
Discharge Data
Date of Admission: 05/09/25
Date of Discharge: 05/10/25
-
Pending Results: No
Hospital Course
75yo M with PMHx of Parkinsons, chronic ambulatory deficiency o wheelchair, GERD/PUD, HLD, REYNOLD, CAD, recurrent constipation came to the hospital with some upset stomach and later developed diarrhea. Abdomen not painful, and not tender to touch.
Patient also as seen with physical therapy and he had to have 3 people assistance for transfers from the bed to the wheelchair. Usually he was able to do it with the help of her at home. With significant change in ambulatory function - is
concerned that she will not be able to help him with ADL now. Patient was slowly worsening over past year and they already knew that some help eventually will be needed. Labs are unremarkable, found to be C.diff carrier without toxin in stool. Stool
wbc neg.Medically stable for STR
Patient was managhed for:
#Ambulatory dysfunction acute on chronic
#Diarrhea 2/2 laxatives
#C.diff carier
#Parkinson
#PUD
#REYNOLD
#CAD, stable
#DJD
I have spent at least 37min reviewing chart, test results, communication with consultants and providing direct patient care
Discharge Plan
-
Patient Disposition: Fpc/SNF
Discharge Diagnosis/Procedures: Ambulatory dysfunction
Diet: Low Cholesterol
Activity: As tolerated
Referrals:
Daniele Garcia MD [Family Provider, [facility]]
Prescriptions:
Continued
docusate sodium 100 MG capsule
100 mg PO DAILY
aspirin 81 MG tablet,delayed release (DR/EC)
81 mg PO DAILY
fcozkoinc-pgomnpia-pyalemkvdf 37.5-150-200 mg tablet
1 tab PO QID
acetaminophen 325 mg Tablet
650 mg PO Q4HPRN PRN (Reason: mild pain/CASILLAS/temp> 100.4F) Qty: 0 0RF
ferrous sulfate 325 mg (65 mg iron) Tablet
325 mg PO QMWF
pantoprazole 40 mg tablet,delayed release (DR/EC)
40 mg PO DAILY
Discharge Orders:
Discharge Patient (As Directed); Ordered 05/10/25
Ordered By: Victor Hugo William
Discharge Date and Time
Print Language: AMHARIC
[2025-05-10 15:57] VITALS: BP 104/62
[2025-05-10 16:25] LABS: COVID-19 Antigen Negative (Negative)
[2025-05-10] MEDS: LOVENOX SC (17:12)
== END 2025-05-10 20:46 ==
LOC: 2 NORTH 17:21
PROVIDERS: Emergency Medicine; ADMITTING PHYSICIAN Internal Medicine; EMERGENCY PHYSICIAN Emergency Medicine; FAMILY PHYSICIAN Family Medicine
DX: R26.2 Difficulty in walking, not elsewhere classified (principal); R19.7 Diarrhea, unspecified; I25.10 Atherosclerotic heart disease of native coronary artery without angina pectoris; G20.A1 Parkinson's disease without dyskinesia, without mention of fluctuations; K21.9 Gastro-esophageal reflux disease without esophagitis; K59.00 Constipation, unspecified; Z99.3 Dependence on wheelchair; Z11.52 Encounter for screening for COVID-19; Z79.899 Other long term (current) drug therapy; Z87.11 Personal history of peptic ulcer disease
CPT/HCPCS: 80053; 83690; 85025; 87045; 87046; 87324; 87427; 87449; 87798; 87811; 89055; 99285; G0378